=== PATIENT | female | born 1945 | race Caucasian/White ===

== ENCOUNTER 2019-04-02 10:30 | Emergency (ER) | payer MEDICARE, MEDICAID, SELFPAY ==
[2019-04-02] VITALS (116 sets, daily range): BP systolic 104–131; BP diastolic 42–87; PULSE 86–97; RESP 7–28; TEMP 36.6; O2SAT 87–100
--- NOTE | 2019-04-02 10:37 | ED.GENADUL_ITS ---
Discharge Plan Disposition Patient Disposition: HOME Condition: Improving Discharge Details Chief Complaint: SOB Clinical Impression: Acute exacerbation of chronic obstructive pulmonary disease (COPD), URI with cough and congestion Primary Care Provider: Maria Guadalupe Price ED Provider: Cathy Lizarraga Home Meds and New Rx's Prescriptions: New prednisone 20 mg tablet See Rx Instructions .ROUTE .COMPLEX Qty: 12 RF: 0 albuterol sulfate 2.5 mg /3 mL (0.083 %) solution for nebulization 2.5 mg IH QID PRN (Reason: shortness of breath or wheezing) Qty: 75 RF: 0 Continued bupropion HCl 150 MG tablet extended release 12 hr 150 mg PO DAILY RF: 0 ipratropium-albuterol 3 ML solution for nebulization 3 ml Inhalation Q6H PRN PRNRF: 0 albuterol sulfate 3 ML solution for nebulization 3 ml Inhalation Q4H PRN PRNRF: 0 gabapentin 800 MG tablet 800 mg PO TID RF: 0 oxybutynin chloride [Ditropan XL] 5 MG tablet extended release 24hr 5 mg PO DAILY RF: 0 albuterol sulfate 8.5 GM HFA aerosol inhaler 2 puff Inhalation Q4H PRN PRNRF: 0 Symbicort 60 PUFF HFA aerosol inhaler 2 puff Inhalation BID RF: 0 atorvastatin 40 mg Tablet 40 mg PO DAILY RF: 0 metoprolol succinate 50 mg Tablet Extended Release 24 Hr 50 mg PO DAILY RF: 0 alendronate 70 mg Tablet 70 mg PO QWEEK RF: 0 clopidogrel 75 mg Tablet 75 mg PO DAILY RF: 0 amitriptyline 50 mg Tablet 50 mg PO QHS RF: 0 acetaminophen [Acetaminophen Extra Strength] 500 mg Tablet 1,000 mg PO Q8H PRNRF: 0 levothyroxine 25 mcg Tablet 25 mcg PO DAILY RF: 0 pantoprazole 20 mg Tablet,Delayed Release (Dr/Ec) 20 mg PO DAILY RF: 0 nitroglycerin 0.4 mg Tablet, Sublingual 0.4 mg SUBLINGUAL Q5M PRNRF: 0 azelastine 137 mcg (0.1 %) Aerosol,[place] 1 spray INTRANASAL BID RF: 0 lxxtroiw-wksbughya-JQ 3.5-10,000-1 mg/mL-unit/mL-% Drops,Suspension 3 drp OTIC (EAR) BID RF: 0 duloxetine 60 mg Capsule,Delayed Release(Dr/Ec) 60 mg PO DAILY RF: 0 cholecalciferol (vitamin D3) 1,000 unit Tablet,Chewable 5,000 unit PO DAILY RF: 0 naproxen sodium 220 mg Capsule 220 mg PO BID RF: 0 tiotropium bromide 2.5 mcg/actuation Mist 2 puff INHALATION BID RF: 0 (DME) Oxygen-Air Delivery Systems 4 RF: 0 Discharge Instructions Instructions: Upper Respiratory Infection (ED), COPD (Chronic Obstructive Pulmonary Disease) (ED) Additional Instructions: Take the steroids until finished. Use your albuterol inhaler and nebulizer as needed and directed. Call your primary care doctor tomorrow to schedule a follow-up appointment for reevaluation. Return immediately to the emergency department if you develop any worsening or new concerning symptoms. Discharge Data Discharge Physician: Cathy Lizarraga Medical Decision Making 1035 -- 73yo F w/ anxiety, copd chronically on 4 L home O2, depression, diabetes, gerd, sciatica presents with feeling feverish, cough with green sputum, shortness of breath and decreased appetite over the past few days. Afebrile. Respiratory rate 20s. O2 sat 95% on neb treatment. She is speaking in full sentences and appears in no acute respiratory distress. EKG notes a rate of 85, sinus with no acute ST-T wave ischemic changes. Differential diagnosis includes acute COPD exacerbation, acute CHF, ACS, pneumonia, influenza. Will continue duo nebs, IV Solu-Medrol, screening labs and chest x-ray. 1245 --labs and imaging reviewed. White blood cell count 13. Normal hemoglobin. Troponin negative. BNP within normal limits. Chest x-ray negative for acute findings. Influenza negative. O2 sats 96% on 2 L NC. She has normal respiratory rate, heart rate and blood pressure. Patient admits to much improvement after nebs and steroids here. Patient states she feels good to go home. She is not a smoker. We will send home with a prescription for steroids, and albuterol solution for nebulizer machine. She is advised to follow-up with her primary care doctor for reevaluation and to return her anytime if worse. Medical Records Medical records reviewed: Yes I reviewed the patient's medical records. Imaging Data Radiologic Study: Radiologist's impression: XR Chest, 2 Views Exam date and time: 04/02/2019 10:51 AM Clinical history: 73 years old, female; Other: Cough , fever, R/O pnemonia TECHNIQUE: Imaging protocol: XR of the chest Views: 2 views. COMPARISON: SC CHEST 2 VIEWS PA,LAT 10/22/2016 5:28 PM FINDINGS: Lungs: Stable interstitial prominence. No focal consolidation. Pleural space: Unremarkable. No pleural effusion. No pneumothorax. Heart/Mediastinum: Unremarkable. No cardiomegaly. Bones/joints: Unremarkable. IMPRESSION: 1. Stable interstitial prominence. 2. No focal consolidation. Lab Data Lab results reviewed: Yes I reviewed the patient's lab results. Labs: 04/02/19 11:25 Nasopharynx Influenza Types A,B Antigen - Final Laboratory Tests Range/Units 04/02/19 04/02/19 04/02/19 10:49 10:49 10:49 WBC (4.4-10.8) k/cumm 13.32 H RBC (4.00-5.20) m/cumm 4.19 Hgb (12.0-15.5) g/dL 12.3 Hct (36.0-46.0) % 38.1 MCV (80-95) fL 90.9 MCH (27.0-33.0) pg 29.4 MCHC (32.0-36.0) g/dL 32.3 RDW (11.7-14.6) % 13.4 Plt Count (130-400) x1000/uL 199 MPV (8.0-11.0) fL 9.6 Immature Gran % 0.7 Neutrophils % 84.2 Lymphocytes % 5.9 Monocytes % 5.4 Eosinophils % 3.7 Basophils % 0.1 Absolute Neutrophils (1.2-6.7) k/cumm 11.22 H Absolute Lymphocytes (1.2-3.4) k/cumm 0.79 L Absolute Monocytes (0.11-0.7) k/cumm 0.72 H Absolute Eosinophils (0.0-0.7) k/cumm 0.49 Absolute Basophils (0.0-0.2) k/cumm 0.01 Sodium (136-145) mmol/L 140 Potassium (3.5-5.1) mmol/L 3.6 Chloride (98-107) mmol/L 103 Carbon Dioxide (21.0-32.0) mmol/L 27.9 Anion Gap (3-11) mmol/L 9.1 BUN (7-18) mg/dL 33 H Creatinine (0.55-1.02) mg/dL 1.81 H Estimated GFR/1.73 m2 (mL/min/1.73m2) 27.33 Glucose (70-100) mg/dL 140 H Calcium (8.5-10.1) mg/dL 9.3 Magnesium (1.8-2.4) mg/dL 2.0 Total Bilirubin (0.2-1.0) mg/dL 0.8 AST (15-37) U/L 15 ALT (14-59) U/L 19 Alkaline Phosphatase (46-116) U/L 77 Troponin I (0.00-0.06) ng/mL < 0.05 NT-Pro-B Natriuret Pep ( - 299) pg/mL 196 Total Protein (6.4-8.2) g/dL 7.2 Albumin (3.4-5.0) g/dL 3.2 L ECG Data Attestation: I personally reviewed and interpreted this ECG (s) as follows: Interpretation: Rate of 85, sinus, no acute ST elevation or depression. IN 164. QTc 435. QRS 92. HPI General Mode of arrival: ambulatory . Date/Time Provider Initiated Documentation: 04/02/19 10:50 . Limitations to Documentation: no limitations . Information obtained by: patient . HPI Narrative: Patient is a 73-year-old female with a history of COPD chronically on 4 L of home O2, diabetes, anxiety, depression, hypothyroidism who presents the ED with complaint of feeling fev erish, cough with green sputum, and shortness of breath for the past several days. She states she did not think to use her inhaler or nebulizer at home. She also admits to decreased appetite. She denies any chest pain, leg pain or swelling, recent surgery or recent travel. Patient was given 2 neb treatments per EMS and she admits to much improvement. She denies any recent steroids. Related Data Home Medications Medication Instructions Recorded Confirmed Symbicort 2 puff INHALATION BID 02/25/15 04/02/19 albuterol sulfate 2 puff INHALATION Q4H PRN PRN 02/25/15 04/02/19 albuterol sulfate 3 ml INHALATION Q4H PRN PRN 02/25/15 04/02/19 bupropion HCl 150 mg PO DAILY 02/25/15 04/02/19 gabapentin 800 mg PO TID 02/25/15 04/02/19 ipratropium-albuterol 3 ml INHALATION Q6H PRN PRN 02/25/15 04/02/19 oxybutynin chloride [Ditropan XL] 5 mg PO DAILY 02/25/15 04/02/19 Oxygen-Air Delivery Systems 04/02/19 04/02/19 acetaminophen [Acetaminophen Extra 1,000 mg PO Q8H PRN 04/02/19 04/02/19 Strength] albuterol sulfate 2.5 mg IH QID PRN #75 ml 04/02/19 alendronate 70 mg PO QWEEK 04/02/19 04/02/19 amitriptyline 50 mg PO QHS 04/02/19 04/02/19 atorvastatin 40 mg PO DAILY 04/02/19 04/02/19 azelastine 1 spray INTRANASAL BID 04/02/19 04/02/19 cholecalciferol (vitamin D3) 5,000 unit PO DAILY 04/02/19 04/02/19 clopidogrel 75 mg PO DAILY 04/02/19 04/02/19 duloxetine 60 mg PO DAILY 04/02/19 04/02/19 levothyroxine 25 mcg PO DAILY 04/02/19 04/02/19 metoprolol succinate 50 mg PO DAILY 04/02/19 04/02/19 naproxen sodium 220 mg PO BID 04/02/19 04/02/19 udyoyxbs-sbtvmeyxi-FC 3 drp OTIC (EAR) BID 04/02/19 04/02/19 nitroglycerin 0.4 mg SUBLINGUAL Q5M PRN 04/02/19 04/02/19 pantoprazole 20 mg PO DAILY 04/02/19 04/02/19 prednisone See Rx Instructions .ROUTE 04/02/19 .COMPLEX #12 tab tiotropium bromide 2 puff INHALATION BID 04/02/19 04/02/19 Previous Rx's Medication Instructions Recorded albuterol sulfate 2.5 mg IH QID PRN #75 ml 04/02/19 prednisone See Rx Instructions .ROUTE 04/02/19 .COMPLEX #12 tab Allergies Allergy/AdvReac Type Severity Reaction Status Date / Time aspirin AdvReac Intermediate makes her Unverified 04/02/19 10:39 loopy Review of Systems Review of Systems ROS Unobtainable: All systems reviewed & are unremarkable except as noted in HPI and below Constitutional Constitutional: Reports as per HPI, Denies chills and Denies fever(s) Eyes Eyes: Denies blurry vision ENT Ears, Nose, Mouth, and Throat: Denies dizziness, Denies sore throat and Denies throat swelling Cardiovascular Cardiovascular: Denies chest pain and Reports dyspnea Respiratory Respiratory: Reports cough and Reports dyspnea Gastrointestinal Gastrointestinal: Denies abdominal pain, Denies diarrhea and Denies vomiting Genitourinary Genitourinary: Denies hematuria and Denies dysuria Musculoskeletal Musculoskeletal: Denies back pain and Denies numbness Integumentary/Breasts Skin/Breast: Denies lesions and Denies rash Neurologic Neurologic: Denies dizziness, Denies focal weakness and Denies numbness Allergic/Immunologic Allergic/Immunologic: Denies throat swelling [facility] Medical History Anxiety (Chronic) COPD (chronic obstructive pulmonary disease) (Chronic) Depression (Chronic) Diabetes (Chronic) GERD (gastroesophageal reflux disease) (Chronic) Hyperparathyroidism (Acute) Hypothyroidism (Chronic) Surgical History History of appendectomy (Chronic) History of back surgery (Acute) History of knee surgery (Acute) Social History Smoking/Tobacco Use Status: Former Tobacco Use Alcohol Intake: current Alcohol Intake frequency: holidays/special occasions only Drug use: Never Do you feel safe at home: Yes Do you feel safe in your relationship?: Yes Exam Const General: cooperative and healthy appearing Orientation: alert and awake HENMT Head: normal to inspection Ears: hearing grossly normal bilaterally, external ears normal and TM's normal bilaterally General nose exam: external nose normal Face and sinus: normal facial exam Mouth: oral mucosae normal Teeth and gingiva: dentition normal Throat: posterior oropharynx normal Eyes General: appearance normal, both eyes and all related structures Eyelids: eyelids normal EOM: EOM intact bilaterally Neck Neck: normal visual inspection Lymphatic: no lymphadenopathy noted Chest Chest: normal inspection of the chest Resp Effort & Inspection: normal respiratory effort and able to speak in complete sentences Auscultation: clear to auscultation bilaterally Cardio Rate: regular rate Rhythm: regular rhythm GI Inspection: normal to inspection Palpation: soft, not firm, no guarding, no hepatosplenomegaly, no masses and nontender Auscultation: normal bowel sounds Back/Spine/Pelvis Back: no CVA tenderness Skin General skin exam: no rashes or lesions noted Neuro General: alert and awake Cognition: normal cognition Speech: speech normal Gait: normal gait Motor: muscle tone normal throughout Sensory Exam: no sensory deficits noted Extrem General: normal to inspection, full ROM, normal capillary refill and no edema Psych Appearance: grossly normal Mental Status: mental status grossly normal Speech and Movement: speech and movement normal Affect: normal affect Thought Process: normal
[2019-04-02 10:58] LABS: Abs Immature Grans 0.09 k/cumm (0.0-0.09); Absolute Basophil Count 0.01 k/cumm (0.0-0.2); Absolute Eosinophil Count 0.49 k/cumm (0.0-0.7); Absolute Monocyte Count 0.72 k/cumm (0.11-0.7); Basophils % 0.1; Eosinophils % 3.7; HCT 38.1 % (36.0-46.0); HGB 12.3 g/dL (12.0-15.5); Immature Grans % 0.7; Lymphocytes % 5.9; Mean Corp. HGB Concentration 32.3 g/dL (32.0-36.0); Mean Corpuscular Hemoglobin 29.4 pg (27.0-33.0); Mean Corpuscular Volume 90.9 fL (80-95); Mean Platelet Volume 9.6 fL (8.0-11.0); Monocytes % 5.4; Neutrophils % 84.2; Platelet Count 199 x1000/uL (130-400); RBC 4.19 m/cumm (4.00-5.20); RBC Distribution Width 13.4 % (11.7-14.6); White Blood Cell Count 13.32 k/cumm (4.4-10.8)
[2019-04-02 11:02] LABS: Absolute Lymphocyte Count 0.79 k/cumm (1.2-3.4); Absolute Neutrophil Count 11.22 k/cumm (1.2-6.7)
--- NOTE | 2019-04-02 11:08 | DI.RAD_ITS ---
EXAM: XR CHEST 2V PA LATERAL INDICATION: cough, fever, r/o pneumonia. COMPARISON: CHEST 2 VIEWS PA,LAT from 10/22/2016 TECHNIQUE: 2D digital imaging was performed. FINDINGS: The heart is not enlarged. There are changes of COPD and pulmonary scarring. No acute consolidation seen. No pleural effusion seen. Conclusion no evidence of acute process. No change from prior exa mination IMPRESSION:
[2019-04-02 11:15] LABS: ALT 19 U/L (14-59); AST 15 U/L (15-37); Albumin 3.2 g/dL (3.4-5.0); Alkaline Phosphatase 77 U/L (46-116); Anion Gap 9.1 mmol/L (3-11); BUN 33 mg/dL (7-18); Bilirubin, Total 0.8 mg/dL (0.2-1.0); CO2 27.9 mmol/L (21.0-32.0); CREATININE 1.81 mg/dL (0.55-1.02); Calcium 9.3 mg/dL (8.5-10.1); Chloride 103 mmol/L (98-107); Estimated GFR 27.33 (mL/min/1.73m2); Glucose 140 mg/dL (70-100); Potassium 3.6 mmol/L (3.5-5.1); Sodium 140 mmol/L (136-145); Total Protein 7.2 g/dL (6.4-8.2)
[2019-04-02 11:16] LABS: Troponin I < 0.05 ng/mL (0.00-0.06)
[2019-04-02 11:21] LABS: NT-proBNP 196 pg/mL
[2019-04-02] MEDS: methylPREDNISolone SUCC 125 MG VIAL IVP (11:21)
[2019-04-02] MEDS: Albuterol 2.5 MG/3 ML INH SOLN VIAL 7.5 MG UPD (11:22)
--- NOTE | 2019-04-02 11:38 | DI.VRAD_ITS ---
PROCEDURE INFORMATION: Exam: XR Chest, 2 Views Exam date and time: 04/02/2019 10:51 AM Clinical history: 73 years old, female; Other: Cough , fever, R/O pnemonia TECHNIQUE: Imaging protocol: XR of the chest Views: 2 views. COMPARISON: SC CHEST 2 VIEWS PA,LAT 10/22/2016 5:28 PM FINDINGS: Lungs: Stable interstitial prominence. No focal consolidation. Pleural space: Unremarkable. No pleural effusion. No pneumothorax. Heart/Mediastinum: Unremarkable. No cardiomegaly. Bones/joints: Unremarkable. IMPRESSION: 1. Stable interstitial prominence. 2. No focal consolidation. Dictated and Authenticated by: Rissa Adair MD. Ordering:SAMMY Morgan MD
[2019-04-02] MEDS: Normal Saline 250 ML IV (12:46)
== END 2019-04-02 13:48 | disposition home or self-care (01) ==
PROVIDERS: Emergency Provider Physician Assistant; PCP Internal Medicine Adolescent Medicine
DX: J44.1 Chronic obstructive pulmonary disease with (acute) exacerbation (principal); J06.9 Acute upper respiratory infection, unspecified; Z99.81 Dependence on supplemental oxygen; E11.9 Type 2 diabetes mellitus without complications
CPT/HCPCS: 36415; 80053; 87449; 93005; 94640; 96361; 96374; 99285; 71046; 83735; 83880; 84484; 85025; 93010; J2930; J7613

== ENCOUNTER 2020-05-29 01:01 | Outpatient (CLI) | payer MEDICARE, MEDICAID, SELFPAY ==
--- NOTE | 2020-05-29 14:50 | DI.CT_ITS ---
EXAM: CT LUMBAR SPINE WO CLINICAL HISTORY: LT LUMBAR RADICULOPATHY,PRIOR HNP, SEVERE OSTEOPOROSIS,M54.16. TECHNIQUE: Imaging Protocol: Axial computed tomography images with coronal and sagittal reformatted images were created and reviewed COMPARISON: CT ABD PELVIS WO CONTRAST from 10/22/2016 FINDINGS: Bones: The last intervertebral disc space is designated the L5/S1 level for the numbering purpose of this examination. There is moderate disc space narrowing and vacuum discs seen at L1-L2. There is m arked disc space narrowing and a vacuum disc at L5-S1. Alignment is satisfactory. No fracture is seen . There are endplate osteophytes at all levels of the lumbar spine. There are degenerative changes o f the facets at multiple levels of the lumbar spine but most marked at L4-5 and L5-S1. Discal calcif ication is seen posteriorly at the L1-L2, L3-L4 and L5-S1 levels. T12-L1: No disc herniations or bulges are present. No central spinal canal stenosis. No neural for aminal stenosis. L1-2: Mild diffuse disc bulge. Mild narrowing of the central spinal canal. No neural foraminal rodrigo nosis. L2-3: There is a mild diffuse disc bulge and hypertrophy of the ligamentum flavum. There is mild ce ntral spinal canal stenosis. No neural foraminal stenosis. L3-4: There is a mild diffuse disc bulge and hypertrophy of the ligamentum flavum. This results in [id number]-mi-xlnrqbfu central spinal canal stenosis. No neural foraminal stenosis. L4-5: There is a diffuse disc bulge and hypertrophy of the ligamentum flavum. This results in moder ate central spinal canal stenosis. No neural foraminal stenosis. L5-S1: No focal disc herniation. No significant central spinal canal stenosis. Mild bilateral neur al foraminal stenosis. Soft Tissues: The visualized SI joints and sacrum are will maintained. The paraspinal soft tissues a re unremarkable. There is atherosclerosis of the abdominal aorta. Emphysematous changes are seen in the lung bases. Parenchymal scarring is seen in the right lower lobe. IMPRESSION: Multilevel degenerative changes in the lumbar spine resulting in central spinal canal and neural fora chelsey stenosis as described above. RADIATION DOSE DELIVERED: 618.4mGy.cm Total DLP 618.4mGy.cm Total DLP DATA REPOSITORY: All CT scans at this facility are submitted to the National Radiology Data Registry (NRDR) Dose Index Registry (DIR) with the [employer] ([employer]). RADIATION OPTIMIZATION: All CT scans at this facility use at least one of these dose optimization te chniques: automated exposure control; mA and/or kV adjustment per patient size (includes targeted exa ms where dose is matched to clinical indication); or iterative reconstruction.
== END 2020-05-29 01:21 ==
PROVIDERS: PCP Internal Medicine Adolescent Medicine; Visit Provider Internal Medicine Adolescent Medicine
DX: M47.816 Spondylosis without myelopathy or radiculopathy, lumbar region (principal); M48.061 Spinal stenosis, lumbar region without neurogenic claudication
CPT/HCPCS: 72131

== ENCOUNTER 2021-05-26 15:17 | Observation (INO) | payer MEDICARE, MEDICAID, SELFPAY ==
[2021-05-26] VITALS (30 sets, daily range): BP systolic 106–161; BP diastolic 60–83; PULSE 64–77; RESP 11–21; TEMP 36.1–36.7; O2SAT 89–100
--- NOTE | 2021-05-26 15:00 | RT.EKG_ITS ---
APPROVED REPORT Exam: Resting ECG Reason for Exam: chest pain Patient Location: E HR:65 bpm ECG Measurements Heart Rate 65 AXIS MO 215 P 81 QRSd 78 QRS 35 QT 391 T 57 QTc 407 Conclusion Sinus rhythm...normal P axis, V-rate 60- 99 Borderline prolonged MO interval...MO >212, V-rate 50- 90
--- NOTE | 2021-05-26 15:30 | DI.RAD_ITS ---
Exam(s) XR CHEST 2V PA LATERAL EXAM: XR CHEST 2V PA LATERAL CLINICAL HISTORY: L anterior CP TECHNIQUE: 2D digital imaging was performed. COMPARISON: CR,XR XR CHEST 2V PA LATERAL from 04/02/2019 FINDINGS: MEDIASTINUM: Normal. HEART: Normal. PULMONARY VASCULATURE: Normal. LUNGS: Emphysematous and fibrotic changes. Right upper lobe scarring. No focal consolidation. PLEURAL SPACE: No pleural effusion or pneumothorax. BONE:Unremarkable for age. IMPRESSION: No acute abnormality. DATA REPOSITORY: RADIATION DOSE DELIVERED:
--- NOTE | 2021-05-26 15:34 | ED.GENADUL_ITS ---
Discharge Plan Disposition Patient Disposition: [facility] INPATIENT Condition: Good Discharge Details Chief Complaint: Chest Pain Admit Date/Time: 05/26/21 18:38 Admit Provider: Frank Webber Attending Provider: Frank Webber Primary Care Provider: Maria Guadalupe Price ED Provider: Ervin Melgoza Discharge Instructions Activity:: Activity as Tolerated Equipment/Supplies:: No Equipment Needed Diet:: Low Sodium Discharge Orders Discharge Orders: Discharge Order (Routine); Ordered 05/27/21 Ordered By: Pepper Richey Discharge Data Discharge Date/Time-TO BE ENTERED AT DEPARTURE: 05/26/21 19:45 Medical Decision Making 75-year-old female presents from home complaining of left anterior chest pain that began abruptly while seated at home at 2 PM. She describes it as a strong pressure received, 8 out of 10. She previously has seen cardiology at [facility], had stress test which she reports was unremarkable, and was given a prescription for nitroglycerin. She took nitroglycerin x3 home without resolution of the pain. She has a history of oxygen dependent COPD but feels no shortness of breath or wheezing. Patient arrives alert and interactive, in no significant distress. She is well- appearing. Differential diagnosis includes acute coronary syndrome, pulmonary embolism, GERD. Patient IV access established, placed on a threat monitoring analyst, referred for laboratory testing and chest x-ray. Patient's D-dimer is elevated at 941. Her renal function is chronic for today BUN is 22, creatinine 1.6, GFR 31. Troponin negative. Given the elevated D-dimer and poor renal function, I do not feel that CTA with contrast load is appropriate for the patient. I have discussed with radiology and the patient may have a VQ scan tomorrow which I will order tonight. Case discussed with Dr. Webber who will admit for further work-up HPI General Mode of arrival: EMS . Date/Time Provider Initiated Documentation: 05/26/21 15:21 . Limitations to Documentation: no limitations . Information obtained by: patient . History of Present Illness 75 year old F presents to the emergency department with the chief complaint of Left anterior chest pain at 2 PM, now improved, described as moderate, Quality is described as dull, and is localized to the chest and left. Patient reports no radiation. Patient started experiencing this minute(s) and it has been now resolved. No relieving factors improve symptom(s), No exacerbating factors reported . Patient notes denies diaphoresis, headaches, loss of appetite, nausea/vomiting, shortness of breath and syncope. Patient did receive the following treatments prior to arrival, other (Nitroglycerin x3) Related Data Home Medications Medication Instructions Recorded Confirmed albuterol sulfate 2 puff INHALATION Q4H PRN PRN 02/25/15 05/26/21 albuterol sulfate 3 ml INHALATION Q4H PRN PRN 02/25/15 05/26/21 budesonide-formoterol [Symbicort] 2 puff INHALATION BID 02/25/15 05/26/21 bupropion HCl 150 mg PO DAILY 02/25/15 05/26/21 gabapentin 800 mg PO TID 02/25/15 05/26/21 ipratropium-albuterol 3 ml INHALATION Q6H PRN PRN 02/25/15 05/26/21 Oxygen-Air Delivery Systems 04/02/19 04/02/19 acetaminophen [Acetaminophen Extra 1,000 mg PO Q8H PRN 04/02/19 05/26/21 Strength] alendronate 70 mg PO QWEEK 04/02/19 05/26/21 amitriptyline 50 mg PO QHS 04/02/19 05/26/21 atorvastatin 40 mg PO DAILY 04/02/19 05/26/21 cholecalciferol (vitamin D3) 5,000 unit PO DAILY 04/02/19 05/26/21 clopidogrel 75 mg PO DAILY 04/02/19 05/26/21 duloxetine 60 mg PO DAILY 04/02/19 04/02/19 levothyroxine 25 mcg PO DAILY 04/02/19 05/26/21 metoprolol succinate 50 mg PO DAILY 04/02/19 05/26/21 naproxen sodium 220 mg PO BID 04/02/19 05/26/21 nitroglycerin 0.4 mg SUBLINGUAL Q5M PRN 04/02/19 05/26/21 pantoprazole 20 mg PO DAILY 04/02/19 05/26/21 tiotropium bromide 2 puff INHALATION BID 04/02/19 05/26/21 fexofenadine 180 mg PO PRN PRN 05/26/21 05/26/21 lidocaine 1 patch TOPICAL PRN PRN 05/26/21 05/26/21 mirabegron 25 mg PO QHS 05/26/21 05/26/21 mirtazapine 15 mg PO QHS 05/26/21 05/26/21 Allergies Allergy/AdvReac Type Severity Reaction Status Date / Time aspirin AdvReac Intermediate makes her Unverified 05/26/21 15:24 loopy General Stated Complaint: Chest Pain GIANA: 3 Review of Systems Narrative: No recent chest pains or shortness of breath. Stop smoking 10 years ago. Normal bowel movements. 8 systems reviewed and otherwise negative [facility] Active Problem List COPD (chronic obstructive pulmonary disease) (Chronic) Medical History Anxiety Depression Diabetes GERD (gastroesophageal reflux disease) Hyperparathyroidism Hypothyroidism Surgical History History of appendectomy History of back surgery History of knee surgery Social History Smoking/Tobacco Use Status: Former Tobacco Use Smoking risk assessment performed?: Yes Alcohol Intake: current Alcohol Intake frequency: holidays/special occasions only Alcohol type: wine Drug use: Never Substance use type: does not use Do you feel safe at home: Yes Do you feel safe in your relationship?: Yes Exam Narrative Exam Narrative: GEN: awake, alert, oriented 3. Pleasant, well groomed, interactive. HEAD: Normocephalic, atraumatic ENT: Mucous membranes moist, oropharynx unremarkable, External ear exam unremarkable EYES: PERRL, EOMI NECK: Full ROM, no ODESSA, no menigismus CHEST/RESP: Nontender, clear to auscultation bilateral, no wheeze/rhonchi/rales CARDIOVASCULAR: RRR, no murmur, rub emelia. 2+ Rad pulse bilateral ABDOMEN: Soft, nontender, no mass. +Bowel sounds EXT: Full ROM, no edema, no rash Neuro: Grossly normal neurologic exam, conversant, interactive. Psych: Speech fluent, thoughts congruent, affect normal Course Vital Signs Vital signs: Vital Signs Temperature 36.1 C L 05/26/21 15:20 Pulse 68 05/26/21 15:20 Respiratory Rate 18 05/26/21 15:20 Pulse Oximetry 100 05/26/21 15:20 Temperature 36.1 C L 05/26/21 15:20 Temperature Source Temporal Artery Scan 05/26/21 15:20 Pulse 68 05/26/21 15:20 Respiratory Rate 18 05/26/21 15:20 Blood Pressure Position Sitting 05/26/21 15:20 Pulse Oximetry 100 05/26/21 15:20 Oxygen Delivery Method Room Air 05/26/21 15:20 Oxygen Flow Rate 0 05/26/21 15:20
[2021-05-26 15:50] LABS: Abs Immature Grans 0.03 10^3/uL (0.0-0.06); Absolute Basophil Count 0.06 10^3/uL (0.0-0.2); Absolute Eosinophil Count 0.27 10^3/uL (0.0-0.7); Absolute Lymphocyte Count 1.61 10^3/uL (1.2-3.4); Absolute Neutrophil Count 6.82 10^3/uL (1.2-6.7); Basophils % 0.6; Eosinophils % 2.9; HCT 36.1 % (36.0-46.0); HGB 10.7 g/dL (11.2-15.7); Immature Grans % 0.3; Lymphocytes % 17.1; MCH 27.2 pg (27.0-33.0); MCHC 29.6 % (32.0-36.0); MCV 91.9 fL (80-95); MPV 9.6 fL (8.0-11.0); Monocytes % 6.4; Neutrophils % 72.7; Nucleated RBC 0 %; Platelet Count 198 10^3/uL (130-400); RBC 3.93 10^6/uL (3.93-5.22); RDW 13.1 % (11.7-14.6); RDW-SD 44.5 fL; WBC 9.39 10^3/uL (4.4-10.8)
[2021-05-26 16:19] LABS: ALT 25 U/L (14-59); AST 16 U/L (15-37); Albumin 3.4 g/dL (3.4-5.0); Alkaline Phosphatase 100 U/L (46-116); Anion Gap 5.5 mmol/L (3-11); BUN 22 mg/dL (7-18); Bilirubin, Total 0.4 mg/dL (0.2-1.0); CO2 34.5 mmol/L (21.0-32.0); CREATININE 1.6 mg/dL (0.55-1.02); Calcium 9.1 mg/dL (8.5-10.1); Chloride 105 mmol/L (98-107); Estimated GFR 31.34 (mL/min/1.73m2); Glucose 111 mg/dL (74-106); Potassium 4.2 mmol/L (3.5-5.1); Sodium 145 mmol/L (136-145); Total Protein 6.8 g/dL (6.4-8.2)
[2021-05-26 16:21] LABS: Troponin I < 0.05 ng/mL (<0.06)
[2021-05-26 16:31] LABS: D-Dimer 941 ng/mlFEU (<500)
--- NOTE | 2021-05-26 17:20 | DI.VRAD_ITS ---
PROCEDURE INFORMATION: Exam: XR Chest Exam date and time: 05/26/2021 3:34 PM Age: 75 years old Clinical indication: Other: L anterior cp TECHNIQUE: Imaging protocol: XR of the chest. Views: 2 views. COMPARISON: CR XR CHEST 2V PA LATERAL 04/02/2019 11:02 AM FINDINGS: Lungs: Some scattered chronic pulmonary opacities are again seen. No focal consolidation. No new opacities. Pleural spaces: Unremarkable. No pleural effusion. No pneumothorax. Heart/Mediastinum: Unremarkable. No cardiomegaly. Bones/joints: Unremarkable. IMPRESSION: No acute disease Dictated and Authenticated by: Nikhil Ramon MD. Ordering:DALLAS Mueller MD
--- NOTE | 2021-05-26 18:24 | W.PM.HP.N ---
Date of service: 05/26/21 Time of Service: 18:24 Assessment and Plan Assessment and plan (1) Chest pain: Status: Acute Assessment and plan: Chest pain, etiology unclear at present. Response to NTG c/w coronary insufficiency though not diagnostic. On the other hand the sharp quality of the pain along with modestly elevated d-Dimer raises question of PE. I think a reasonable course at present is to trend the troponins, and in meantime give empiric dose Lovenox until we can obtain either V/Q, LE U/S or both (would agree with holding off CTA given renal function). History of Present Illness History of Present Illness Chief Complaint: CP Narrative: 75 female with h/o CP, had some sort of w/u at [facility], which apparently included a stress test, and at some point she was prescribed NTG. I have no records and she is quite vague. At any rate she had an episode of CP today -- started with a series of little pains, then a more severe pain. Pain is described as sharp, left sided, non-radiating, with no associated SOB, nausea or diaphoresis. Took NTG x 3 with reslotion of pain. Here in ER, has had no further pain. W/u of mariely for normal EKG, negative troponin, negative CXR and d-Dimer 976 (slightly elevated age adjusted). Due to marginal renal function (GFR 31) CTA was not performed. I was aksed to evaluate for admission. Patient states she has had similar although brief such episodes of pain in the past, though she seems to deny that whatever stress testing was done was in regard to this, but rather to baseline SOB (she is a former smoker). She states that she has taken NYG in past with similar resolution of pain, though these episodes were not the same as today's. Review of Systems All systems reviewed & are unremarkable except as noted in HPI and below PFSH Active Problem List (Updated 05/26/21 @ 18:33 by Frank Webber MD) Chest pain (Acute) Medical History (Updated 05/26/21 @ 18:33 by Frank Webber MD) Anxiety COPD (chronic obstructive pulmonary disease) Depression Diabetes GERD (gastroesophageal reflux disease) Hyperparathyroidism Hypothyroidism Surgical History History of appendectomy History of back surgery History of knee surgery Social History Smoking/Tobacco Use Status: Former Tobacco Use Smoking risk assessment performed?: Yes Alcohol Intake: current Alcohol Intake frequency: holidays/special occasions only Alcohol type: wine Drug use: Never Substance use type: does not use Do you feel safe at home: Yes Do you feel safe in your relationship?: Yes Meds Allergies and Home Medications Allergies Allergy/AdvReac Type Severity Reaction Status Date / Time aspirin AdvReac Intermediate makes her Unverified 05/26/21 15:24 loopy Home Medications Medication Instructions Recorded Confirmed Type albuterol sulfate 2 puff INHALATION Q4H PRN PRN 02/25/15 05/26/21 History albuterol sulfate 3 ml INHALATION Q4H PRN PRN 02/25/15 05/26/21 History budesonide-formoterol [Symbicort] 2 puff INHALATION BID 02/25/15 05/26/21 History bupropion HCl 150 mg PO DAILY 02/25/15 05/26/21 History gabapentin 800 mg PO TID 02/25/15 05/26/21 History ipratropium-albuterol 3 ml INHALATION Q6H PRN PRN 02/25/15 05/26/21 History oxybutynin chloride [Ditropan XL] 5 mg PO DAILY 02/25/15 04/02/19 History Oxygen-Air Delivery Systems 04/02/19 04/02/19 History acetaminophen [Acetaminophen Extra 1,000 mg PO Q8H PRN 04/02/19 05/26/21 History Strength] albuterol sulfate 2.5 mg IH QID PRN #75 ml 04/02/19 Rx alendronate 70 mg PO QWEEK 04/02/19 05/26/21 History amitriptyline 50 mg PO QHS 04/02/19 05/26/21 History atorvastatin 40 mg PO DAILY 04/02/19 05/26/21 History azelastine 1 spray INTRANASAL BID 04/02/19 04/02/19 History cholecalciferol (vitamin D3) 5,000 unit PO DAILY 04/02/19 05/26/21 History clopidogrel 75 mg PO DAILY 04/02/19 05/26/21 History duloxetine 60 mg PO DAILY 04/02/19 04/02/19 History levothyroxine 25 mcg PO DAILY 04/02/19 05/26/21 History metoprolol succinate 50 mg PO DAILY 04/02/19 05/26/21 History naproxen sodium 220 mg PO BID 04/02/19 05/26/21 History ywqtwjai-amwxwvvaq-CF 3 drp OTIC (EAR) BID 04/02/19 04/02/19 History nitrofurantoin macrocrystal 50 mg PO BID 04/02/19 04/02/19 History nitroglycerin 0.4 mg SUBLINGUAL Q5M PRN 04/02/19 05/26/21 History pantoprazole 20 mg PO DAILY 04/02/19 05/26/21 History prednisone See Rx Instructions .ROUTE 04/02/19 Rx .COMPLEX #12 tab tiotropium bromide 2 puff INHALATION BID 04/02/19 05/26/21 History fexofenadine 180 mg PO PRN PRN 05/26/21 05/26/21 History lidocaine 1 patch TOPICAL PRN PRN 05/26/21 05/26/21 History mirabegron 25 mg PO QHS 05/26/21 05/26/21 History mirtazapine 15 mg PO QHS 05/26/21 05/26/21 History Exam Narrative Exam Narrative: 145/66, 72, 36.1, 16, 92% RA. HEENT atraumatic; neck supple, JVP approx 6 cm; lungs diminished; heart distant, RRR; abdomen soft and NT' extremities w/o edema, pulses 2+/=, negative Jerman's bilateral, no calf swelling or tenderness; neuro Ox3, lucid, moves all 4s Results Labs Result diagrams: 05/26/21 14:55 05/26/21 14:55 Labs: Laboratory Results - last 24 hr 05/26/21 05/26/21 05/26/21 14:55 14:55 15:40 WBC 9.39 RBC 3.93 Hgb 10.7 L Hct 36.1 MCV 91.9 MCH 27.2 MCHC 29.6 L RDW 13.1 Plt Count 198 MPV 9.6 Immature Gran % 0.3 Neutrophils % 72.7 Lymphocytes % 17.1 Monocytes % 6.4 Eosinophils % 2.9 Basophils % 0.6 Nucleated RBC % 0 Absolute Neutrophils 6.82 H Absolute Lymphocytes 1.61 Absolute Monocytes 0.60 Absolute Eosinophils 0.27 Absolute Basophils 0.06 D-Dimer 941 H Sodium 145 Potassium 4.2 Chloride 105 Carbon Dioxide 34.5 H Anion Gap 5.5 BUN 22 H Creatinine 1.6 H Estimated GFR/1.73 m2 31.34 Glucose 111 H Calcium 9.1 Magnesium 2.0 Total Bilirubin 0.4 AST 16 ALT 25 Alkaline Phosphatase 100 Troponin I < 0.05 Total Protein 6.8 Albumin 3.4 Last Vital Signs Temp 36.1 C L 05/26/21 15:20 Pulse 72 05/26/21 17:46 Resp 16 05/26/21 17:46 BP 145/66 H 05/26/21 17:46 Pulse Ox 92 05/26/21 17:46
[2021-05-26 18:45] LABS: Source Nasal/Nares
--- NOTE | 2021-05-26 18:45 | RT.EKG_ITS ---
APPROVED REPORT Exam: Resting ECG Reason for Exam: Patient Location: E HR:67 bpm ECG Measurements Heart Rate 67 AXIS WI 214 P 83 QRSd 80 QRS 38 QT 399 T 59 QTc 423 Conclusion Sinus rhythm. Borderline prolonged WI interval.
[2021-05-26 19:41] LABS: COVID-19 PCR Negative (Negative)
[2021-05-26 20:05] LABS: Troponin I < 0.05 ng/mL (<0.06)
[2021-05-26] MEDS: Mirabegron 25 MG TABCR PO (21:41)
[2021-05-26] MEDS: Enoxaparin 60 MG/0.6 ML SYR SC (21:41)
[2021-05-26] MEDS: Amitriptyline 50 MG TAB PO (21:41)
[2021-05-26] MEDS: Mirtazapine 15 MG TAB PO (21:41)
[2021-05-26 22:39] LABS: Troponin I < 0.05 ng/mL (<0.06)
--- NOTE | 2021-05-27 | DI.US_ITS ---
Exam(s) US EXTREMITY VENOUS BI EXAM: US EXTREMITY VENOUS BI CLINICAL HISTORY: dyspnea, CP, elevated d-dimer; r/o DVT. TECHNIQUE: Bilateral lower extremity venous ultrasound performed using grayscale, color-flow, and sp ectral Doppler analysis. COMPARISON: No exams were available for comparison FINDINGS: The bilateral common femoral, femoral and popliteal veins demonstrate normal compressibility, augment ation, and color Doppler. The posterior tibial veins are patent. IMPRESSION: Right: Negative for DVT Left: Negative for DVT DATA REPOSITORY:
[2021-05-27 07:08] VITALS: PULSE 73
[2021-05-27 09:08] VITALS: BP 129/69; PULSE 65; RESP 18; TEMP 36.7; O2SAT 96
[2021-05-27] MEDS: Atorvastatin 40 MG TAB PO (09:19)
[2021-05-27] MEDS: Clopidogrel 75 MG TAB PO (09:19)
[2021-05-27] MEDS: Metoprolol CR 50 MG TABCR PO (09:19)
[2021-05-27] MEDS: buPROPion-XL 150 MG TABCR PO (09:19)
[2021-05-27] MEDS: Pantoprazole 20 MG TABCR PO (09:19)
[2021-05-27] MEDS: Levothyroxine 25 MCG TAB PO (09:19)
[2021-05-27] MEDS: Gabapentin 800 MG TAB PO ×2 (09:19→15:49)
[2021-05-27] MEDS: Enoxaparin 60 MG/0.6 ML SYR SC (09:20)
--- NOTE | 2021-05-27 09:44 | PDOC.CMIN ---
- If Service Date Differs Date of service: 05/27/21 Time of Service: 09:44 Care Management Initial Assess REASON FOR HOSPITALIZATION:: Chest Pain PAST MEDICAL HISTORY/PAST SURGICAL HISTORY:: Anxiety. COPD (chronic obstructive pulmonary disease). Depression. Diabetes. GERD (gastroesophageal reflux disease). History of appendectomy. History of back surgery. History of knee surgery. Hyperparathyroidism. Hypothyroidism PREVIOUS FUNCTIONAL STATUS/SOCIAL/FAMILY SUPPORTS:: Debra reports she resides in [place], [place] alone, but shares that her grandson is currently living with her and helps with some ADLs such as putting plastic on the windows. Debra reports having two sons, one, Ervin resides in [place] and the other resides in [place]. She reports being independent at baseline in the community, she has home O2 through [employer]. Debra shares that she is able to drive but does not have a vehicle at this time. CURRENT FUNCTIONAL STATUS:: Debra was sitting up in her chair, she was pleasant in interaction and reported anticipating she would return home this evening as she had completed all tests/imaging planned for today. Has patient been provided with info about the portal/API?: No Did the patient sign up for the portal?: No CODE STATUS:: Full Code INSURANCE COVERAGE / FINANCIAL ISSUES:: MCR. [employer] CURRENT HOME/COMMUNITY SERVICES/EQUIPMENT:: None, currently. PRIMARY CARE PHYSICIAN:: Maria Guadalupe Price POTENTIAL DISCHARGE NEEDS:: Follow up appointments. PATIENT/FAMILY EDUCATION NEEDS:: Review of discharge instructions, discuss Ask Me Three. ANTICIPATED BARRIERS TO DISCHARGE:: None identified. TRANSPORTATION:: Via private vehicle. PLAN:: Debra will return home when ready per MD. She will follow up with her PCP and plan of care as prescribed. She will transport via private vehicle with her grandson.
[2021-05-27] MEDS: Budesonide/Formoterol 160/4.5 6 GM 60 PUFF INH IH (12:20)
--- NOTE | 2021-05-27 14:31 | DI.US_ITS ---
APPROVED REPORT EXAM: Comprehensive 2D, Doppler, and color-flow Echocardiogram Patient Location: In-Patient Room/Bed: [address] Setter: Maura Lares RDCS (AE) Indications: PE, SOB, Chest pain Other Information Study Quality: Fair. Technically limited study due to body habitus. Conclusion Normal left ventricular wall thickness and chamber size. Estimated ejection fraction is 55%. Wall m otion is normal Normal right ventricular size and systolic function The atria are normal in size Aortic valve is sclerotic with mild regurgitation Mild mitral annular calcification. Mild mitral regurgitation Normal tricuspid valve with trace regurgitation. Estimated right ventricular systolic pressure is 27 mmHg The pulmonic valve was not well visualized Wall motion Left Ventricle The left ventricle is normal size. The left ventricular systolic function is normal. The left ventric ular ejection fraction is within the normal range. There is normal left ventricular wall thickness. T here is normal LV segmental wall motion. There is no ventricular septal defect visualized. LVEF is 55 %. Right Ventricle The right ventricle is normal size. The right ventricular systolic function is normal. The RVSP is 27 .0_ mmHg. Atria The left atrium size is normal. The right atrium size is normal. The interatrial septum is intact wit h no evidence for an atrial septal defect. Aortic Valve The Aortic valve is sclerotic. Number of aortic valve leaflets could not be assessed. There is no aor tic valvular stenosis. Mild aortic regurgitation. Mitral Valve Mild mitral annular calcification. No evidence of mitral valve stenosis. Mild mitral regurgitation. Tricuspid Valve The tricuspid valve is normal in structure. There is no tricuspid valve stenosis. Trace tricuspid reg urgitation. Pulmonic Valve Pulmonic valve is not well visualized. There is no pulmonic valvular stenosis. There is no pulmonic v alvular regurgitation. Great Vessels The aortic root is normal in size. Ascending aorta is not well visualized. Descending aorta is normal in caliber. IVC is normal in size and collapses >50% with inspiration. Pericardium There is no pericardial effusion. 2D Dimensions IVSD d PLAX 0.92 cm F: 0.6-1.0 LV Vol A2C d MOD 92.3 mL LVPW d PLAX 0.93 cm F: 0.6 - 1.0 LV Vol A4C d MOD 79.1 mL LVID d PLAX 4.38 cm F: 3.8 - 5.2 LA vol/ BSA A2C s A-L 23.2 mL/m2 LVDs 3.15 cm F: 2.2 - 3.5 LA vol/ BSA A4C s A-L 16.2 mL/m2 Ao Root d 2.74 cm F: 2.7 - 3.3 LA Vol/ BSA Biplane s A-L 19.7 mL/m2 RA Area A4C 10.77 cm2 LA Area A4C s MOD 11.50 cm2 RA Vol/ BSA A4C s A-L 14.3 mL/m2 LA Area A2C s MOD 14.00 cm2 LV EF Teichholz 53.4 % LV EF A4C MOD 55.0 % LVEF (Christy's) 55.40 % F: 54 - 74 LV EF A2C MOD 56.2 % LV Volume 69.15 mL F: 46 - 106 LV EF Biplane MOD 55.4 % LV Volume Index 42.42 mL/m2 F: 29 - 61 SV 47.51 mL LV Vol Biplane MOD 85.8 mL SV Index 29.10 mL/m2 FS 27.30 % M-Mode TAPSE 3.00 cm (M/F) >1.7 LV Diastology MV E' medial 0.083 (>0.07 m/s) E/A Ratio 1.1 LV E/e MED 11.05 (<14) MV E Vmax 0.92 (0.4-1.3 m/s) MV E' lateral 0.094 (>0.1 m/s) MV A Vmax 0.85 (0.4-1.3 m/s) LV E/e LAT 9.75 (<14) MV E/A Ratio 1.02 MV E/E' medial 11.06 MV E/E' lateral 9.79 Aortic Valve LVOT Area 2.78 cm2 AoV Area Vmax 1.77 cm2 LVOT Vmax 0.75 m/s AoV Area/ BSA (Vmax) 1.08 cm2/m2 LVOT Mean Buddy. 0.50 m/s MARY BETH Mean Buddy. 1.74 cm2 LVOT Peak Grad 2.3 mmHg MARY BETH Mean Buddy. Index 1.06 cm2/m2 LVOT Mean Grad 1.1 mmHg AR DT 2083 msec LVOT VTI 0.181 m AR PHT 604 msec LVOT Diam s 1.85 cm AoV Vmax 1.18 m/s Velocity Ratio 0.63 AoV Mean Buddy. 0.79 m/s AoV Peak Grad 5.6 mmHg LVOT SV 50.30 mL AoV Mean Grad 2.9 mmHg AoV VTI 0.270 m AoV Area VTI 1.86 cm2 AoV Area/ BSA (VTI) 1.14 cm/m2 Mitral Valve MV DT 230 (160-240 msec) MR Vmax 6.36 m/s MV PHT 67 msec MR VTI 2.193 m MV Area PHT 3.29 cm2 MR Peak Grad 161.6 mmHg MV VTI 0.329 m MR Mean Grad 120.1 mmHg MV VTI Annulus 0.319 m MV Area VTI 1.48 (4.0-6.0 cm2) Pulmonary Valve PV Vmax 0.69 (0.5-1.5 m/s) RVOT Peak Gr. 0.82 mmHg PV Peak Grad 1.9 mmHg RVOT Mean Gr. 0.50 mmHg PV Mean Grad 1.0 mmHg RVOT VTI 0.109 m PV VTI 0.148 m RVOT Vmax 0.45 m/s Tricuspid Valve TR Peak Grad 24.0 mmHg TR Vmax 2.45 m/s RA Pressure 3.00 mmHg RVSP (TR) 27.0 mmHg
[2021-05-27 15:42] VITALS: BP 182/82; PULSE 66; RESP 18; TEMP 36.1; O2SAT 100
--- NOTE | 2021-05-27 16:29 | DSE_ITS ---
Date of service: 05/27/21 Time of Service: 16:30 DS: Diagnosis Discharge Diagnosis (1) Chest pain: Start date: 05/27/21 Start time: 16:30 Status: Resolved Asessment and Plan: Patient has not had any CP since admission. Trops negative. CXR with no acute abnormality VQ scan with low probability, but did show pleural effusion-IV lasix 20 given as she is naive Echo revealed: Conclusion Normal left ventricular wall thickness and chamber size. Estimated ejection fraction is 55%. Wall motion is normal Normal right ventricular size and systolic function The atria are normal in size Aortic valve is sclerotic with mild regurgitation Mild mitral annular calcification. Mild mitral regurgitation Normal tricuspid valve with trace regurgitation. Estimated right ventricular systolic pressure is 27 mmHg The pulmonic valve was not well visualized She is feeling great and would like to go home Venous doppler negative bilaterally therefore she is being discharged home. (2) COPD (chronic obstructive pulmonary disease): Start date: 05/27/21 Start time: 16:32 Status: Chronic Asessment and Plan: She is oxygen dependent Does have wheezing at this time will give breathing treatment prior to discharge. No acute exacerbation above discussed with Dr. Cheng Discharge Plan Disposition Patient Disposition: HOME Condition: Good Discharge Details Reason For Visit: CP Admit Date/Time: 05/26/21 18:38 Admit Provider: Frank Webber Attending Provider: Frank Webber Primary Care Provider: Maria Guadalupe Price Hospital Course Hospital Course: 75 y.o female admitted overnight with c/o CP. She has hx of COPD oxygen dependent. VQ scan r/o PE with low probability, u/s bilaterally LE negative DVT. No CP since admission. See above for echo conclusion. She was having sharp left sided, non-radiating pain with no associated SOB. CXR revealed no acute abnormality. She feels good and would like to be discharged. She does have some wheezing. She is a COPDer. She does have some wheezing. She will receive a updraft prior to discharge. VQ did reveal effusion gave 40 po lasix. Otherwise feels great, no CP and ready for discharge. F/u with PCP as needed. Home Meds and New Rx's Prescriptions: Continued bupropion HCl 150 MG tablet extended release 12 hr 150 mg PO DAILY RF: 0 ipratropium-albuterol 3 ML solution for nebulization 3 ml Inhalation Q6H PRN PRNRF: 0 albuterol sulfate 3 ML solution for nebulization 3 ml Inhalation Q4H PRN PRNRF: 0 gabapentin 800 MG tablet 800 mg PO TID RF: 0 oxybutynin chloride [Ditropan XL] 5 MG tablet extended release 24hr 5 mg PO DAILY RF: 0 albuterol sulfate 8.5 GM HFA aerosol inhaler 2 puff Inhalation Q4H PRN PRNRF: 0 budesonide-formoterol [Symbicort] 60 PUFF HFA aerosol inhaler 2 puff Inhalation BID RF: 0 fexofenadine 180 mg Tablet 180 mg PO PRN PRNRF: 0 lidocaine 5 % Adhesive Patch,Medicated 1 patch topical PRN PRNRF: 0 mirtazapine 15 mg Tablet 15 mg PO QHS RF: 0 mirabegron 25 mg Tablet Extended Release 24 Hr 25 mg PO QHS RF: 0 atorvastatin 40 mg Tablet 40 mg PO DAILY RF: 0 metoprolol succinate 50 mg Tablet Extended Release 24 Hr 50 mg PO DAILY RF: 0 alendronate 70 mg Tablet 70 mg PO QWEEK RF: 0 clopidogrel 75 mg Tablet 75 mg PO DAILY RF: 0 amitriptyline 50 mg Tablet 50 mg PO QHS RF: 0 acetaminophen [Acetaminophen Extra Strength] 500 mg Tablet 1,000 mg PO Q8H PRNRF: 0 levothyroxine 25 mcg Tablet 25 mcg PO DAILY RF: 0 pantoprazole 20 mg Tablet,Delayed Release (Dr/Ec) 20 mg PO DAILY RF: 0 nitroglycerin 0.4 mg Tablet, Sublingual 0.4 mg SUBLINGUAL Q5M PRNRF: 0 azelastine 137 mcg (0.1 %) Aerosol,[place] 1 spray INTRANASAL BID RF: 0 jwkjzbzx-vjezkvayn-JH 3.5-10,000-1 mg/mL-unit/mL-% Drops,Suspension 3 drp OTIC (EAR) BID RF: 0 duloxetine 60 mg Capsule,Delayed Release(Dr/Ec) 60 mg PO DAILY RF: 0 cholecalciferol (vitamin D3) 1,000 unit Tablet,Chewable 5,000 unit PO DAILY RF: 0 naproxen sodium 220 mg Capsule 220 mg PO BID RF: 0 tiotropium bromide 2.5 mcg/actuation Mist 2 puff INHALATION BID RF: 0 prednisone 20 mg tablet See Rx Instructions .ROUTE .COMPLEX Qty: 12 RF: 0 albuterol sulfate 2.5 mg /3 mL (0.083 %) solution for nebulization 2.5 mg IH QID PRN (Reason: shortness of breath or wheezing) Qty: 75 RF: 0 nitrofurantoin macrocrystal 25 mg Capsule 50 mg PO BID RF: 0 No Action (DME) Oxygen-Air Delivery Systems 4 RF: 0 Discharge Instructions Instructions: Chest Pain (DC), Pleural Effusion (DC) Additional Instructions: F/u with PCP as needed. Activity:: Activity as Tolerated Equipment/Supplies:: No Equipment Needed Diet:: Low Sodium Discharge Orders Discharge Orders: Discharge Order (Routine); Ordered 05/27/21 Ordered By: Pepper Richey DS: Summary Time Spent with Patient providing and/or coordinating discharge services: Less than 30 minutes Status at Discharge Functional status at discharge: uses cane/walker Overall status at discharge: patient is back to baseline Mental Status: mental status grossly normal Speech and Movement: speech and movement normal Mood: congruent mood Affect: normal affect Exam Narrative Exam Narrative: . HEENT atraumatic; neck supple, JVP approx 6 cm; lungs with wheezing, oxygen dependent, cxr with acute abnormality,no SOB, able to complete sentences; heart distant, RRR; abdomen soft and NT' extremities w/o edema, pulses 2+/=, negative Jerman's bilateral, no calf swelling or tenderness; neuro Ox3, lucid, moves all 4s Psych Mental Status: mental status grossly normal Speech and Movement: speech and movement normal Mood: congruent mood Affect: normal affect DS: Data Vitals/I&O Vitals and I&O: Vital Signs Temperature 36.1 C L 05/27/21 15:42 Temperature Source Tympanic 05/27/21 15:42 Pulse 66 05/27/21 15:42 Pulse Rhythm Regular 05/26/21 20:00 Pulse 71 05/26/21 19:01 Respiratory Rate 18 05/27/21 15:42 Respiratory Effort 05/26/21 20:00 Respiratory Depth Normal 05/26/21 20:00 Respiratory Pattern Normal 05/26/21 20:00 Blood Pressure 182/82 H 05/27/21 15:42 Blood Pressure Mean 85 05/26/21 19:01 Blood Pressure Position Sitting 05/26/21 15:20 Pulse Oximetry 100 05/27/21 15:42 Oxygen Delivery Method Nasal Cannula 05/27/21 15:42 Oxygen Flow Rate 3 05/27/21 15:42 Pain Level 0 05/27/21 09:08 Intake & Output 05/26/21 05/27/21 05/27/21 23:59 11:59 23:59 Intake Total 400 / 400 Output Total 200 / 200 Balance 200 / 200 Weight 62.596 kg Intake: Oral 400 / 400 Output: Urine 200 / 200 Other: Urine Color Yellow Urine Appearance Clear Clear Voiding Methods Toilet Data Completed and Pending Completed studies during hospitalization [Text1]: Exam(s) XR CHEST 2V PA LATERAL EXAM: XR CHEST 2V PA LATERAL CLINICAL HISTORY: L anterior CP TECHNIQUE: 2D digital imaging was performed. COMPARISON: CR,XR XR CHEST 2V PA LATERAL from 04/02/2019 FINDINGS: MEDIASTINUM: Normal. HEART: Normal. PULMONARY VASCULATURE: Normal. LUNGS: Emphysematous and fibrotic changes. Right upper lobe scarring. No focal consolidation. PLEURAL SPACE: No pleural effusion or pneumothorax. BONE:Unremarkable for age. IMPRESSION: No acute abnormality. Exam(s) PROCEDURE INFORMATION: Exam: XR Chest Exam date and time: 05/26/2021 3:34 PM Age: 75 years old Clinical indication: Other: L anterior cp TECHNIQUE: Imaging protocol: XR of the chest. Views: 2 views. COMPARISON: CR XR CHEST 2V PA LATERAL 04/02/2019 11:02 AM FINDINGS: Lungs: Some scattered chronic pulmonary opacities are again seen. No focal consolidation. No new opacities. Pleural spaces: Unremarkable. No pleural effusion. No pneumothorax. Heart/Mediastinum: Unremarkable. No cardiomegaly. Bones/joints: Unremarkable. IMPRESSION: No acute disease Exam(s) US EXTREMITY VENOUS BI EXAM: US EXTREMITY VENOUS BI CLINICAL HISTORY: dyspnea, CP, elevated d-dimer; r/o DVT. TECHNIQUE: Bilateral lower extremity venous ultrasound performed using grayscale, color-flow, and spectral Doppler analysis. COMPARISON: No exams were available for comparison FINDINGS: The bilateral common femoral, femoral and popliteal veins demonstrate normal compressibility, augmentation, and color Doppler. The posterior tibial veins are patent. IMPRESSION: Right: Negative for DVT Left: Negative for DVT Conclusion Normal left ventricular wall thickness and chamber size. Estimated ejection fraction is 55%. Wall motion is normal Normal right ventricular size and systolic function The atria are normal in size Aortic valve is sclerotic with mild regurgitation Mild mitral annular calcification. Mild mitral regurgitation Normal tricuspid valve with trace regurgitation. Estimated right ventricular systolic pressure is 27 mmHg The pulmonic valve was not well visualized Exam(s) NM LUNG SCAN VENT PERF AEROS EXAM: NM LUNG SCAN VENT PERF AEROS CLINICAL HISTORY: L CP, elevated DDimer. TECHNIQUE: Injected Dose: Ventilation: 30.4 mCi Tc-99m DTPA via inhalation Perfusion: 4.2 mCi Tc-99m MAA via IV COMPARISON: CR,XR XR CHEST 2V PA LATERAL from 05/26/2021 CR,XR XR CHEST 2V PA LATERAL from 05/26/2021 FINDINGS: Chest X-Ray: Emphysematous changes and scarring greater in the upper lobes. Perfusion: Normal. Ventilation:Decreased ventilation in the upper lobes, left greater than right, consistent with emphysematous changes. Mild clumping of the radiopharmaceutical near the jose g. IMPRESSION: 1. Low probability VQ examination. . . . Labs on day of discharge: Labs from last 24 hours 05/26/21 05/26/21 05/26/21 22:07 18:50 18:40 D-Dimer Troponin I < 0.05 < 0.05 COVID-19 Source Nasal/Nares SARS-CoV-2 (PCR) Negative 05/26/21 15:40 D-Dimer 941 H Troponin I COVID-19 Source SARS-CoV-2 (PCR) [facility] Active Problem List COPD (chronic obstructive pulmonary disease) (Chronic) Medical History Anxiety Depression Diabetes GERD (gastroesophageal reflux disease) Hyperparathyroidism Hypothyroidism Surgical History History of appendectomy History of back surgery History of knee surgery Social History Smoking/Tobacco Use Status: Former Tobacco Use Smoking risk assessment performed?: Yes Alcohol Intake: current Alcohol Intake frequency: holidays/special occasions only Alcohol type: wine Drug use: Never Substance use type: does not use Do you feel safe at home: Yes Do you feel safe in your relationship?: Yes
[2021-05-27 16:33] VITALS: PULSE 99
[2021-05-27 16:58] VITALS: RESP 4
[2021-05-27] MEDS: Albuterol/Ipratropium 3 ML UPD VIAL UPD (16:58)
[2021-05-27] MEDS: Furosemide 40 MG TAB PO (17:04)
--- NOTE | 2021-05-27 18:10 | DI.NM_ITS ---
Exam(s) NM LUNG SCAN VENT PERF AEROS EXAM: NM LUNG SCAN VENT PERF AEROS CLINICAL HISTORY: L CP, elevated DDimer. TECHNIQUE: Injected Dose: Ventilation: 30.4 mCi Tc-99m DTPA via inhalation Perfusion: 4.2 mCi Tc-99m MAA via IV COMPARISON: CR,XR XR CHEST 2V PA LATERAL from 05/26/2021 CR,XR XR CHEST 2V PA LATERAL from 05/26/2021 FINDINGS: Chest X-Ray: Emphysematous changes and scarring greater in the upper lobes. Perfusion: Normal. Ventilation:Decreased ventilation in the upper lobes, left greater than right, consistent with emphys ematous changes. Mild clumping of the radiopharmaceutical near the jose g. IMPRESSION: 1. Low probability VQ examination. . . . Modified PIOPED II criteria Probability Criteria High Two or more segments of V/Q mismatch Low Normal Perfusion, Non segmental perfusion abnormalitie s, pleural effusion in at least 1/3 of pleural cavity with no other defect Radiograph/perfusion matched defect in mid to upper lung confined to segment, one to three small segmental perfusion defects (<25% of segment) Perfusion defect smaller than corresponding radiogra phic lesion. Intermediate All other findings DATA REPOSITORY:
== END 2021-05-27 17:55 | disposition home or self-care (01) ==
LOC: ER 19:22 → MS 19:49
PROVIDERS: Admitting Provider General Practice; Emergency Provider Emergency Medicine; PCP Internal Medicine Adolescent Medicine; Visit Provider General Practice
DX: R07.9 Chest pain, unspecified (principal); J44.9 Chronic obstructive pulmonary disease, unspecified; Z99.81 Dependence on supplemental oxygen; F32.A Depression, unspecified; F41.9 Anxiety disorder, unspecified; E11.9 Type 2 diabetes mellitus without complications; K21.9 Gastro-esophageal reflux disease without esophagitis; E03.9 Hypothyroidism, unspecified; E21.3 Hyperparathyroidism, unspecified; Z20.822 Contact with and (suspected) exposure to COVID-19
CPT/HCPCS: 36410; 80053; 87635; 93005; 99285; 71046; 78582; 83735; 84484; 85025; 85379; 93010; 93306; 93970; 94640; 99217; 99219; 99284; G0378; J1650; J7620

== ENCOUNTER 2021-07-07 19:10 | Emergency (ER) | payer MEDICARE, MEDICAID, SELFPAY ==
[2021-07-07 19:25] VITALS: BP 138/84; PULSE 71; RESP 18; TEMP 36.4; O2SAT 92
--- NOTE | 2021-07-07 19:30 | RT.EKG_ITS ---
APPROVED REPORT Exam: Resting ECG Reason for Exam: SHORT OF BREATH Patient Location: E HR:111 bpm ECG Measurements Heart Rate 111 AXIS MS 162 P 75 QRSd 72 QRS 29 QT 314 T [id number] QTc 427 Conclusion Sinus tachycardia...rate> 99. Sinus. Less than 1mm ST depression in inferior and anterior leads. No STEMI. I have reviewed and interpreted ECG and agree with software generated interpretation.
--- NOTE | 2021-07-07 19:34 | ED.GENADUL_ITS ---
Discharge Plan Disposition Patient Disposition: HOME Condition: Improving Discharge Details Clinical Impression: UTI (urinary tract infection), Nausea, Diarrhea Primary Care Provider: Maria Guadalupe Price ED Provider: Cathy Lizarraga Home Meds and New Rx's Prescriptions: New cephalexin 500 mg capsule 500 mg PO BID 7 Days Qty: 14 RF: 0 ondansetron 4 mg tablet,disintegrating 4 mg PO TID PRN (Reason: nausea and vomiting) Qty: 6 RF: 0 Continued bupropion HCl 150 MG tablet extended release 12 hr 150 mg PO DAILY RF: 0 ipratropium-albuterol 3 ML solution for nebulization 3 ml Inhalation Q6H PRN PRNRF: 0 albuterol sulfate 3 ML solution for nebulization 3 ml Inhalation Q4H PRN PRNRF: 0 gabapentin 800 MG tablet 800 mg PO TID RF: 0 albuterol sulfate 8.5 GM HFA aerosol inhaler 2 puff Inhalation Q4H PRN PRNRF: 0 budesonide-formoterol [Symbicort] 60 PUFF HFA aerosol inhaler 2 puff Inhalation BID RF: 0 fexofenadine 180 mg Tablet 180 mg PO PRN PRNRF: 0 lidocaine 5 % Adhesive Patch,Medicated 1 patch topical PRN PRNRF: 0 mirtazapine 15 mg Tablet 15 mg PO QHS RF: 0 mirabegron 25 mg Tablet Extended Release 24 Hr 25 mg PO QHS RF: 0 atorvastatin 40 mg Tablet 40 mg PO DAILY RF: 0 metoprolol succinate 50 mg Tablet Extended Release 24 Hr 50 mg PO DAILY RF: 0 alendronate 70 mg Tablet 70 mg PO QWEEK RF: 0 clopidogrel 75 mg Tablet 75 mg PO DAILY RF: 0 amitriptyline 50 mg Tablet 50 mg PO QHS RF: 0 acetaminophen [Acetaminophen Extra Strength] 500 mg Tablet 1,000 mg PO Q8H PRNRF: 0 levothyroxine 25 mcg Tablet 25 mcg PO DAILY RF: 0 pantoprazole 20 mg Tablet,Delayed Release (Dr/Ec) 20 mg PO DAILY RF: 0 nitroglycerin 0.4 mg Tablet, Sublingual 0.4 mg SUBLINGUAL Q5M PRNRF: 0 duloxetine 60 mg Capsule,Delayed Release(Dr/Ec) 60 mg PO DAILY RF: 0 cholecalciferol (vitamin D3) 1,000 unit Tablet,Chewable 5,000 unit PO DAILY RF: 0 naproxen sodium 220 mg Capsule 220 mg PO BID RF: 0 tiotropium bromide 2.5 mcg/actuation Mist 2 puff INHALATION BID RF: 0 (DME) Oxygen-Air Delivery Systems 4 RF: 0 Discharge Instructions Instructions: Urinary Tract Infection in Women (ED), Acute Nausea and Vomiting (ED), Acute Diarrhea (ED) Additional Instructions: Your work-up in the emergency department today revealed that you possibly have a urinary tract infection and mild dehydration. The remainder of your lab work is reassuring. Drink plenty of fluids and get plenty of rest. A prescription for the antibiotic Keflex and the nausea medication Zofran has been sent electronically to your pharmacy. Take Tylenol as needed and directed for pain. Follow-up with your primary care doctor in 1 week. If you are able to provide a stool sample, return in the stool sample kit provided to the hospital as directed Return to the emergency department with any worsening or new concerning symptoms. Please quarantine until your Covid test result is available and negative. Stand Alone Forms: PENDING COVID-19 TESTING Discharge Data Discharge Date/Time-TO BE ENTERED AT DEPARTURE: 07/07/21 22:30 Discharge Physician: Cathy Lizarraga Medical Decision Making 75-year-old female with a history of GERD, anxiety, depression, hypothyroidism, COPD chronically on 4 L nasal cannula oxygen presents for tactile fevers, nasal congestion, nausea and diarrhea for the past week. She denies any chest pain, shortness of breath or abdominal pain. She appears comfortable and nontoxic. Her vitals are within normal limits. Her abdomen is soft and nontender. Normal oropharynx. No meningeal signs. Differential diagnosis includes gastroenteritis, coronavirus, viral illness, UTI, electrolyte abnormality, dehydration. Nursing obtain in-house Covid swab on arrival. Considering patient's age and history, will obtain screening labs, urinalysis. As she has no abdominal pain, no abdominal tenderness and appears nontoxic, do not feel indication for imaging at this time. Will give a bolus of IV fluids, Zofran and IV Tylenol and reassess. Patient reassessed and she feels better. Original urinalysis was contaminated and a repeat sample was obtained with straight cath. Patient unable to provide stool sample. Labs reviewed. Normal white blood cell count. Repeat urinalysis notes greater than 50 WBCs with negative leukocyte esterase and nitrite. Considering her diarrhea and significant amount of WBCs in the urine, will treat for possible UTI. A dose of Keflex given here and prescription sent electronically to her pharmacy. A prescription for Zofran sent electronically. Patient provided with stool sample kit for home. Advised to follow up with the primary care doctor for re-evaluation. Usual and customary return precautions given prior to discharge. Advised to quarantine until Covid test result available and negative. Medical Records Medical records reviewed: Yes I reviewed the patient's medical records. Lab Data Lab results reviewed: Yes I reviewed the patient's lab results. Labs: 07/07/21 21:30 Urine - Reflex from Ua Urine Culture - Pending Laboratory Tests Range/Units 07/07/21 07/07/21 07/07/21 16:50 16:50 19:40 WBC (4.4-10.8) 10^3/uL 8.99 RBC (3.93-5.22) 10^6/uL 4.59 Hgb (11.2-15.7) g/dL 12.8 Hct (36.0-46.0) % 41.5 MCV (80-95) fL 90.4 MCH (27.0-33.0) pg 27.9 MCHC (32.0-36.0) % 30.8 L RDW (11.7-14.6) % 12.8 Plt Count (130-400) 10^3/uL 171 MPV (8.0-11.0) fL 9.2 Immature Gran % 0.3 Neutrophils % 73.4 Lymphocytes % 16.4 Monocytes % 7.5 Eosinophils % 1.8 Basophils % 0.6 Nucleated RBC % % 0 Absolute Neutrophils (1.2-6.7) 10^3/uL 6.61 Absolute Lymphocytes (1.2-3.4) 10^3/uL 1.47 Absolute Monocytes (0.1-0.8) 10^3/uL 0.67 Absolute Eosinophils (0.0-0.7) 10^3/uL 0.16 Absolute Basophils (0.0-0.2) 10^3/uL 0.05 Sodium (136-145) mmol/L 140 Potassium (3.5-5.1) mmol/L 3.6 Chloride (98-107) mmol/L 101 Carbon Dioxide (21.0-32.0) mmol/L 30.2 Anion Gap (3-11) mmol/L 8.8 BUN (7-18) mg/dL 24 H Creatinine (0.55-1.02) mg/dL 1.7 H Estimated GFR/1.73 m2 (mL/min/1.73m2) 29.22 Glucose (74-106) mg/dL 87 Calcium (8.5-10.1) mg/dL 9.8 Total Bilirubin (0.2-1.0) mg/dL 0.8 AST (15-37) U/L 15 ALT (14-59) U/L 17 Alkaline Phosphatase (46-116) U/L 102 Total Protein (6.4-8.2) g/dL 7.7 Albumin (3.4-5.0) g/dL 3.9 Urine Color (Yellow) Urine Clarity (Clear) Urine pH (5-8) Ur Specific [place] (1.005-1.025) Urine Protein (Negative) mg/dL Urine Ketones (Negative) mg/dL Urine Blood (Negative) Urine Nitrite (Negative) Urine Bilirubin (Negative) Urine Urobilinogen (Up TO 0.2) EU/dL Ur Leukocyte Esterase (Negative) Urine RBC (0-2) HPF Urine WBC (0-5) HPF Ur Epithelial Cells (Negative) HPF Urine Crystals Urine Bacteria (Negative) HPF Urine Casts (Negative) LPF Urine Mucus Ur Culture Indicated? Urine Glucose (Negative) mg/dL COVID-19 Source Nasal/Nares Range/Units 07/07/21 07/07/21 20:20 21:30 WBC (4.4-10.8) 10^3/uL RBC (3.93-5.22) 10^6/uL Hgb (11.2-15.7) g/dL Hct (36.0-46.0) % MCV (80-95) fL MCH (27.0-33.0) pg MCHC (32.0-36.0) % RDW (11.7-14.6) % Plt Count (130-400) 10^3/uL MPV (8.0-11.0) fL Immature Gran % Neutrophils % Lymphocytes % Monocytes % Eosinophils % Basophils % Nucleated RBC % % Absolute Neutrophils (1.2-6.7) 10^3/uL Absolute Lymphocytes (1.2-3.4) 10^3/uL Absolute Monocytes (0.1-0.8) 10^3/uL Absolute Eosinophils (0.0-0.7) 10^3/uL Absolute Basophils (0.0-0.2) 10^3/uL Sodium (136-145) mmol/L Potassium (3.5-5.1) mmol/L Chloride (98-107) mmol/L Carbon Dioxide (21.0-32.0) mmol/L Anion Gap (3-11) mmol/L BUN (7-18) mg/dL Creatinine (0.55-1.02) mg/dL Estimated GFR/1.73 m2 (mL/min/1.73m2) Glucose (74-106) mg/dL Calcium (8.5-10.1) mg/dL Total Bilirubin (0.2-1.0) mg/dL AST (15-37) U/L ALT (14-59) U/L Alkaline Phosphatase (46-116) U/L Total Protein (6.4-8.2) g/dL Albumin (3.4-5.0) g/dL Urine Color (Yellow) Yellow Yellow Urine Clarity (Clear) Cloudy Sl Cloudy Urine pH (5-8) 6.0 5.5 Ur Specific [place] (1.005-1.025) >= 1.030 H 1.020 Urine Protein (Negative) mg/dL 100 H Negative Urine Ketones (Negative) mg/dL 15 H 15 H Urine Blood (Negative) Moderate H Moderate H Urine Nitrite (Negative) Negative Negative Urine Bilirubin (Negative) Moderate H Small H Urine Urobilinogen (Up TO 0.2) EU/dL 0.2 0.2 Ur Leukocyte Esterase (Negative) Small H Negative Urine RBC (0-2) HPF 3-5 H Urine WBC (0-5) HPF >50 H >50 H Ur Epithelial Cells (Negative) HPF Many Few Urine Crystals Not Applicable Negative Urine Bacteria (Negative) HPF Many Few Urine Casts (Negative) LPF 3-5 Hyaline Urine Mucus Not Applicable Trace Ur Culture Indicated? No/Sq. Contamination Yes Urine Glucose (Negative) mg/dL Negative Negative COVID-19 Source 07/07/21 21:30 Urine - Reflex from Ua Urine Culture - Pending Laboratory Tests Range/Units 07/07/21 07/07/21 07/07/21 16:50 16:50 19:40 WBC (4.4-10.8) 10^3/uL 8.99 RBC (3.93-5.22) 10^6/uL 4.59 Hgb (11.2-15.7) g/dL 12.8 Hct (36.0-46.0) % 41.5 MCV (80-95) fL 90.4 MCH (27.0-33.0) pg 27.9 MCHC (32.0-36.0) % 30.8 L RDW (11.7-14.6) % 12.8 Plt Count (130-400) 10^3/uL 171 MPV (8.0-11.0) fL 9.2 Immature Gran % 0.3 Neutrophils % 73.4 Lymphocytes % 16.4 Monocytes % 7.5 Eosinophils % 1.8 Basophils % 0.6 Nucleated RBC % % 0 Absolute Neutrophils (1.2-6.7) 10^3/uL 6.61 Absolute Lymphocytes (1.2-3.4) 10^3/uL 1.47 Absolute Monocytes (0.1-0.8) 10^3/uL 0.67 Absolute Eosinophils (0.0-0.7) 10^3/uL 0.16 Absolute Basophils (0.0-0.2) 10^3/uL 0.05 Sodium (136-145) mmol/L 140 Potassium (3.5-5.1) mmol/L 3.6 Chloride (98-107) mmol/L 101 Carbon Dioxide (21.0-32.0) mmol/L 30.2 Anion Gap (3-11) mmol/L 8.8 BUN (7-18) mg/dL 24 H Creatinine (0.55-1.02) mg/dL 1.7 H Estimated GFR/1.73 m2 (mL/min/1.73m2) 29.22 Glucose (74-106) mg/dL 87 Calcium (8.5-10.1) mg/dL 9.8 Total Bilirubin (0.2-1.0) mg/dL 0.8 AST (15-37) U/L 15 ALT (14-59) U/L 17 Alkaline Phosphatase (46-116) U/L 102 Total Protein (6.4-8.2) g/dL 7.7 Albumin (3.4-5.0) g/dL 3.9 Urine Color (Yellow) Urine Clarity (Clear) Urine pH (5-8) Ur Specific [place] (1.005-1.025) Urine Protein (Negative) mg/dL Urine Ketones (Negative) mg/dL Urine Blood (Negative) Urine Nitrite (Negative) Urine Bilirubin (Negative) Urine Urobilinogen (Up TO 0.2) EU/dL Ur Leukocyte Esterase (Negative) Urine RBC (0-2) HPF Urine WBC (0-5) HPF Ur Epithelial Cells (Negative) HPF Urine Crystals Urine Bacteria (Negative) HPF Urine Casts (Negative) LPF Urine Mucus Ur Culture Indicated? Urine Glucose (Negative) mg/dL COVID-19 Source Nasal/Nares SARS-CoV-2 (PCR) (Negative) Negative Range/Units 07/07/21 07/07/21 20:20 21:30 WBC (4.4-10.8) 10^3/uL RBC (3.93-5.22) 10^6/uL Hgb (11.2-15.7) g/dL Hct (36.0-46.0) % MCV (80-95) fL MCH (27.0-33.0) pg MCHC (32.0-36.0) % RDW (11.7-14.6) % Plt Count (130-400) 10^3/uL MPV (8.0-11.0) fL Immature Gran % Neutrophils % Lymphocytes % Monocytes % Eosinophils % Basophils % Nucleated RBC % % Absolute Neutrophils (1.2-6.7) 10^3/uL Absolute Lymphocytes (1.2-3.4) 10^3/uL Absolute Monocytes (0.1-0.8) 10^3/uL Absolute Eosinophils (0.0-0.7) 10^3/uL Absolute Basophils (0.0-0.2) 10^3/uL Sodium (136-145) mmol/L Potassium (3.5-5.1) mmol/L Chloride (98-107) mmol/L Carbon Dioxide (21.0-32.0) mmol/L Anion Gap (3-11) mmol/L BUN (7-18) mg/dL Creatinine (0.55-1.02) mg/dL Estimated GFR/1.73 m2 (mL/min/1.73m2) Glucose (74-106) mg/dL Calcium (8.5-10.1) mg/dL Total Bilirubin (0.2-1.0) mg/dL AST (15-37) U/L ALT (14-59) U/L Alkaline Phosphatase (46-116) U/L Total Protein (6.4-8.2) g/dL Albumin (3.4-5.0) g/dL Urine Color (Yellow) Yellow Yellow Urine Clarity (Clear) Cloudy Sl Cloudy Urine pH (5-8) 6.0 5.5 Ur Specific [place] (1.005-1.025) >= 1.030 H 1.020 Urine Protein (Negative) mg/dL 100 H Negative Urine Ketones (Negative) mg/dL 15 H 15 H Urine Blood (Negative) Moderate H Moderate H Urine Nitrite (Negative) Negative Negative Urine Bilirubin (Negative) Moderate H Small H Urine Urobilinogen (Up TO 0.2) EU/dL 0.2 0.2 Ur Leukocyte Esterase (Negative) Small H Negative Urine RBC (0-2) HPF 3-5 H Urine WBC (0-5) HPF >50 H >50 H Ur Epithelial Cells (Negative) HPF Many Few Urine Crystals Not Applicable Negative Urine Bacteria (Negative) HPF Many Few Urine Casts (Negative) LPF 3-5 Hyaline Urine Mucus Not Applicable Trace Ur Culture Indicated? No/Sq. Contamination Yes Urine Glucose (Negative) mg/dL Negative Negative COVID-19 Source SARS-CoV-2 (PCR) (Negative) HPI General Mode of arrival: ambulatory . Date/Time Provider Initiated Documentation: 07/07/21 19:12 . Limitations to Documentation: no limitations . Information obtained by: patient . HPI Narrative: Patient is a 75-year-old female with a history of GERD, anxiety, depression, diabetes, hypothyroidism, COPD chronically on 4 L of nasal cannula oxygen presents for nausea, diarrhea, fever and nasal congestion for the past week. She states she has felt feverish and not checked her temperature. She states she has had watery and loose soft brown stools but denies any rectal bleeding. She states she has not eaten any food today secondary to her nausea but denies any vomiting. She states she has h ad some nasal congestion with clear nasal discharge but denies any cough, sore throat, chest pain, shortness of breath, abdominal pain or urinary symptoms. She states she is fully vaccinated for Covid but has not yet received her booster. She states she is scheduled for her booster early next month. She denies any known exposure to coronavirus. She denies any new medications or recent antibiotics, recent travel or recent sick contacts. Related Data Home Medications Medication Instructions Recorded Confirmed albuterol sulfate 2 puff INHALATION Q4H PRN PRN 02/25/15 07/07/21 albuterol sulfate 3 ml INHALATION Q4H PRN PRN 02/25/15 07/07/21 budesonide-formoterol [Symbicort] 2 puff INHALATION BID 02/25/15 07/07/21 bupropion HCl 150 mg PO DAILY 02/25/15 07/07/21 gabapentin 800 mg PO TID 02/25/15 07/07/21 ipratropium-albuterol 3 ml INHALATION Q6H PRN PRN 02/25/15 07/07/21 Oxygen-Air Delivery Systems 04/02/19 04/02/19 acetaminophen [Acetaminophen Extra 1,000 mg PO Q8H PRN 04/02/19 07/07/21 Strength] alendronate 70 mg PO QWEEK 04/02/19 05/26/21 amitriptyline 50 mg PO QHS 04/02/19 07/07/21 atorvastatin 40 mg PO DAILY 04/02/19 07/07/21 cholecalciferol (vitamin D3) 5,000 unit PO DAILY 04/02/19 07/07/21 clopidogrel 75 mg PO DAILY 04/02/19 07/07/21 duloxetine 60 mg PO DAILY 04/02/19 04/02/19 levothyroxine 25 mcg PO DAILY 04/02/19 07/07/21 metoprolol succinate 50 mg PO DAILY 04/02/19 07/07/21 naproxen sodium 220 mg PO BID 04/02/19 07/07/21 nitroglycerin 0.4 mg SUBLINGUAL Q5M PRN 04/02/19 07/07/21 pantoprazole 20 mg PO DAILY 04/02/19 07/07/21 tiotropium bromide 2 puff INHALATION BID 04/02/19 07/07/21 fexofenadine 180 mg PO PRN PRN 05/26/21 05/26/21 lidocaine 1 patch TOPICAL PRN PRN 05/26/21 07/07/21 mirabegron 25 mg PO QHS 05/26/21 07/07/21 mirtazapine 15 mg PO QHS 05/26/21 07/07/21 cephalexin 500 mg PO BID 7 Days #14 cap 07/07/21 ondansetron 4 mg PO TID PRN #6 tab 07/07/21 Previous Rx's Medication Instructions Recorded cephalexin 500 mg PO BID 7 Days #14 cap 07/07/21 ondansetron 4 mg PO TID PRN #6 tab 07/07/21 Allergies Allergy/AdvReac Type Severity Reaction Status Date / Time aspirin AdvReac Intermediate makes her Unverified 05/26/21 15:24 loopy General Stated Complaint: Nausea/Vomit/Diar GIANA: 3 Review of Systems All systems reviewed & are unremarkable except as noted in HPI and below Constitutional Constitutional: Reports as per HPI, Reports chills and Denies fever(s) Eyes Eyes: Denies blurry vision ENT Ears, Nose, Mouth, and Throat: Denies dizziness, Reports nasal congestion, Denies sore throat and Denies throat swelling Cardiovascular Cardiovascular: Denies chest pain and Denies dyspnea Respiratory Respiratory: Denies cough and Denies dyspnea Gastrointestinal Gastrointestinal: Denies abdominal pain, Reports diarrhea, Reports nausea and Denies vomiting Genitourinary Genitourinary: Denies hematuria and Denies dysuria Musculoskeletal Musculoskeletal: Denies back pain and Denies numbness Integumentary/Breasts Skin/Breast: Denies lesions and Denies rash Neurologic Neurologic: Denies dizziness, Denies localized weakness and Denies numbness Allergic/Immunologic Allergic/Immunologic: Denies throat swelling PFSH All Active Problems (Updated 07/07/21 @ 22:04 by Cathy Lizarraga DO) UTI (urinary tract infection) (Acute) Nausea (Acute) Diarrhea (Acute) COPD (chronic obstructive pulmonary disease) (Chronic) Medical History (Updated 07/07/21 @ 22:04 by Cathy Lizarraga DO) Anxiety Depression Diabetes GERD (gastroesophageal reflux disease) Hyperparathyroidism Hypothyroidism Surgical History History of appendectomy History of back surgery History of knee surgery Social History Smoking/Tobacco Use Status: Former Tobacco Use Smoking risk assessment performed?: Yes Alcohol Intake: current Alcohol Intake frequency: holidays/special occasions only Alcohol type: wine Drug use: Never Substance use type: does not use Do you feel safe at home: Yes Do you feel safe in your relationship?: Yes Exam Const General: cooperative and no acute distress [facility] Head: normal to inspection Ears: hearing grossly normal bilaterally and external ears normal General nose exam: external nose normal Face and sinus: normal facial exam Mouth: oral mucosae normal Throat: posterior oropharynx normal Eyes General: appearance normal, both eyes and all related structures Neck Neck: normal visual inspection and No submandibular swelling Lymphatic: no lymphadenopathy noted Chest Chest: normal inspection of the chest and no tenderness Resp Effort & Inspection: normal respiratory effort and able to speak in complete sentences Auscultation: clear to auscultation bilaterally Cardio Rate: regular rate Rhythm: regular rhythm GI Inspection: normal to inspection Palpation: soft, not firm, not rigid and nontender Auscultation: normal bowel sounds Skin General skin exam: no rashes or lesions noted Neuro General: patient alert, patient awake and patient oriented x3 Cognition: normal cognition Speech: speech normal Motor: muscle tone normal throughout Sensory Exam: no sensory deficits noted Extrem General: normal to inspection, full ROM, capillary refill normal, no calf tenderness bilaterally and no edema Psych Appearance: grossly normal Mental Status: mental status grossly normal Speech and Movement: speech and movement normal Affect: normal affect Course Vital Signs Vital signs: Vital Signs Temperature 97.5 F L 07/07/21 19:25 Pulse 71 07/07/21 19:25 Respiratory Rate 18 07/07/21 19:25 Blood Pressure 138/84 07/07/21 19:25 Pulse Oximetry 92 07/07/21 19:25 Temperature 97.5 F L 07/07/21 19:25 Temperature Source Temporal Artery Scan 07/07/21 19:25 Pulse 71 07/07/21 19:25 Respiratory Rate 18 07/07/21 19:25 Respiratory Effort 07/07/21 19:30 Blood Pressure 138/84 07/07/21 19:25 Pulse Oximetry 92 07/07/21 19:25 Oxygen Delivery Method Nasal Cannula 07/07/21 19:25 Oxygen Flow Rate 4 07/07/21 19:25 Pain Level 0 07/07/21 19:25
[2021-07-07 20:01] LABS: Abs Immature Grans 0.03 10^3/uL (0.0-0.06); Absolute Basophil Count 0.05 10^3/uL (0.0-0.2); Absolute Eosinophil Count 0.16 10^3/uL (0.0-0.7); Absolute Lymphocyte Count 1.47 10^3/uL (1.2-3.4); Absolute Monocyte Count 0.67 10^3/uL (0.1-0.8); Absolute Neutrophil Count 6.61 10^3/uL (1.2-6.7); Basophils % 0.6; Eosinophils % 1.8; HCT 41.5 % (36.0-46.0); HGB 12.8 g/dL (11.2-15.7); Immature Grans % 0.3; Lymphocytes % 16.4; MCH 27.9 pg (27.0-33.0); MCHC 30.8 % (32.0-36.0); MCV 90.4 fL (80-95); MPV 9.2 fL (8.0-11.0); Monocytes % 7.5; Neutrophils % 73.4; Nucleated RBC 0 %; Platelet Count 171 10^3/uL (130-400); RBC 4.59 10^6/uL (3.93-5.22); RDW 12.8 % (11.7-14.6); RDW-SD 42.1 fL; WBC 8.99 10^3/uL (4.4-10.8)
[2021-07-07 20:17] LABS: ALT 17 U/L (14-59); AST 15 U/L (15-37); Albumin 3.9 g/dL (3.4-5.0); Alkaline Phosphatase 102 U/L (46-116); Anion Gap 8.8 mmol/L (3-11); BUN 24 mg/dL (7-18); Bilirubin, Total 0.8 mg/dL (0.2-1.0); CO2 30.2 mmol/L (21.0-32.0); CREATININE 1.7 mg/dL (0.55-1.02); Calcium 9.8 mg/dL (8.5-10.1); Chloride 101 mmol/L (98-107); Estimated GFR 29.22 (mL/min/1.73m2); Glucose 87 mg/dL (74-106); Potassium 3.6 mmol/L (3.5-5.1); Sodium 140 mmol/L (136-145); Total Protein 7.7 g/dL (6.4-8.2)
[2021-07-07] MEDS: ACETAMINOPHEN 1,000 MG/100 ML BTL 400 MG IVPB (20:26)
[2021-07-07] MEDS: Normal Saline 500 ML IV (20:26)
[2021-07-07] MEDS: Ondansetron 4 MG/2 ML VIAL IVP (20:27)
[2021-07-07 20:38] LABS: Bilirubin Moderate (Negative); Blood Moderate (Negative); Clarity Cloudy (Clear); Glucose Negative (Negative); Ketones 15 mg/dL (Negative); Leukocyte Esterase Small (Negative); Nitrite Negative (Negative); Specific Gravity >= 1.030 (1.005-1.025); Urobilinogen 0.2 EU/dL (Up TO 0.2)
[2021-07-07 20:52] LABS: Bacteria Many HPF (Negative); C & S Indicated? No/Sq. Contamination; Epithelial Cells Many HPF (Negative); WBC >50 HPF (0-5)
[2021-07-07 21:40] LABS: Bilirubin Small (Negative); Blood Moderate (Negative); Clarity Sl Cloudy (Clear); Glucose Negative (Negative); Ketones 15 mg/dL (Negative); Leukocyte Esterase Negative (Negative); Nitrite Negative (Negative); Urobilinogen 0.2 EU/dL (Up TO 0.2); pH 5.5 (5-8)
[2021-07-07 21:49] LABS: Bacteria Few HPF (Negative); C & S Indicated? Yes; Casts 3-5 Hyaline LPF (Negative); Crystals Negative HPF (Negative); Epithelial Cells Few HPF (Negative); Mucus Trace (Negative); WBC >50 HPF (0-5)
[2021-07-07 21:54] LABS: Source Nasal/Nares
[2021-07-07] MEDS: Cephalexin 500 MG CAP PO (22:01)
[2021-07-07] MEDS: Cephalexin 500 MG CAP, 2 CAPS/BTL PO (22:17)
[2021-07-07] MEDS: Ondansetron O.D.T. 4 MG TABEF, 3 TABS/BTL PO (22:18)
[2021-07-07 22:32] LABS: COVID-19 PCR Negative (Negative)
--- NOTE | 2021-07-11 16:28 | NUR.NOTE ---
Yesenia from [facility] called and said the patient dropped off a stool sample that was formed, however the lab is not able to run a C. diff test on formed stool so a new specimen cup was provided to the patient. Thos was a test ordered by Dr. Lizarraga.
== END 2021-07-07 22:30 | disposition home or self-care (01) ==
PROVIDERS: Emergency Provider Physician Assistant; PCP Internal Medicine Adolescent Medicine
DX: N39.0 Urinary tract infection, site not specified (principal); B96.20 Unspecified Escherichia coli [E. coli] as the cause of diseases classified elsewhere; R11.0 Nausea; R19.7 Diarrhea, unspecified; R50.9 Fever, unspecified; R06.02 Shortness of breath; Z20.822 Contact with and (suspected) exposure to COVID-19
CPT/HCPCS: 36415; 51701; 80053; 87077; 87635; 93005; 96361; 96374; 96375; 99284; 81003; 81015; 85025; 87086; 87186; 93010; J0131; J2405

== ENCOUNTER 2021-07-12 18:38 | Outpatient (REF) | payer MEDICARE, MEDICAID, SELFPAY ==
[2021-07-13 23:06] LABS: Campylobacter PCR Negative (Negative); Salmonella PCR Negative (Negative); Shiga Toxin PCR Negative (Negative); Shigella/Enteroinvasive Ecoli Negative (Negative)
== END 2021-07-12 18:39 | disposition home or self-care (01) ==
LOC: LBN 18:38
PROVIDERS: PCP Internal Medicine Adolescent Medicine; Visit Provider Physician Assistant
DX: R19.7 Diarrhea, unspecified (principal)
CPT/HCPCS: 87329; 87493; 87505; 87177

== ENCOUNTER 2022-01-06 15:18 | Emergency (ER) | payer MEDICARE, MEDICAID, SELFPAY ==
[2022-01-06] VITALS (41 sets, daily range): BP systolic 56–157; BP diastolic 27–123; PULSE 60–74; RESP 12–22; TEMP 36.2; O2SAT 95–100
--- NOTE | 2022-01-06 15:13 | W.ED.GENAD ---
Discharge Plan Disposition Patient Disposition: HOME Condition: Stable Discharge Details Clinical Impression: Diarrhea, Chest pain, Dizziness Primary Care Provider: Maria Guadalupe Price ED Provider: Cathy Lizarraga Home Meds and New Rx's Prescriptions: Continued bupropion HCl 150 MG tablet extended release 12 hr 150 mg PO DAILY ipratropium-albuterol 3 ML solution for nebulization 3 ml Inhalation Q6H PRN PRN albuterol sulfate 3 ML solution for nebulization 3 ml Inhalation Q4H PRN PRN gabapentin 800 MG tablet 800 mg PO TID Label Comments: 04/02/19 taking 800mg--800mg--400mg albuterol sulfate 8.5 GM HFA aerosol inhaler 2 puff Inhalation Q4H PRN PRN budesonide-formoterol [Symbicort] 60 PUFF HFA aerosol inhaler 2 puff Inhalation BID mirabegron 25 mg Tablet Extended Release 24 Hr 25 mg PO QHS atorvastatin 40 mg Tablet 40 mg PO DAILY metoprolol succinate 50 mg Tablet Extended Release 24 Hr 50 mg PO DAILY clopidogrel 75 mg Tablet 75 mg PO DAILY amitriptyline 50 mg Tablet 50 mg PO QHS acetaminophen [Acetaminophen Extra Strength] 500 mg Tablet 1,000 mg PO Q8H PRN levothyroxine 25 mcg Tablet 25 mcg PO DAILY pantoprazole 20 mg Tablet,Delayed Release (Dr/Ec) 40 mg PO DAILY nitroglycerin 0.4 mg Tablet, Sublingual 0.4 mg SUBLINGUAL Q5M PRN cholecalciferol (vitamin D3) 1,000 unit Tablet,Chewable 5,000 unit PO DAILY naproxen sodium 220 mg Capsule 220 mg PO BID Spiriva Respimat 2.5 mcg/actuation Mist 2 puff INHALATION BID (DME) Oxygen-Air Delivery Systems 4 ondansetron 4 mg tablet,disintegrating 4 mg PO TID PRN (Reason: nausea and vomiting) Qty: 6 0RF isosorbide mononitrate 30 mg tablet extended release 24 hr 30 mg PO DAILY metoprolol succinate 25 mg tablet extended release 24 hr 25 tab PO DAILY Label Comments: TAKE 1 TABLET BY MOUTH DAILY WITH 50 MG TO EQUAL 75 MG Rx Instructions: total 75mg Discharge Instructions Instructions: Chest Pain (ED), Acute Diarrhea (ED), Dizziness (ED) Additional Instructions: Your lab work, EKG and imaging today is reassuring and shows no evidence of acute concerning or significant findings. Your stool culture is still pending and you will be notified if it is positive for any bacterial illness. Drink plenty of fluids and get plenty of rest. Call your primary care doctor tomorrow to schedule a follow-up appointment for reevaluation. Return immediately to the emergency department if you develop any worsening or new concerning symptoms. Discharge Data Discharge Date/Time-TO BE ENTERED AT DEPARTURE: 01/06/22 19:55 Discharge Physician: Cahty Lizarraga Medical Decision Making 1525 -- 76-year-old female with a history of COPD chronically on 3 L nasal cannula oxygen, GERD, diabetes, hypothyroidism, anxiety, depression who presents to the ED with complaints of diarrhea since 4 AM, brief episode of chest pain now resolved, nausea, dizziness, generalized weakness and severe fatigue this afternoon. Vitals within normal limits. Patient appears comfortable and nontoxic. EKG notes a rate of 63, sinus, no STEMI and nondiagnostic. Patient has significantly dry mucous membranes. Her lungs are clear. Her abdomen is soft and nontender. Differential diagnosis includes influenza, COVID, pneumonia, electrolyte abnormality, gastroenteritis, dehydration, UTI. History and presentation does not appear consistent with ACS, PE or dissection but considering her age and history, will obtain screening labs including delta troponin, chest x-ray, urinalysis and give fluids and obtain C. difficile and fecal bacterial pathogens. 1730 --labs and imaging reviewed. Normal white blood cell count. Troponin negative. Fluvid negative. CXR negative. C diff negative. Patient reassessed and she states she feels better and denies any pain or dizziness. Pending urinalysis sample with plan for delta troponin and EKG. 1845 --repeat troponin negative. Repeat EKG unchanged. Urinalysis negative. Patient able to ambulate and feels much better. Stool culture pending but as she has no report of bloody diarrhea, fever and appears nontoxic, will hold on antibiotics at this time. Advised to follow up with the primary care doctor for re-evaluation. Usual and customary return precautions given prior to discharge. Medical Records Medical records reviewed: Yes I reviewed the patient's medical records. Imaging Data Radiologic Study: Radiologist's impression: XR CHEST 2V PA ? LATERAL CLINICAL HISTORY:? chest pain, r/o acute disease TECHNIQUE:? 2D digital imaging was performed of the chest.? Two images were obtained.? PA and lateral views were obtained. COMPARISON:? CR,XR XR CHEST 2V PA ? LATERAL from 05/26/2021 FINDINGS: MEDIASTINUM: Normal.? HEART: Normal. PULMONARY VASCULATURE: Normal. LUNGS: Clear.? The lungs are hyperinflated suggesting underlying COPD. PLEURAL SPACE: No pleural effusion or pneumothorax. BONE:Within normal limits for the patient's age.? OTHER FINDINGS:Normal.? IMPRESSION: No acute pulmonary findings. Lab Data Lab results reviewed: Yes I reviewed the patient's lab results. Labs: Laboratory Tests Range/Units 01/06/22 01/06/22 01/06/22 15:28 15:28 15:28 WBC (4.4-10.8) 10^3/uL 8.56 RBC (3.93-5.22) 10^6/uL 4.13 Hgb (11.2-15.7) g/dL 12.0 Hct (36.0-46.0) % 37.8 MCV (80-95) fL 92 MCH (27.0-33.0) pg 29.1 MCHC (32.0-36.0) % 31.7 L RDW (11.7-14.6) % 12.5 Plt Count (130-400) 10^3/uL 149 MPV (8.0-11.0) fL 9.3 Immature Gran % 0.2 Neutrophils % 62.4 Lymphocytes % 21.0 Monocytes % 6.4 Eosinophils % 9.1 Basophils % 0.9 Nucleated RBC % (0.0-0.3) % 0.0 Absolute Neutrophils (1.2-6.7) 10^3/uL 5.33 Absolute Lymphocytes (1.2-3.4) 10^3/uL 1.80 Absolute Monocytes (0.1-0.8) 10^3/uL 0.55 Absolute Eosinophils (0.0-0.7) 10^3/uL 0.78 H Absolute Basophils (0.0-0.2) 10^3/uL 0.08 Sodium (136-145) mmol/L 141 Potassium (3.5-5.1) mmol/L 4.5 Chloride (98-107) mmol/L 106 Carbon Dioxide (21.0-32.0) mmol/L 30.7 Anion Gap (3-11) mmol/L 4.3 BUN (7-18) mg/dL 26 H Creatinine (0.55-1.02) mg/dL 1.6 H Estimated GFR/1.73 m2 (mL/min/1.73m2) 31.26 Glucose (74-106) mg/dL 105 Calcium (8.5-10.1) mg/dL 9.3 Magnesium (1.8-2.4) mg/dL 1.8 Total Bilirubin (0.2-1.0) mg/dL 0.4 AST (15-37) U/L 15 ALT (14-59) U/L 29 Alkaline Phosphatase (46-116) U/L 91 Troponin I (<or=60) ng/L < 50 Total Protein (6.4-8.2) g/dL 7.0 Albumin (3.4-5.0) g/dL 3.5 Urine Color (Yellow) Urine Clarity (Clear) Urine pH (5-8) Ur Specific [place] (1.005-1.025) Urine Protein (Negative) mg/dL Urine Ketones (Negative) mg/dL Urine Blood (Negative) Urine Nitrite (Negative) Urine Bilirubin (Negative) Urine Urobilinogen (Up TO 0.2) EU/dL Ur Leukocyte Esterase (Negative) Urine RBC (0-2) HPF Urine WBC (0-5) HPF Ur Epithelial Cells (Negative) HPF Urine Crystals (Negative) HPF Urine Bacteria (Negative) HPF Urine Casts (Negative) LPF Urine Mucus (Negative) Urine Other (Negative) Ur Culture Indicated? Urine Glucose (Negative) mg/dL Stl C.difficile Tox PCR (Negative) COVID-19 Source Not Applicable SARS-CoV-2 (PCR) (Negative) Negative Influenza Type A (PCR) (Negative) Negative Influenza Type B (PCR) (Negative) Negative RSV (PCR) (Negative) Negative Range/Units 01/06/22 01/06/22 01/06/22 15:39 17:40 18:15 WBC (4.4-10.8) 10^3/uL RBC (3.93-5.22) 10^6/uL Hgb (11.2-15.7) g/dL Hct (36.0-46.0) % MCV (80-95) fL MCH (27.0-33.0) pg MCHC (32.0-36.0) % RDW (11.7-14.6) % Plt Count (130-400) 10^3/uL MPV (8.0-11.0) fL Immature Gran % Neutrophils % Lymphocytes % Monocytes % Eosinophils % Basophils % Nucleated RBC % (0.0-0.3) % Absolute Neutrophils (1.2-6.7) 10^3/uL Absolute Lymphocytes (1.2-3.4) 10^3/uL Absolute Monocytes (0.1-0.8) 10^3/uL Absolute Eosinophils (0.0-0.7) 10^3/uL Absolute Basophils (0.0-0.2) 10^3/uL Sodium (136-145) mmol/L Potassium (3.5-5.1) mmol/L Chloride (98-107) mmol/L Carbon Dioxide (21.0-32.0) mmol/L Anion Gap (3-11) mmol/L BUN (7-18) mg/dL Creatinine (0.55-1.02) mg/dL Estimated GFR/1.73 m2 (mL/min/1.73m2) Glucose (74-106) mg/dL Calcium (8.5-10.1) mg/dL Magnesium (1.8-2.4) mg/dL Total Bilirubin (0.2-1.0) mg/dL AST (15-37) U/L ALT (14-59) U/L Alkaline Phosphatase (46-116) U/L Troponin I (<or=60) ng/L < 50 Total Protein (6.4-8.2) g/dL Albumin (3.4-5.0) g/dL Urine Color (Yellow) Yellow Urine Clarity (Clear) Clear Urine pH (5-8) 5.5 Ur Specific [place] (1.005-1.025) 1.025 Urine Protein (Negative) mg/dL Negative Urine Ketones (Negative) mg/dL Negative Urine Blood (Negative) Trace-lysed H Urine Nitrite (Negative) Negative Urine Bilirubin (Negative) Negative Urine Urobilinogen (Up TO 0.2) EU/dL 0.2 Ur Leukocyte Esterase (Negative) Negative Urine RBC (0-2) HPF Negative Urine WBC (0-5) HPF Negative Ur Epithelial Cells (Negative) HPF Rare Urine Crystals (Negative) HPF Negative Urine Bacteria (Negative) HPF Negative Urine Casts (Negative) LPF Negative Urine Mucus (Negative) Negative Urine Other (Negative) Negative Ur Culture Indicated? No Urine Glucose (Negative) mg/dL Negative Stl C.difficile Tox PCR (Negative) Negative COVID-19 Source SARS-CoV-2 (PCR) (Negative) Influenza Type A (PCR) (Negative) Influenza Type B (PCR) (Negative) RSV (PCR) (Negative) ECG Data Attestation: I personally reviewed and interpreted this ECG (s) as follows: Interpretation: #1 -- rate of 63, sinus, normal axis, no STEMI. #2 -- rate of 66, sinus, normal axis, no STEMI. HPI General Mode of arrival: ambulatory. Date/Time Provider Initiated Documentation: 01/06/22 15:18. Limitations to Documentation: no limitations. Information obtained by: patient. HPI Narrative: Pt is a 76yo F with a history of COPD chronically on 3 L nasal cannula oxygen, GERD, diabetes, anxiety, depression who presents for diarrhea since 4 AM, an episode of left-sided chest pain that occurred while sitting and lasted approximately 10 minutes and then resolved followed by nausea, dizziness and generalized weakness and severe fatigue. She states she took 1 nitro but did not feel that she had relief with this. She states she has had 4 total episodes of diarrhea today, last occurring while here in the emergency department. She states she is chronically short of breath but states this is no worse than usual. She denies any fever, new cough, headache, blurry vision, vomiting, abdominal pain, urinary symptoms, unilateral weakness. Related Data Home Medications Medication Instructions Recorded Confirmed albuterol sulfate 2.5 mg/3 mL 3 ml inhalation Q4H PRN PRN 02/25/15 01/06/22 (0.083 %) solution for nebulization albuterol sulfate 90 mcg/actuation 2 puff inhalation Q4H PRN PRN 02/25/15 01/06/22 aerosol inhaler budesonide-formoterol HFA 160 2 puff inhalation BID 02/25/15 01/06/22 mcg-4.5 mcg/actuation aerosol inhaler (Symbicort) bupropion HCl 150 mg tablet,12 hr 150 mg PO DAILY 02/25/15 01/06/22 sustained-release gabapentin 800 mg tablet 800 mg PO TID 02/25/15 01/06/22 ipratropium 0.5 mg-albuterol 3 mg 3 ml inhalation Q6H PRN PRN 02/25/15 01/06/22 (2.5 mg base)/3 mL nebulization soln Oxygen-Air Delivery Systems 04/02/19 04/02/19 acetaminophen 500 mg tablet 1,000 mg PO Q8H PRN 04/02/19 01/06/22 (Acetaminophen Extra Strength) amitriptyline 50 mg tablet 50 mg PO QHS 04/02/19 01/06/22 atorvastatin 40 mg tablet 40 mg PO DAILY 04/02/19 01/06/22 cholecalciferol (vitamin D3) 25 5,000 unit PO DAILY 04/02/19 01/06/22 mcg (1,000 unit) chewable tablet clopidogrel 75 mg tablet 75 mg PO DAILY 04/02/19 01/06/22 levothyroxine 25 mcg tablet 25 mcg PO DAILY 04/02/19 01/06/22 metoprolol succinate 50 mg 50 mg PO DAILY 04/02/19 01/06/22 tablet,extended release 24 hr naproxen sodium 220 mg capsule 220 mg PO BID 04/02/19 01/06/22 nitroglycerin 0.4 mg sublingual 0.4 mg sublingual Q5M PRN 04/02/19 01/06/22 tablet pantoprazole 20 mg tablet,delayed 40 mg PO DAILY 04/02/19 01/06/22 release tiotropium bromide 2.5 2 puff inhalation BID 04/02/19 01/06/22 mcg/actuation mist for inhalation (Spiriva Respimat) mirabegron 25 mg tablet,extended 25 mg PO QHS 05/26/21 01/06/22 release 24 hr ondansetron 4 mg disintegrating 4 mg PO TID PRN nausea and 07/07/21 01/06/22 tablet vomiting #6 tabs isosorbide mononitrate 30 mg 30 mg PO DAILY 01/06/22 01/06/22 tablet,extended release 24 hr metoprolol succinate 25 mg 25 tab PO DAILY 01/06/22 01/06/22 tablet,extended release 24 hr Previous Rx's Medication Instructions Recorded ondansetron 4 mg disintegrating 4 mg PO TID PRN nausea and 07/07/21 tablet vomiting #6 tabs Allergies Allergy/AdvReac Type Severity Reaction Status Date / Time aspirin AdvReac Intermediate makes her Unverified 01/06/22 15:27 loopy General Stated Complaint: GenMedical GIANA: 3 Review of Systems All systems reviewed & are unremarkable except as noted in HPI and below Constitutional Constitutional: Denies chills, Denies excessive sweating, Denies fatigue, Denies fever(s), Reports weakness and Denies weight loss Eyes Eyes: Reports system reviewed and no additional complaints, except as documented and Denies blurry vision ENT Ears, Nose, Mouth, and Throat: Denies vertigo, Reports dizziness, Denies otalgia, Denies nasal congestion, Denies sore throat and Denies throat swelling Cardiovascular Cardiovascular: Reports chest pain, Denies syncope, Denies rapid heart rate and Denies dyspnea Respiratory Respiratory: Denies chest congestion, Denies cough, Denies pain on inspiration and Denies dyspnea Gastrointestinal Gastrointestinal: Denies abdominal pain, Reports diarrhea, Reports nausea and Denies vomiting Genitourinary Genitourinary: Denies hematuria, Denies dysuria and Denies flank pain Musculoskeletal Musculoskeletal: Denies back pain and Denies joint swelling Integumentary/Breasts Skin/Breast: Denies lesions and Denies rash Neurologic Neurologic: Denies behavioral changes, Denies confusion, Denies vertigo, Reports dizziness, Denies syncope, Denies localized weakness and Reports weakness Psychiatric Psychiatric: Denies behavioral changes, Denies confusion and Denies depression Endocrine Endocrine: Denies excessive sweating and Denies fatigue Hematologic/Lymphatic Hematologic/Lymphatic: Denies easy bruising and Denies lymphadenopathy Allergic/Immunologic Allergic/Immunologic: Denies throat swelling PFSH All Active Problems (Updated 01/06/22 @ 17:41 by Cathy Lizarraga DO) Diarrhea (Acute) Chest pain (Acute) Dizziness (Acute) COPD (chronic obstructive pulmonary disease) (Chronic) Medical History (Updated 01/06/22 @ 17:41 by Cathy Lizarraga DO) Anxiety Depression Diabetes GERD (gastroesophageal reflux disease) Hyperparathyroidism Hypothyroidism Surgical History History of appendectomy History of back surgery History of knee surgery Social History Smoking/Tobacco Use Status: Former Tobacco Use Smoking risk assessment performed?: Yes Alcohol Intake: current Alcohol Intake frequency: holidays/special occasions only Alcohol type: wine Drug use: Never Substance use type: does not use Do you feel safe at home: Yes Do you feel safe in your relationship?: Yes Exam Const General: cooperative Orientation: alert, awake and oriented x3 HENMT Head: normal to inspection Ears: hearing grossly normal bilaterally and external ears normal General nose exam: external nose normal Face and sinus: normal facial exam Mouth: mucous membranes dry Teeth and gingiva: dentition normal Throat: posterior oropharynx normal Eyes General: appearance normal, both eyes and all related structures Eyelids: eyelids normal Pupils: PERRL EOM: EOM intact bilaterally Neck Neck: normal visual inspection Lymphatic: no lymphadenopathy noted Chest Chest: normal inspection of the chest and normal palpation of entire chest wall Resp Effort & Inspection: normal respiratory effort and able to speak in complete sentences Auscultation: clear to auscultation bilaterally Cardio Rate: regular rate Rhythm: regular rhythm GI Inspection: normal to inspection Palpation: soft, not firm, no guarding, no hepatosplenomegaly, no masses and nontender Auscultation: normal bowel sounds Back/Spine/Pelvis Back: no CVA tenderness Skin General skin exam: no rashes or lesions noted Neuro General: patient alert, patient awake, patient oriented x3, gait normal, moves all extremities and no meningeal signs Cranial Nerves: CN's II-XI intact bilaterally Cognition: normal cognition Speech: speech normal Gait: normal gait Motor: muscle tone normal throughout and strength 5/5 throughout Sensory Exam: no sensory deficits noted Extrem General: normal to inspection, full ROM and capillary refill normal Psych Appearance: grossly normal Mental Status: mental status grossly normal Speech and Movement: speech and movement normal Affect: normal affect Thought Process: normal
--- NOTE | 2022-01-06 15:15 | RT.EKG_ITS ---
APPROVED REPORT Exam: Resting ECG Reason for Exam: chest pain Patient Location: E HR:63 bpm ECG Measurements Heart Rate 63 AXIS WV 217 P 75 QRSd 81 QRS 35 QT 405 T 56 QTc 417 Conclusion Sinus rhythm...normal P axis, V-rate 60- 99 Borderline prolonged WV interval...WV >212, V-rate 50- 90. Sinus. Normal axis. No STEMI. I have reviewed and interpreted ECG and agree with software generated interpretation.
[2022-01-06 15:39] LABS: Abs Immature Grans 0.02 10^3/uL (0.0-0.06); Absolute Basophil Count 0.08 10^3/uL (0.0-0.2); Absolute Eosinophil Count 0.78 10^3/uL (0.0-0.7); Absolute Monocyte Count 0.55 10^3/uL (0.1-0.8); Absolute Neutrophil Count 5.33 10^3/uL (1.2-6.7); Basophils % 0.9; Eosinophils % 9.1; HCT 37.8 % (36.0-46.0); Immature Grans % 0.2; MCH 29.1 pg (27.0-33.0); MCHC 31.7 % (32.0-36.0); MCV 92 fL (80-95); MPV 9.3 fL (8.0-11.0); Monocytes % 6.4; Neutrophils % 62.4; Platelet Count 149 10^3/uL (130-400); RBC 4.13 10^6/uL (3.93-5.22); RDW 12.5 % (11.7-14.6); RDW-SD 41.4 fL; WBC 8.56 10^3/uL (4.4-10.8)
[2022-01-06] MEDS: Normal Saline 1,000 ML 1000 ML IV (15:41)
--- NOTE | 2022-01-06 15:45 | DI.RAD_ITS ---
Exam(s) XR CHEST 2V PA LATERAL EXAM: XR CHEST 2V PA LATERAL CLINICAL HISTORY: chest pain, r/o acute disease TECHNIQUE: 2D digital imaging was performed of the chest. Two images were obtained. PA and lateral views were obtained. COMPARISON: CR,XR XR CHEST 2V PA LATERAL from 05/26/2021 FINDINGS: MEDIASTINUM: Normal. HEART: Normal. PULMONARY VASCULATURE: Normal. LUNGS: Clear. The lungs are hyperinflated suggesting underlying COPD. PLEURAL SPACE: No pleural effusion or pneumothorax. BONE:Within normal limits for the patient's age. OTHER FINDINGS:Normal. IMPRESSION: No acute pulmonary findings. DATA REPOSITORY: RADIATION DOSE DELIVERED:
[2022-01-06 16:05] LABS: ALT 29 U/L (14-59); AST 15 U/L (15-37); Albumin 3.5 g/dL (3.4-5.0); Alkaline Phosphatase 91 U/L (46-116); Anion Gap 4.3 mmol/L (3-11); BUN 26 mg/dL (7-18); Bilirubin, Total 0.4 mg/dL (0.2-1.0); CO2 30.7 mmol/L (21.0-32.0); CREATININE 1.6 mg/dL (0.55-1.02); Calcium 9.3 mg/dL (8.5-10.1); Chloride 106 mmol/L (98-107); Estimated GFR 31.26 (mL/min/1.73m2); Glucose 105 mg/dL (74-106); Magnesium 1.8 mg/dL (1.8-2.4); Potassium 4.5 mmol/L (3.5-5.1); Sodium 141 mmol/L (136-145); Troponin I < 50 ng/L (<or=60)
[2022-01-06 16:17] LABS: COVID-19 PCR Negative (Negative); Influenza A PCR Negative (Negative); Influenza B PCR Negative (Negative); RSV PCR Negative (Negative)
[2022-01-06 16:50] LABS: C Diff PCR Negative (Negative)
[2022-01-06 17:58] LABS: Bilirubin Negative (Negative); Blood Trace-lysed (Negative); Clarity Clear (Clear); Glucose Negative (Negative); Ketones Negative (Negative); Leukocyte Esterase Negative (Negative); Nitrite Negative (Negative); Specific Gravity 1.025 (1.005-1.025); Urobilinogen 0.2 EU/dL (Up TO 0.2); pH 5.5 (5-8)
--- NOTE | 2022-01-06 18:15 | RT.EKG_ITS ---
APPROVED REPORT Exam: Resting ECG Reason for Exam: chest pain Patient Location: E HR:66 bpm ECG Measurements Heart Rate 66 AXIS MI 229 P 57 QRSd 81 QRS 29 QT 404 T 54 QTc 425 Conclusion Sinus rhythm...normal P axis, V-rate 60- 99 Prolonged MI interval...MI >220, V-rate 50- 90. Sinus. Normal axis. No STEMI. I have reviewed and interpreted ECG and agree with software generated interpretation.
[2022-01-06 18:41] LABS: WBC Negative HPF (0-5)
[2022-01-06 18:42] LABS: Bacteria Negative HPF (Negative); C & S Indicated? No; Casts Negative LPF (Negative); Crystals Negative HPF (Negative); Epithelial Cells Rare HPF (Negative); Mucus Negative (Negative); Other Cells Negative (Negative); RBC Negative HPF (0-2)
[2022-01-06 18:43] LABS: Troponin I < 50 ng/L (<or=60)
[2022-01-07 22:53] LABS: Campylobacter PCR Negative (Negative); Salmonella PCR Negative (Negative); Shiga Toxin PCR Negative (Negative); Shigella/Enteroinvasive Ecoli Negative (Negative)
== END 2022-01-06 19:55 | disposition home or self-care (01) ==
PROVIDERS: Emergency Provider Physician Assistant; PCP Internal Medicine Adolescent Medicine
DX: R19.7 Diarrhea, unspecified (principal); R07.9 Chest pain, unspecified; R42 Dizziness and giddiness; R53.83 Other fatigue
CPT/HCPCS: 36415; 80053; 87493; 87505; 87637; 93005; 96360; 96361; 99284; 71046; 81003; 81015; 83735; 84484; 85025; 93010

== ENCOUNTER 2022-04-02 19:25 | Emergency (ER) | payer MEDICARE, MEDICAID, SELFPAY ==
[2022-04-02 19:30] VITALS: BP 134/90; PULSE 66; RESP 18; TEMP 36.7; O2SAT 99
--- NOTE | 2022-04-02 19:30 | DI.CT_ITS ---
Exam(s) CT HEAD WO EXAM: CT HEAD WO CLINICAL HISTORY: Fall, + trauma. TECHNIQUE: Imaging Protocol: Axial computed tomography images with coronal and sagittal reformatted images were created and reviewed COMPARISON: CT HEAD WITHOUT CONTRAST from 02/25/2015 FINDINGS: Ventricles and Extra axial spaces: Normal in size and morphology for the patient's age. Hemorrhage: None. Cerebral parenchyma: area of right frontal hypodensity, unchanged. Mild white matter changes of sma ll vessel disease. Midline shift: None. Brainstem/Cerebellum: Normal. Calvarium: Normal. Visualized Paranasal sinuses/Mastoids: Clear. Soft Tissues: Posterior occipital scalp hematoma and and laceration. IMPRESSION: Posterior scalp hematoma. No acute intracranial process. RADIATION DOSE DELIVERED: 684.69mGy.cm Total DLP DATA REPOSITORY: All CT scans at this facility are submitted to the National Radiology Data Registry (NRDR) Dose Index Registry (DIR) with the [employer] ([employer]). RADIATION OPTIMIZATION: All CT scans at this facility use at least one of these dose optimization te chniques: automated exposure control; mA and/or kV adjustment per patient size (includes targeted exa ms where dose is matched to clinical indication); or iterative reconstruction.
--- NOTE | 2022-04-02 20:19 | DI.VRAD_ITS ---
Addendum created by Adolfo Reilly MD on 04/02/2022 8:30:26 PM EDT: Images from prior head CT dated 02/25/2015 now available for review. Right frontal white matter hypodensity is grossly stable and presumed chronic Initial report created on 04/02/2022 8:19:28 PM EDT: PROCEDURE INFORMATION: Exam: CT Head Without Contrast Exam date and time: 04/02/2022 8:12 PM Age: 76 years old Clinical indication: Injury or trauma; Blunt trauma (contusions or hematomas); Consciousness not specified; Injury date: 04/02/22; Injury details: Fall, trauma TECHNIQUE: Imaging protocol: Computed tomography of the head without contrast. Radiation optimization: All CT scans at this facility use at least one of these dose optimization techniques: automated exposure control; mA and/or kV adjustment per patient size (includes targeted exams where dose is matched to clinical indication); or iterative reconstruction. COMPARISON: Head CT report dated 02/25/2015 FINDINGS: Brain: White matter hypodensity/edema in the right frontal region noted No hemorrhage Cerebral ventricles: No ventriculomegaly. Paranasal sinuses: Visualized sinuses are unremarkable. No fluid levels. Mastoid air cells: Visualized mastoid air cells are well aerated. Bones/joints: Unremarkable. No acute fracture. Soft tissues: Unremarkable. IMPRESSION: No acute intracranial hemorrhage Asymmetric white matter disease versus mild edema right frontal region as described. Findings may be chronic by comparison to prior report. Comparison with prior images would be helpful Dictated and Authenticated by: Adolfo Reilly MD. Ordering:DALLAS uMeller MD
[2022-04-02 21:26] VITALS: BP 132/76; PULSE 68; RESP 18; O2SAT 98
--- NOTE | 2022-04-03 15:21 | ED.GENADUL_ITS ---
Discharge Plan Disposition Patient Disposition: HOME Condition: Stable Discharge Details Clinical Impression: Head injury, Laceration of scalp Primary Care Provider: Maria Guadalupe Price ED Provider: Jackie Silva Home Meds and New Rx's Prescriptions: Continued bupropion HCl 150 MG tablet extended release 12 hr 150 mg PO DAILY ipratropium-albuterol 3 ML solution for nebulization 3 ml Inhalation Q6H PRN PRN albuterol sulfate 3 ML solution for nebulization 3 ml Inhalation Q4H PRN PRN gabapentin 800 MG tablet 800 mg PO TID Label Comments: 04/02/19 taking 800mg--800mg--400mg albuterol sulfate 8.5 GM HFA aerosol inhaler 2 puff Inhalation Q4H PRN PRN budesonide-formoterol [Symbicort] 60 PUFF HFA aerosol inhaler 2 puff Inhalation BID mirabegron 25 mg Tablet Extended Release 24 Hr 25 mg PO QHS atorvastatin 40 mg Tablet 40 mg PO DAILY metoprolol succinate 50 mg Tablet Extended Release 24 Hr 50 mg PO DAILY clopidogrel 75 mg Tablet 75 mg PO DAILY amitriptyline 50 mg Tablet 50 mg PO QHS acetaminophen [Acetaminophen Extra Strength] 500 mg Tablet 1,000 mg PO Q8H PRN levothyroxine 25 mcg Tablet 25 mcg PO DAILY pantoprazole 20 mg Tablet,Delayed Release (Dr/Ec) 40 mg PO DAILY nitroglycerin 0.4 mg Tablet, Sublingual 0.4 mg SUBLINGUAL Q5M PRN cholecalciferol (vitamin D3) 1,000 unit Tablet,Chewable 5,000 unit PO DAILY naproxen sodium 220 mg Capsule 220 mg PO BID Spiriva Respimat 2.5 mcg/actuation Mist 2 puff INHALATION BID (DME) Oxygen-Air Delivery Systems 4 ondansetron 4 mg tablet,disintegrating 4 mg PO TID PRN (Reason: nausea and vomiting) Qty: 6 0RF isosorbide mononitrate 30 mg tablet extended release 24 hr 30 mg PO DAILY metoprolol succinate 25 mg tablet extended release 24 hr 25 tab PO DAILY Label Comments: TAKE 1 TABLET BY MOUTH DAILY WITH 50 MG TO EQUAL 75 MG Rx Instructions: total 75mg Discharge Instructions Instructions: Head Injury (ED), Contusion in Adults (ED) Additional Instructions: Staple removal in 7 days Keep wound clean and dry She develop dizziness, weakness, nausea or vomiting, return immediately for reassessment Discharge Data Discharge Date/Time-TO BE ENTERED AT DEPARTURE: 04/02/22 21:[address] head does not show evidence of acute abnormality Staple is placed No acute distress, ambulatory steady gait Discharge home in the care of family in stable condition staple removal in 7 days Medical Records Medical records reviewed: Yes I reviewed the patient's medical records. Lab Data Lab results reviewed: Yes I reviewed the patient's lab results. HPI General Date/Time Provider Initiated Documentation: 04/02/22 19:33 . HPI Narrative: 76-year-old female presents status post trip and fall on her oxygen cord. She hit her head but denies any additional injuries. She denies any loss of consciousness. Denies any neck pain or strength or sensation change. Denies any nausea or vomiting. Tetanus is reportedly up-to-date. Denies any additional cart injuries. Related Data Home Medications Medication Instructions Recorded Confirmed albuterol sulfate 2.5 mg/3 mL 3 ml inhalation Q4H PRN PRN 02/25/15 01/06/22 (0.083 %) solution for nebulization albuterol sulfate 90 mcg/actuation 2 puff inhalation Q4H PRN PRN 02/25/15 01/06/22 aerosol inhaler budesonide-formoterol HFA 160 2 puff inhalation BID 02/25/15 01/06/22 mcg-4.5 mcg/actuation aerosol inhaler (Symbicort) bupropion HCl 150 mg tablet,12 hr 150 mg PO DAILY 02/25/15 01/06/22 sustained-release gabapentin 800 mg tablet 800 mg PO TID 02/25/15 01/06/22 ipratropium 0.5 mg-albuterol 3 mg 3 ml inhalation Q6H PRN PRN 02/25/15 01/06/22 (2.5 mg base)/3 mL nebulization soln Oxygen-Air Delivery Systems 04/02/19 04/02/19 acetaminophen 500 mg tablet 1,000 mg PO Q8H PRN 04/02/19 01/06/22 (Acetaminophen Extra Strength) amitriptyline 50 mg tablet 50 mg PO QHS 04/02/19 01/06/22 atorvastatin 40 mg tablet 40 mg PO DAILY 04/02/19 01/06/22 cholecalciferol (vitamin D3) 25 5,000 unit PO DAILY 04/02/19 01/06/22 mcg (1,000 unit) chewable tablet clopidogrel 75 mg tablet 75 mg PO DAILY 04/02/19 01/06/22 levothyroxine 25 mcg tablet 25 mcg PO DAILY 04/02/19 01/06/22 metoprolol succinate 50 mg 50 mg PO DAILY 04/02/19 01/06/22 tablet,extended release 24 hr naproxen sodium 220 mg capsule 220 mg PO BID 04/02/19 01/06/22 nitroglycerin 0.4 mg sublingual 0.4 mg sublingual Q5M PRN 04/02/19 01/06/22 tablet pantoprazole 20 mg tablet,delayed 40 mg PO DAILY 04/02/19 01/06/22 release tiotropium bromide 2.5 2 puff inhalation BID 04/02/19 01/06/22 mcg/actuation mist for inhalation (Spiriva Respimat) mirabegron 25 mg tablet,extended 25 mg PO QHS 05/26/21 01/06/22 release 24 hr ondansetron 4 mg disintegrating 4 mg PO TID PRN nausea and 07/07/21 01/06/22 tablet vomiting #6 tabs isosorbide mononitrate 30 mg 30 mg PO DAILY 01/06/22 01/06/22 tablet,extended release 24 hr metoprolol succinate 25 mg 25 tab PO DAILY 01/06/22 01/06/22 tablet,extended release 24 hr Previous Rx's Medication Instructions Recorded ondansetron 4 mg disintegrating 4 mg PO TID PRN nausea and 07/07/21 tablet vomiting #6 tabs Allergies Allergy/AdvReac Type Severity Reaction Status Date / Time aspirin AdvReac Intermediate makes her Unverified 01/06/22 15:27 loopy General Stated Complaint: Laceration GIANA: 2 Review of Systems All systems reviewed & are unremarkable except as noted in HPI and below PFSH All Active Problems (Updated 04/02/22 @ 21:11 by CASSANDRA Mccurdy) Head injury (Acute) Laceration of scalp (Acute) COPD (chronic obstructive pulmonary disease) (Chronic) Medical History (Updated 04/02/22 @ 21:11 by CASSANDRA Mccurdy) Anxiety Depression Diabetes GERD (gastroesophageal reflux disease) Hyperparathyroidism Hypothyroidism Surgical History History of appendectomy History of back surgery History of knee surgery Social History Smoking/Tobacco Use Status: Former Tobacco Use Smoking risk assessment performed?: Yes Alcohol Intake: current Alcohol Intake frequency: holidays/special occasions only Alcohol type: wine Drug use: Never Substance use type: does not use Do you feel safe at home: Yes Do you feel safe in your relationship?: Yes Exam Const General: cooperative and comfortable Eyes Pupils: PERRL Neck Other: no midline tenderness Chest Other: no visible evidence of trauma Resp Effort & Inspection: normal respiratory effort Auscultation: clear to auscultation bilaterally Cardio Rate: regular rate Rhythm: regular rhythm GI Inspection: normal to inspection Other: non-tender Skin General skin exam: no rashes or lesions noted Neuro General: patient alert and patient oriented x3 Cranial Nerves: CN's II-XI intact bilaterally and tongue midline Cognition: normal cognition Speech: speech normal Gait: normal gait Motor: muscle tone normal throughout Sensory Exam: no sensory deficits noted Other: GCS 15 Extrem General: normal to inspection Course Vital Signs Vital signs: Vital Signs Temperature 36.7 C 04/02/22 19:30 Pulse 66 04/02/22 19:30 Respiratory Rate 18 04/02/22 19:30 Blood Pressure 134/90 04/02/22 19:30 Pulse Oximetry 99 04/02/22 19:30 Temperature 36.7 C 04/02/22 19:30 Temperature Source Temporal Artery Scan 04/02/22 19:30 Pulse 68 04/02/22 21:26 Respiratory Rate 18 04/02/22 21:26 Respiratory Effort 04/02/22 19:35 Blood Pressure 132/76 04/02/22 21:26 Blood Pressure Position Sitting 04/02/22 19:30 Pulse Oximetry 98 04/02/22 21:26 Oxygen Delivery Method Nasal Cannula 04/02/22 19:30 Oxygen Flow Rate 4 04/02/22 19:30 Procedures Laceration Laceration 1: Site: scalp Size (cm): 2 Description: linear Skin layer closed with: other (staple) Technique: simple, interrupted
== END 2022-04-02 21:26 | disposition home or self-care (01) ==
PROVIDERS: Emergency Provider Physician Assistant; PCP Internal Medicine Adolescent Medicine
DX: S01.01XA Laceration without foreign body of scalp, initial encounter (principal); W01.118A Fall on same level from slipping, tripping and stumbling with subsequent striking against other sharp object, initial encounter; E11.9 Type 2 diabetes mellitus without complications; Z87.891 Personal history of nicotine dependence
CPT/HCPCS: 12001; 99284; 70450; 99282

== ENCOUNTER 2022-04-25 11:55 | Emergency (ER) | payer MEDICARE, MEDICAID, SELFPAY ==
[2022-04-25 12:00] VITALS: BP 132/80; PULSE 80; RESP 20; TEMP 36.8; O2SAT 97
--- NOTE | 2022-04-25 12:02 | ED.GENADUL_ITS ---
Discharge Plan Disposition Patient Disposition: HOME Condition: Good Discharge Details Clinical Impression: Encounter for staple removal Primary Care Provider: Maria Guadalupe Price ED Provider: Prosper Chiu Home Meds and New Rx's Prescriptions: No Action bupropion HCl 150 MG tablet extended release 12 hr 150 mg PO DAILY ipratropium-albuterol 3 ML solution for nebulization 3 ml Inhalation Q6H PRN PRN albuterol sulfate 3 ML solution for nebulization 3 ml Inhalation Q4H PRN PRN gabapentin 800 MG tablet 800 mg PO TID Label Comments: 04/02/19 taking 800mg--800mg--400mg albuterol sulfate 8.5 GM HFA aerosol inhaler 2 puff Inhalation Q4H PRN PRN budesonide-formoterol [Symbicort] 60 PUFF HFA aerosol inhaler 2 puff Inhalation BID mirabegron 25 mg Tablet Extended Release 24 Hr 25 mg PO QHS atorvastatin 40 mg Tablet 40 mg PO DAILY metoprolol succinate 50 mg Tablet Extended Release 24 Hr 50 mg PO DAILY clopidogrel 75 mg Tablet 75 mg PO DAILY amitriptyline 50 mg Tablet 50 mg PO QHS acetaminophen [Acetaminophen Extra Strength] 500 mg Tablet 1,000 mg PO Q8H PRN levothyroxine 25 mcg Tablet 25 mcg PO DAILY pantoprazole 20 mg Tablet,Delayed Release (Dr/Ec) 40 mg PO DAILY nitroglycerin 0.4 mg Tablet, Sublingual 0.4 mg SUBLINGUAL Q5M PRN cholecalciferol (vitamin D3) 1,000 unit Tablet,Chewable 5,000 unit PO DAILY naproxen sodium 220 mg Capsule 220 mg PO BID Spiriva Respimat 2.5 mcg/actuation Mist 2 puff INHALATION BID (DME) Oxygen-Air Delivery Systems 4 ondansetron 4 mg tablet,disintegrating 4 mg PO TID PRN (Reason: nausea and vomiting) Qty: 6 0RF isosorbide mononitrate 30 mg tablet extended release 24 hr 30 mg PO DAILY metoprolol succinate 25 mg tablet extended release 24 hr 25 tab PO DAILY Label Comments: TAKE 1 TABLET BY MOUTH DAILY WITH 50 MG TO EQUAL 75 MG Rx Instructions: total 75mg Discharge Instructions Additional Instructions: Please continue to monitor for signs of infection and if these occur return immediately otherwise follow-up with primary care provider as needed Referrals: Prisch,Maria Guadalupe B [Primary Care Provider] - Medical Decision Making Patient presenting to the emergency department for need of staple removal. Patient was seen for fall with head injury previously and had 1 staple placed in the posterior scalp. Patient denies any complications and states no other medical needs. 1 batsheva removed from the posterior scalp without complications and wound is healing well. After discussion of diagnosis and plan of care patient has no further needs, questions, or concerns and states clear understanding to return to the emergency department for any worsening symptoms. This documentation was generated using [employer] system, please disregard any oddities of phrase or misspellings. HPI General Mode of arrival: ambulatory . Date/Time Provider Initiated Documentation: 04/25/22 11:58 . Limitations to Documentation: no limitations . Information obtained by: patient, RN notes reviewed and old records reviewed . History of Present Illness 76 year old F presents to the emergency department with the chief complaint of Suture removal, Quality is described as other (Denies pain ), Patient notes no other symptoms.. Related Data Home Medications Medication Instructions Recorded Confirmed albuterol sulfate 2.5 mg/3 mL 3 ml inhalation Q4H PRN PRN 02/25/15 01/06/22 (0.083 %) solution for nebulization albuterol sulfate 90 mcg/actuation 2 puff inhalation Q4H PRN PRN 02/25/15 01/06/22 aerosol inhaler budesonide-formoterol HFA 160 2 puff inhalation BID 02/25/15 01/06/22 mcg-4.5 mcg/actuation aerosol inhaler (Symbicort) bupropion HCl 150 mg tablet,12 hr 150 mg PO DAILY 02/25/15 01/06/22 sustained-release gabapentin 800 mg tablet 800 mg PO TID 02/25/15 01/06/22 ipratropium 0.5 mg-albuterol 3 mg 3 ml inhalation Q6H PRN PRN 02/25/15 01/06/22 (2.5 mg base)/3 mL nebulization soln Oxygen-Air Delivery Systems 04/02/19 04/02/19 acetaminophen 500 mg tablet 1,000 mg PO Q8H PRN 04/02/19 01/06/22 (Acetaminophen Extra Strength) amitriptyline 50 mg tablet 50 mg PO QHS 04/02/19 01/06/22 atorvastatin 40 mg tablet 40 mg PO DAILY 04/02/19 01/06/22 cholecalciferol (vitamin D3) 25 5,000 unit PO DAILY 04/02/19 01/06/22 mcg (1,000 unit) chewable tablet clopidogrel 75 mg tablet 75 mg PO DAILY 04/02/19 01/06/22 levothyroxine 25 mcg tablet 25 mcg PO DAILY 04/02/19 01/06/22 metoprolol succinate 50 mg 50 mg PO DAILY 04/02/19 01/06/22 tablet,extended release 24 hr naproxen sodium 220 mg capsule 220 mg PO BID 04/02/19 01/06/22 nitroglycerin 0.4 mg sublingual 0.4 mg sublingual Q5M PRN 04/02/19 01/06/22 tablet pantoprazole 20 mg tablet,delayed 40 mg PO DAILY 04/02/19 01/06/22 release tiotropium bromide 2.5 2 puff inhalation BID 04/02/19 01/06/22 mcg/actuation mist for inhalation (Spiriva Respimat) mirabegron 25 mg tablet,extended 25 mg PO QHS 05/26/21 01/06/22 release 24 hr ondansetron 4 mg disintegrating 4 mg PO TID PRN nausea and 07/07/21 01/06/22 tablet vomiting #6 tabs isosorbide mononitrate 30 mg 30 mg PO DAILY 01/06/22 01/06/22 tablet,extended release 24 hr metoprolol succinate 25 mg 25 tab PO DAILY 01/06/22 01/06/22 tablet,extended release 24 hr Previous Rx's Medication Instructions Recorded ondansetron 4 mg disintegrating 4 mg PO TID PRN nausea and 07/07/21 tablet vomiting #6 tabs Allergies Allergy/AdvReac Type Severity Reaction Status Date / Time aspirin AdvReac Intermediate makes her Unverified 01/06/22 15:27 loopy General Stated Complaint: SutureRem GIANA: 5 Review of Systems All systems reviewed & are unremarkable except as noted in HPI and below Integumentary/Breasts Skin/Breast: Reports as per HPI and Reports other (Here for staple removal) PFSH All Active Problems (Updated 04/25/22 @ 12:03 by Prosper Chiu NP) Head injury (Acute) Laceration of scalp (Acute) Encounter for staple removal (Acute) COPD (chronic obstructive pulmonary disease) (Chronic) Medical History (Updated 04/25/22 @ 12:03 by Prosper Chiu NP) Anxiety Depression Diabetes GERD (gastroesophageal reflux disease) Hyperparathyroidism Hypothyroidism Surgical History History of appendectomy History of back surgery History of knee surgery Social History Smoking/Tobacco Use Status: Former Tobacco Use Smoking risk assessment performed?: Yes Alcohol Intake: current Alcohol Intake frequency: holidays/special occasions only Alcohol type: wine Drug use: Never Substance use type: does not use Do you feel safe at home: Yes Do you feel safe in your relationship?: Yes Exam Const General: cooperative, comfortable and no acute distress Orientation: alert, awake and oriented x3 Resp Effort & Inspection: normal respiratory effort, able to speak in complete sentences and no respiratory distress Skin Rashes: no rashes Trauma: laceration (healing well laceration without erythema, purulence, or dehiscence.) Neuro General: patient alert, patient awake, patient oriented x3, moves all extremities and no focal motor deficits Course Vital Signs Vital signs: Vital Signs Temperature 36.8 C 04/25/22 12:00 Pulse 80 04/25/22 12:00 Respiratory Rate 20 04/25/22 12:00 Blood Pressure 132/80 04/25/22 12:00 Pulse Oximetry 97 04/25/22 12:00 Temperature 36.8 C 04/25/22 12:00 Temperature Source Temporal Artery Scan 04/25/22 12:00 Pulse 80 04/25/22 12:00 Respiratory Rate 20 04/25/22 12:00 Respiratory Effort Non-Labored 04/25/22 12:01 Blood Pressure 132/80 04/25/22 12:00 Blood Pressure Position Sitting 04/25/22 12:00 Pulse Oximetry 97 04/25/22 12:00 Oxygen Delivery Method Nasal Cannula 04/25/22 12:00 Oxygen Flow Rate 2 04/25/22 12:00 Pain Level 0 04/25/22 12:00
== END 2022-04-25 12:04 | disposition home or self-care (01) ==
PROVIDERS: Emergency Provider Nurse Practitioner Family; PCP Internal Medicine Adolescent Medicine
DX: S01.01XD Laceration without foreign body of scalp, subsequent encounter (principal); E11.9 Type 2 diabetes mellitus without complications; W19.XXXD Unspecified fall, subsequent encounter
CPT/HCPCS: 99281

== ENCOUNTER 2022-05-10 14:19 | Emergency (ER) | payer MEDICARE, MEDICAID, SELFPAY ==
--- NOTE | 2022-05-10 14:15 | DI.RAD_ITS ---
Exam(s) XR LUMBAR SPINE AP, LAT EXAM: XR LUMBAR SPINE AP, LAT CLINICAL HISTORY: fall lower back and buttock pain. TECHNIQUE: 2D digital imaging was performed of the lumbar spine. Three images were obtained. AP, l ateral, right oblique, left oblique and L5-S1 spot views were obtained. COMPARISON: CR XR CHEST 2V PA LATERAL from 01/06/2022 FINDINGS: Degenerative changes are present. No acute fracture or subluxation is present. Atherosclerosis is s een. IMPRESSION: No acute fracture or subluxation in the lumbar spine. DATA REPOSITORY: RADIATION DOSE DELIVERED:
--- NOTE | 2022-05-10 14:15 | DI.RAD_ITS ---
Exam(s) XR COCCYX EXAM: XR COCCYX CLINICAL HISTORY: fall buttock pain. TECHNIQUE: 2D digital imaging was performed. COMPARISON: No exams were available for comparison FINDINGS: There is limited visualization of the coccyx on the AP view due to overlying bowel. BONES: No definite acute fracture is present. No bony destructive lesion is seen. JOINTS: No dislocation present. SOFT TISSUE: Normal. IMPRESSION: No definite acute fracture is identified. DATA REPOSITORY: RADIATION DOSE DELIVERED:
--- NOTE | 2022-05-10 14:15 | DI.RAD_ITS ---
Exam(s) XR PELVIS AP EXAM: XR PELVIS AP CLINICAL HISTORY: fall. TECHNIQUE: 2D digital imaging was performed. One image was obtained. COMPARISON: No exams were available for comparison FINDINGS: BONES: No acute fracture is present. No bony destructive lesion is seen. JOINTS: No dislocation present. Marked degenerative changes are seen in the left hip with joint space narrowing, subchondral sclerosis and periarticular spurring. Portions of an intramedullary yaneli and nail are seen in the right femur. SOFT TISSUE: Normal. IMPRESSION: No acute fracture or dislocation. DATA REPOSITORY: RADIATION DOSE DELIVERED:
[2022-05-10 14:19] VITALS: PULSE 122; RESP 18; TEMP 37.1; O2SAT 99
--- NOTE | 2022-05-10 14:28 | W.ED.GENAD ---
Discharge Plan Disposition Patient Disposition: HOME Condition: Improving Discharge Details Chief Complaint: Nk/Back Pain Clinical Impression: Contusion Primary Care Provider: Maria Guadalupe Price ED Provider: Luis Vaughan Home Meds and New Rx's Prescriptions: No Action bupropion HCl 150 MG tablet extended release 12 hr 150 mg PO DAILY ipratropium-albuterol 3 ML solution for nebulization 3 ml Inhalation Q6H PRN PRN albuterol sulfate 3 ML solution for nebulization 3 ml Inhalation Q4H PRN PRN gabapentin 800 MG tablet 800 mg PO TID Label Comments: 04/02/19 taking 800mg--800mg--400mg albuterol sulfate 8.5 GM HFA aerosol inhaler 2 puff Inhalation Q4H PRN PRN budesonide-formoterol [Symbicort] 60 PUFF HFA aerosol inhaler 2 puff Inhalation BID mirabegron 25 mg Tablet Extended Release 24 Hr 25 mg PO QHS atorvastatin 40 mg Tablet 40 mg PO DAILY metoprolol succinate 50 mg Tablet Extended Release 24 Hr 50 mg PO DAILY clopidogrel 75 mg Tablet 75 mg PO DAILY amitriptyline 50 mg Tablet 50 mg PO QHS acetaminophen [Acetaminophen Extra Strength] 500 mg Tablet 1,000 mg PO Q8H PRN levothyroxine 25 mcg Tablet 25 mcg PO DAILY pantoprazole 20 mg Tablet,Delayed Release (Dr/Ec) 40 mg PO DAILY nitroglycerin 0.4 mg Tablet, Sublingual 0.4 mg SUBLINGUAL Q5M PRN cholecalciferol (vitamin D3) 1,000 unit Tablet,Chewable 5,000 unit PO DAILY naproxen sodium 220 mg Capsule 220 mg PO BID Spiriva Respimat 2.5 mcg/actuation Mist 2 puff INHALATION BID (DME) Oxygen-Air Delivery Systems 4 ondansetron 4 mg tablet,disintegrating 4 mg PO TID PRN (Reason: nausea and vomiting) Qty: 6 0RF isosorbide mononitrate 30 mg tablet extended release 24 hr 30 mg PO DAILY metoprolol succinate 25 mg tablet extended release 24 hr 25 tab PO DAILY Label Comments: TAKE 1 TABLET BY MOUTH DAILY WITH 50 MG TO EQUAL 75 MG Rx Instructions: total 75mg Discharge Instructions Instructions: Contusion in Adults (ED) Medical Decision Making 76-year-old female presents several days after mechanical fall from standing slipping while going to restroom in the middle of the night, pain to right buttock and lower back, moving all extremities no signs of deformity no midline spinal tenderness neurologically intact moving all extremities 5 out of 5 strength, hemodynamically stable alert oriented. Did hit the back of her head however after landing on her buttock and falling slightly backwards when she was already on the ground, occipital in nature no loss of conscious. Low suspicion for intracranial hemorrhage or cervical or thoracic injury, however given lower back discomfort and buttock discomfort must consider component of lumbar compression fracture versus pelvic fracture versus coccyx fracture. Will provide analgesia/anti-inflammatory, x-ray L-spine pelvis coccyx 15: 52 patient resting comfortably no acute distress. Initial tachycardia to 120s like related to discomfort and moving the patient. Patient now closer to 110 on monitor. Hemodynamically stable. Patient is oxygen dependent is 98% on 2 L nasal cannula. No evidence of pelvic or coccygeal fracture no evidence of hip dislocation or fracture. HPI General Date/Time Provider Initiated Documentation: 05/10/22 14:26. HPI Narrative: 76-year-old female presented mechanical fall several days ago at home while walking to the restroom in the middle the night, fell onto her buttocks fell backwards hit the back of her head no loss of consciousness. Endorses pain of the last several days worse in her buttock region and lower back. Has been able to walk at home without issue. Related Data Home Medications Medication Instructions Recorded Confirmed albuterol sulfate 2.5 mg/3 mL 3 ml inhalation Q4H PRN PRN 02/25/15 01/06/22 (0.083 %) solution for nebulization albuterol sulfate 90 mcg/actuation 2 puff inhalation Q4H PRN PRN 02/25/15 01/06/22 aerosol inhaler budesonide-formoterol HFA 160 2 puff inhalation BID 02/25/15 01/06/22 mcg-4.5 mcg/actuation aerosol inhaler (Symbicort) bupropion HCl 150 mg tablet,12 hr 150 mg PO DAILY 02/25/15 01/06/22 sustained-release gabapentin 800 mg tablet 800 mg PO TID 02/25/15 01/06/22 ipratropium 0.5 mg-albuterol 3 mg 3 ml inhalation Q6H PRN PRN 08/17/15 06/28/22 (2.5 mg base)/3 mL nebulization soln Oxygen-Air Delivery Systems 04/02/19 04/02/19 acetaminophen 500 mg tablet 1,000 mg PO Q8H PRN 04/02/19 01/06/22 (Acetaminophen Extra Strength) amitriptyline 50 mg tablet 50 mg PO QHS 04/02/19 01/06/22 atorvastatin 40 mg tablet 40 mg PO DAILY 04/02/19 01/06/22 cholecalciferol (vitamin D3) 25 5,000 unit PO DAILY 04/02/19 01/06/22 mcg (1,000 unit) chewable tablet clopidogrel 75 mg tablet 75 mg PO DAILY 04/02/19 01/06/22 levothyroxine 25 mcg tablet 25 mcg PO DAILY 04/02/19 01/06/22 metoprolol succinate 50 mg 50 mg PO DAILY 04/02/19 01/06/22 tablet,extended release 24 hr naproxen sodium 220 mg capsule 220 mg PO BID 04/02/19 01/06/22 nitroglycerin 0.4 mg sublingual 0.4 mg sublingual Q5M PRN 04/02/19 01/06/22 tablet pantoprazole 20 mg tablet,delayed 40 mg PO DAILY 04/02/19 01/06/22 release tiotropium bromide 2.5 2 puff inhalation BID 04/02/19 01/06/22 mcg/actuation mist for inhalation (Spiriva Respimat) mirabegron 25 mg tablet,extended 25 mg PO QHS 05/26/21 01/06/22 release 24 hr ondansetron 4 mg disintegrating 4 mg PO TID PRN nausea and 07/07/21 01/06/22 tablet vomiting #6 tabs isosorbide mononitrate 30 mg 30 mg PO DAILY 01/06/22 01/06/22 tablet,extended release 24 hr metoprolol succinate 25 mg 25 tab PO DAILY 01/06/22 01/06/22 tablet,extended release 24 hr Previous Rx's Medication Instructions Recorded ondansetron 4 mg disintegrating 4 mg PO TID PRN nausea and 07/07/21 tablet vomiting #6 tabs Allergies Allergy/AdvReac Type Severity Reaction Status Date / Time aspirin AdvReac Intermediate makes her Unverified 01/06/22 15:27 loopy General Stated Complaint: Nk/Back Pain GIANA: 3 Review of Systems Narrative: Review of Systems Constitutional: negative Eyes: negative ENT: negative Cardiovascular: negative Respiratory: negative Gastrointestinal: negative : negative Musculoskeletal: Back pain, buttock pain Skin: negative Neurologic: negative Psych: negative PFSH All Active Problems (Updated 05/10/22 @ 17:35 by uLis Vaughan MD) Encounter for staple removal (Acute) Contusion (Acute) COPD (chronic obstructive pulmonary disease) (Chronic) Medical History (Updated 05/10/22 @ 17:35 by Luis Vaughan MD) Anxiety Depression Diabetes GERD (gastroesophageal reflux disease) Hyperparathyroidism Hypothyroidism Surgical History History of appendectomy History of back surgery History of knee surgery Social History Smoking/Tobacco Use Status: Former Tobacco Use Smoking risk assessment performed?: Yes Alcohol Intake: current Alcohol Intake frequency: holidays/special occasions only Alcohol type: wine Drug use: Never Substance use type: does not use Do you feel safe at home: Yes Do you feel safe in your relationship?: Yes Exam Narrative Exam Narrative: Physical Examination General: alert, awake, cooperative, resting comfortably, no acute distress HEENT: normocephalic, atraumatic; PERRL, EOM intact, conjunctiva normal; no nasal discharge; moist mucous membranes, oral and pharyngeal mucosa normal, tolerating secretions Neck: supple, trachea midline; full ROM Chest: normal to inspection Respiratory: normal respiratory effort, speaking in full sentences, clear to auscultation, no wheezing, rales or rhonchi Cardiac: regular rate, regular rhythm, S1S2 intact, no murmurs rubs or gallops GI: abdomen soft, non-tender, non-distended; no palpable mass or hepatosplenomegaly Back: No midline spinal tenderness crepitus or step-off Skin: Ecchymosis to right superior aspect of buttock just lateral to midline Neuro: AAOx3, normal speech, moving all extremities, 5 out of 5 strength upper lower extremity Extremities: Moving all extremities, no foreshortening of any limbs, range of motion intact Psych: Appropriate mood and affect Course Vital Signs Vital signs: Vital Signs Temperature 37.1 C 05/10/22 14:19 Pulse 122 H 05/10/22 14:19 Respiratory Rate 18 05/10/22 14:19 Pulse Oximetry 99 05/10/22 14:19 Temperature 37.1 C 05/10/22 14:19 Temperature Source Skin 05/10/22 14:19 Pulse 122 H 05/10/22 14:19 Respiratory Rate 18 05/10/22 14:19 Blood Pressure Position Supine 05/10/22 14:19 Pulse Oximetry 99 05/10/22 14:19 Oxygen Delivery Method Nasal Cannula 05/10/22 14:19 Oxygen Flow Rate 4 05/10/22 14:19 Pain Level 9 05/10/22 14:19 Comment chronic O2 use at 4 lpm 05/10/22 14:19
[2022-05-10] MEDS: Lidocaine 5% Patch 1 PATCH TP (14:48)
[2022-05-10] MEDS: Ketorolac 15 MG/ML VIAL IM (14:49)
--- NOTE | 2022-05-10 15:34 | DI.VRAD_ITS ---
PROCEDURE INFORMATION: Exam: XR Pelvis Exam date and time: 05/10/2022 3:07 PM Age: 76 years old Clinical indication: Injury or trauma; Other: Fall lower back and buttock pain TECHNIQUE: Imaging protocol: Radiologic exam of the pelvis. Views: 1 or 2 view. COMPARISON: CT ABD PELVIS WO CONTRAST 10/22/2016 6:53 PM FINDINGS: Bones/joints: Right dynamic hip screw in place. There is severe degenerative changes involving the left hip. Soft tissues: Unremarkable. IMPRESSION: No definite acute posttraumatic abnormality. Dictated and Authenticated by: Samra Cabrera MD. Ordering:NICKOLAS Smith MD
--- NOTE | 2022-05-10 15:36 | DI.VRAD_ITS ---
PROCEDURE INFORMATION: Exam: XR Lumbosacral Spine Exam date and time: 05/10/2022 3:11 PM Age: 76 years old Clinical indication: Injury or trauma; Other: Fall lower back and buttock pain; Injury date: 05/05/22 TECHNIQUE: Imaging protocol: Radiologic exam of the lumbosacral spine. Views: 2 or 3 views. COMPARISON: CR XR COCCYX 05/10/2022 3:09 PM FINDINGS: Bones/joints: Moderate spondylosis noted. New lines there is some overlying clothing artifact. New lines vertebral body height appears well preserved. Soft tissues: Unremarkable. IMPRESSION: No evidence for acute posttraumatic abnormality. Dictated and Authenticated by: Samra Cabrera MD. Ordering:NICKOLAS Smith MD
--- NOTE | 2022-05-10 15:38 | DI.VRAD_ITS ---
PROCEDURE INFORMATION: Exam: XR Sacrum and Coccyx, 2 or More Views Exam date and time: 05/10/2022 3:09 PM Age: 76 years old Clinical indication: Injury or trauma; Other: Fall lower back and buttock pain; Patient HX: Fall 5 days ago TECHNIQUE: Imaging protocol: XR of the sacrum and coccyx, 2 or more views. COMPARISON: CR XR PELVIS AP 05/10/2022 3:07 PM FINDINGS: Bones/joints: Portion of right hip screw noted. Bony alignment appears anatomic without evidence for fracture. Soft tissues: Normal. Gastrointestinal tract: Overlying bowel gas slightly limits evaluation. IMPRESSION: No definite evidence for fracture . Dictated and Authenticated by: Samra Cabrera MD. Ordering:NICKOLAS Smith MD
--- NOTE | 2022-05-10 15:44 | NUR.NOTE ---
Patient resting in bed. States her pain has improved with administration of medication. Resting in bed. Will continue to monitor.
[2022-05-10 16:22] VITALS: BP 135/77; PULSE 111; RESP 18; O2SAT 99
== END 2022-05-10 17:40 | disposition home or self-care (01) ==
PROVIDERS: Emergency Provider Emergency Medicine; PCP Internal Medicine Adolescent Medicine
DX: M54.50 Low back pain, unspecified (principal); R00.0 Tachycardia, unspecified; R10.2 Pelvic and perineal pain; S30.0XXA Contusion of lower back and pelvis, initial encounter; W01.0XXA Fall on same level from slipping, tripping and stumbling without subsequent striking against object, initial encounter; S09.8XXA Other specified injuries of head, initial encounter
CPT/HCPCS: 96372; 99284; 72100; 72170; 72220; 99283; J1885

== ENCOUNTER 2023-02-18 15:18 | Inpatient (IN) | payer MEDICARE, MEDICAID, SELFPAY ==
[2023-02-18] VITALS (27 sets, daily range): BP systolic 81–129; BP diastolic 44–105; PULSE 54–138; RESP 15–28; TEMP 35.9–36.8; O2SAT 87–100
--- NOTE | 2023-02-18 15:15 | RT.EKG_ITS ---
APPROVED REPORT Exam: Resting ECG Reason for Exam: chest pain Patient Location: E HR:75 bpm ECG Measurements Heart Rate 75 AXIS OK 178 P 82 QRSd 77 QRS 50 QT 354 T 37 QTc 396 Conclusion Sinus rhythm...normal P axis, V-rate 60- 99 Physician: no stemi
--- NOTE | 2023-02-18 15:15 | DI.CT_ITS ---
Exam(s) CT CHEST W EXAM: CT CHEST W CLINICAL HISTORY: fall, thinnners, hit head, L upper chest pain rib3 TECHNIQUE: Imaging Protocol: Axial computed tomography images with coronal and sagittal reformatted images were created and reviewed CONTRAST MATERIAL: Intravenous: Omnipaque 350 Contrast volume:structured data ml. COMPARISON: CT ABD PELVIS WO CONTRAST from 10/22/[address] LUMBAR SPINE WO from 05/29/2020 CR XR CHEST 2V PA LATERAL from 01/06/2022 FINDINGS: Pulmonary parenchyma: Severe emphysematous changes. Scarring at the right lung apex. Atelectasis or scarring at the right lung apex. No consolidation. No dominant measurable mass. Tracheobronchial tree: No bronchiectasis or mucous plugging. Mediastinum and Heidy: No dominant adenopathy or fluid collection. Pleura: No effusion or pneumothorax. Heart: The heart is not dilated. Mild coronary artery calcifications are seen. Aorta: Thoracic aorta non-dilated. Mild atherosclerotic changes. Upper abdomen: Large mass in the antrum of the stomach, not fully included on the exam. There is a l arge adjacent mass in the right lobe of the liver, measuring 8.3 x 8.9 cm Bones: Rights lateral 6th rib fracture appears acute. A old left lower rib fracture deformity is see n. The lower ribs are not well evaluated due to motion. There is a fracture of the left anterior 2n d rib which appears subacute. Degenerative changes in the spine. Severe degenerative changes of t he left shoulder. Soft tissues: Unremarkable. 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 Subacute appearing fracture of the anterior right 2nd rib. Acute appearing fracture of the right lateral 6th rib. No pneumothorax. No pulmonary contusion. Findings called to Dr. Coronado of the emergency department. RADIATION DOSE DELIVERED: 384.87mGy.cm Total DLP DATA REPOSITORY: All CT scans at this facility are submitted to the National Radiology Data Registry (NRDR) Dose Index Registry (DIR) with the [employer] ([employer]). RADIATION OPTIMIZATION: All CT scans at this facility use at least one of these dose optimization te chniques: automated exposure control; mA and/or kV adjustment per patient size (includes targeted exa ms where dose is matched to clinical indication); or iterative reconstruction.
--- NOTE | 2023-02-18 15:15 | DI.CT_ITS ---
Exam(s) CT HEAD CERVICAL SPINE WO EXAM: CT HEAD CERVICAL SPINE WO CLINICAL HISTORY: fall, thinnners, hit head, L upper chest pain rib3. TECHNIQUE: Imaging Protocol: Axial computed tomography images with coronal and sagittal reformatted images were created and reviewed COMPARISON: CT CT HEAD WO from 04/02/2022 FINDINGS: Head CT Ventricles and Extra axial spaces: Normal in size and morphology for the patient's age. Hemorrhage: None. Cerebral parenchyma: Atrophy. White matter changes small vessel disease. Midline shift: None. Brainstem/Cerebellum: Normal. Calvarium: Normal. Visualized Paranasal sinuses/Mastoids: Clear. Cervical Spine CT BONES: Vertebral body heights are maintained. Alignment is normal. There is no evidence of acute frac ture. Degenerative disc changes and facet degenerative changes are seen . SOFT TISSUES: No paraspinal hematoma. The airway appears intact. No pneumothorax is seen at the lung apices. IMPRESSION: Head CT: No acute abnormality. C-spine CT: Degenerative changes, no acute abnormality. RADIATION DOSE DELIVERED: 1,034.44mGy.cm Total DLP DATA REPOSITORY: All CT scans at this facility are submitted to the National Radiology Data Registry (NRDR) Dose Index Registry (DIR) with the [employer] ([employer]). RADIATION OPTIMIZATION: All CT scans at this facility use at least one of these dose optimization te chniques: automated exposure control; mA and/or kV adjustment per patient size (includes targeted exa ms where dose is matched to clinical indication); or iterative reconstruction.
[2023-02-18 15:44] LABS: Abs Immature Grans 0.37 10^3/uL (0.0-0.06); Absolute Basophil Count 0.08 10^3/uL (0.0-0.2); Absolute Lymphocyte Count 1.15 10^3/uL (1.2-3.4); Absolute Monocyte Count 0.91 10^3/uL (0.1-0.8); Absolute Neutrophil Count 16.27 10^3/uL (1.2-6.7); Basophils % 0.4; Eosinophils % 0.7; HCT 32.9 % (36.0-46.0); HGB 10.1 g/dL (11.2-15.7); Lymphocytes % 6.1; MCH 27.4 pg (27.0-33.0); MCHC 30.7 % (32.0-36.0); MCV 89 fL (80-95); MPV 9.3 fL (8.0-11.0); Monocytes % 4.8; Platelet Count 228 10^3/uL (130-400); RBC 3.69 10^6/uL (3.93-5.22); RDW 12.9 % (11.7-14.6); RDW-SD 42.2 fL; WBC 18.92 10^3/uL (4.4-10.8)
[2023-02-18 15:45] LABS: Absolute Eosinophil Count 0.13 10^3/uL (0.0-0.7)
[2023-02-18] MEDS: Normal Saline 500 ML IV (15:46)
[2023-02-18 15:59] LABS: ALT 18 U/L (14-59); AST 22 U/L (15-37); Albumin 2.4 g/dL (3.4-5.0); Alkaline Phosphatase 133 U/L (46-116); Anion Gap 5.3 mmol/L (3-11); BUN 18 mg/dL (7-18); Bilirubin, Total 0.3 mg/dL (0.2-1.0); CO2 33.7 mmol/L (21.0-32.0); CREATININE 1.7 mg/dL (0.55-1.02); Calcium 9.7 mg/dL (8.5-10.1); Chloride 101 mmol/L (98-107); Glucose 165 mg/dL (74-106); Potassium 3.8 mmol/L (3.5-5.1); Sodium 140 mmol/L (136-145); Total Protein 7.3 g/dL (6.4-8.2)
[2023-02-18 16:03] LABS: Creatine Kinase 45 U/L (26-192); Troponin I < 50 ng/L (<or=60)
[2023-02-18] MEDS: Omnipaque 350 MG/ML 100 ML BTL IJ (16:27)
[2023-02-18] MEDS: Normal Saline - Diluent 50 ML VIAL IJ (16:28)
[2023-02-18] MEDS: Normal Saline Flush 10 ML SYR IVP (16:29)
[2023-02-18] MEDS: Lidocaine 5% Patch 1 PATCH TP (16:50)
--- NOTE | 2023-02-18 17:07 | ED.GENADUL_ITS ---
Discharge Plan Disposition Patient Disposition: Admit to [facility] Discharge Details Clinical Impression: Mass of stomach, Liver mass, Syncope, Anemia, Closed rib fracture Primary Care Provider: Maria Guadalupe Price ED Provider: Christian Coronado Home Meds and New Rx's Prescriptions: No Action bupropion HCl 150 MG tablet extended release 12 hr 150 mg PO DAILY ipratropium-albuterol 3 ML solution for nebulization 3 ml Inhalation Q6H PRN PRN albuterol sulfate 3 ML solution for nebulization 3 ml Inhalation Q4H PRN PRN gabapentin 800 MG tablet 800 mg PO TID Patient Comments: 04/02/19 taking 800mg--800mg--400mg albuterol sulfate 8.5 GM HFA aerosol inhaler 2 puff Inhalation Q4H PRN PRN budesonide-formoterol [Symbicort] 60 PUFF HFA aerosol inhaler 2 puff Inhalation BID mirabegron 25 mg Tablet Extended Release 24 Hr 25 mg PO QHS atorvastatin 40 mg Tablet 40 mg PO DAILY metoprolol succinate 50 mg Tablet Extended Release 24 Hr 50 mg PO DAILY clopidogrel 75 mg Tablet 75 mg PO DAILY amitriptyline 50 mg Tablet 50 mg PO QHS acetaminophen [Acetaminophen Extra Strength] 500 mg Tablet 1,000 mg PO Q8H PRN levothyroxine 25 mcg Tablet 25 mcg PO DAILY pantoprazole 20 mg Tablet,Delayed Release (Dr/Ec) 40 mg PO DAILY nitroglycerin 0.4 mg Tablet, Sublingual 0.4 mg SUBLINGUAL Q5M PRN cholecalciferol (vitamin D3) 1,000 unit Tablet,Chewable 5,000 unit PO DAILY naproxen sodium 220 mg Capsule 220 mg PO BID Patient Comments: not taking per med list 02/18/23 Spiriva Respimat 2.5 mcg/actuation Mist 2 puff INHALATION BID (DME) Oxygen-Air Delivery Systems 4 ondansetron 4 mg tablet,disintegrating 4 mg PO TID PRN (Reason: nausea and vomiting) Qty: 6 0RF isosorbide mononitrate 30 mg tablet extended release 24 hr 30 mg PO DAILY metoprolol succinate 25 mg tablet extended release 24 hr 25 tab PO DAILY Patient Comments: TAKE 1 TABLET BY MOUTH DAILY WITH 50 MG TO EQUAL 75 MG Rx Instructions: total 75mg duloxetine 30 mg capsule,delayed release(DR/EC) 30 mg PO DAILY Patient Comments: TAKE 1 CAPSULE BY MOUTH ONCE DAILY Medical Decision Making 77-year-old female with a past medical history of anxiety, depression, diabetes, GERD, hyperparathyroidism, hypothyroidism, appendectomy, COPD on 3 to 4 L of oxygen at baseline, who presents today for evaluation of fall. Patient states that about 5 hours prior to arrival she got up and felt very lightheaded and dizzy, she then fell forward, hit her left shoulder and chest, as well as her head. She had difficulty getting back up after that. She denies any loss of consciousness. EMS was eventually called, the patient was brought to the ER for further assessment. She also does admit to falling few weeks ago having a similar situation where she was down on the ground for quite some time. She does take antiplatelet agents Plavix. She currently admits left-sided chest pain, left-sided shoulder pain, mild back pain. She denies any recent vomiting or diarrhea. She does state that she has been feeling slightly weaker than normal. She denies any dark or tarry stools. No other complaints at this time. No other modifying factors. M demonstrates point tenderness over rib 3 on the left, no significant tenderness on the right. No bony tenderness for the ankles or knees or hips. No midline cervical thoracic or lumbar spine tenderness. No evidence of significant trauma to the head or face. Due to the patient's antiplatelet use, we will get CT scan of the head neck, and also because of her chest pain and falling potentially hitting her chest we will get CT scan of the chest. Will treat with Lidoderm patches, will evaluate for other causes of her lightheadedness, monitor closely and reassess. 5:[address] scan of the head neck is negative for acute process, CT scan of the chest shows evidence of rib fracture on the left at the second rib, but there also appears to be a large mass in the liver, as well as a large mass in the antrum of the stomach. Concerning for malignancy. Patient does have a notably elevated white count at 19, notable left shift. No bands. She has no fever or chills here. Creatinine is elevated at 1.7 which appears to be her baseline. Hemoglobin is slightly low at 10, which is 2 point drop in the last 2 months. Troponin normal. EKG benign. Still pending urinalysis. I did reach out to Dr. Erickson, discussed the case with her. She would like to admit the patient for continued workup of the new masses and her lightheadedness. I do feel her syncope/near syncope may be secondary to her low hemoglobin. There does not appear to be a clear cardiac etiology. Dr. Erickson does request a leung CT scan for the chest abdomen and pelvis Noncon. We will order this. Patient will be admitted to the floor. I have extensively reviewed the treatment plan with the patient. I have addressed all patient concerns at this time. I have also discussed the plan with the admitting physician and they agree with the current assessment and plan and have agreed to assume responsibility for the patient. All parties demonstrate verbal understanding and agreement with our assessment and plan at this time. The documentation in this chart was dictated using [employer] dictation software. Please excuse any dictation errors. Urinalysis does show evidence of urinary tract infection. Will treat with 2 g of ceftriaxone. Additionally I did contact the patient's son and discussed this with him. He agrees on the plan. His brother is coming up right now driving from [place] to be with the patient. The son I spoke with currently resides in [place] and just received a kidney transplant and has not been able to travel right now. Both sons wish to be contacted with the plan. FINDINGS: Head CT Ventricles and Extra axial spaces: Normal in size and morphology for the patient's age. Hemorrhage: None. Cerebral parenchyma: Atrophy. White matter changes small vessel disease. Midline shift: None. Brainstem/Cerebellum: Normal. Calvarium: Normal. Visualized Paranasal sinuses/Mastoids: Clear. Cervical Spine CT BONES: Vertebral body heights are maintained. Alignment is normal. There is no evidence of acute fracture. Degenerative disc changes and facet degenerative changes are seen . SOFT TISSUES: No paraspinal hematoma. The airway appears intact. No pneumothorax is seen at the lung apices. IMPRESSION: Head CT: No acute abnormality. C-spine CT: Degenerative changes, no acute abnormality. FINDINGS: Pulmonary parenchyma: Severe emphysematous changes. Scarring at the right lung apex. Atelectasis or scarring at the right lung apex. No consolidation. No dominant measurable mass. Tracheobronchial tree: No bronchiectasis or mucous plugging. Mediastinum and Heidy: No dominant adenopathy or fluid collection. Pleura: No effusion or pneumothorax. Heart: The heart is not dilated. Mild coronary artery calcifications are seen. Aorta: Thoracic aorta non-dilated. Mild atherosclerotic changes. Upper abdomen: Large mass in the antrum of the stomach, not fully included on the exam. There is a large adjacent mass in the right lobe of the liver, measuring 8.3 x 8.9 cm Bones: Rights lateral 6th rib fracture appears acute. A old left lower rib fracture deformity is seen. The lower ribs are not well evaluated due to motion. There is a fracture of the left anterior 2nd rib which appears subacute. Degenerative changes in the spine. Severe degenerative changes of the left shoulder. Soft tissues: Unremarkable. 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 Subacute appearing fracture of the anterior right 2nd rib. Acute appearing fracture of the right lateral 6th rib. No pneumothorax. No pulmonary contusion. Findings called to Dr. Coronado of the emergency department. HPI General Date/Time Provider Initiated Documentation: 02/18/23 15:25 . HPI Narrative: 77-year-old female with a past medical history of anxiety, depression, diabetes, GERD, hyperparathyroidism, hypothyroidism, appendectomy, COPD on 3 to 4 L of oxygen at baseline, who presents today for evaluation of fall. Patient states that about 5 hours prior to arrival she got up and felt very lightheaded and dizzy, she then fell forward, hit her left shoulder and chest, as well as her head. She had difficulty getting back up after that. She denies any loss of consciousness. EMS was eventually called, the patient was brought to the ER for further assessment. She also does admit to falling few weeks ago having a similar situation where she was down on the ground for quite some time. She does take antiplatelet agents Plavix. She currently admits left-sided chest pain, left-sided shoulder pain, mild back pain. She denies any recent vomiting or diarrhea. She does state that she has been feeling slightly weaker than normal. She denies any dark or tarry stools. No other complaints at this time. No other modifying factors. Related Data Home Medications Medication Instructions Recorded Confirmed albuterol sulfate 2.5 mg/3 mL 3 ml inhalation Q4H PRN PRN 02/25/15 02/18/23 (0.083 %) solution for nebulization albuterol sulfate 90 mcg/actuation 2 puff inhalation Q4H PRN PRN 02/25/15 02/18/23 aerosol inhaler budesonide-formoterol HFA 160 2 puff inhalation BID 02/25/15 02/18/23 mcg-4.5 mcg/actuation aerosol inhaler (Symbicort) bupropion HCl 150 mg tablet,12 hr 150 mg PO DAILY 02/25/15 02/18/23 sustained-release gabapentin 800 mg tablet 800 mg PO TID 02/25/15 02/18/23 ipratropium 0.5 mg-albuterol 3 mg 3 ml inhalation Q6H PRN PRN 02/25/15 02/18/23 (2.5 mg base)/3 mL nebulization soln Oxygen-Air Delivery Systems 04/02/19 04/02/19 acetaminophen 500 mg tablet 1,000 mg PO Q8H PRN 04/02/19 02/18/23 (Acetaminophen Extra Strength) amitriptyline 50 mg tablet 50 mg PO QHS 04/02/19 02/18/23 atorvastatin 40 mg tablet 40 mg PO DAILY 04/02/19 02/18/23 cholecalciferol (vitamin D3) 25 5,000 unit PO DAILY 04/02/19 02/18/23 mcg (1,000 unit) chewable tablet clopidogrel 75 mg tablet 75 mg PO DAILY 04/02/19 02/18/23 levothyroxine 25 mcg tablet 25 mcg PO DAILY 04/02/19 02/18/23 metoprolol succinate 50 mg 50 mg PO DAILY 04/02/19 02/18/23 tablet,extended release 24 hr naproxen sodium 220 mg capsule 220 mg PO BID 04/02/19 01/06/22 nitroglycerin 0.4 mg sublingual 0.4 mg sublingual Q5M PRN 04/02/19 02/18/23 tablet pantoprazole 20 mg tablet,delayed 40 mg PO DAILY 04/02/19 02/18/23 release tiotropium bromide 2.5 2 puff inhalation BID 04/02/19 02/18/23 mcg/actuation mist for inhalation (Spiriva Respimat) mirabegron 25 mg tablet,extended 25 mg PO QHS 05/26/21 02/18/23 release 24 hr ondansetron 4 mg disintegrating 4 mg PO TID PRN nausea and 07/07/21 02/18/23 tablet vomiting #6 tabs isosorbide mononitrate 30 mg 30 mg PO DAILY 01/06/22 02/18/23 tablet,extended release 24 hr metoprolol succinate 25 mg 25 tab PO DAILY 01/06/22 02/18/23 tablet,extended release 24 hr duloxetine 30 mg capsule,delayed 30 mg PO DAILY 02/18/23 02/18/23 release Previous Rx's Medication Instructions Recorded ondansetron 4 mg disintegrating 4 mg PO TID PRN nausea and 07/07/21 tablet vomiting #6 tabs Allergies Allergy/AdvReac Type Severity Reaction Status Date / Time aspirin AdvReac Intermediate makes her Unverified 02/18/23 15:23 loopy General Stated Complaint: Fall/Non TraumaCriteria GIANA: 3 Review of Systems All systems reviewed & are unremarkable except as noted in HPI and below PFSH All Active Problems (Updated 02/18/23 @ 17:36 by Christian Coronado DO) Mass of stomach (Acute) Liver mass (Acute) Syncope (Chronic) Anemia (Chronic) Closed rib fracture (Acute) COPD (chronic obstructive pulmonary disease) (Chronic) Medical History (Updated 02/18/23 @ 17:36 by Christian Coronado DO) Anxiety Depression Diabetes GERD (gastroesophageal reflux disease) Hyperparathyroidism Hypothyroidism Surgical History History of appendectomy History of back surgery History of knee surgery Social History Smoking/Tobacco Use Status: Former Tobacco Use Smoking risk assessment performed?: Yes Alcohol Intake: current Alcohol Intake frequency: holidays/special occasions only Alcohol type: wine Drug use: Never Substance use type: does not use Do you feel safe at home: Yes Do you feel safe in your relationship?: Yes Exam Narrative Exam Narrative: 1.Const: Well-nourished, Well-developed, appearing stated age 2.Eyes: PERRL, no conjunctival injection, and symmetrical lids. 3.ENT: Atraumatic external nose and ears. Dry MM. Neck: Symmetric, trachea midline, No thyromegaly. There is no evidence of raccoon eyes, cortes sign, CSF rhinorrhea, mastoid tenderness, cranial crepitus, hemotympanum, exophthalmos, or hyphema. Patient demonstrates intact dentition with no signs of tooth avulsion or fracture, no signs of jaw deformity, no evidence of a LeFort's fracture, with an intact palate, nose and orbital region. There is no evidence of a nasal septal hematoma. No proptosis. Jaw closes symmetrically. Airway is clear. 4.CVS: +S1/S2, No murmurs or gallops. Peripheral pulses 2+ and equal in all extremities. Brisk capillary refill in all extremities. 5.RESP: Unlabored respiratory effort. Clear to auscultation bilaterally. No wheezes rales or rhonchi. Mild tenderness on palpation of the left second and third rib, no significant tenderness on the right chest wall. No midline cervical thoracic or lumbar spine tenderness. 6.GI: Soft, Nontender/Nondistended, No hepatosplenomegaly. No guarding or rebou nd. 7.MSK: Normocephalic/Atraumatic, Extremities w/o deformity or ttp No cyanosis or clubbing, Normal movement of all extremities. No midline cervical thoracic or lumbar spine tenderness. Small abrasion noted over the right knee, no bony tenderness over knees bilaterally. No hip or pelvis tenderness. No upper extremity pain. No pain in the left shoulder with range of motion. 8.Skin: Warm, Dry. No rashes or lesions. 9.Neuro: heel top lift splitter II-XII grossly intact. Sensation grossly intact, no focal neurologic deficits. 10.Psych: (AAO) x3. Appropriate mood and affect Course Vital Signs Vital signs: Vital Signs Pulse 77 02/18/23 15:20 Respiratory Rate 21 02/18/23 15:20 Blood Pressure 103/54 L 02/18/23 15:20 Pulse Oximetry 97 02/18/23 15:20 Temperature Source Skin 02/18/23 15:20 Pulse 77 02/18/23 16:00 Pulse 81 02/18/23 16:46 Respiratory Rate 19 02/18/23 16:46 Respiratory Effort Normal 02/18/23 15:25 Blood Pressure 104/44 L 02/18/23 16:00 Blood Pressure Mean 58 02/18/23 16:00 Blood Pressure Position Supine 02/18/23 15:20 Pulse Oximetry 100 02/18/23 15:51 Oxygen Delivery Method Nasal Cannula 02/18/23 15:20 Oxygen Flow Rate 4 02/18/23 15:20 Pain Level 7 08/10/23 15:20 Lab/Test Results Lab/Test Results: Laboratory Tests Range/Units 02/18/23 02/18/23 02/18/23 15:30 15:30 15:30 WBC (4.4-10.8) 10^3/uL 18.92 H RBC (3.93-5.22) 10^6/uL 3.69 L Hgb (11.2-15.7) g/dL 10.1 L Hct (36.0-46.0) % 32.9 L MCV (80-95) fL 89 MCH (27.0-33.0) pg 27.4 MCHC (32.0-36.0) % 30.7 L RDW (11.7-14.6) % 12.9 Plt Count (130-400) 10^3/uL 228 MPV (8.0-11.0) fL 9.3 Immature Gran % 2.0 Neutrophils % 86.0 Lymphocytes % 6.1 Monocytes % 4.8 Eosinophils % 0.7 Basophils % 0.4 Nucleated RBC % (0.0-0.3) % 0.0 Absolute Neutrophils (1.2-6.7) 10^3/uL 16.27 H Absolute Lymphocytes (1.2-3.4) 10^3/uL 1.15 L Absolute Monocytes (0.1-0.8) 10^3/uL 0.91 H Absolute Eosinophils (0.0-0.7) 10^3/uL 0.13 Absolute Basophils (0.0-0.2) 10^3/uL 0.08 Sodium (136-145) mmol/L 140 Potassium (3.5-5.1) mmol/L 3.8 Chloride (98-107) mmol/L 101 Carbon Dioxide (21.0-32.0) mmol/L 33.7 H Anion Gap (3-11) mmol/L 5.3 BUN (7-18) mg/dL 18 Creatinine (0.55-1.02) mg/dL 1.7 H Est GFR (CKD-EPI 2020) (mL/min/1.73m2) 30.50 Glucose (74-106) mg/dL 165 H Calcium (8.5-10.1) mg/dL 9.7 Total Bilirubin (0.2-1.0) mg/dL 0.3 AST (15-37) U/L 22 ALT (14-59) U/L 18 Alkaline Phosphatase (46-116) U/L 133 H Creatine Kinase (26-192) U/L 45 Troponin I (<or=60) ng/L < 50 Total Protein (6.4-8.2) g/dL 7.3 Albumin (3.4-5.0) g/dL 2.4 L
--- NOTE | 2023-02-18 17:15 | DI.CT_ITS ---
Exam(s) CT CHEST/ABD/PEL WO EXAM: CT CHEST/ABD/PEL WO CLINICAL HISTORY: eval for mass. TECHNIQUE: Imaging Protocol: Axial computed tomography images with coronal and sagittal reformatted images were created and reviewed CONTRAST MATERIAL: Noncontrast. Contrast was given earlier the same day for chest CT. Oral: / no COMPARISON: CT ABD PELVIS WO CONTRAST from 10/22/[address] CHEST W from 02/18/2023 FINDINGS: CHEST: Tracheobronchial tree: Patent where visualized. Pulmonary parenchyma: Scarring right lung apex. Severe underlying emphysematous changes. Scarring o r atelectasis at the right lung base. No pulmonary nodules. Pleura: No effusion or pneumothorax. Lymph nodes: Within normal limits. Aorta: Thoracic portion non-dilated. Mild atherosclerotic changes. Pulmonary arteries: Prominent. Heart: Normal size. Mild coronary artery calcifications. Bones: Unremarkable for age. No lytic or blastic lesions.No compression fractures. ABDOMEN: Liver/stomach: Normal density. Large mass involving the antrum of stomach. 5.5 by 3.5 by 4.2 cm. T his lies directly adjacent to the liver and there is a large irregular mass measuring roughly 9 cm in diameter. The stomach is not abnormally distended. No additional liver lesions are identified. Gallbladder and biliary tract: The gallbladder appears to be encompassed by the gastric and liver ma sses. There is no biliary dilatation.. Pancreas: Normal density, no abnormal calcifications or inflammatory process. Spleen: Normal. Kidneys: Normal size, contour and axis. No radiodense stones or obstructive uropathy. No suspicious m asses seen. Adrenal glands: No masses seen. Aorta: Abdominal portion non-dilated. Atherosclerotic changes. Lymph nodes: Within normal limits. Soft tissues: Unremarkable. PELVIS: Bladder: Symmetric distention, no gross wall thickening. Bowel: The hepatic flexure of the colon abuts the inferior edge of the liver adjacent to the mass. T here is a question of mild wall thickening in this location. No obstruction or bowel wall thickening . Peritoneal cavity: Stranding in the right upper quadrant mesentery beneath the level of the gastric m ass and inferior to the liver. No ascites or focal collection. No free air. Bones: Degenerative changes in the spine. Hardware in the proximal right femur. Severe degenerative changes of the left hip. Moderate degenerative changes of the right hip. No destructive bony lesio ns identified. Reproductive organs: Status post hysterectomy. IMPRESSION: Chest: Severe emphysematous changes and areas of scarring. No evidence of metastatic disease. Abdomen pelvis: Large mass of the gastric antrum with involvement of the gallbladder as well as a lar ge adjacent mass in the liver. Question of involvement of the hepatic flexure of the colon. Findings called to Dr. Coronado of the emergency department. RADIATION DOSE DELIVERED: 1,137.27mGy.cm Total DLP DATA REPOSITORY: All CT scans at this facility are submitted to the National Radiology Data Registry (NRDR) Dose Index Registry (DIR) with the [employer] (A[employer]). RADIATION OPTIMIZATION: All CT scans at this facility use at least one of these dose optimization te chniques: automated exposure control; mA and/or kV adjustment per patient size (includes targeted exa ms where dose is matched to clinical indication); or iterative reconstruction.
[2023-02-18 17:49] LABS: Bilirubin Negative (Negative); Blood Small (Negative); Glucose Negative (Negative); Ketones Negative (Negative); Leukocyte Esterase Moderate (Negative); Nitrite Positive (Negative); Urobilinogen 0.2 mg/dL (Up to 0.2); pH 5.5 (5-8)
[2023-02-18 17:50] LABS: Clarity Cloudy (Clear)
[2023-02-18] MEDS: cefTRIAXone 2 GM/50 ML BAG IVPB (18:06)
[2023-02-18] MEDS: Acetaminophen 500 MG TAB 1000 MG PO (18:06)
[2023-02-18 18:09] LABS: Lab Add On Test DONE
[2023-02-18 18:34] LABS: Ferritin 650 ng/mL (8-252)
[2023-02-18 19:14] LABS: Bacteria Many HPF (Negative); C & S Indicated? No/Sq. Contamination; Crystals Negative HPF (Negative); Epithelial Cells Many HPF (Negative); Mucus Negative (Negative); Other Cells Few Transitional (Negative); WBC 20-50 HPF (0-5)
[2023-02-18] MEDS: Enoxaparin 30 MG/0.3 ML SYR SC (19:28)
[2023-02-18] MEDS: Lactated Ringers 1,000 ML 75 ML IV (19:28)
--- NOTE | 2023-02-18 21:04 | HPE_ITS ---
Date of service: 02/18/23 Time of Service: 21:05 Assessment and Plan Assessment and plan (1) Multiple fractures of ribs of both sides: Status: Acute Assessment and plan: Pain control inc spirometry as tolerated (2) Microcytic anemia: Status: Acute (3) Acute UTI (urinary tract infection): Status: Acute (4) Fall as cause of accidental injury at home as place of occurrence: Status: Acute Assessment and plan: Pt has had multipled falls recently PCP is at [facility], chart from reviewed including puomnary consult/echo/labs. [facility] was trying to arrange home health and home PT for her. Pt has not been eating and losing weight. She has become weight and anemic. I think this is contributing to her instability and falls. CT show that there is a mass in the stomach and in the colon. The colon mass is eroding through into the liver. We need to get a tissue diagnosis. She would most likely require chemo. There is a concern for obstruction in the colon, and her nutrition. We will have PT evaluate for fall safety. Further recommendations following bx and further discussion w/ pt and family regarding goals of care. This document was created with voice activated software and may contain errors. 70 mins spent with the patient today. (5) Osteoporosis: Status: Chronic (6) Chronic low back pain: Status: Chronic (7) Atherosclerotic heart disease [place] coronary artery w/angina pectoris: Status: Acute (8) Restless legs syndrome (RLS): Status: Acute (9) Urge incontinence: Status: Acute (10) Stage 3a chronic kidney disease (CKD): Status: Acute (11) Chronic insomnia: Status: Acute (12) Temporal arteritis: Status: Acute (13) Mass of stomach: Status: Acute Assessment and plan: will d/w performing EGD in am w/ anesthesia in am Pt has family out of state. 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 After reviewing her charts and reviewing her CTs it is apparent she has had multiple falls in the past. Her normal PCP is at [facility]. I did review her notes from [facility]. They note multiple falls as well. Per their notes she was receiving home PT for weakness and falls. -Patient has a past medical history significant for severe COPD. She does see pulmonary at [facility]. She is on 4 L of oxygen. Even in the pulmonary note it states that they do not understand why she is on this much oxygen. Her last PFTs (October 2022) at [facility] show an FVC of 1.38 L FEV1 of 0.57 L. Diffusing capacity of 17%. She is maintained on Symbicort/DuoNebs/albuterol/Spiriva -She has a history of ischemic heart disease that is managed with Imdur and as needed nitro. Her last echo was 01/01 which was significant for LV EF 55 to 60%- no segmental wall motion abnormality pulmonary artery hypertension could not be assessed no significant valvular disease. -The patient is very drowsy and difficult to arouse. She did not receive any narcotics in the ER. She said she did not sleep last night and that she is just very tired. She is also very hard of hearing which limits communication. She did have a EGD and colonoscopy in 2014 at [facility]. She had some hemorrhoidal disease/mild sigmoid diverticula/ amd 3 adenomatous polyps. The EGD was essentially normal. Patient states she is noticed a decrease in appetite and has had weight loss. Per her [facility] chart she usually weighs around 140 pounds. There is no we ight recorded in our chart. She denies noticing blood in her stools. She notes she has been having diarrhea lately. She notes that she is fatigued feeling more fatigued and very short of breath. She has anterior chest wall pain from where she fell and hit her ribs. She denies cardiac chest pain at this time. 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 (Acute) Unexplained weight loss (Acute) Protein-calorie malnutrition, moderate (Acute) Metastasis to liver (Acute) Mass of hepatic flexure of colon (Acute) Microcytic anemia (Acute) Multiple fractures of ribs of both sides (Acute) Acute UTI (urinary tract infection) (Acute) Fall as cause of accidental injury at home as place of occurrence (Acute) Osteoporosis (Chronic) Chronic low back pain (Chronic) Atherosclerotic heart disease [place] coronary artery w/angina pectoris (Acute) Restless legs syndrome (RLS) (Acute) Urge incontinence (Acute) Stage 3a chronic kidney disease (CKD) (Acute) Chronic insomnia (Acute) Temporal arteritis (Acute) Mass of stomach (Acute) Liver mass (Acute) Syncope (Chronic) Anemia (Chronic) Closed rib fracture (Acute) COPD (chronic obstructive pulmonary disease) (Chronic) Medical History Anxiety Depression Diabetes DJD (degenerative joint disease), lumbar GERD (gastroesophageal reflux disease) Hyperparathyroidism Hypothyroidism Surgical History History of appendectomy History of back surgery History of knee surgery Status post hip replacement Social History Smoking/Tobacco Use Status: Former Tobacco Use Smoking risk assessment performed?: Yes Alcohol Intake: current Alcohol Intake frequency: holidays/special occasions only Alcohol type: wine Drug use: Never Substance use type: does not use Housing: house Do you feel safe at home: Yes Do you feel safe in your relationship?: Yes Meds Allergies and Home Medications Allergies Allergy/AdvReac Type Severity Reaction Status Date / Time aspirin AdvReac Intermediate makes her Unverified 02/18/23 15:23 loopy Home Medications Medication Instructions Recorded Confirmed Type albuterol sulfate 2.5 mg/3 mL 3 ml inhalation Q4H PRN PRN 02/25/15 02/18/23 His tory (0.083 %) solution for nebulization albuterol sulfate 90 mcg/actuation 2 puff inhalation Q4H PRN PRN 02/25/15 02/18/23 History aerosol inhaler budesonide-formoterol HFA 160 2 puff inhalation BID 02/25/15 02/18/23 History mcg-4.5 mcg/actuation aerosol inhaler (Symbicort) gabapentin 800 mg tablet 800 mg PO TID 02/25/15 02/18/23 History ipratropium 0.5 mg-albuterol 3 mg 3 ml inhalation Q6H PRN PRN 02/25/15 02/18/23 History (2.5 mg base)/3 mL nebulization soln Oxygen-Air Delivery Systems 04/02/19 04/02/19 History acetaminophen 500 mg tablet 1,000 mg PO Q8H PRN 04/02/19 02/18/23 History (Acetaminophen Extra Strength) amitriptyline 50 mg tablet 50 mg PO QHS 04/02/19 02/18/23 History atorvastatin 40 mg tablet 40 mg PO DAILY 04/02/19 02/18/23 History cholecalciferol (vitamin D3) 25 5,000 unit PO DAILY 04/02/19 02/18/23 History mcg (1,000 unit) chewable tablet clopidogrel 75 mg tablet 75 mg PO DAILY 04/02/19 02/18/23 History levothyroxine 25 mcg tablet 25 mcg PO DAILY 04/02/19 02/18/23 History metoprolol succinate 50 mg 50 mg PO DAILY 04/02/19 02/18/23 History tablet,extended release 24 hr naproxen sodium 220 mg capsule 220 mg PO BID 04/02/19 01/06/22 History nitroglycerin 0.4 mg sublingual 0.4 mg sublingual Q5M PRN 04/02/19 02/18/23 History tablet pantoprazole 20 mg tablet,delayed 40 mg PO DAILY 04/02/19 02/18/23 History release tiotropium bromide 2.5 2 puff inhalation DAILY 04/02/19 02/19/23 History mcg/actuation mist for inhalation (Spiriva Respimat) mirabegron 25 mg tablet,extended 25 mg PO QHS 05/26/21 02/18/23 History release 24 hr ondansetron 4 mg disintegrating 4 mg PO TID PRN nausea and 07/07/21 02/18/23 Rx tablet vomiting #6 tabs isosorbide mononitrate 30 mg 30 mg PO DAILY 01/06/22 02/18/23 History tablet,extended release 24 hr metoprolol succinate 25 mg 25 tab PO DAILY 01/06/22 02/18/23 History tablet,extended release 24 hr duloxetine 30 mg capsule,delayed 30 mg PO DAILY 02/18/23 02/18/23 History release bupropion HCl 150 mg 24 hr tablet, 150 mg PO QAM 02/19/23 02/19/23 History extended release Exam Narrative Exam Narrative: PHYSICAL EXAM GENERAL APPEARANCE: Alert, healthy appearance, oriented, x 3,? in no acute di stress HYDRATION: Well hydrated HEAD, EYES, EARS, NECK, THROAT: Head is normocephalic, pupils equal, round, reactive to light and accommodation, ocular movement intact, sclera clear and no jaundice. ?Dentition - poor LUNGS: decreased breaths sound. No wheeze. pain to palpation b/ chest wall. ?HEART: Regular rate and rhythm. no murmurs EXTREMITY: No edema or cyanosis.? no leg pain, redness, swelling.? She has a 2x2cm eschar R elbow- no infection. multiple areas of bruising/ecchymosis on arms/legs. ABDOMEN: soft and non-tender to palpation.? Normal bowel sounds.? Results Labs 02/19/23 06:12 02/18/23 15:30 Labs: Laboratory Results - last 24 hr 02/18/23 02/18/23 02/18/23 15:30 15:30 15:30 WBC 18.92 H RBC 3.69 L Hgb 10.1 L Hct 32.9 L MCV 89 MCH 27.4 MCHC 30.7 L RDW 12.9 Plt Count 228 MPV 9.3 Immature Gran % 2.0 Neutrophils % 86.0 Lymphocytes % 6.1 Monocytes % 4.8 Eosinophils % 0.7 Basophils % 0.4 Nucleated RBC % 0.0 Absolute Neutrophils 16.27 H Absolute Lymphocytes 1.15 L Absolute Monocytes 0.91 H Absolute Eosinophils 0.13 Absolute Basophils 0.08 Sodium 140 Potassium 3.8 Chloride 101 Carbon Dioxide 33.7 H Anion Gap 5.3 BUN 18 Creatinine 1.7 H Est GFR (CKD-EPI 2020) 30.50 Glucose 165 H Calcium 9.7 Ferritin Total Bilirubin 0.3 AST 22 ALT 18 Alkaline Phosphatase 133 H Creatine Kinase 45 Troponin I < 50 Total Protein 7.3 Albumin 2.4 L Urine Color Urine Clarity Urine pH Ur Specific Morning Sun Urine Protein Urine Ketones Urine Blood Urine Nitrite Urine Bilirubin Urine Urobilinogen Ur Leukocyte Esterase Urine RBC Urine WBC Ur Epithelial Cells Urine Crystals Urine Bacteria Urine Mucus Urine Other Ur Culture Indicated? Urine Glucose Add-On Test Request Patient ABO/Rh Antibody Screen 02/18/23 02/18/23 02/18/23 15:30 17:30 17:50 WBC RBC Hgb Hct MCV MCH MCHC RDW Plt Count MPV Immature Gran % Neutrophils % Lymphocytes % Monocytes % Eosinophils % Basophils % Nucleated RBC % Absolute Neutrophils Absolute Lymphocytes Absolute Monocytes Absolute Eosinophils Absolute Basophils Sodium Potassium Chloride Carbon Dioxide Anion Gap BUN Creatinine Est GFR (CKD-EPI 2020) Glucose Calcium Ferritin 650 H Total Bilirubin AST ALT Alkaline Phosphatase Creatine Kinase Troponin I Total Protein Albumin Urine Color Yellow Urine Clarity Cloudy Urine pH 5.5 Ur Specific Morning Sun 1.010 Urine Protein Negative Urine Ketones Negative Urine Blood Small H Urine Nitrite Positive H Urine Bilirubin Negative Urine Urobilinogen 0.2 Ur Leukocyte Esterase Moderate H Urine RBC 3-5 H Urine WBC 20-50 H Ur Epithelial Cells Many Urine Crystals Negative Urine Bacteria Many Urine Mucus Negative Urine Other Few Transitional Ur Culture Indicated? No/Sq. Contamination Urine Glucose Negative Add-On Test Request Patient ABO/Rh O Positive Antibody Screen NEGATIVE 02/18/23 Unknown WBC RBC Hgb Hct MCV MCH MCHC RDW Plt Count MPV Immature Gran % Neutrophils % Lymphocytes % Monocytes % Eosinophils % Basophils % Nucleated RBC % Absolute Neutrophils Absolute Lymphocytes Absolute Monocytes Absolute Eosinophils Absolute Basophils Sodium Potassium Chloride Carbon Dioxide Anion Gap BUN Creatinine Est GFR (CKD-EPI 2020) Glucose Calcium Ferritin Total Bilirubin AST ALT Alkaline Phosphatase Creatine Kinase Troponin I Total Protein Albumin Urine Color Urine Clarity Urine pH Ur Specific Morning Sun Urine Protein Urine Ketones Urine Blood Urine Nitrite Urine Bilirubin Urine Urobilinogen Ur Leukocyte Esterase Urine RBC Urine WBC Ur Epithelial Cells Urine Crystals Urine Bacteria Urine Mucus Urine Other Ur Culture Indicated? Urine Glucose Add-On Test Request DONE Patient ABO/Rh Antibody Screen Last Vital Signs Temp 36.8 C 02/18/23 19:04 Pulse 71 02/18/23 19:04 Resp 16 02/18/23 19:04 BP 98/52 L 02/18/23 19:04 Pulse Ox 98 02/18/23 19:04 Time Spent Time spent with Patient: 55-74 minutes Time was spent: preparing to see the patient(eg.review tests), obtaining and/or reviewing separately otained hiistory, ordering medications,tests, procedures, referring, communicating with other health home care giver, indepentently interpreting results, counseling the patient and care coordination
[2023-02-18] MEDS: Mirabegron 25 MG TABCR PO (21:30)
[2023-02-18] MEDS: Amitriptyline 50 MG TAB PO (21:30)
[2023-02-18] MEDS: Budesonide/Formoterol 160/4.5 6 GM 60 PUFF INH IH (21:30)
[2023-02-18] MEDS: Gabapentin 800 MG TAB PO (21:30)
[2023-02-18] MEDS: Tiotropium Bromide-Respimat 10 PUFF INH 2 PUFF IH (22:24)
[2023-02-18] MEDS: LIDOCAINE Patch Removal 1 EACH TP (22:28)
[2023-02-19] VITALS (10 sets, daily range): BP systolic 98–129; BP diastolic 39–78; PULSE 54–80; RESP 12–20; TEMP 36–37.7; O2SAT 90–100; BMI 23.6
[2023-02-19] MEDS: Acetaminophen 500 MG TAB 1000 MG PO ×2 (02:25→18:11)
[2023-02-19 06:23] LABS: Abs Immature Grans 0.11 10^3/uL (0.0-0.06); Absolute Basophil Count 0.06 10^3/uL (0.0-0.2); Absolute Eosinophil Count 0.14 10^3/uL (0.0-0.7); Absolute Monocyte Count 0.64 10^3/uL (0.1-0.8); Basophils % 0.5; Eosinophils % 1.1; HCT 27.6 % (36.0-46.0); HGB 8.4 g/dL (11.2-15.7); Immature Grans % 0.9; Lymphocytes % 8.1; MCH 27.3 pg (27.0-33.0); MCHC 30.4 % (32.0-36.0); MCV 90 fL (80-95); MPV 9.5 fL (8.0-11.0); Monocytes % 5.2; Neutrophils % 84.2; Platelet Count 184 10^3/uL (130-400); RBC 3.08 10^6/uL (3.93-5.22); RDW 12.9 % (11.7-14.6); RDW-SD 42.3 fL
[2023-02-19 06:32] LABS: Absolute Neutrophil Count 10.36 10^3/uL (1.2-6.7)
[2023-02-19 06:35] LABS: Prothrombin Time 10.2 sec (9.3-11.0)
[2023-02-19 07:06] LABS: Folate 4.9 ng/mL (8.6-20.0); Magnesium 1.4 mg/dL (1.8-2.4); Vitamin B12 571 pg/mL (193-986)
[2023-02-19 08:04] LABS: Procalcitonin < 0.1 ng/mL
[2023-02-19] MEDS: buPROPion-XL 150 MG TABCR PO (08:05)
[2023-02-19] MEDS: Gabapentin 800 MG TAB PO ×3 (08:05→20:58)
[2023-02-19] MEDS: DULoxetine 30 MG CAP PO (08:05)
[2023-02-19] MEDS: Levothyroxine 25 MCG TAB PO (08:06)
[2023-02-19] MEDS: Lidocaine 5% Patch 2 PATCH TP (08:06)
[2023-02-19] MEDS: Pantoprazole 40 MG TABCR PO (08:08)
[2023-02-19] MEDS: Lactated Ringers 1,000 ML 75 ML IV (08:42)
--- NOTE | 2023-02-19 08:45 | RESPIRATORY ---
Pt states that she normally wears 4L O2 at home 01/02. DME:
[2023-02-19] MEDS: Budesonide/Formoterol 160/4.5 6 GM 60 PUFF INH IH ×2 (08:47→19:44)
[2023-02-19] MEDS: Tiotropium Bromide-Respimat 10 PUFF INH 2 PUFF IH (08:48)
--- NOTE | 2023-02-19 09:44 | PDOC.CMIN ---
Date of service: 02/19/23 Time of Service: 09:44 Care Management Initial Assmt Initial Assessment REASON FOR HOSPITALIZATION:: UTI, fractured ribs PREVIOUS FUNCTIONAL STATUS/SOCIAL/FAMILY SUPPORTS:: Debra lives alone in a single family home in [place], [place] She had 3 sons, but one is . The other 2 live out of state; one son lives in [place] and the other one lives in [place], [place]. She also has 3 grandchildren and one great granddaughter that she has not met yet as she is in [place]. Debra's oldest grandchild lives in [facility]. She is particularly close to him as he lived with her during his teen years. Debra also has 2 cats named Alicia and Evelina. She is very fond of them and explained that they are affectionate and keep her company. Debra is independent at baseline. She receives Meals on Wheels twice a week and would like a Life Alert. She has case management through [facility] and her manager case Cathleen can help Debra obtain one. CURRENT FUNCTIONAL STATUS:: Debra was sitting up in bed when met with her. She was very pleasant and willing to converse. She talked a lot about her family, both her siblings and her children. She had 6 siblings, but 3 of them have from various causes. Both of her surviving sons have serious medical issues such as cancer and renal failure. Her son that had a malignant melanoma and had to have his leg amputated. He had diabetes as well requiring the amputation of some of his toes. Debra informed that she would be willing to have rehab at [facility] but would not be willing to go to a SNF. She explained that she really just wants to get back home to her kitties. ADVANCE DIRECTIVES:: none on file Has patient been provided with info about the portal/API?: Yes Did the patient sign up for the portal?: No CODE STATUS:: Full Code INSURANCE COVERAGE / FINANCIAL ISSUES:: [facility] Medicare Replacement Medicaid CURRENT HOME/COMMUNITY SERVICES/EQUIPMENT:: community case management through [facility] [place] [facility] (Cathleen) Meals on Wheels twice weekly PRIMARY CARE PHYSICIAN:: Maria Guadalupe Price ([facility]) POTENTIAL DISCHARGE NEEDS:: follow up with PCP and other community providers PATIENT/FAMILY EDUCATION NEEDS:: Review of discharge instructions, limitations, activity, follow up plan, discuss [employer]' TRANSPORTATION:: via private vehicle with family PLAN:: Anticipate Debra will be discharged home, possibly with new home health services. She may benefit from a short stay at a SNF for short term rehab. She will follow up with her community providers and plan of care and transport with family. 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 (Acute) Unexplained weight loss (Acute) Protein-calorie malnutrition, moderate (Acute) Metastasis to liver (Acute) Mass of hepatic flexure of colon (Acute) Microcytic anemia (Acute) Multiple fractures of ribs of both sides (Acute) Acute UTI (urinary tract infection) (Acute) Fall as cause of accidental injury at home as place of occurrence (Acute) Osteoporosis (Chronic) Chronic low back pain (Chronic) Atherosclerotic heart disease [place] coronary artery w/angina pectoris (Acute) Restless legs syndrome (RLS) (Acute) Urge incontinence (Acute) Stage 3a chronic kidney disease (CKD) (Acute) Chronic insomnia (Acute) Temporal arteritis (Acute) Mass of stomach (Acute) Liver mass (Acute) Syncope (Chronic) Anemia (Chronic) Closed rib fracture (Acute) COPD (chronic obstructive pulmonary disease) (Chronic) Medical History (Updated 02/18/23 @ 21:32 by Funmilayo Erickson DO) Anxiety Depression Diabetes DJD (degenerative joint disease), lumbar GERD (gastroesophageal reflux disease) Hyperparathyroidism Hypothyroidism Surgical History (Updated 02/18/23 @ 21:30 by Funmilayo Erickson DO) History of appendectomy History of back surgery History of knee surgery Status post hip replacement Social History Smoking/Tobacco Use Status: Former Tobacco Use Smoking risk assessment performed?: Yes Alcohol Intake: current Alcohol Intake frequency: holidays/special occasions only Alcohol type: wine Drug use: Never Substance use type: does not use Housing: house Do you feel safe at home: Yes Do you feel safe in your relationship?: Yes
--- NOTE | 2023-02-19 10:20 | W.ANESPRE ---
General Info Date of Service Date Performed: 02/19/23 Height: 5 ft 3 in Weight: 60.328 kg Body Mass Index (BMI): 23.6 Surgical Procedure: Operation Date: 02/19/23 10:50 Proposed Procedure Side Surgeon gala Gastroscopy Funmilayo Erickson, DO Meds Allergies and Home Medications Allergies Allergy/AdvReac Type Severity Reaction Status Date / Time aspirin AdvReac Intermediate makes her Unverified 02/18/23 15:23 loopy Home Medication Medication Instructions Recorded albuterol sulfate 2.5 mg/3 mL 3 ml inhalation Q4H PRN PRN 02/25/15 (0.083 %) solution for nebulization albuterol sulfate 90 mcg/actuation 2 puff inhalation Q4H PRN PRN 02/25/15 aerosol inhaler budesonide-formoterol HFA 160 2 puff inhalation BID 02/25/15 mcg-4.5 mcg/actuation aerosol inhaler (Symbicort) gabapentin 800 mg tablet 800 mg PO TID 02/25/15 ipratropium 0.5 mg-albuterol 3 mg 3 ml inhalation Q6H PRN PRN 02/25/15 (2.5 mg base)/3 mL nebulization soln [employer] 04/02/19 acetaminophen 500 mg tablet 1,000 mg PO Q8H PRN 04/02/19 (Acetaminophen Extra Strength) amitriptyline 50 mg tablet 50 mg PO QHS 04/02/19 atorvastatin 40 mg tablet 40 mg PO DAILY 04/02/19 cholecalciferol (vitamin D3) 25 5,000 unit PO DAILY 04/02/19 mcg (1,000 unit) chewable tablet clopidogrel 75 mg tablet 75 mg PO DAILY 04/02/19 levothyroxine 25 mcg tablet 25 mcg PO DAILY 04/02/19 metoprolol succinate 50 mg 50 mg PO DAILY 04/02/19 tablet,extended release 24 hr naproxen sodium 220 mg capsule 220 mg PO BID 04/02/19 nitroglycerin 0.4 mg sublingual 0.4 mg sublingual Q5M PRN 04/02/19 tablet pantoprazole 20 mg tablet,delayed 40 mg PO DAILY 04/02/19 release tiotropium bromide 2.5 2 puff inhalation DAILY 04/02/19 mcg/actuation mist for inhalation (Spiriva Respimat) mirabegron 25 mg tablet,extended 25 mg PO QHS 05/26/21 release 24 hr ondansetron 4 mg disintegrating 4 mg PO TID PRN nausea and 07/07/21 tablet vomiting #6 tabs isosorbide mononitrate 30 mg 30 mg PO DAILY 01/06/22 tablet,extended release 24 hr metoprolol succinate 25 mg 25 tab PO DAILY 01/06/22 tablet,extended release 24 hr duloxetine 30 mg capsule,delayed 30 mg PO DAILY 02/18/23 release bupropion HCl 150 mg 24 hr tablet, 150 mg PO QAM 02/19/23 extended release Current Visit Medications: Current Medications Generic Name Dose Route Start Last Admin Trade Name Freq PRN Reason Stop Dose Admin Acetaminophen 1,000 mg 02/18/23 18:00 02/19/23 02:25 Acetaminophen 500 Mg Tab PO 1,000 mg Q8H KYRA Administration Albuterol Sulfate 2.5 mg 02/18/23 17:29 Albuterol 2.5 Mg/3 Ml Inh Soln Vial IH Q4H PRN PRN Albuterol Sulfate 2 puff 02/18/23 17:29 Albuterol Hfa 8 Gm 60 Puff Inh IH Q4H PRN PRN Albuterol/Ipratropium 3 ml 02/18/23 17:29 Albuterol/Ipratropium 3 Ml Upd Vial IH Q6H PRN PRN Amitriptyline HCl 50 mg 02/18/23 22:00 02/18/23 21:30 Amitriptyline 50 Mg Tab PO 50 mg HS KYRA Administration Budesonide/Formoterol Fumarate 2 puff 02/18/23 20:00 02/19/23 08:47 Budesonide/Formoterol 160/4.5 6 Gm 60 Puff Inh IH 2 puff BID KYRA Administration Bupropion HCl 150 mg 02/19/23 08:30 02/19/23 08:05 Bupropion-Xl 150 Mg Tabcr PO 150 mg QAM [facility] Administration Device 1 each 02/18/23 18:00 Inhaler, Assist Device DIRECTED KYRA Duloxetine HCl 30 mg 02/19/23 08:30 02/19/23 08:05 Duloxetine 30 Mg Cap PO 30 mg DAILY KYRA Administration Enoxaparin Sodium 30 mg 02/18/23 18:00 02/18/23 19:28 Enoxaparin 30 Mg/0.3 Ml Syr SC 30 mg Q24H KYRA Administration Gabapentin 800 mg 02/18/23 20:00 02/19/23 08:05 Gabapentin 800 Mg Tab PO 800 mg TID KYRA Administration Sodium Chloride 500 mls @ 0 mls/hr 02/18/23 17:21 Saline 500ml Bag IV PRN PRN As Directed Ringer's Solution 1,000 mls @ 75 mls/hr 02/18/23 17:30 02/19/23 08:42 IV 75 mls/hr INFUSION KYRA Administration Ceftriaxone Sodium 500 mg/ 50 mls @ 100 mls/hr 02/19/23 18:00 Sodium Chloride IVPB Q24H KYRA IV Miscellaneous Supplies 1 each 02/18/23 17:30 Iv Access IV DIRECTED KYRA Isosorbide Mononitrate 30 mg 02/19/23 08:30 Isosorbide Mononitrate 30 Mg Tabcr PO DAILY KYRA Levothyroxine Sodium 25 mcg 02/19/23 06:00 02/19/23 08:44 Levothyroxine 25 Mcg Tab PO Not Given DAILY@0600 KYRA Lidocaine 2 patch 02/19/23 08:30 02/19/23 08:06 Lidocaine 5% Patch TP 2 patch DAILY KYRA Administration Mirabegron 25 mg 02/18/23 22:00 02/18/23 21:30 Mirabegron 25 Mg Tabcr PO 25 mg HS KYRA Administration Miscellaneous 1 each 02/18/23 20:30 02/18/23 22:28 Lidocaine Patch Removal TP [address] [place] [address] Administration Morphine Sulfate 2 mg 02/18/23 17:21 Morphine 2 Mg/Ml Syr IVP Q1H PRN PRN Nitroglycerin 0.4 mg 02/18/23 17:29 Nitroglycerin 0.4 Mg Tab SL Q5M PRN Ondansetron HCl 4 mg 02/18/23 17:21 Ondansetron 4 Mg/2 Ml Vial IVP Q4H PRN PRN Oxycodone HCl 5 mg 02/18/23 17:34 Oxycodone 5 Mg Tab PO Q4H PRN PRN Pantoprazole Sodium 40 mg 02/19/23 07:30 02/19/23 08:08 Pantoprazole 40 Mg Tabcr PO 40 mg DAILY@0730 [facility] Administration Sodium Chloride 0 ml 02/18/23 17:21 Normal Saline Flush 10 Ml Syr IVP PRN PRN Tiotropium [place] 2 puff 02/19/23 08:30 02/19/23 08:48 Tiotropium [place]-Respimat 10 Puff Inh IH 2 inh DAILY KYRA Administration PFSH Active Problems Active Problems: Problem Status Onset Code Coronary artery calcification seen on CAT scan I25.10 Aortic atherosclerosis I70.0 Status post KARINA-BSO Z90.710, Z90.722, Z90.79 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, 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 Unexplained weight loss R63.4 Protein-calorie malnutrition, moderate E44.0 Metastasis to liver C78.7 Mass of hepatic flexure of colon K63.89 Microcytic anemia D50.9 Multiple fractures of ribs of both sides S22.43XA Acute UTI (urinary tract infection) N39.0 Fall as cause of accidental injury at home as place of occurrence W19.XXXA, Y92.009 Osteoporosis M81.0 Chronic low back pain M54.50, G89.29 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 Restless legs syndrome (RLS) G25.81 Urge incontinence N39.41 Stage 3a chronic kidney disease (CKD) N18.31 Chronic insomnia F51.04 Temporal arteritis M31.6 Mass of stomach K31.89 Liver mass R16.0 Syncope R55 Anemia D64.9 Closed rib fracture S22.39XA COPD (chronic obstructive pulmonary disease) J44.9 Chest pain R07.9 Medical History Medical History (Updated 02/18/23 @ 21:32 by Funmilayo Erickson DO) Anxiety Depression Diabetes DJD (degenerative joint disease), lumbar GERD (gastroesophageal reflux disease) Hyperparathyroidism Hypothyroidism Surgical History Surgical History (Updated 02/18/23 @ 21:30 by Funmilayo Erickson DO) History of appendectomy History of back surgery History of knee surgery Status post hip replacement Tobacco Smoking/Tobacco Use Status: Former Tobacco Use Alcohol Alcohol Intake: current Alcohol intake frequency: holidays/special occasions only Alcohol type: wine Substance Use Substance use: Never Substance use type: does not use Vital Signs and Lab Results Vital Signs Most Recent Vital Signs in EMR: Most Recent Vital Signs Temp Pulse Resp BP Pulse Ox 36 C L 54 L 14 98/56 L 97 02/19/23 07:23 02/19/23 07:23 02/19/23 07:23 02/19/23 07:23 02/19/23 07:23 Lab Results 02/19/23 06:12 02/18/23 15:30 Blood Type / Crossmatch: Patient ABO/Rh O Positive 02/18/23 Antibody Screen NEGATIVE 02/18/23 Complete Blood Count: White Blood Count 12.30 10^3/uL (4.4-10.8) H 02/19/23 06:12 Red Blood Count 3.08 10^6/uL (3.93-5.22) L 02/19/23 06:12 Hemoglobin 8.4 g/dL (11.2-15.7) L 02/19/23 06:12 Hematocrit 27.6 % (36.0-46.0) L 02/19/23 06:12 Platelet Count 184 10^3/uL (130-400) 02/19/23 06:12 Complete Metabolic Panel: Sodium 140 mmol/L (136-145) 02/18/23 15:30 Potassium 3.8 mmol/L (3.5-5.1) 02/18/23 15:30 Chloride 101 mmol/L (98-107) 02/18/23 15:30 Carbon Dioxide 33.7 mmol/L (21.0-32.0) H 02/18/23 15:30 BUN 18 mg/dL (7-18) 02/18/23 15:30 Creatinine 1.7 mg/dL (0.55-1.02) H 02/18/23 15:30 Est GFR (CKD-EPI 2020) 30.50 (mL/min/1.73m2) 02/18/23 15:30 Magnesium 1.4 mg/dL (1.8-2.4) L 02/19/23 06:12 Calcium 9.7 mg/dL (8.5-10.1) 02/18/23 15:30 Albumin 2.4 g/dL (3.4-5.0) L 02/18/23 15:30 Glucose 165 mg/dL (74-106) H 02/18/23 15:30 Liver Function Panel: Alanine Aminotransferase (ALT/SGPT) 18 U/L (14-59) 02/18/23 15:30 Aspartate Amino Transf (AST/SGOT) 22 U/L (15-37) 02/18/23 15:30 Coagulation Panel: INR International Normalized Ratio 1.0 (0.9-1.1) 02/19/23 06:12 Prothrombin Time 10.2 sec (9.3-11.0) 02/19/23 06:12 Cardiac Panel: Troponin I < 50 ng/L (<or=60) 02/18/23 Creatine Kinase 45 U/L (26-192) 02/18/23 Arterial Blood Gas: No Data to Display Venous Blood Gas: No Data to Display Pancreas Panel: No Data to Display Thyroid Panel: No Data to Display Infectious Disease: No Data to Display Blood Cultures: No Data to Display Toxicology Panel: No Data to Display Imaging and Studies Imaging and Studies Study information below may be from another EMR and interpreted by another provider. Please see original notes in EMR for more complete details. EKG Summary: DATE/TIME OF SERVICE: 02/18/23 1526 : 1945PERFORMING LOCATION: ER APPROVED REPORT Exam: Resting ECG Reason for Exam: chest pain Patient Location: E HR:75 bpm ECG Measurements Heart Rate 75 AXIS DE 178 P 82 QRSd 77 QRS 50 QT 354 T37 QTc 396 Conclusion Sinus rhythm...normal P axis, V-rate 60- 99 Stress Test Summary: 2017 [facility] Likely 1VD, no indication for cardiac cath. Will begin Plavix daily. Echocardiogram Summary: Date: 12/16/2022: EF 55-60%, Trace regurge. Unable to assess pHTN. Date of Exam: 05/27/21Sex: F Admission Date: 05/26/21 : 1945 Age: 75 APPROVED REPORT EXAM: Comprehensive 2D, Doppler, and color-flow Echocardiogram Patient Location: In-Patient Room/Bed: [facility] Cutter Operator Brick: Maura Lares RDCS (AE) Indications: PE, SOB, Chest pain Other Information Study Quality: Fair. Technically limited study due to body habitus. Conclusion Normal left ventricular wall thickness and chamber size. Estimated ejection fraction is 55%. Wall motion is normal Normal right ventricular size and systolic function The atria are normal in size Aortic valve is sclerotic with mild regurgitation Mild mitral annular calcification. Mild mitral regurgitation Normal tricuspid valve with trace regurgitation. Estimated right ventricular systolic pressure is 27 mmHg The pulmonic valve was not well visualized Pulmonary Function Summary: FVC: 57% predicted, FEV1 30% predicted, FEV1/FVC 41%. Diffusion defect 17% with Spo2 97%. Zackery to 90% after walking 150feet on room air with walker. VERY Severe COPD on 4LPM O2 (Per note may likely require less oxygen despite this). Anesthesia Assessment and Plan Anesthesia History Personal History: No History of Anesthesia Complications Family History: No Family History of Anesthesia Complications Exercise Tolerance Exercise Tolerance: Metabolic Equivalents<4 Pertinent Negatives Pertinent Negatives: No Symptoms of GERD Cardiac & Pulmonary Exam Cardiac Exam: Normal S1/S2 Heart Sounds Pulmonary Exam: Clear Bilateral Breath Sounds Implantable Cardiac Device Does patient have a Pacemaker or an ICD?: No Airway Exam Known Difficult Airway: No Mallampati Class: 2 Mouth Opening: Normal (> 3cm) Thyromental Distance: Greater than 3 cm Neck Range of Motion: Full ROM Neck Circumference: Normal Teeth Condition: Normal Dentition ASA Classification ASA Score: ASA 4 Emergency Case?: No NPO Status NPO Status: NPO Clears >2 hours, Solids >8 hours Anesthesia Plan Resuscitation Status: Full Code Anesthesia Technique: General Anesthesia Airway Planned: Natural Airway Monitors Used: Standard Monitors Preoperative Comments:: 77-year-old female with a past medical history of anxiety, depression, diabetes, GERD, hyperparathyroidism, hypothyroidism, appendectomy, COPD on 3 to 4 L of oxygen at baseline, who presents today for evaluation of fall. Patient states that about 5 hours prior to arrival she got up and felt very lightheaded and dizzy, she then fell forward, hit her left shoulder and chest, as well as her head. She also does admit to falling few weeks ago having a similar situation where she was down on the ground for quite some time. She does take antiplatelet agents Plavix for abnormal stress test in 2017. Workup: Large stomach mass with extension into the liver where there is an 8.9 x 8.3 centimeter mass. Subacute appearing fracture of the anterior right 2nd rib. Acute appearing fracture of the right lateral 6th rib. No pneumothorax. No pulmonary contusion. Discussed with surgeon that patient has high anesthesia risk for this procedure. Surgeon feels this is a necessary procedure that will determine course of care.
--- NOTE | 2023-02-19 11:30 | STOM_PTH ---
PATIENT: Derba Guthrie LOC: U#:[id number] AGE/SX: 77/F ROOM: 215 RE02/18/[address]: Malik GROVES, Luis : 1945 BED: A DIS: 03/12/2023 SPEC #: [id number] RECD: 02/19/23 13:21 STATUS: ARGELIA REQ #: [id number] AYAAN: 02/19/23 11:[address]: Funmilayo Erickson DEPT: Surgical Specimen RECD BY: Stormy Connolly ENTERED: 02/19/23 13:23 SP TYPE: STOMACH OTHR DR: Maria Guadalupe Price Anesthesia, Consult [facility] Tissues: 1 - STOMACH BIOPSY Procedures: GROSS AND MICRO LEVEL 4 IMMUNOPEROXIDASE STAIN Comments: [id number]
--- NOTE | 2023-02-19 11:31 | ENDO_ITS ---
Date of service: 02/19/23 Time of Service: 11:31 Endoscopy Report DATE OF PROCEDURE: 02/19/23 PRE-OP DIAGNOSIS: anemia/wt loss/early saitey/mass ont CT POST-OP DIAGNOSIS: other (large obstructing mass in D1) SURGEON: Funmilayo Erickson ANESTHESIA TYPE: General LMA/ETT ESTIMATED BLOOD LOSS: 5 PATHOLOGY: other COMPLICATIONS: None DISPOSITION: PACU PROCEDURE DESCRIPTION: After informed consent was obtained the patient was take to the procedure room and placed in a supine position. Monitors were applied and a time out was done. The patients name, date of , procedure type, allergies to medications and metal in their body was reviewed. A bite block was placed and the patient was sedated. Once sedated and comfortable the gastroscope was advanced through the oropharynx which was grossly normal into the esophagus. The proximal and mid- esophagus were normal. In the distal esophagus there was normal noted- there are no hiatal hernia/esophagitis/varices/diverticula or strictures noted. The scope was advanced into the stomach and through the pylorus into the 3rd portion of the duodenum. The duodenum was noted to be large mass in D1. The mass is eroding through the posterior wall. It almost completely fills the duodenum. There is no gastric involvement. I am able to pass the scope beyond the mass. Biopsies were done of the mass. There were no ulcers/gastritis noted in the body of the stomach. The scope was retroflexed. The cardia and fundus were noted to be normal. There is no hiatal hernia noted. The Z line was regular. The GE junction was at 38 cm. The scope was removed and the patient was woken up and taken back to [facility] in stable condition.
--- NOTE | 2023-02-19 12:36 | W.ANESPOSTOP ---
Postoperative Evaluation Date, Time and Location Date Performed: 02/19/23 Time Performed: 12:36 Patient Location: Med/Surg Vital Signs Most Recent Imported Vital Signs: Most Recent Vital Signs Temp Pulse Resp BP Pulse Ox 36.6 C 60 14 105/39 L 100 02/19/23 11:45 02/19/23 11:45 02/19/23 11:45 02/19/23 11:45 02/19/23 11:45 Pain Score Most Recent Pain Score: Most Recent Pain Score Pain Level 0 02/19/23 07:23 Assessment Mental Status: Awake (Alert & Oriented to Patient Baseline) Airway and Respiratory Function: Patent airway with normal (patient baseline) respiratory exam Cardiovascular Function: Hemodynamically Stable Hydration Status: Adequately Hydrated Nausea & Vomiting: No Nausea or Vomiting Pain: Pt. Denies Any Pain Peripheral Nerve Block: Patient did not receive a nerve block Postoperative Comments:: Tolerated procedure very well. No respiratory concerns, back to baseline.
[2023-02-19] MEDS: MORPHine 2 MG/ML SYR IVP (15:08)
--- NOTE | 2023-02-19 16:05 | CHAPLAIN ---
Debra was resting in bed, talking with the hospitalist, when I visited. She told me that she has two sons, one [place] who is in remission from cancer but had an injured arm, and another one in [place]. She lives alone in an apartment in [facility]. Debra said the ambulance was called for her twice previously and she refused transfer, but today she decided she need come in. She will be on a liquid diet for a bit, the hospitalist told her. I explained my role and offered support.
--- NOTE | 2023-02-19 16:09 | HPE_ITS ---
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 Liquid diet. Nutrition consult. (3) Multiple fractures of ribs of both sides: Status: Acute Assessment and plan: Multiple falls with acute and subacute fxs. Pain managment as needed. (4) Acute UTI (urinary tract infection): Status: Acute Assessment and plan: Cont Rocephin Culture growing E.Coli that is pansensitive. (5) Atherosclerotic heart disease [place] coronary artery w/angina pectoris: Status: Acute Assessment and plan: No c/o CP. No h/o IA. On isosorbide. (6) Stage 3a chronic kidney disease (CKD): Status: Acute Assessment and plan: Avoid nephrotoxic agents. Creatinine of 1.7; in her baseline range. (7) COPD (chronic obstructive pulmonary disease): Status: Chronic Assessment and plan: 2 ppd smoker No acute exacerbation. PRN albuterol, Duonebs. Cont Spiriva (8) Colonic mass: Status: Acute Assessment and plan: Pt underwent upper endoscopy by Dr Erickson with findings of large mass compressing / obstructing on the D1 segment of duodenum. The mass extends into the liver. The mass arises most likely from large bowel. Discussing findings with pt and her [address] Erickson. Will consult palliative medicine. History of Present Illness History of Present Illness Chief Complaint: Falls Narrative: This is a 77 yo female with a PMH of falls, CAD, RLS, CKD 3a, temporal arteritis, COPD, chronic resp failure. She presented to the ED after a fall. She endorsed being very fatigued and experiencing wt loss. + early satiety. Significant findings in the ED on CT were a large stomach/bowel mass with extension into the liver. Also noted were rib fxs, both acute and subacute. She was initially admitted to the general surgery service. She underwent upper endoscopy on day of this consult. See A&P for findings. Transferring to Hospitalist service as primary. Surgery to continue to consult. 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 (Acute) Unexplained weight loss (Acute) Protein-calorie malnutrition, moderate (Acute) Metastasis to liver (Acute) Mass of hepatic flexure of colon (Acute) Microcytic anemia (Acute) Multiple fractures of ribs of both sides (Acute) Acute UTI (urinary tract infection) (Acute) Fall as cause of accidental injury at home as place of occurrence (Acute) Osteoporosis (Chronic) Chronic low back pain (Chronic) Atherosclerotic heart disease [place] coronary artery w/angina pectoris (Acute) Restless legs syndrome (RLS) (Acute) Urge incontinence (Acute) Stage 3a chronic kidney disease (CKD) (Acute) Chronic insomnia (Acute) Temporal arteritis (Acute) Mass of stomach (Acute) Liver mass (Acute) Syncope (Chronic) Anemia (Chronic) Closed rib fracture (Acute) COPD (chronic obstructive pulmonary disease) (Chronic) Medical History Anxiety Depression Diabetes DJD (degenerative joint disease), lumbar GERD (gastroesophageal reflux disease) Hyperparathyroidism Hypothyroidism Surgical History History of appendectomy History of back surgery History of knee surgery Status post hip replacement Social History Smoking/Tobacco Use Status: Former Tobacco Use Smoking risk assessment performed?: Yes Alcohol Intake: current Alcohol Intake frequency: holidays/special occasions only Alcohol type: wine Drug use: Never Substance use type: does not use Housing: house Do you feel safe at home: Yes Do you feel safe in your relationship?: Yes Meds Allergies and Home Medications Allergies Allergy/AdvReac Type Severity Reaction Status Date / Time aspirin AdvReac Intermediate makes her Unverified 02/18/23 15:23 loopy Home Medications Medication Instructions Recorded Confirmed Type albuterol sulfate 2.5 mg/3 mL 3 ml inhalation Q4H PRN PRN 02/25/15 02/18/23 History (0.083 %) solution for nebulization albuterol sulfate 90 mcg/actuation 2 puff inhalation Q4H PRN PRN 02/25/15 02/18/23 History aerosol inhaler budesonide-formoterol HFA 160 2 puff inhalation BID 02/25/15 02/18/23 History mcg-4.5 mcg/actuation aerosol inhaler (Symbicort) gabapentin 800 mg tablet 800 mg PO TID 02/25/15 02/18/23 History ipratropium 0.5 mg-albuterol 3 mg 3 ml inhalation Q6H PRN PRN 02/25/15 02/18/23 History (2.5 mg base)/3 mL nebulization soln Oxygen-Air Delivery Systems 04/02/19 04/02/19 History acetaminophen 500 mg tablet 1,000 mg PO Q8H PRN 04/02/19 02/18/23 History (Acetaminophen Extra Strength) amitriptyline 50 mg tablet 50 mg PO QHS 04/02/19 02/18/23 History atorvastatin 40 mg tablet 40 mg PO DAILY 04/02/19 02/18/23 History cholecalciferol (vitamin D3) 25 5,000 unit PO DAILY 04/02/19 02/18/23 History mcg (1,000 unit) chewable tablet clopidogrel 75 mg tablet 75 mg PO DAILY 04/02/19 02/18/23 History levothyroxine 25 mcg tablet 25 mcg PO DAILY 04/02/19 02/18/23 History metoprolol succinate 50 mg 50 mg PO DAILY 04/02/19 02/18/23 History tablet,extended release 24 hr naproxen sodium 220 mg capsule 220 mg PO BID 04/02/19 01/06/22 History nitroglycerin 0.4 mg sublingual 0.4 mg sublingual Q5M PRN 04/02/19 02/18/23 History tablet pantoprazole 20 mg tablet,delayed 40 mg PO DAILY 04/02/19 02/18/23 History release tiotropium bromide 2.5 2 puff inhalation DAILY 04/02/19 02/19/23 History mcg/actuation mist for inhalation (Spiriva Respimat) mirabegron 25 mg tablet,extended 25 mg PO QHS 05/26/21 02/18/23 History release 24 hr ondansetron 4 mg disintegrating 4 mg PO TID PRN nausea and 07/07/21 02/18/23 Rx tablet vomiting #6 tabs isosorbide mononitrate 30 mg 30 mg PO DAILY 01/06/22 02/18/23 History tablet,extended release 24 hr metoprolol succinate 25 mg 25 tab PO DAILY 01/06/22 02/18/23 History tablet,extended release 24 hr duloxetine 30 mg capsule,delayed 30 mg PO DAILY 02/18/23 02/18/23 History release bupropion HCl 150 mg 24 hr tablet, 150 mg PO QAM 02/19/23 02/19/23 History extended release Exam Narrative Exam Narrative: Gen: patient appears fatigued. Lying supine. Interactive and pleasant. HEENT: sclera nonicteric. MMM Lungs: Clear. Nonlabored breathing. CV RRR. No murmur. Abd: Soft, NT, ND. +BS Exts: No edema or calf tenderness. Neuro: Titi. NOrmal speech. Psych: flat affect. Good insight. Results Labs 02/19/23 06:12 02/18/23 15:30 Labs: Laboratory Results - last 24 hr 02/18/23 02/18/23 02/18/23 15:30 17:30 17:50 WBC RBC Hgb Hct MCV MCH MCHC RDW Plt Count MPV Immature Gran % Neutrophils % Lymphocytes % Monocytes % Eosinophils % Basophils % Nucleated RBC % Absolute Neutrophils Absolute Lymphocytes Absolute Monocytes Absolute Eosinophils Absolute Basophils PT INR Magnesium Ferritin 650 H Vitamin B12 Folate Procalcitonin Urine Color Yellow Urine Clarity Cloudy Urine pH 5.5 Ur Specific [place] 1.010 Urine Protein Negative Urine Ketones Negative Urine Blood Small H Urine Nitrite Positive H Urine Bilirubin Negative Urine Urobilinogen 0.2 Ur Leukocyte Esterase Moderate H Urine RBC 3-5 H Urine WBC 20-50 H Ur Epithelial Cells Many Urine Crystals Negative Urine Bacteria Many Urine Mucus Negative Urine Other Few Transitional Ur Culture Indicated? No/Sq. Contamination Urine Glucose Negative Add-On Test Request Patient ABO/Rh O Positive Antibody Screen NEGATIVE Crossmatch See Detail 02/18/23 02/19/23 02/19/23 Unknown 06:11 06:12 WBC RBC Hgb Hct MCV MCH MCHC RDW Plt Count MPV Immature Gran % Neutrophils % Lymphocytes % Monocytes % Eosinophils % Basophils % Nucleated RBC % Absolute Neutrophils Absolute Lymphocytes Absolute Monocytes Absolute Eosinophils Absolute Basophils PT INR Magnesium 1.4 L Ferritin Vitamin B12 571 Folate 4.9 L Procalcitonin Urine Color Urine Clarity Urine pH Ur Specific [place] Urine Protein Urine Ketones Urine Blood Urine Nitrite Urine Bilirubin Urine Urobilinogen Ur Leukocyte Esterase Urine RBC Urine WBC Ur Epithelial Cells Urine Crystals Urine Bacteria Urine Mucus Urine Other Ur Culture Indicated? Urine Glucose Add-On Test Request DONE Patient ABO/Rh O Positive Antibody Screen Crossmatch 02/19/23 02/19/23 02/19/23 06:12 06:12 06:12 WBC 12.30 H RBC 3.08 L Hgb 8.4 L Hct 27.6 L MCV 90 MCH 27.3 MCHC 30.4 L RDW 12.9 Plt Count 184 MPV 9.5 Immature Gran % 0.9 Neutrophils % 84.2 Lymphocytes % 8.1 Monocytes % 5.2 Eosinophils % 1.1 Basophils % 0.5 Nucleated RBC % 0.0 Absolute Neutrophils 10.36 H Absolute Lymphocytes 1.00 L Absolute Monocytes 0.64 Absolute Eosinophils 0.14 Absolute Basophils 0.06 PT 10.2 INR 1.0 Magnesium Ferritin Vitamin B12 Folate Procalcitonin < 0.1 Urine Color Urine Clarity Urine pH Ur Specific [place] Urine Protein Urine Ketones Urine Blood Urine Nitrite Urine Bilirubin Urine Urobilinogen Ur Leukocyte Esterase Urine RBC Urine WBC Ur Epithelial Cells Urine Crystals Urine Bacteria Urine Mucus Urine Other Ur Culture Indicated? Urine Glucose Add-On Test Request Patient ABO/Rh Antibody Screen Crossmatch Last Vital Signs Temp 37.7 C H 02/19/23 15:30 Pulse 76 02/19/23 15:30 Resp 12 02/19/23 15:30 BP 112/68 02/19/23 15:30 Pulse Ox 99 02/19/23 15:30 Time Spent Time spent with Patient: 40-54 minutes Time was spent: preparing to see the patient(eg.review tests), obtaining and/or reviewing separately otained hiistory, ordering medications,tests, procedures, referring, communicating with other health child caregiver, indepentently interpreting results, counseling the patient and care coordination
--- NOTE | 2023-02-19 16:57 | PT.INNT ---
Date of service: 02/19/23 Time of Service: 16:58 PT Notes Visit Reasons: Syncope Patient has been frequently falling at home and was referred for PT to address weakness and balance impairments. As of this admission, patient has a newly diagnosed colonic cancer. PT came in to room where Dr. Gan was explaining to patient and patient's about the trajectory of her care in light of this new diagnosis. It was agreed for patient to rest and talk with /family over this weekend to make decisions, hold off on PT, and then revisit on Wednesday for possible evaluation, if appropriate. Covering PT will need to check with hospitalist on Wednesday if patient is ready for evaluation.
[2023-02-19] MEDS: MAGNESIUM SULFATE 4 GM/100 ML BAG IVPB (19:24)
[2023-02-19] MEDS: Enoxaparin 30 MG/0.3 ML SYR SC (19:24)
[2023-02-19] MEDS: Amitriptyline 50 MG TAB PO (20:58)
[2023-02-19] MEDS: Mirabegron 25 MG TABCR PO (20:59)
[2023-02-19] MEDS: LIDOCAINE Patch Removal 1 EACH TP (20:59)
[2023-02-19] MEDS: Ondansetron 4 MG/2 ML VIAL IVP (22:19)
--- NOTE | 2023-02-19 23:31 | PGE_ITS ---
Date of Service Date of service: 02/19/23 Time of Service: 14:30 Subjective Subjective Interval history since last seen: Pt is doing well after her egd. She has no CP /SOB/abdominal pain, or bleeding. She tolerated the procedure. I did review with the patient and her son from [place] was available by speaker phone the findings at the time of endoscopy. Her other son from [place] is in the process of driving up to [place]. She does have mass that is eroding through into the duodenum. Biopsy of this were obtained sent down urgently. Do feel that she has a primary colorectal cancer that is eroding through into the liver and then eroding through secondarily into the duodenum. Patient normally receives all her care down at [facility] including her dragger out. Patient is high risk for colonoscopy because of her pulmonary status. Patient has pretty realistic goals of care. She understands that she has become quite weak and she is falling. She is concerned that she is not strong enough to go home. We discussed doing a physical therapy evaluation. We will also have our care management team evaluate her and discuss options. We discussed that most likely at this point that she is not a good candidate for surgery. And that her treatment would be chemo given her advanced disease it would be most likely palliative chemo. Patient is doing interested in doing a palliative consult. We discussed the possibility of placing a jejunal feeding tube for nutritional support. She could still take it and what ever she wanted to orally until such time that she becomes completely obstructed. -Her hemoglobin today was 8.6. I also did do biopsies. It did not appear to be any significant bleeding. However she still on Plavix so I am getting give her a unit of blood today and we will monitor her hemoglobin carefully. We will continue with supportive care. The patient is going to discuss with her sons and decide what she is going to want to do as far as goals of care. It was the discussed with the hospitalist team and they are going to transfer this admission to their service and assume her care This document was created with voice activated software and may contain errors. 30 mins spent with the patient today. Objective Last Vital Signs Temp 37.7 C H 02/19/23 17:30 Pulse 80 02/19/23 17:30 Resp 12 02/19/23 17:30 BP 129/78 02/19/23 17:30 Pulse Ox 100 02/19/23 17:30 Laboratory Results - last 24 hr 02/18/23 02/19/23 02/19/23 17:50 06:11 06:12 WBC RBC Hgb Hct MCV MCH MCHC RDW Plt Count MPV Immature Gran % Neutrophils % Lymphocytes % Monocytes % Eosinophils % Basophils % Nucleated RBC % Absolute Neutrophils Absolute Lymphocytes Absolute Monocytes Absolute Eosinophils Absolute Basophils PT INR Magnesium 1.4 L Vitamin B12 571 Folate 4.9 L Procalcitonin Patient ABO/Rh O Positive O Positive Antibody Screen NEGATIVE Crossmatch See Detail 02/19/23 02/19/23 02/19/23 06:12 06:12 06:12 WBC 12.30 H RBC 3.08 L Hgb 8.4 L Hct 27.6 L MCV 90 MCH 27.3 MCHC 30.4 L RDW 12.9 Plt Count 184 MPV 9.5 Immature Gran % 0.9 Neutrophils % 84.2 Lymphocytes % 8.1 Monocytes % 5.2 Eosinophils % 1.1 Basophils % 0.5 Nucleated RBC % 0.0 Absolute Neutrophils 10.36 H Absolute Lymphocytes 1.00 L Absolute Monocytes 0.64 Absolute Eosinophils 0.14 Absolute Basophils 0.06 PT 10.2 INR 1.0 Magnesium Vitamin B12 Folate Procalcitonin < 0.1 Patient ABO/Rh Antibody Screen Crossmatch Time Spent with Patient Time Spent with Patient: 25-34 minutes Time was spent: preparing to see the patient(eg.review tests), obtaining and/or reviewing separately otained hiistory, ordering medications,tests, procedures, referring, communicating with other health pet care attendant, indepentently interpreting results, counseling the patient and care coordination
[2023-02-20] VITALS: PULSE 87
[2023-02-20 00:02] VITALS: BP 109/53; PULSE 82; RESP 16; TEMP 36.9; O2SAT 96
[2023-02-20] MEDS: Acetaminophen 500 MG TAB 1000 MG PO ×3 (02:09→18:06)
[2023-02-20] MEDS: Levothyroxine 25 MCG TAB PO (06:00)
[2023-02-20 06:40] LABS: Abs Immature Grans 0.11 10^3/uL (0.0-0.06); Absolute Eosinophil Count 0.17 10^3/uL (0.0-0.7); Absolute Lymphocyte Count 1.29 10^3/uL (1.2-3.4); Basophils % 0.4; Eosinophils % 1.3; HCT 30.9 % (36.0-46.0); HGB 9.8 g/dL (11.2-15.7); Immature Grans % 0.8; Lymphocytes % 9.6; MCH 28.1 pg (27.0-33.0); MCHC 31.7 % (32.0-36.0); MCV 89 fL (80-95); MPV 9.2 fL (8.0-11.0); Monocytes % 5.4; Neutrophils % 82.5; Platelet Count 195 10^3/uL (130-400); RBC 3.49 10^6/uL (3.93-5.22); RDW-SD 42.3 fL; WBC 13.41 10^3/uL (4.4-10.8)
[2023-02-20 06:52] LABS: Absolute Basophil Count 0.05 10^3/uL (0.0-0.2); Absolute Monocyte Count 0.72 10^3/uL (0.1-0.8); Absolute Neutrophil Count 11.06 10^3/uL (1.2-6.7)
[2023-02-20 07:04] VITALS: BP 119/74; PULSE 68; RESP 16; TEMP 36.6; O2SAT 99
[2023-02-20 07:08] LABS: Magnesium 2.5 mg/dL (1.8-2.4)
[2023-02-20 07:12] LABS: ALT 11 U/L (14-59); AST 17 U/L (15-37); Albumin 1.8 g/dL (3.4-5.0); Alkaline Phosphatase 106 U/L (46-116); Anion Gap 4.1 mmol/L (3-11); BUN 8 mg/dL (7-18); Bilirubin, Total 0.2 mg/dL (0.2-1.0); CO2 32.9 mmol/L (21.0-32.0); CREATININE 1.2 mg/dL (0.55-1.02); Chloride 106 mmol/L (98-107); Estimated GFR 46.33 (mL/min/1.73m2); Glucose 91 mg/dL (74-106); Potassium 3.5 mmol/L (3.5-5.1); Sodium 143 mmol/L (136-145); Total Protein 5.7 g/dL (6.4-8.2)
[2023-02-20 08:19] VITALS: O2SAT 100
[2023-02-20] MEDS: Tiotropium Bromide-Respimat 10 PUFF INH 2 PUFF IH (08:26)
[2023-02-20] MEDS: Budesonide/Formoterol 160/4.5 6 GM 60 PUFF INH IH ×2 (08:26→20:33)
[2023-02-20] MEDS: Gabapentin 800 MG TAB PO ×3 (08:47→20:33)
[2023-02-20] MEDS: DULoxetine 30 MG CAP PO (08:47)
[2023-02-20] MEDS: Isosorbide Mononitrate 30 MG TABCR PO (08:47)
[2023-02-20] MEDS: Lidocaine 5% Patch 2 PATCH TP (08:47)
[2023-02-20] MEDS: buPROPion-XL 150 MG TABCR PO (08:47)
[2023-02-20] MEDS: Pantoprazole 40 MG TABCR PO (08:48)
[2023-02-20] MEDS: Normal Saline Flush 10 ML SYR IVP (13:21)
[2023-02-20] MEDS: MORPHine 2 MG/ML SYR IVP ×2 (13:22→20:33)
--- NOTE | 2023-02-20 14:06 | W.PM.PROGNOT ---
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 (2) Protein-calorie malnutrition, moderate: Status: Acute Assessment and plan: Secondary to cancer and compression of duodenum by colon mass. Liquid diet. Nutrition consult. (3) Multiple fractures of ribs of both sides: Status: Acute Assessment and plan: Multiple falls with acute and subacute fxs. Pain managment as needed. (4) Acute UTI (urinary tract infection): Status: Acute Assessment and plan: Cont Rocephin Culture growing E.Coli that is pansensitive. (5) Atherosclerotic heart disease [place] coronary artery w/angina pectoris: Status: Acute Assessment and plan: No c/o CP. No h/o [place]. On isosorbide. (6) Stage 3a chronic kidney disease (CKD): Status: Acute Assessment and plan: Avoid nephrotoxic agents. Creatinine of 1.7 on admission. Creatinine now 1.2. (7) COPD (chronic obstructive pulmonary disease): Status: Chronic Assessment and plan: 2 ppd smoker No acute exacerbation. PRN albuterol, Duonebs. Cont Spiriva (8) Colonic mass: Status: Acute Assessment and plan: Pt underwent upper endoscopy by Dr Erickson with findings of large mass compressing / obstructing on the D1 segment of duodenum. The mass extends into the liver. The mass arises most likely from large bowel. Discussing findings with pt and her [address] Erickson. Will consult palliative medicine. She is interested in pursuing treatment if oncology feels there could be benefit. She would first need a tissue bx. Subjective Subjective Patient reports: no new complaints, tolerating liquids well, nausea and afebrile; denies vomiting or shortness of breath Exam Narrative Exam Narrative: Gen: NAD. Cooperative and pleasant. HEENT: sclera nonicteric. MMM Lungs: Clear. Nonlabored breathing. CV RRR. No murmur. Abd: Soft, NT, ND. +BS Exts: No edema or calf tenderness. Neuro: Titi. NOrmal speech. Psych: flat affect. Good insight. Objective Last Vital Signs Temp 36.6 C 02/20/23 07:04 Pulse 68 08/12/23 07:04 Resp 16 02/20/23 07:04 BP 119/74 02/20/23 07:04 Pulse Ox 100 02/20/23 08:19 Laboratory Results - last 24 hr 02/18/23 02/20/23 02/20/23 17:50 06:25 06:25 WBC 13.41 H RBC 3.49 L Hgb 9.8 L Hct 30.9 L MCV 89 MCH 28.1 MCHC 31.7 L RDW 13.0 Plt Count 195 MPV 9.2 Immature Gran % 0.8 Neutrophils % 82.5 Lymphocytes % 9.6 Monocytes % 5.4 Eosinophils % 1.3 Basophils % 0.4 Nucleated RBC % 0.0 Absolute Neutrophils 11.06 H Absolute Lymphocytes 1.29 Absolute Monocytes 0.72 Absolute Eosinophils 0.17 Absolute Basophils 0.05 Sodium Potassium Chloride Carbon Dioxide Anion Gap BUN Creatinine Est GFR (CKD-EPI 2020) Glucose Calcium Magnesium 2.5 H Total Bilirubin AST ALT Alkaline Phosphatase Total Protein Albumin Patient ABO/Rh O Positive Antibody Screen NEGATIVE Crossmatch See Detail 02/20/23 06:25 WBC RBC Hgb Hct MCV MCH MCHC RDW Plt Count MPV Immature Gran % Neutrophils % Lymphocytes % Monocytes % Eosinophils % Basophils % Nucleated RBC % Absolute Neutrophils Absolute Lymphocytes Absolute Monocytes Absolute Eosinophils Absolute Basophils Sodium 143 Potassium 3.5 Chloride 106 Carbon Dioxide 32.9 H Anion Gap 4.1 BUN 8 Creatinine 1.2 H Est GFR (CKD-EPI 2020) 46.33 Glucose 91 Calcium 9.0 Magnesium Total Bilirubin 0.2 AST 17 ALT 11 L Alkaline Phosphatase 106 Total Protein 5.7 L Albumin 1.8 L Patient ABO/Rh Antibody Screen Crossmatch Time Spent with Patient Time Spent with Patient: 25-34 minutes Time was spent: preparing to see the patient(eg.review tests), obtaining and/or reviewing separately otained hiistory, ordering medications,tests, procedures, referring, communicating with other health career and transition teacher, indepentently interpreting results and counseling the patient
[2023-02-20 15:10] VITALS: BP 112/54; PULSE 92; RESP 16; TEMP 36.4; O2SAT 92
--- NOTE | 2023-02-20 16:03 | PGE_ITS ---
Date of Service Date of service: 02/20/23 Time of Service: 16:03 Assessment and Plan Assessment and plan (1) Mass of hepatic flexure of colon: Status: Acute Assessment and plan: Debra is doing OK. So far she is tolerating a full liquid diet. EGD showed a mass growing into the duodenum, it is felt to be coming from the large intestine. It also looks like she may have mets to the liver. Patient receives all of her care at [facility] ? Colonoscopy with biopsies at [facility] vs IR doing a bx of liver. Once there is a diagnoses then she can be refered to Oncology +/- surgery at [facility] for further workup (2) Multiple fractures of ribs of both sides: Status: Acute Assessment and plan: Pain control inc spirometry as tolerated (3) Fall as cause of accidental injury at home as place of occurrence: Status: Acute Assessment and plan: Patient agreeable to SNF now (4) Anemia: Status: Chronic (5) COPD (chronic obstructive pulmonary disease): Status: Chronic (6) Diabetes: (7) Protein-calorie malnutrition, moderate: Status: Acute Assessment and plan: see above (8) Unexplained weight loss: Status: Acute Assessment and plan: see above Subjective Subjective Interval history since last seen: Mrs Guthrie is doing OK. She is tolerating clears and custard. No N/V Patient interested in SNF and at least getting a diagnoses and possible treatment if available. Exam GI Inspection: normal to inspection Palpation: soft, no hepatosplenomegaly and nontender Auscultation: normal bowel sounds Objective Last Vital Signs Temp 97.5 F L 02/20/23 15:10 Pulse 92 H 02/20/23 15:10 Resp 16 02/20/23 15:10 BP 112/54 L 02/20/23 15:10 Pulse Ox 92 02/20/23 15:10 Laboratory Results - last 24 hr 02/20/23 02/20/23 02/20/23 06:25 06:25 06:25 WBC 13.41 H RBC 3.49 L Hgb 9.8 L Hct 30.9 L MCV 89 MCH 28.1 MCHC 31.7 L RDW 13.0 Plt Count 195 MPV 9.2 Immature Gran % 0.8 Neutrophils % 82.5 Lymphocytes % 9.6 Monocytes % 5.4 Eosinophils % 1.3 Basophils % 0.4 Nucleated RBC % 0.0 Absolute Neutrophils 11.06 H Absolute Lymphocytes 1.29 Absolute Monocytes 0.72 Absolute Eosinophils 0.17 Absolute Basophils 0.05 Sodium 143 Potassium 3.5 Chloride 106 Carbon Dioxide 32.9 H Anion Gap 4.1 BUN 8 Creatinine 1.2 H Est GFR (CKD-EPI 2020) 46.33 Glucose 91 Calcium 9.0 Magnesium 2.5 H Total Bilirubin 0.2 AST 17 ALT 11 L Alkaline Phosphatase 106 Total Protein 5.7 L Albumin 1.8 L Time Spent with Patient Time Spent with Patient: 25-34 minutes Time was spent: preparing to see the patient(eg.review tests), obtaining and/or reviewing separately otained hiistory, indepentently interpreting results and counseling the patient
[2023-02-20] MEDS: cefTRIAXone 1 GM/50 ML BAG IVPB (18:06)
[2023-02-20] MEDS: Enoxaparin 30 MG/0.3 ML SYR SC (18:06)
[2023-02-20] MEDS: Ondansetron 4 MG/2 ML VIAL IVP (20:33)
[2023-02-20] MEDS: Mirabegron 25 MG TABCR PO (20:33)
[2023-02-20] MEDS: Amitriptyline 50 MG TAB PO (20:33)
[2023-02-20] MEDS: oxyCODONE 5 MG TAB PO (20:33)
[2023-02-20] MEDS: LIDOCAINE Patch Removal 1 EACH TP (20:34)
[2023-02-20] MEDS: Lactated Ringers 1,000 ML 75 ML IV (20:50)
[2023-02-21 00:12] VITALS: BP 108/62; PULSE 90; RESP 16; TEMP 36.3; O2SAT 92
[2023-02-21] MEDS: Acetaminophen 500 MG TAB 1000 MG PO ×3 (01:37→17:26)
[2023-02-21] MEDS: Levothyroxine 25 MCG TAB PO (06:00)
[2023-02-21 06:28] VITALS: BP 111/65; PULSE 94; RESP 16; TEMP 36.5; O2SAT 95
[2023-02-21 06:30] LABS: Absolute Basophil Count 0.05 10^3/uL (0.0-0.2); Absolute Eosinophil Count 0.33 10^3/uL (0.0-0.7); Basophils % 0.4; Eosinophils % 2.9; HGB 9.1 g/dL (11.2-15.7); Immature Grans % 0.9; Lymphocytes % 9.7; MCH 27.4 pg (27.0-33.0); MCHC 30.3 % (32.0-36.0); MCV 90 fL (80-95); MPV 9.3 fL (8.0-11.0); Monocytes % 4.4; Neutrophils % 81.7; Platelet Count 180 10^3/uL (130-400); RBC 3.32 10^6/uL (3.93-5.22); RDW 13.1 % (11.7-14.6); RDW-SD 43.3 fL; WBC 11.33 10^3/uL (4.4-10.8)
[2023-02-21 06:33] LABS: Absolute Neutrophil Count 9.26 10^3/uL (1.2-6.7)
[2023-02-21] MEDS: Pantoprazole 40 MG TABCR PO (07:39)
[2023-02-21] MEDS: buPROPion-XL 150 MG TABCR PO (07:39)
[2023-02-21] MEDS: Isosorbide Mononitrate 30 MG TABCR PO (07:39)
[2023-02-21] MEDS: DULoxetine 30 MG CAP PO (07:40)
[2023-02-21] MEDS: Gabapentin 800 MG TAB PO ×3 (07:40→20:03)
[2023-02-21] MEDS: Lidocaine 5% Patch 2 PATCH TP (07:40)
[2023-02-21] MEDS: Budesonide/Formoterol 160/4.5 6 GM 60 PUFF INH IH ×2 (07:43→20:04)
[2023-02-21 07:44] VITALS: O2SAT 94
[2023-02-21] MEDS: Tiotropium Bromide-Respimat 10 PUFF INH 2 PUFF IH (07:44)
--- NOTE | 2023-02-21 15:27 | PGE_ITS ---
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 (2) Protein-calorie malnutrition, moderate: Status: Acute Assessment and plan: Secondary to cancer and compression of duodenum by colon mass. Full liquid diet. Son has brought in [employer] protein drinks. Nutrition consult. (3) Multiple fractures of ribs of both sides: Status: Acute Assessment and plan: Multiple falls with acute and subacute fxs. Pain managment as needed. (4) Acute UTI (urinary tract infection): Status: Acute Assessment and plan: Cont Rocephin (5) Atherosclerotic heart disease [place] coronary artery w/angina pectoris: Status: Acute Assessment and plan: No c/o CP. No h/o [place]. On isosorbide. (6) Stage 3a chronic kidney disease (CKD): Status: Acute Assessment and plan: Avoid nephrotoxic agents. Creatinine of 1.7 on admission. Creatinine now 1.2. (7) COPD (chronic obstructive pulmonary disease): Status: Chronic Assessment and plan: 2 ppd smoker No acute exacerbation. PRN albuterol, Duonebs. Cont Spiriva (8) Colonic mass: Status: Acute Assessment and plan: Pt underwent upper endoscopy by Dr Erickson with findings of large mass compressing / obstructing on the D1 segment of duodenum. The mass extends into the liver. The mass arises most likely from large bowel. Bx obtained during upper endoscopy likely will be ready tomorrow. Will consult palliative medicine. She is interested in pursuing treatment if oncology feels there could be benefit. She would first need a tissue bx. Subjective Subjective Patient reports: no new complaints, tolerating liquids well and afebrile; denies nausea, vomiting or shortness of breath Exam Narrative Exam Narrative: Gen: NAD. Cooperative and pleasant. Son and grandson present. HEENT: sclera nonicteric. MMM Lungs: Clear. Nonlabored breathing. CV RRR. No murmur. Abd: Soft, NT, ND. +BS Exts: No edema or calf tenderness. Neuro: Titi. NOrmal speech. Psych: Appropriate affect. Good insight. Objective Last Vital Signs Temp 36.5 C 02/21/23 06:28 Pulse 94 H 02/21/23 06:28 Resp 16 02/21/23 06:28 BP 111/65 02/21/23 06:28 Pulse Ox 94 02/21/23 07:44 Laboratory Results - last 24 hr 02/21/23 06:15 WBC 11.33 H RBC 3.32 L Hgb 9.1 L Hct 30.0 L MCV 90 MCH 27.4 MCHC 30.3 L RDW 13.1 Plt Count 180 MPV 9.3 Immature Gran % 0.9 Neutrophils % 81.7 Lymphocytes % 9.7 Monocytes % 4.4 Eosinophils % 2.9 Basophils % 0.4 Nucleated RBC % 0.0 Absolute Neutrophils 9.26 H Absolute Lymphocytes 1.10 L Absolute Monocytes 0.50 Absolute Eosinophils 0.33 Absolute Basophils 0.05 Time Spent with Patient Time Spent with Patient: 25-34 minutes Time was spent: preparing to see the patient(eg.review tests), obtaining and/or reviewing separately otained hiistory, ordering medications,tests, procedures, referring, communicating with other health career services representative, indepentently interpreting results, counseling the patient and care coordination
[2023-02-21 15:55] VITALS: BP 130/73; PULSE 93; RESP 16; TEMP 36.7; O2SAT 92
[2023-02-21] MEDS: Enoxaparin 30 MG/0.3 ML SYR SC (17:26)
[2023-02-21] MEDS: cefTRIAXone 1 GM/50 ML BAG IVPB (17:26)
[2023-02-21 19:19] VITALS: BP 127/75; PULSE 103; RESP 18; TEMP 36.9; O2SAT 94
[2023-02-21] MEDS: oxyCODONE 5 MG TAB PO (20:03)
[2023-02-21] MEDS: Amitriptyline 50 MG TAB PO (21:54)
[2023-02-21] MEDS: Mirabegron 25 MG TABCR PO (21:54)
[2023-02-21] MEDS: MORPHine 2 MG/ML SYR IVP (22:05)
[2023-02-21] MEDS: LIDOCAINE Patch Removal 1 EACH TP (22:36)
[2023-02-22] MEDS: Acetaminophen 500 MG TAB 1000 MG PO ×3 (00:55→17:53)
[2023-02-22] MEDS: Levothyroxine 25 MCG TAB PO (05:48)
[2023-02-22 07:01] VITALS: BP 121/77; PULSE 99; RESP 16; TEMP 36.5; O2SAT 94
[2023-02-22] MEDS: Budesonide/Formoterol 160/4.5 6 GM 60 PUFF INH IH ×2 (07:43→20:21)
[2023-02-22 07:44] VITALS: O2SAT 93
[2023-02-22] MEDS: Tiotropium Bromide-Respimat 10 PUFF INH 2 PUFF IH (07:44)
[2023-02-22] MEDS: Pantoprazole 40 MG TABCR PO (07:59)
[2023-02-22] MEDS: Isosorbide Mononitrate 30 MG TABCR PO (07:59)
[2023-02-22] MEDS: DULoxetine 30 MG CAP PO (07:59)
[2023-02-22] MEDS: Lidocaine 5% Patch 2 PATCH TP (07:59)
[2023-02-22] MEDS: buPROPion-XL 150 MG TABCR PO (07:59)
[2023-02-22] MEDS: Gabapentin 800 MG TAB PO ×3 (07:59→20:20)
[2023-02-22 08:51] LABS: AFP Tumor Marker <2.5 ng/mL (<8.1)
[2023-02-22] MEDS: Normal Saline Flush 10 ML SYR IVP (09:03)
[2023-02-22 09:24] LABS: CEA <0.5 ng/mL (See Note)
--- NOTE | 2023-02-22 09:46 | IN_ITS ---
PT Notes Visit Reasons: Syncope Inpatient Physical Therapy Evaluation Date: 02/22/23 Referring Doctor: Dr. Erickson PT Orders: PT CONSULT: eval and treat for weakness, fall risk. H/o multiple falls Precautions: fall Patient Profile/Admitting Diagnosis: Patient admitted 02/18/23 after fall at home resulting in multiple rib fractures. On admission, diagnosed with colonic mass. Social History/Home Situation: Lives alone in single level home. Typically a mbulates without device, although admits to frequent falls. She states that she's had multiple falls at home resulting in several hours on the floor. Equipment Owned/DME: 4[employer], which she owns, but does not use at baseline Subjective: Debra states that she has been transferring to the commode with nursing, and that she feels very weak and unsteady. Her balance has been p roblematic at home with several falls. She states that she's having trouble getting out of bed on her own. Objective: General Observation: Resting in bed, supplemental O2 via nasal cannual. No additional lines. Mental Status: A&Ox3. Pleasant and cooperative. Pain: intermittent rib pain, bilat ROM: Right Upper Extremity: Shoulder flexion 135*. Elbow, wrist and hand motion WFL. Left Upper Extremity: Shoulder flexion 120*. Elbow, wrist and hand motion WFL. Right Lower Extremity: WFL Left Lower Extremity: WFL Strength: Right Upper Extremity: Grossly 3-/5. Formal strength testing not performed due to rib fxs. Left Upper Extremity: Grossly 3-/5. Formal strength testing not performed due to rib fxs. Right Lower Extremity: Hip flexion 4/5. Quads 4-/5. Ankle DF 5/5 Left Lower Extremity: Hip flexion 4/5. Quads 4/5. Ankle DF 5/5 Bed Mobility/Transfers: supine-sit: min A, with instruction in log roll technique (sidelying to sitting) sit-stand: CGA stand-sit: CGA and cues for safety bed-commode: CGA with cues for safety, min A for minor LOB Gait: ambulates 6' with FWW, cues for equipment management Balance: Static Sitting: normal Dynamic Sitting: normal Static Standing: fair Dynamic Standing: fair 4-Position Balance Test: Small ANABEL: 3 seconds Partial Tandem: 0 seconds Full Tandem: 0 seconds Single Leg Stance: 0 seconds Special Tests: Mobility Limitations Standardized Measure [facility] AM-PAC 6 clicks Basic Mobility Inpatient Short Form: Raw Score: 18 CMS Score: 47% impairment Informed Consent/Education: Patient instructed in purpose of PT consult and plan of care. Treatment: Initial Evaluation 71661 Therapeutic Activities (05839x3): Instruction in management of FWW transfer training, with cues for hand placement and positioning prior to transfer instruction in log rolling for bed mobility, with instruction in sidelying to sit transfers Therapeutic Exercises (77063z9): 1. static standing 30 seconds x 2, CGA 2. seated september 10x 3. LAQ 10x 4. ankle pumps 10x 5. standing september 10x, heavy reliance on UE support Assessment: Patient is a 77 year old male referred to physical therapy services with the diagnosis of weakness during acute care stay. Patient presents with clinical signs and symptoms consistent with diagnosis, as demonstrated by the [facility] impairment level findings: 1. decreased LE strength 2. balance impairment 3. decreased activity tolerance 4. chest pain due to rib fractures 5. h/o multiple falls Impairments are contributing to the following functional limitations: 1. decreased independence with transfers 2. unable to ambulate without assistive device 3. high fall risk 4. unable to tolerate household distance ambulation 5. decreased independence with bed mobility Patient is assessed as Moderate 54363 complexity based on the following: History: Independent female with h/o multiple falls, most recently resulting in multiple rib fractures. Recently diagnosed with colonic mass, and continuing to undergo work up and treatment planning. She does live alone, and anticipate that she'll require continued rehab in SNF setting due to her significant weakness and balance impairments, as she is at high risk for future falls. Examination: functional limitations as noted above Presentation: evolving Decision Making: moderate complexity Goals: Goals X1 week 1. Supine-Sit : supervision 2. Sit-Supine : supervision 3. Sit-Stand : supervision 4. Stand-Sit : supervision 5. Bed-Chair : supervision with FWW 6. Chair-Bed : supervision with FWW 7. Gait : supervision with FWW x 50' 8. Stairs : n/a 9. Independent with home exercise program Plan of Care/Treatment Plan: 1-2x/day, 7 days/week x 1 week. Plan of care has been reviewed with the SALES ADMINISTRATOR providing the service under Physical Therapy direction. Initiate Physical Therapy intervention for strengthening, bed mobility, transfers, gait, stairs, balance training, use of assistive device. Will instruct patient in safe transfer techniques for improved comfort and independence, and continue with progressive strengthening and cardiovascular retraining for improved functional mobility and activity tolerance. Will incorporate balance retraining activities for fall risk reduction. 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 (Acute) Unexplained weight loss (Acute) Protein-calorie malnutrition, moderate (Acute) Metastasis to liver (Acute) Mass of hepatic flexure of colon (Acute) Microcytic anemia (Acute) Multiple fractures of ribs of both sides (Acute) Acute UTI (urinary tract infection) (Acute) Fall as cause of accidental injury at home as place of occurrence (Acute) Osteoporosis (Chronic) Chronic low back pain (Chronic) Atherosclerotic heart disease [place] coronary artery w/angina pectoris (Acute) Restless legs syndrome (RLS) (Acute) Urge incontinence (Acute) Stage 3a chronic kidney disease (CKD) (Acute) Chronic insomnia (Acute) Temporal arteritis (Acute) Mass of stomach (Acute) Liver mass (Acute) Syncope (Chronic) Anemia (Chronic) Closed rib fracture (Acute) COPD (chronic obstructive pulmonary disease) (Chronic) Medical History Anxiety Depression Diabetes DJD (degenerative joint disease), lumbar GERD (gastroesophageal reflux disease) Hyperparathyroidism Hypothyroidism Surgical History History of appendectomy History of back surgery History of knee surgery Status post hip replacement
--- NOTE | 2023-02-22 09:59 | CMPROGNOTE_ITS ---
Date of service: 02/22/23 Time of Service: 09:59 Care Management Progress Note Progress Note Text Progress Note Text: S/O:Debra was sitting up in a chair when CM met with her. She was pleasant and engaged well with CM. Debra stated that she is waiting for the pathology report on the biopsy taken last week. She informed CM that [place] [facility] [place] with [place] as soon as she can so that she can understand her treatment options.She shared that she would be willing to undergo chemotherapy and/or radiation if it was likely to be successful. She stated that at the very least, she would want to be kept comfortable. Debra has 2 cats that she is concerned about. They are not stranger-friendly and are outside more than inside, so she believes re-homing them may be a challenge. Debra also informed CM that she does not believe that she can go home alone. She realizes that she is too weak to take care of herself. She would be willing to go to a SNF if a bed is available. If she decides to receive cancer treatment however, that may be a barrier. Chemotherapy and radiation therapy are costly and the SNF would have to absorb the cost of treatment as well as transportation. A:Debra is a 77 year old woman admitted on 02/18/23 with a UTI and fractured ribs. P:Debra's discharge plan remains unclear. She had a biopsy taken of the mass in her colon and is awaiting results. If there is cancer, she is willing to explore treatment options. Since she is too weak to return home alone, she will require SNF placement, at least short term. Cancer treatment may be a barrier. Referrals were sent to [facility] and the [facility]. Additional referrals will be sent as needed and at Debra's request. CM will continue to support Debra and assess for ongoing discharge concerns.
--- NOTE | 2023-02-22 11:42 | PHA.REVIEW2 ---
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 (Acute) Unexplained weight loss (Acute) Protein-calorie malnutrition, moderate (Acute) Metastasis to liver (Acute) Mass of hepatic flexure of colon (Acute) Microcytic anemia (Acute) Multiple fractures of ribs of both sides (Acute) Acute UTI (urinary tract infection) (Acute) Fall as cause of accidental injury at home as place of occurrence (Acute) Atherosclerotic heart disease [place] coronary artery w/angina pectoris (Acute) Restless legs syndrome (RLS) (Acute) Urge incontinence (Acute) Stage 3a chronic kidney disease (CKD) (Acute) Chronic insomnia (Acute) Temporal arteritis (Acute) Mass of stomach (Acute) Liver mass (Acute) Closed rib fracture (Acute) aspirin Adverse Reaction (Intermediate, Unverified 02/18/23 15:23) makes her loopy Resuscitation Status Full Code Height 5 ft 3 in Weight 60.328 kg Pharmacy Admission Review Renal Dosing Renal Dosing: BUN 8 mg/dL (7-18) 02/20/23 06:25 Creatinine 1.2 mg/dL (0.55-1.02) H 02/20/23 06:25 Medications needing adjustments: Reviewed (crcl ~36 mL/min) Anticoagulation Anticoagulation: Hgb 9.1 g/dL (11.2-15.7) L 02/21/23 06:15 Hct 30.0 % (36.0-46.0) L 02/21/23 06:15 Plt Count 180 10^3/uL (130-400) 02/21/23 06:15 INR 1.0 (0.9-1.1) 02/19/23 06:12 Creatinine 1.2 mg/dL (0.55-1.02) H 02/20/23 06:25 DVT Prophylaxis: Reviewed Medications: Enoxaparin Therapeutic Anticoagulation: N/A Opiate Usage Evaluate Pain Scale/Pains Meds: Reviewed Scheduled Bowel Reg ordered if on Opiates?: No Relevant Labs Relevant Labs: Sodium 143 mmol/L (136-145) 02/20/23 06:25 Potassium 3.5 mmol/L (3.5-5.1) 02/20/23 06:25 Chloride 106 mmol/L (98-107) 02/20/23 06:25 Magnesium 2.5 mg/dL (1.8-2.4) H 02/20/23 06:25 Electrolytes, C-Reactive P, ESR: Reviewed DM Control DM Control: N/A Cardiac Review Cardiac Review: Troponin I < 50 ng/L (<or=60) 02/18/23 15:30 BP, HR, EF%: Reviewed QTc Review QTc: Reviewed (QTc = 396 02/18/23) IV to PO Switch IV Medications: Reviewed Home Meds Home Med List reviewed: Reviewed Current Meds Current Medication Order Review: Reviewed Pharmacy Antibiotic Review Pharmacy Antibiotic Activity: Reviewed, no change Comments: ceftriaxone 1 gram q24h (first dose 02/18/23) indication: UTI
--- NOTE | 2023-02-22 15:26 | PTTR_ITS ---
Date of service: 02/22/23 Time of Service: 14:54 PT Notes Visit Reasons: Syncope Inpatient Physical Therapy Treatment Note [facility] Date: 02/22/23 PRECAUTIONS: Fall, standard SUBJECTIVE: Patient is asleep when this therapist arrives. States she doesn't normally take naps but today she just conked out. States she should be receiving 4L/min supplemental O2, which this therapist observes O2 set to 1L/ min. Nasal cannula tucked under patient's chin when she wakes up. OBJECTIVE: Patient sidelying in bed, agreeable to therapy. ? PAIN: Reports discomfort in ribs, back. At one point during treatment session, patient inhales sharply, groans, and reports sharp shooting pain in lower abdomen. VITALS: monitored by nursing staff. ??? Therapeutic Exercises (67548b2): Direct one-on-one instruction in therapeutic exercises to develop strength, endurance, range of motion and flexibility. ?Ambulation ? Assistive Device: FWW ? Weight bearing: full Assist: CGA, wheelchair follow ? Distance:? 200 feet, seated rest every 50 feet. ? Deviation: Patient reports general fatigue, SaO2 drops after 100 feet on 2L to 85. Bumped up to 3L, patient recovers to 96% within seconds. Reduced to 2L, patient desats immediately upon resuming ambulation to 86, so bumped back up to 3L where patient maintained 92% or better SaO2 for the remainder of the walk. At 150 feet patient asks to rest again, c/o racing heartbeat. Pulse 120 bpm. Rest for 2 minutes, patient recovers back to 96 bpm. Education about importance of rest, energy conservation during seated recovery period. ? Provided skilled instruction in proper exercise performance Patient education regarding pacing and breathing techniques to maximize activity tolerance ASSESSMENT:? Patient tolerates therapy well. Returned to rest upright in reclinerSIMÓN and Mission Assessment Specialist Nohemi present in room at close of therapy session. MARYLOU alarm in place and active. PLAN: Continue global strengthening per plan of care until patient is medically cleared for discharge. TREATMENT CODE/TIME: 86940 Ther Ex 28 minutes beginning at 14:54
[2023-02-22 15:50] VITALS: BP 121/74; PULSE 68; RESP 16; TEMP 36.6; O2SAT 98
[2023-02-22 16:50] VITALS: BP 192/104; PULSE 84; RESP 16; TEMP 37.1; O2SAT 98
[2023-02-22] MEDS: cefTRIAXone 1 GM/50 ML BAG IVPB (17:53)
[2023-02-22] MEDS: Enoxaparin 30 MG/0.3 ML SYR SC (17:54)
[2023-02-22] MEDS: Mirabegron 25 MG TABCR PO (20:20)
[2023-02-22] MEDS: Amitriptyline 50 MG TAB PO (20:20)
[2023-02-22] MEDS: oxyCODONE 5 MG TAB PO (20:20)
[2023-02-22] MEDS: LIDOCAINE Patch Removal 1 EACH TP (20:22)
--- NOTE | 2023-02-22 21:40 | PGE_ITS ---
Date of Service Date of service: 02/22/23 Time of Service: 21:40 Assessment and Plan Assessment and plan (1) Colonic mass: Status: Acute Assessment and plan: Pt underwent upper endoscopy by Dr Erickson with findings of large mass compressing / obstructing on the D1 segment of duodenum. The mass extends into the liver. The mass arises most likely from large bowel. Bx obtained during upper endoscopy pending. Will consult palliative medicine. She is interested in pursuing treatment if oncology feels there could be benefit. She would first need a tissue bx. (2) Protein-calorie malnutrition, moderate: Status: Acute Assessment and plan: Secondary to cancer and compression of duodenum by colon mass. Full liquid diet. Son has brought in Premier protein drinks. Nutrition consult. (3) Multiple fractures of ribs of both sides: Status: Acute Assessment and plan: Multiple falls with acute and subacute fxs. Pain managment as needed. (4) Acute UTI (urinary tract infection): Status: Acute Assessment and plan: Continue Rocephin. Day 2 of 3 (5) Atherosclerotic heart disease [place] coronary artery w/angina pectoris: Status: Acute Assessment and plan: No c/o CP. No h/o NM. On isosorbide. (6) Stage 3a chronic kidney disease (CKD): Status: Acute Assessment and plan: Avoid nephrotoxic agents. Creatinine of 1.7 on admission. Creatinine now 1.2. Monitor as needed. (7) COPD (chronic obstructive pulmonary disease): Status: Chronic Assessment and plan: 2 ppd smoker No acute exacerbation. PRN albuterol, Duonebs. 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 (9) Discharge planning issues: Status: Acute Assessment and plan: Unsafe for d/c to home; lives alone and has had multiple falls. PT working with pt. Likely will need to swing until an oncology appt is obtained. Subjective Subjective Patient reports: no new complaints, tolerating liquids well, bowel movement and afebrile; denies nausea, vomiting or shortness of breath Exam Narrative Exam Narrative: Gen: NAD. Sitting in recliner. HEENT: sclera nonicteric. MMM Lungs: Clear. Nonlabored breathing. CV RRR. No murmur. Abd: Soft, NT, ND. +BS Exts: No edema or calf tenderness. Neuro: Titi. NOrmal speech. Psych: Appropriate affect. Good insight. Objective Last Vital Signs Temp 37.1 C 02/22/23 16:50 Pulse 84 02/22/23 16:50 Resp 16 02/22/23 16:50 BP 192/104 H 02/22/23 16:50 Pulse Ox 98 02/22/23 16:50 Laboratory Results - last 24 hr 02/18/23 02/20/23 17:50 06:25 Tumor Marker AFP <2.5 Carcinoembryonic Ag <0.5 Time Spent with Patient Time Spent with Patient: 25-34 minutes Time was spent: preparing to see the patient(eg.review tests), obtaining and/or reviewing separately otained hiistory, ordering medications,tests, procedures, referring, communicating with other health career development specialist, indepentently interpreting results, counseling the patient and care coordination
[2023-02-22 22:42] VITALS: BP 118/72; PULSE 101; RESP 20; TEMP 36.8; O2SAT 92
[2023-02-23] MEDS: Acetaminophen 500 MG TAB 1000 MG PO ×3 (01:43→18:09)
[2023-02-23 04:15] VITALS: BP 114/70; PULSE 98; RESP 16; TEMP 36.7; O2SAT 93
[2023-02-23] MEDS: Levothyroxine 25 MCG TAB PO (06:28)
[2023-02-23 06:32] LABS: Absolute Basophil Count 0.05 10^3/uL (0.0-0.2); Absolute Lymphocyte Count 1.16 10^3/uL (1.2-3.4); Basophils % 0.4; Eosinophils % 0.9; HCT 32.9 % (36.0-46.0); Immature Grans % 0.9; Lymphocytes % 10.2; MCH 27.5 pg (27.0-33.0); MCHC 30.4 % (32.0-36.0); MCV 90 fL (80-95); MPV 9.5 fL (8.0-11.0); Monocytes % 4.7; Neutrophils % 82.9; Platelet Count 205 10^3/uL (130-400); RBC 3.64 10^6/uL (3.93-5.22); RDW 13.2 % (11.7-14.6); RDW-SD 43.8 fL; WBC 11.37 10^3/uL (4.4-10.8)
[2023-02-23 06:38] LABS: Absolute Monocyte Count 0.53 10^3/uL (0.1-0.8); Absolute Neutrophil Count 9.43 10^3/uL (1.2-6.7)
[2023-02-23 06:50] LABS: Anion Gap 2.4 mmol/L (3-11); BUN 12 mg/dL (7-18); CO2 35.6 mmol/L (21.0-32.0); CREATININE 1.1 mg/dL (0.55-1.02); Calcium 9.5 mg/dL (8.5-10.1); Chloride 103 mmol/L (98-107); Estimated GFR 51.43 (mL/min/1.73m2); Glucose 80 mg/dL (74-106); Magnesium 1.4 mg/dL (1.8-2.4); Potassium 4.6 mmol/L (3.5-5.1); Sodium 141 mmol/L (136-145)
[2023-02-23 07:07] VITALS: BP 122/73; PULSE 91; TEMP 36.8; O2SAT 96
[2023-02-23] MEDS: Lidocaine 5% Patch 2 PATCH TP (07:51)
[2023-02-23] MEDS: DULoxetine 30 MG CAP PO (07:52)
[2023-02-23] MEDS: Isosorbide Mononitrate 30 MG TABCR PO (07:52)
[2023-02-23] MEDS: Gabapentin 800 MG TAB PO ×3 (07:52→19:46)
[2023-02-23] MEDS: Pantoprazole 40 MG TABCR PO (07:52)
[2023-02-23] MEDS: buPROPion-XL 150 MG TABCR PO (07:53)
[2023-02-23] MEDS: oxyCODONE 5 MG TAB PO ×3 (07:55→19:46)
[2023-02-23] MEDS: Tiotropium Bromide-Respimat 10 PUFF INH 2 PUFF IH (07:55)
[2023-02-23] MEDS: Budesonide/Formoterol 160/4.5 6 GM 60 PUFF INH IH ×2 (07:55→19:47)
--- NOTE | 2023-02-23 10:19 | PT.INTREAT ---
Date of service: 02/23/23 Time of Service: 09:44 PT Notes Visit Reasons: Syncope Inpatient Physical Therapy Treatment Note [facility] Date: 02/23/23 PRECAUTIONS: Fall, standard SUBJECTIVE: Patient reports feeling stronger than yesterday, appears to be in good spirits. OBJECTIVE: Patient sitting up in recliner, agreeable to therapy, receiving 1.5 L O2/min supplemental oxygen. ? PAIN: 02/18, chest wall only. Throughout the treatment patient observes that it seems to switch from left anterior chest to right posterior chest, back and forth. VITALS: Patient returns to recliner with SaO2 ~94-96% and hr 121 bpm, heart rate recovers to low 100's within 3 minutes of resting. ? Therapeutic Exercises (35126q9): Direct one-on-one instruction in therapeutic exercises to develop strength, endurance, range of motion and flexibility. ?Ambulation ? Assistive Device: FWW ? Weight bearing: full Assist: wheelchair follow ? Distance:? 200 feet ? Deviation: Patient reports blurred vision, weakness, shakiness on 2 separate occasions, both times reporting it will resolve in a minute and denying that this therapist should go check bp. Patient wobbles and returns to sitting both times, both times does seem to recover within 60 seconds and resumes walking with no further report of symptoms or wobbliness. ? Provided skilled instruction in proper exercise performance, verbal cues for pacing, breathing, and energy conservation as needed throughout. ASSESSMENT:? Patient tolerates therapy well. PLAN: Patient does observe at end of session that she would like to work on being able to get independently in and out of bed, as right now she requires min assist to get feet into bed. Continue global strengthening per plan of care until patient is medically ready for discharge. TREATMENT CODE/TIME: 91917 Ther Ex 32 minutes beginning at 9:44
--- NOTE | 2023-02-23 11:28 | CMPROGNOTE_ITS ---
Date of service: 02/23/23 Time of Service: 11:28 Care Management Progress Note Progress Note Text Progress Note Text: S/O:Debra was sitting up in bed when CM met with her. She appeared to be in good spirits and engaged readily with CM. Debra received a bed offer from [facility] today, pending prior authorization from her insurance company ([facility] Medicare Replacement Plan). Debra accepted the offer and her provider informed CM that she may be medically ready tomorrow. A:Debra is a 77 year old woman admitted on 02/18/23 with a UTI and fractured ribs. P:Debra's discharge plan remains unclear. She had a biopsy taken of the mass in her colon and is awaiting results. If there is? cancer, she is? willing to explore treatment options. Since she is too weak to return home alone, she will require SNF placement, at least short term. Cancer treatment may be a barrier. [facility] and [facility]. Additional referrals will be sent as needed and at Debra's request. CM will continue to support Debra and assess for ongoing discharge concerns.
[2023-02-23] MEDS: MAGNESIUM SULFATE 2 GM/50 ML BAG IVPB (11:42)
--- NOTE | 2023-02-23 12:20 | PCNE_ITS ---
Date of service: 02/23/23 Time of Service: 13:30 History of Present Illness Narrative: Debra Guthrie is a 77-year-old woman who was admitted to [facility] 5 days ago after having a presyncopal episode and falling suffering rib fractures. In fact, this was one of multiple falls she has had over the past few months. During evaluation in the ED she was noted to have a large upper intraabdomial mass invading the liver and new anemia, Her medical history includes anxiety/depression, diabetes, GERD, hyperparathyroidism, hypothyroidism, COPD (on 3-4 L oxygen chronically), osteoporosis, ASCVD with angina. She was admitted for treatment and evaluation of this liver mass. She has since unde rgone upper endoscopy with biopsy of mass by Dr. Erickson; pathology is pending. Other problems include acute UTI diagnosed at the time of admission, the rib fractures. Care Team: Primary Care physician: Maria Guadalupe Price ([facility]) Pulmonary: Andrei, [facility]; RTC SUrgery: Dr. Erickson Social HX: Lives alone in house in [place], [place] with her 2 cats ABout three years ago, her son Dhara , moved in with her. She sold her car, so he could buy a truck. He then killed himslef via asphyxiation in the truck. She has not had a car or driven since. she has been torn up since. -3 sons (1 in [place], Kamaljit in [facility] (survived lung cancer), 1 (Dhara); oldest grandchild José Miguel lives in [facility], she raised him during his teens. 3 sisters all . Sister Sera had breast cancer, which is treated and cured . She suffered sudden of unknown cause SHopping: son from [facility] and others will take her shopping when they are up and around. Born and raised in [facility]. Raised her children in [facility]. HAs been living back in [place] for over 20 years. Additional services: -Meals on Wheels twice a week -Case management through [facility] (Cathleen Torres) -RTC brings her to doctors' appts at [facility] Impression of currents health status:...I believe it's a sentence... What bothers you the most: Not be able to go out all summer to enjoy the outdoors. What worries you the most:Getting my affairs in order. Goals: Would like to get a car and drive. Going outside on a ameena day to sit in a chair. -WOrk in her flower garden. What are you not willing to accept: If I could not talk or communicate. Current information preferences: Function: Ambulation:no aids used ADLs: ALl indendent. iADLs: ALl independent (admits house in not very clean), does her own bills. GEts help with shopping, as she does not have a car Hearing:OK Vision:Glasses Cognition:Feels OK Falls: Notes show that patient had several falls in the weeks prior to this admission. Palliative Performance Scale % Ambulation Activity and Evidence of Disease Self Care Intake Level of Consciousness 100 Full Normal activity, no evidence of disease Full Normal Full 90 Full Normal activity, some evidence of disease Full Normal Full 80 Full Normal activity with effort, some evidence of disease Full Normal or reduced Full 70 Reduced Unable to do normal work, some evidence of disease Full Normal or reduced Full 60 Reduced Unable to do hobby or some housework, significant disease Occasional assist necessary Normal or reduced Full or confusion 50 Mainly sit/lie Unable to do any work, extensive disease Considerable assista nce required Normal or reduced Full or confusion 40 Mainly in bed Unable to do any work, extensive disease Mainly assistance Normal or reduced Full, drowsy, or confusion 30 Totally bed bound Unable to do any work, extensive disease Total care Reduced Full, drowsy, or confusion 20 Totally bed bound Unable to do any work, extensive disease Total care Minimal sips Full, drowsy, or confusion 10 Totally bed bound Unable to do any work, extensive disease Total care Mouth care only Drowsy or coma 0 - - - - Patient Score: reports 80 prior to recent fall and admission Spiritual history:Not queried Palliative review of systems: Pain:Rib pain, getting oxycodone and tylenol. Would prefer Morphine; always works better for me. Dyspnea:No worse than baseline GI symptoms:Denies dysphagia, constipation, nausea. On liquid diet over concern for possible obstruction (she thinks) Appetite:Hungry, craving real food Depression:No Anxiety: ANxious over diagnosis and what is going to happen Emotional Distress: Spiritual/Existential Distress: Labs: Cr: 1.1 (1.7 at admission) Liver panel: Normal Albumin: 1.8 CBC: Hemoglobin 8.4?[address]: Acute right sixth rib fracture. Subacute left anterior second rib fracture. Several old fractures. Severe emphysematous changes of the lung parenchyma. Abdominal CT: 5.5 by 3.5 by 4.2 cm mass involving the antrum of the stomach adjacent to the liver. 9 cm in diameter liver mass. Gallbladder incompetence by gastric and liver masses. No biliary dilatation. Advanced Care Planning: Advanced Directive: Does not have Health Care Agent: Ervin Gurrola, son in [place] (last saw him a year ago, talks daily),Kamaljit Harris as alternate. However, she declines to have formal HCA forms completed today, I need to talk to them BEFORE filling out form. COLST:None. See discussion under A/P Limitations: Assessment and Plan Assessment and plan (1) Palliative care encounter: Status: Acute Assessment and plan: Debra Guthrie is a 77-year-old woman, previously living independently who has recently had increased falls and fell again a few days ago, breaking her rib and presenting to the ED. During this work-up she was identified as having an upper abdominal mass (possibly colonic) with liver metastasis. She also has new anemia. Palliative Care Team met with her today to discuss goals of care, begin to explore possible treatment options, start advance care planning, and offer additional support. Regarding treatment options: She awaits final pathology report. She is definitely interested in meeting with oncology to hear potential treatment options. Explained that oncology consultation would likely be 2 to [address] Depending upon tissue diagnosis and further work-up and staging, she might be offered palliative treatment; we discussed what this means. Also small possibility of being offered potentially curative treatment. She would also have the option of symptomatic treatment only. Discussed that her chronic respiratory failure resulting in chronic oxygen dependency would have some impact on her response and prognosis. However, her prehospitalization performance status was actually quite good. Debra awaits pathology results and explanation from Dr. Erickson. She also very much wants to meet subsequently with oncology team to hear about her options. Discussed need for additional support and help going forward. This would be true whether she decided to pursue palliative/curative treatment for her cancer or whether she decided to switch to comfort oriented approach. This is a problem, as she has no relatives or friends who live by who she feels she can asked to help her in this way. Going to live with either son is not an option. Long-term SNF placement does not feel like a good fit for her. Cathleen HARO from [facility] is her machine adjuster leader case trim. I spoke with Cathleen briefly on the phone today. Debra does not have chOices for Care. Cathleen will come in and meet with Debra later today to offer additional support. She will also start an electronic application for CF ([place] education manager aware). Qi is agreeable to subacute rehab for a few weeks. She is hoping to go home after that. Regarding goals: She is somewhat vague, would love to drive again, would love to spend more time outdoors appreciating her leger. Although she told case management she would be firmly against long-term residency in SNF, she told me she would not see this as an untenable situation. Overall, she is not quite sure yet what to think about this and is waiting to speak with her sons once she gets additional information. Advance care planning: Regarding HCA: She thinks her [place] son would be more comfortable making decisions and appointing her [place] son as secondary HCA. However, she does not want to sign a form until she has a chance to discuss this with both her sons first. She does not have an advanced directive. I gave her a copy and asked her to look through the questions. I do not think she needs to fill 1 out, but discussing these questions and her answers with her sons would give them invaluable information. We discussed limitations on treatment. Given her respiratory disease and now this likely malignant abdominal mass with liver mets, I recommended that she strongly consider electing DNR DNI. She thinks this best aligns with her wish es, but feels she needs to discuss this with her sons first. At this point she would still like to be transferred back to the hospital should she become sicker, and get evaluation, treatment, antibiotics, IV fluids. At this point, Debra says she felt overwhelmed and too much information. We agreed to meet again in 1 to 2 weeks, likely at [facility] during her subacute rehab stay. I suggested that we have a family meeting with her 2 sons present either in person or by video connection. She is agreeable to this. Please contact palliative care team if patient would like to be seen again sooner. (2) Advanced care planning/counseling discussion: Status: Acute Assessment and plan: 16 to 30 minutes spent today on Advance Care Planning. Patient and family participated voluntarily. Advance care planning may include (not limited to) explanation and discussion of advance directives, choosing and appointing healthcare agents, alternatives to various ACP tools, discussion of (and if indicated, completion of) COLST form, discussion of patient's values and overall goals for treatment, palliative and disease directive care options, ways to avoid hospital readmission including hospice discussions, care preferences should the patient's several other adverse health events.See today's palliative care note for additional information. (3) Acute UTI (urinary tract infection): Status: Acute (4) COPD (chronic obstructive pulmonary disease): Status: Chronic (5) Metastasis to liver: Status: Acute (6) Abdominal mass, right upper quadrant: Status: Acute (7) Chronic respiratory failure with hypoxia: Status: Acute PFSH All Active Problems (Updated 02/23/23 @ 20:44 by Sarah Dominguez MD) Chronic respiratory failure with hypoxia (Acute) Abdominal mass, right upper quadrant (Acute) Advanced care planning/counseling discussion (Acute) Palliative care encounter (Acute) Discharge planning issues (Acute) Colonic mass (Acute) Coronary artery calcification seen on CAT scan (Acute) Aortic atherosclerosis (Acute) Status post KARINA-BSO (Acute) 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 (Acute) Unexplained weight loss (Acute) Protein-calorie malnutrition, moderate (Acute) Metastasis to liver (Acute) Mass of hepatic flexure of colon (Acute) Microcytic anemia (Acute) Multiple fractures of ribs of both sides (Acute) Acute UTI (urinary tract infection) (Acute) Fall as cause of accidental injury at home as place of occurrence (Acute) Osteoporosis (Chronic) Chronic low back pain (Chronic) 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 (Acute) Restless legs syndrome (RLS) (Acute) Urge incontinence (Acute) Stage 3a chronic kidney disease (CKD) (Acute) Chronic insomnia (Acute) Temporal arteritis (Acute) Mass of stomach (Acute) Liver mass (Acute) Syncope (Chronic) Anemia (Chronic) Closed rib fracture (Acute) COPD (chronic obstructive pulmonary disease) (Chronic) Medical History Anxiety Depression Diabetes DJD (degenerative joint disease), lumbar GERD (gastroesophageal reflux disease) Hyperparathyroidism Hypothyroidism Surgical History History of appendectomy History of back surgery History of knee surgery Status post hip replacement Social History Smoking/Tobacco Use Status: Former Tobacco Use Smoking risk assessment performed?: Yes Alcohol Intake: current Alcohol Intake frequency: holidays/special occasions only Alcohol type: wine Drug use: Never Substance use type: does not use Housing: house Do you feel safe at home: Yes Do you feel safe in your relationship?: Yes Exam Narrative Exam Narrative: Pleasant, talkative elderly woman. Slightly pale. Oxygen on. No cough or d yspnea. Results Last Vital Signs Temp 36.8 C 02/23/23 07:07 Pulse 91 H 02/23/23 07:07 Resp 16 02/23/23 04:15 BP 122/73 02/23/23 07:07 Pulse Ox 96 02/23/23 07:07 Labs 02/23/23 06:05 02/23/23 06:05 Labs: Laboratory Results - last 24 hr 02/18/23 02/20/23 02/23/23 17:50 06:25 06:05 WBC RBC Hgb Hct MCV MCH MCHC RDW Plt Count MPV Immature Gran % Neutrophils % Lymphocytes % Monocytes % Eosinophils % Basophils % Nucleated RBC % Absolute Neutrophils Absolute Lymphocytes Absolute Monocytes Absolute Eosinophils Absolute Basophils Sodium 141 Potassium 4.6 D Chloride 103 Carbon Dioxide 35.6 H Anion Gap 2.4 L BUN 12 Creatinine 1.1 H Est GFR (CKD-EPI 2020) 51.43 Glucose 80 Calcium 9.5 Magnesium 1.4 L Tumor Marker AFP <2.5 Carcinoembryonic Ag <0.5 02/23/23 06:05 WBC 11.37 H RBC 3.64 L Hgb 10.0 L Hct 32.9 L MCV 90 MCH 27.5 MCHC 30.4 L RDW 13.2 Plt Count 205 MPV 9.5 Immature Gran % 0.9 Neutrophils % 82.9 Lymphocytes % 10.2 Monocytes % 4.7 Eosinophils % 0.9 Basophils % 0.4 Nucleated RBC % 0.0 Absolute Neutrophils 9.43 H Absolute Lymphocytes 1.16 L Absolute Monocytes 0.53 Absolute Eosinophils 0.10 Absolute Basophils 0.05 Sodium Potassium Chloride Carbon Dioxide Anion Gap BUN Creatinine Est GFR (CKD-EPI 2020) Glucose Calcium Magnesium Tumor Marker AFP Carcinoembryonic Ag
--- NOTE | 2023-02-23 14:59 | PT.INTREAT ---
Date of service: 02/23/23 Time of Service: 14:42 PT Notes Visit Reasons: Syncope Inpatient Physical Therapy Treatment Note [facility] Date: 02/23/23 PRECAUTIONS: Fall, standard SUBJECTIVE: Patient reports being exhausted and ready for a nap. Says there has been someone in her room ever since treatment this morning. OBJECTIVE: ? PAIN: Yes, indicates right lower lateral ribcage, states that's new she hasn't had that pain for a long time! VITALS: monitored by nursing staff.? Therapeutic Activities (40540s1): Direct one-on-one instruction in dynamic activities to improve functional performance. ? BED MOBILITY/TRANSFERS? Supine-sit: Instructed on log rolling, using leg swing for momentum. ? Sit-supine: Instructed on log rolling, using upper body for momentum. ? Provided skilled cues and instruction on performance and technique throughout. ASSESSMENT:? Patient tolerates therapy well, resting comfortable supine in bed at end of session. PLAN: Continue global strengthening per plan of care until patient is medically cleared for discharge to SNF for further strengthening. TREATMENT CODE/TIME: 63054 Ther Act 17 minutes beginning at 14:42
[2023-02-23 15:08] VITALS: BP 108/58; PULSE 99; RESP 18; TEMP 36.2; O2SAT 94
[2023-02-23 15:09] VITALS: BP 94/60
[2023-02-23] MEDS: fentaNYL 12 MCG PATCH TD (15:12)
--- NOTE | 2023-02-23 16:37 | PGE_ITS ---
Date of Service Date of service: 02/23/23 Time of Service: 16:38 Assessment and Plan Assessment and plan (1) Colonic mass: Status: Acute Assessment and plan: Status post EGD 02/19/2023 with biopsies still pending. Large abdominal mass noted on admission CT scan involves antrum of stomach 5.5 x 3.5 x 4.2 cm directly adjacent to mass in the liver with questionable involving the hepatic flexure of the colon. Per Dr. Erickson's EGD note from 02/19/2023 large mass was seen in the duodenum and feeding D1 portion of the duodenum eroding through the posterior wall which almost completely fills the duodenum. No gastric involvement. Per Dr. Erickson, if bx is non-diagnostic (which I doubt that this will be the case) then she would need referral to [facility] for c scope. patient would like to pursue oncology evaluation. apparently her son in [place] had lung cancer and is controlled w/ Keytruda. (2) Protein-calorie malnutrition, moderate: Status: Acute Assessment and plan: secondary to her cancer. nutrition consult ordered, protein shakes ordered (3) Multiple fractures of ribs of both sides: Status: Acute Assessment and plan: Multiple falls with acute and subacute fxs. patient has been on oxycodone and prn iv morphine. I put her on low dose fentanyl patch to try to obtain improved pain control. (4) Acute UTI (urinary tract infection): Status: Acute Assessment and plan: Continue Rocephin. Day 2 of 3 (5) Atherosclerotic heart disease pa[place] coronary artery w/angina pectoris: Status: Acute Assessment and plan: No c/o CP. No h/o AR. On isosorbide. (6) Stage 3a chronic kidney disease (CKD): Status: Acute Assessment and plan: stable, continue to monitor (7) COPD (chronic obstructive pulmonary disease): Status: Chronic Assessment and plan: 2 ppd smoker No acute exacerbation. PRN albuterol, Duonebs. 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 (9) Discharge planning issues: Status: Acute Assessment and plan: Unsafe for d/c to home; lives alone and has had multiple falls. cont.P.T., will likely need SNF pending definitive treatment of her cancer Subjective Subjective Interval history since last seen: Patient denies any nausea or vomiting today she has been tolerating a full liquid diet since admission. She denies any abdominal pain. I explained to the patient that we are still awaiting her biopsy results from her EGD. I explained to her that if the biopsy is inconclusive she will need to have a colonoscopy to evaluate this colonic mass that she has. I also explained to her that the surgeon Dr. Erickson is discussed her case with anesthesia and they feel that she is too high risk from her COPD to have the colonoscopy done here and patient will have to go to [facility]. All the patient's other providers have been at [facility] including her primary care provider and her chief quality officer. Patient has been tolerating her diet would like her diet ad vanced all increases to soft bite-size solids with thin liquids. Patient lives alone in [place], [place], she lives alone (her children live in [place], [place] and in [place]). At present she is too weak to return home. Exam Narrative Exam Narrative: Elderly female who is alert and oriented [place] place time circumstance lying in bed no acute respiratory distress. She currently has her oxygen off. Normally she wears oxygen at 4 L/min at home but has been down to 1-1/2 L/min here in the hospital. SPO2 has been 94% on 1.5 L/min. Lungs with prolonged expiratory phase with fine end expiratory wheezes no rhonchi or rales Heart is regular rate and rhythm Abdomen is distended firm but nontender with normal active bowel sounds Extremities no pitting edema or cyanosis Objective Last Vital Signs Temp 36.2 C L 02/23/23 15:08 Pulse 99 H 02/23/23 15:08 Resp 18 02/23/23 15:08 BP 94/60 L 02/23/23 15:09 Pulse Ox 94 02/23/23 15:08 Laboratory Results - last 24 hr 02/23/23 02/23/23 06:05 06:05 WBC 11.37 H RBC 3.64 L Hgb 10.0 L Hct 32.9 L MCV 90 MCH 27.5 MCHC 30.4 L RDW 13.2 Plt Count 205 MPV 9.5 Immature Gran % 0.9 Neutrophils % 82.9 Lymphocytes % 10.2 Monocytes % 4.7 Eosinophils % 0.9 Basophils % 0.4 Nucleated RBC % 0.0 Absolute Neutrophils 9.43 H Absolute Lymphocytes 1.16 L Absolute Monocytes 0.53 Absolute Eosinophils 0.10 Absolute Basophils 0.05 Sodium 141 Potassium 4.6 D Chloride 103 Carbon Dioxide 35.6 H Anion Gap 2.4 L BUN 12 Creatinine 1.1 H Est GFR (CKD-EPI 2020) 51.43 Glucose 80 Calcium 9.5 Magnesium 1.4 L Time Spent with Patient Time Spent with Patient: 25-34 minutes Time was spent: preparing to see the patient(eg.review tests), ordering medications,tests, procedures, referring, communicating with other health child care centre director, indepentently interpreting results, counseling the patient and care coordination
[2023-02-23] MEDS: cefTRIAXone 1 GM/50 ML BAG IVPB (18:10)
[2023-02-23] MEDS: Enoxaparin 30 MG/0.3 ML SYR SC (18:10)
[2023-02-23] MEDS: Normal Saline 500 ML 80 ML IV (18:11)
[2023-02-23] MEDS: Normal Saline Flush 10 ML SYR IVP (18:11)
[2023-02-23] MEDS: Protein Nutritional Supplement 16 GM 1 OUNCE PACKET PO (19:45)
[2023-02-23] MEDS: Amitriptyline 50 MG TAB PO (19:56)
[2023-02-23] MEDS: Mirabegron 25 MG TABCR PO (19:56)
[2023-02-23 22:55] VITALS: BP 131/77; PULSE 98; RESP 16; TEMP 36.9; O2SAT 90
[2023-02-23 23:36] VITALS: BP 107/68; PULSE 98; RESP 19; TEMP 36.6; O2SAT 91
[2023-02-24] MEDS: Acetaminophen 500 MG TAB 1000 MG PO ×3 (01:54→17:51)
[2023-02-24] MEDS: Levothyroxine 25 MCG TAB PO (05:44)
[2023-02-24] MEDS: oxyCODONE 5 MG TAB PO ×2 (05:45→21:47)
[2023-02-24 07:11] VITALS: BP 111/72; PULSE 92; TEMP 36.8; O2SAT 96
[2023-02-24] MEDS: Tiotropium Bromide-Respimat 10 PUFF INH 2 PUFF IH (07:26)
[2023-02-24] MEDS: Budesonide/Formoterol 160/4.5 6 GM 60 PUFF INH IH ×2 (07:26→20:15)
[2023-02-24 07:27] VITALS: O2SAT 95
[2023-02-24] MEDS: buPROPion-XL 150 MG TABCR PO (08:14)
[2023-02-24] MEDS: Gabapentin 800 MG TAB PO ×3 (08:14→20:09)
[2023-02-24] MEDS: DULoxetine 30 MG CAP PO (08:14)
[2023-02-24] MEDS: Lidocaine 5% Patch 2 PATCH TP (08:15)
[2023-02-24] MEDS: Isosorbide Mononitrate 30 MG TABCR PO (08:15)
[2023-02-24] MEDS: Pantoprazole 40 MG TABCR PO (08:15)
[2023-02-24] MEDS: Protein Nutritional Supplement 16 GM 1 OUNCE PACKET PO ×3 (08:15→20:09)
[2023-02-24] MEDS: Normal Saline Flush 10 ML SYR IVP ×2 (08:16→16:34)
--- NOTE | 2023-02-24 11:45 | W.PM.PROGNOT ---
Date of Service Date of service: 02/24/23 Time of Service: 13:00 Assessment and Plan Assessment and plan (1) Colonic mass: Status: Acute Assessment and plan: Pt underwent upper endoscopy by Dr Erickson 02/19 with findings of large mass compressing / obstructing on the D1 segment of duodenum. The mass extends into the liver. The mass arises most likely from large bowel. Bx obtained during upper endoscopy, still pending. Seen by Palliative care She would like treatment if oncology feels there could be benefit. (2) Protein-calorie malnutrition, moderate: Status: Acute Assessment and plan: Secondary to cancer and compression of duodenum by colon mass. Full liquid diet. Son has brought in Premier protein drinks. Nutrition consult. (3) Multiple fractures of ribs of both sides: Status: Acute Assessment and plan: Multiple falls with acute and subacute fxs. Pain managment as needed. IS Acapella (4) Acute UTI (urinary tract infection): Status: Resolved (5) Atherosclerotic heart disease false pass coronary artery w/angina pectoris: Status: Acute Assessment and plan: No c/o CP. No h/o NV. On isosorbide. (6) Stage 3a chronic kidney disease (CKD): Status: Acute Assessment and plan: Avoid nephrotoxic agents. Creatinine of 1.7 on admission. Creatinine now 1.1. Monitor as needed. (7) COPD (chronic obstructive pulmonary disease): Status: Chronic Assessment and plan: 2 ppd smoker No acute exacerbation. PRN albuterol, Duonebs. 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 (9) Discharge planning issues: Status: Acute Assessment and plan: Unsafe for d/c to home; lives alone and has had multiple falls. PT working with pt. Follow up out patient for abd mass Auth pending at [facility] - accepted w avail bed - patient in agreement Discussed with Dr Franco Subjective Subjective Patient reports: no new complaints, feels better, pain is less, tolerating liquids well, voiding w/o difficulty, no bowel movement and afebrile; denies diarrhea, vomiting or shortness of breath Interval history since last seen: Patient alert and sitting in the chair in the room, she is pleasant and conversant. She is interested in SNF. She said she would like surgery if that is indicated and understands there are out patient referrals and testing at [facility] that needs to be completed prior to any surgery - she is in agreement of going to [facility] s/t to multiple falls and being weak, ky with now rib fractures Exam Narrative Exam Narrative: Gen: NAD. Sitting in recliner. HEENT: sclera nonicteric. MMM Lungs: Clear. Nonlabored breathing. CV RRR. No murmur. Abd: Soft, NT, ND. +BS Exts: No edema or calf tenderness. Neuro: Titi. Normal speech. Psych: Appropriate affect. Good insight. Objective Last Vital Signs Temp 36.7 C 02/24/23 15:20 Pulse 96 H 02/24/23 15:20 Resp 19 02/23/23 23:36 BP 115/74 02/24/23 15:20 Pulse Ox 98 02/24/23 15:20 Laboratory Results - last 24 hr 02/24/23 02/24/23 06:35 15:13 Magnesium 2.0 Urine Color Yellow Urine Clarity Clear Urine pH 6.0 Ur Specific Mcewen <= 1.005 Urine Protein Negative Urine Ketones Negative Urine Blood Negative Urine Nitrite Negative Urine Bilirubin Negative Urine Urobilinogen 0.2 Ur Leukocyte Esterase Negative Urine Glucose Negative Time Spent with Patient Time Spent with Patient: 25-34 minutes Time was spent: preparing to see the patient(eg.review tests), ordering medications,tests, procedures, referring, communicating with other health career education teacher, indepentently interpreting results, counseling the patient and care coordination
[2023-02-24] MEDS: Polyethylene Glycol 3350 17 GM PACKET PO ×2 (12:02→20:09)
--- NOTE | 2023-02-24 13:14 | PT.INTREAT ---
Date of service: 02/24/23 Time of Service: 10:50 PT Notes Visit Reasons: Syncope Inpatient Physical Therapy Treatment Note [facility] Date: [] PRECAUTIONS: Fall, standard SUBJECTIVE: patient sitting up in recliner on room air, reports that she often at home takes her oxygen off to practice going without it until she can't anymore. Agreeable to therapy. OBJECTIVE: On 1.5 L supplemental O2 via nasal cannula in room. On 2L/min for ambulation. ? PAIN: Yes, left anterior and posterior chest wall. Coughs intermittently throughout session which increases pain. VITALS: closely monitored by nursing staff.? Therapeutic Exercises (95789v4): Direct one-on-one instruction in therapeutic exercises to develop strength, endurance, range of motion and flexibility. ?Ambulation ? Assistive Device: FWW? Weight bearing: Full Assist: Wheelchair follow ? Distance:? 300 feet with 2 seated rests at 75 feet and 150 feet. ? Deviation: no LOB, no report of dizziness. Rests due to shortness of breath, recovers in <2 minutes. ? Provided skilled instruction in proper exercise performance Patient education regarding pacing and breathing techniques to maximize activity tolerance? ASSESSMENT:? Patient tolerates therapy well. PLAN: Continue global strengthening until patient is medically cleared for discharge. Recommend SNF placement for continued strengthening as patient is currently too weak to care for herself at home. TREATMENT CODE/TIME: 48854 Ther Ex 17 minutes beginning at 10:50
--- NOTE | 2023-02-24 15:00 | PT.INTREAT ---
Date of service: 02/25/23 Time of Service: 15:00 PT Notes Visit Reasons: Syncope Inpatient Physical Therapy Treatment Note [facility] Date: 02/24/23 PRECAUTIONS: Fall, standard SUBJECTIVE: Patient sitting up in chair, reports fatigue but is agreeable to therapy. Patient reports wanting to work on fall recovery, as she is unable to pick herself back up after she has fallen. OBJECTIVE: ? PAIN: Yes, especially in left anterior chest. VITALS: monitored by nursing staff.? Therapeutic Activities (91078e5): Direct one-on-one instruction in dynamic activities to improve functional performance. ? BED MOBILITY/TRANSFERS? Rolling L/R: independent Supine-sit: SBA with verbal cues for technique, sequencing? Sit-supine: SBA with verbal cues for technique, sequencing ? Sit-stand: independent? Stand-sit: independent? Bed-Chair: SBA ? Chair-bed: SBA Provided skilled cues and instruction on performance and technique throughout. Wall pushups x10, leaning high knees x10 each side to promote patient's ability to get in and out of bed as well as to begin strengthening the muscles involved with picking oneself up from the floor. ASSESSMENT:? Patient tolerates therapy well, although does report increased pain in the chest wall at the end of therapy as compared to the beginning. PLAN: Continue global strengthening per plan of care until patient obtains SNF placement and is medically cleared for discharge. TREATMENT CODE/TIME: 10191 Ther Act 36 minutes beginning at 15:00
[2023-02-24 15:20] VITALS: BP 115/74; PULSE 96; TEMP 36.7; O2SAT 98
[2023-02-24 15:40] LABS: Bilirubin Negative (Negative); Blood Negative (Negative); Clarity Clear (Clear); Glucose Negative (Negative); Ketones Negative (Negative); Leukocyte Esterase Negative (Negative); Nitrite Negative (Negative); Specific Gravity <= 1.005 (1.005-1.025); Urobilinogen 0.2 mg/dL (Up to 0.2)
[2023-02-24] MEDS: Ondansetron 4 MG/2 ML VIAL IVP ×2 (16:35→21:47)
[2023-02-24] MEDS: Enoxaparin 30 MG/0.3 ML SYR SC (17:51)
--- NOTE | 2023-02-24 18:02 | PDOC.CMPRO ---
Date of service: 02/24/23 Time of Service: 18:02 Care Management Progress Note Progress Note Text Progress Note Text: S/O: Debra was sitting up in her chair when CM met with her. She stated that she is doing well today. CM reviewed her discharge plan, as she has been accepted at [facility], pending insurance PA. She is agreeable to this plan, and asked to be notified as soon as the PA is approved. CM will continue to follow. A:Debra is a 77 year old woman admitted on 02/18/23 with a UTI and fractured ribs. P:Debra's discharge plan remains unclear. She had a biopsy taken of the mass in her colon and is awaiting results. If there is? cancer, she is? willing to explore treatment options. Since she is too weak to return home alone, she will require SNF placement, at least short term. Cancer treatment may be a barrier. Referrals were sent to [facility] and the [facility]. Additional referrals will be sent as needed and at Debra's request. CM will continue to support Debra and assess for ongoing discharge concerns.
[2023-02-24] MEDS: fentaNYL 12 MCG PATCH TD ×2 (18:25→18:26)
[2023-02-24] MEDS: Mirabegron 25 MG TABCR PO (21:47)
[2023-02-24] MEDS: Amitriptyline 50 MG TAB PO (21:47)
[2023-02-24] MEDS: MORPHine 2 MG/ML SYR IVP (21:47)
[2023-02-24] MEDS: LIDOCAINE Patch Removal 1 EACH TP (23:16)
[2023-02-24 23:30] VITALS: BP 124/73; PULSE 96; RESP 19; TEMP 36.8; O2SAT 91
[2023-02-25] MEDS: Acetaminophen 500 MG TAB 1000 MG PO ×3 (02:09→17:52)
[2023-02-25] MEDS: Levothyroxine 25 MCG TAB PO (06:00)
[2023-02-25 06:51] LABS: HCT 33.3 % (36.0-46.0); HGB 10.2 g/dL (11.2-15.7); MCH 27.9 pg (27.0-33.0); MCHC 30.6 % (32.0-36.0); MCV 91 fL (80-95); MPV 9.6 fL (8.0-11.0); Platelet Count 202 10^3/uL (130-400); RBC 3.66 10^6/uL (3.93-5.22); RDW 13.8 % (11.7-14.6); WBC 11.64 10^3/uL (4.4-10.8)
[2023-02-25 07:14] LABS: Anion Gap 6.5 mmol/L (3-11); BUN 22 mg/dL (7-18); CO2 32.5 mmol/L (21.0-32.0); Calcium 9.1 mg/dL (8.5-10.1); Chloride 103 mmol/L (98-107); Estimated GFR 57.66 (mL/min/1.73m2); Glucose 65 mg/dL (74-106); Magnesium 1.8 mg/dL (1.8-2.4); Potassium 5.1 mmol/L (3.5-5.1); Sodium 142 mmol/L (136-145)
[2023-02-25 07:23] LABS: Absolute Monocyte Count 0.58 10^3/uL (0.1-0.8); Absolute Neutrophil Count 9.66 10^3/uL (1.2-6.7); Anisocytosis 1+; Diff Comment Manual Differential; Hypochromasia 1+
[2023-02-25] MEDS: buPROPion-XL 150 MG TABCR PO (08:28)
[2023-02-25] MEDS: DULoxetine 30 MG CAP PO (08:28)
[2023-02-25] MEDS: Gabapentin 800 MG TAB PO ×3 (08:29→20:10)
[2023-02-25] MEDS: Lidocaine 5% Patch 2 PATCH TP (08:29)
[2023-02-25] MEDS: Isosorbide Mononitrate 30 MG TABCR PO (08:29)
[2023-02-25] MEDS: Polyethylene Glycol 3350 17 GM PACKET PO ×2 (08:30→20:10)
[2023-02-25] MEDS: Protein Nutritional Supplement 16 GM 1 OUNCE PACKET PO ×3 (08:30→20:10)
[2023-02-25] MEDS: Pantoprazole 40 MG TABCR PO (08:30)
[2023-02-25] MEDS: Tiotropium Bromide-Respimat 10 PUFF INH 2 PUFF IH (08:48)
[2023-02-25] MEDS: Budesonide/Formoterol 160/4.5 6 GM 60 PUFF INH IH ×2 (08:48→19:12)
[2023-02-25 08:49] VITALS: O2SAT 93
[2023-02-25 09:00] VITALS: BP 103/64; PULSE 103; RESP 16; TEMP 36.9; O2SAT 94
[2023-02-25] MEDS: Bisacodyl 10 MG SUPP PR (12:46)
[2023-02-25] MEDS: Sennosides/Docusate Sodium TAB 1 TAB PO (12:46)
--- NOTE | 2023-02-25 13:05 | PT.INTREAT ---
Date of service: 02/25/23 Time of Service: 11:37 PT Notes Visit Reasons: Syncope Inpatient Physical Therapy Treatment Note [facility] Date: 02/25/23 PRECAUTIONS: Fall, standard SUBJECTIVE: Patient supine in bed, agreeable to therapy. OBJECTIVE: ? PAIN: yes, lower right anterior ribcage. VITALS: monitored by nursing staff.? Therapeutic Exercises ([id number]): Direct one-on-one instruction in therapeutic exercises to develop strength, endurance, range of motion and flexibility. ?Ambulation ? Assistive Device: FWW? Weight bearing: full Assist: CGA with wheelchair follow? Distance:? 300 feet with seated rest at 75 feet and 225 feet? Deviation: c/o shortness of breath, SaO2 remained >92% at all times on 1L/min supplemental O2 via nasal cannula. ? Provided skilled instruction in proper exercise performance Provided skilled manual cues to facilitate proper muscle recruitment and/or form: Breathing, pacing to optimize performance. Reiterated the importance of rest. ASSESSMENT:? Patient tolerates therapy well, resting up in chair at end of treatment with call farmer in easy reach. PLAN: Continue global strengthening per plan of care until patient obtains SNF placement. TREATMENT CODE/TIME: 06323 Ther Ex 21 minutes beginning at 11:37
[2023-02-25 15:14] VITALS: BP 105/62; PULSE 50; RESP 16; TEMP 36.6; O2SAT 92
--- NOTE | 2023-02-25 15:16 | PDOC.CMPRO ---
Date of service: 02/25/23 Time of Service: 15:16 Care Management Progress Note Progress Note Text Progress Note Text: S/O: Debra was sleeping when CM attempted to meet with her. CM contacted admissions at [facility], who reported that the authorization for her SNF stay remains pending at this time. Per report, Debra has not had a BM, despite Miralax. She is also having heartburn; provider to address these concerns. CM will continue to follow. A:Debra is a 77 year old woman admitted on 02/18/23 with a UTI and fractured ribs. P:Debra's discharge plan remains unclear. She had a biopsy taken of the mass in her colon and is awaiting results. If there is? cancer, she is? willing to explore treatment options. Since she is too weak to return home alone, she will require SNF placement, at least short term. Cancer treatment may be a barrier. Referrals were sent to [facility] and the [facility]. Additional referrals will be sent as needed and at Debra's request. CM will continue to support Debra and assess for ongoing discharge concerns.
--- NOTE | 2023-02-25 15:44 | PGE_ITS ---
Date of Service Date of service: 02/25/23 Time of Service: 12:00 Assessment and Plan Assessment and plan (1) Colonic mass: Status: Acute Assessment and plan: Pt underwent upper endoscopy by Dr Erickson 02/19 with findings of large mass compressing / obstructing on the D1 segment of duodenum. The mass extends into the liver. The mass arises most likely from large bowel. Bx obtained during upper endoscopy, not conclusive - she will do a prep tonight and have a colonoscopy tomorrow with surgery for bx Seen by Palliative care She would like treatment if oncology feels there could be benefit. (2) Protein-calorie malnutrition, moderate: Status: Acute Assessment and plan: Secondary to cancer and compression of duodenum by colon mass. Full liquid diet. Son has brought in [employer] protein drinks. Nutrition consult. (3) Multiple fractures of ribs of both sides: Status: Acute Assessment and plan: Multiple falls with acute and subacute fxs. Pain managment as needed. IS Acapella (4) Acute UTI (urinary tract infection): Status: Resolved (5) Atherosclerotic heart disease [place] coronary artery w/angina pectoris: Status: Acute Assessment and plan: No c/o CP. No h/o FL. On isosorbide. (6) Stage 3a chronic kidney disease (CKD): Status: Acute Assessment and plan: Avoid nephrotoxic agents. Creatinine of 1.7 on admission. Creatinine now 1.0 Monitor as needed. (7) COPD (chronic obstructive pulmonary disease): Status: Chronic Assessment and plan: 2 ppd smoker No acute exacerbation. PRN albuterol, Duonebs. 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 (9) Discharge planning issues: Status: Acute Assessment and plan: Unsafe for d/c to home; lives alone and has had multiple falls. PT working with pt. Follow up out patient for abd massl colonscopy tomorrow for bx Auth pending at [facility] - accepted w avail bed - patient in agreement Discussed with Dr Franco Subjective Subjective Patient reports: no new complaints, tolerating liquids well, voiding w/o difficulty, no bowel movement and afebrile; denies diarrhea, vomiting or shortness of breath Interval history since last seen: Awake, alert, pleasant, conversant. Still has not had BM. Added suppository and pericolace. Seen by surgery. Patient's bx not conclusive plan for colonoscopy tomorrow. Patient is in greement with this plan. Started prep Exam Narrative Exam Narrative: Gen: NAD. Sitting in recliner. HEENT: sclera nonicteric. MMM Lungs: Clear. Nonlabored breathing. CV RRR. No murmur. Abd: Soft, NT, very distended +BS Exts: No edema or calf tenderness. Neuro: Titi. Normal speech. Psych: Appropriate affect. Good insight. Objective Last Vital Signs Temp 36.6 C 02/25/23 15:14 Pulse 50 L 02/25/23 15:14 Resp 16 02/25/23 15:14 BP 105/62 02/25/23 15:14 Pulse Ox 92 02/25/23 15:14 Laboratory Results - last 24 hr 02/25/23 02/25/23 06:15 06:15 WBC 11.64 H RBC 3.66 L Hgb 10.2 L Hct 33.3 L MCV 91 MCH 27.9 MCHC 30.6 L RDW 13.8 Plt Count 202 MPV 9.6 Immature Gran % See Differential Neutrophils % 83.0 Lymphocytes % 12.0 Monocytes % 5.0 Eosinophils % 0.0 Basophils % 0.0 Nucleated RBC % 0.0 Absolute Neutrophils 9.66 H Absolute Lymphocytes 1.40 Absolute Monocytes 0.58 Absolute Eosinophils 0.00 Absolute Basophils 0.00 RBC Morphology See Below Hypochromasia 1+ Anisocytosis 1+ Sodium 142 Potassium 5.1 Chloride 103 Carbon Dioxide 32.5 H Anion Gap 6.5 BUN 22 H Creatinine 1.0 Est GFR (CKD-EPI 2020) 57.66 Glucose 65 L Calcium 9.1 Magnesium 1.8 Time Spent with Patient Time Spent with Patient: 35-49 minutes Time was spent: preparing to see the patient(eg.review tests), ordering medications,tests, procedures, referring, communicating with other health respiratory care specialist, indepentently interpreting results, counseling the patient and care coordination
[2023-02-25] MEDS: Polyethylene Glycol 3350 238 GM BTL PO (17:52)
[2023-02-25] MEDS: Amitriptyline 50 MG TAB PO (20:10)
[2023-02-25] MEDS: Docusate Sodium 100 MG CAP PO (20:10)
[2023-02-25] MEDS: Mirabegron 25 MG TABCR PO (20:10)
[2023-02-25] MEDS: Bisacodyl 5 MG TABEC 10 MG PO (20:10)
[2023-02-25] MEDS: Ondansetron 4 MG/2 ML VIAL IVP (20:11)
--- NOTE | 2023-02-25 21:42 | W.PM.PROGNOT ---
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 I just received them late this afternoon. I did discuss the case with anesthesia. She did well during the EGD. Patient has changed her mind and does want to proceed with treatment. So we would need to get a tissue diagnosis prior to the initiation of chemo. She has been stable throughout this past week with no severe changes in her medical condition. She has been tolerating a full liquid diet. We will plan on doing a colonoscopy Wednesday. This was discussed with the patient and she is in agreement at this time. She will do bowel prep tonight H: r/r/r L: CTA b/l A: minimal pain currently Informed consent is obtained for the procedural (explained in simple layman's terms that the pt. and/or family could understand) explaining risks vs benefits and alternatives to the procedure and consequences if we do not do the procedure and need/rational for the procedure. Risks include but are not limited to: bleeding, infection, perforation of Esophagus stomach, colon, small intestines. This would necessitate emergency surgery to repair the damage w/ possible ostomy; and other associated complications w/ the required surgery. Also complications of anesthesia including aspiration, AK/CVA/. (17) Closed rib fracture: Status: Acute (18) COPD (chronic obstructive pulmonary disease): Status: Chronic (19) GERD (gastroesophageal reflux disease): (20) Hyperparathyroidism: (21) Hypothyroidism: Objective Last Vital Signs Temp 36.6 C 02/25/23 15:14 Pulse 50 L 02/25/23 15:14 Resp 16 02/25/23 15:14 BP 105/62 02/25/23 15:14 Pulse Ox 92 02/25/23 15:14 Laboratory Results - last 24 hr 02/25/23 02/25/23 06:15 06:15 WBC 11.64 H RBC 3.66 L Hgb 10.2 L Hct 33.3 L MCV 91 MCH 27.9 MCHC 30.6 L RDW 13.8 Plt Count 202 MPV 9.6 Immature Gran % See Differential Neutrophils % 83.0 Lymphocytes % 12.0 Monocytes % 5.0 Eosinophils % 0.0 Basophils % 0.0 Nucleated RBC % 0.0 Absolute Neutrophils 9.66 H Absolute Lymphocytes 1.40 Absolute Monocytes 0.58 Absolute Eosinophils 0.00 Absolute Basophils 0.00 RBC Morphology See Below Hypochromasia 1+ Anisocytosis 1+ Sodium 142 Potassium 5.1 Chloride 103 Carbon Dioxide 32.5 H Anion Gap 6.5 BUN 22 H Creatinine 1.0 Est GFR (CKD-EPI 2020) 57.66 Glucose 65 L Calcium 9.1 Magnesium 1.8 CBC White Blood Count 11.64 10^3/uL (4.4-10.8) H 02/25/23 Red Blood Count 3.66 10^6/uL (3.93-5.22) L 02/25/23 Hemoglobin 10.2 g/dL (11.2-15.7) L 02/25/23 Hematocrit 33.3 % (36.0-46.0) L 02/25/23 Mean Corpuscular Volume 91 fL (80-95) 02/25/23 Mean Corpuscular Hemoglobin 27.9 pg (27.0-33.0) 02/25/23 Mean Corpuscular Hemoglobin Concent 30.6 % (32.0-36.0) L 02/25/23 Red Cell Distribution Width 13.8 % (11.7-14.6) 02/25/23 Platelet Count 202 10^3/uL (130-400) 02/25/23 Mean Platelet Volume 9.6 fL (8.0-11.0) 02/25/23 Neutrophils % 83.0 02/25/23 Lymphocytes % 12.0 02/25/23 Monocytes % 5.0 02/25/23 Eosinophils % 0.0 02/25/23 Basophils % 0.0 02/25/23 Immature Granulocytes % See Differential 02/25/23 Comprehensive Metabolic Panel Sodium 142 mmol/L (136-145) 02/25/23 06:15 Potassium 5.1 mmol/L (3.5-5.1) 02/25/23 06:15 Chloride 103 mmol/L (98-107) 02/25/23 06:15 Carbon Dioxide 32.5 mmol/L (21.0-32.0) H 02/25/23 06:15 BUN 22 mg/dL (7-18) H 02/25/23 06:15 Creatinine 1.0 mg/dL (0.55-1.02) 02/25/23 06:15 Estimated GFR/1.73 m2 31.26 (mL/min/1.73m2) 01/06/22 15:28 Glucose 65 mg/dL (74-106) L 02/25/23 06:15 Calcium 9.1 mg/dL (8.5-10.1) 02/25/23 06:15 Conjugated Bilirubin 0.16 mg/dL (0.00-0.20) 02/25/15 07:35 Total Bilirubin 0.2 mg/dL (0.2-1.0) 02/20/23 06:25 ALT 11 U/L (14-59) L 02/20/23 06:25 AST 17 U/L (15-37) 02/20/23 06:25 Alkaline Phosphatase 106 U/L (46-116) 02/20/23 06:25 Total Protein 5.7 g/dL (6.4-8.2) L 02/20/23 06:25 Albumin 1.8 g/dL (3.4-5.0) L 02/20/23 06:25 Time Spent with Patient Time Spent with Patient: 25-34 minutes Time was spent: preparing to see the patient(eg.review tests), obtaining and/or reviewing separately otained hiistory, ordering medications,tests, procedures, referring, communicating with other health associate director career services, indepentently interpreting results, counseling the patient and care coordination
[2023-02-25] MEDS: LIDOCAINE Patch Removal 1 EACH TP (23:04)
[2023-02-26 01:26] VITALS: BP 113/71; PULSE 110; RESP 18; TEMP 36.7; O2SAT 95
[2023-02-26] MEDS: Bisacodyl 5 MG TABEC 10 MG PO (06:16)
[2023-02-26] MEDS: Levothyroxine 25 MCG TAB PO (06:17)
[2023-02-26 06:37] LABS: Abs Immature Grans 0.16 10^3/uL (0.0-0.06); Absolute Eosinophil Count 0.01 10^3/uL (0.0-0.7); Absolute Monocyte Count 0.51 10^3/uL (0.1-0.8); Basophils % 0.4; Eosinophils % 0.1; HCT 34.3 % (36.0-46.0); HGB 10.2 g/dL (11.2-15.7); Immature Grans % 1.2; Lymphocytes % 7.4; MCH 27.1 pg (27.0-33.0); MCHC 29.7 % (32.0-36.0); MCV 91 fL (80-95); MPV 9.1 fL (8.0-11.0); Monocytes % 3.7; Neutrophils % 87.2; Platelet Count 232 10^3/uL (130-400); RBC 3.76 10^6/uL (3.93-5.22); RDW 13.9 % (11.7-14.6); RDW-SD 46.5 fL; WBC 13.85 10^3/uL (4.4-10.8)
[2023-02-26 06:46] LABS: Absolute Basophil Count 0.06 10^3/uL (0.0-0.2); Absolute Lymphocyte Count 1.02 10^3/uL (1.2-3.4); Absolute Neutrophil Count 12.08 10^3/uL (1.2-6.7); Anion Gap 7.2 mmol/L (3-11); BUN 24 mg/dL (7-18); CO2 31.8 mmol/L (21.0-32.0); Chloride 102 mmol/L (98-107); Estimated GFR 57.66 (mL/min/1.73m2); Glucose 90 mg/dL (74-106); Magnesium 1.9 mg/dL (1.8-2.4); Potassium 4.3 mmol/L (3.5-5.1); Sodium 141 mmol/L (136-145)
[2023-02-26] MEDS: DULoxetine 30 MG CAP PO (07:30)
[2023-02-26] MEDS: Gabapentin 800 MG TAB PO ×2 (07:30→20:18)
[2023-02-26] MEDS: buPROPion-XL 150 MG TABCR PO (07:30)
[2023-02-26] MEDS: Docusate Sodium 100 MG CAP PO ×2 (07:30→20:18)
[2023-02-26] MEDS: Pantoprazole 40 MG TABCR PO (07:30)
[2023-02-26] MEDS: Isosorbide Mononitrate 30 MG TABCR PO (07:30)
[2023-02-26 07:33] VITALS: BP 122/77; PULSE 112; TEMP 36.7; O2SAT 96
[2023-02-26] MEDS: Budesonide/Formoterol 160/4.5 6 GM 60 PUFF INH IH ×2 (07:58→19:14)
[2023-02-26] MEDS: Tiotropium Bromide-Respimat 10 PUFF INH 2 PUFF IH (07:58)
[2023-02-26] MEDS: Lactated Ringers 1,000 ML 50 ML IV ×2 (13:05)
--- NOTE | 2023-02-26 13:35 | W.ANESPRE ---
General Info Date of Service Date Performed: 02/26/23 Height: 5 ft 3 in Weight: 60.328 kg Body Mass Index (BMI): 23.6 Surgical Procedure: Operation Date: 02/19/23 10:50 Proposed Procedure Side Surgeon gala Gastroscopy Funmilayo Erickson, DO Actual Procedure Side Surgeon p Gastroscopy Funmilayo Erickson, DO Pre-Op Diagnosis Post-Op Diagnosis anemia, weight loss , gastric mass GASTRIC MASS Operation Date: 02/26/23 12:20 Proposed Procedure Side Surgeon gala Colonoscopy Funmilayo Erickson, DO Actual Procedure Side Surgeon p Colonoscopy Funmilayo Erickson, DO Pre-Op Diagnosis Post-Op Diagnosis COLON MASS Meds Allergies and Home Medications Allergies Allergy/AdvReac Type Severity Reaction Status Date / Time aspirin AdvReac Intermediate makes her Unverified 02/18/23 15:23 loopy Home Medication Medication Instructions Recorded albuterol sulfate 2.5 mg/3 mL 3 ml inhalation Q4H PRN PRN 02/25/15 (0.083 %) solution for nebulization albuterol sulfate 90 mcg/actuation 2 puff inhalation Q4H PRN PRN 02/25/15 aerosol inhaler budesonide-formoterol HFA 160 2 puff inhalation BID 02/25/15 mcg-4.5 mcg/actuation aerosol inhaler (Symbicort) gabapentin 800 mg tablet 800 mg PO TID 02/25/15 ipratropium 0.5 mg-albuterol 3 mg 3 ml inhalation Q6H PRN PRN 02/25/15 (2.5 mg base)/3 mL nebulization soln [employer] Systems 04/02/19 acetaminophen 500 mg tablet 1,000 mg PO Q8H PRN 04/02/19 (Acetaminophen Extra Strength) amitriptyline 50 mg tablet 50 mg PO QHS 04/02/19 atorvastatin 40 mg tablet 40 mg PO DAILY 04/02/19 cholecalciferol (vitamin D3) 25 5,000 unit PO DAILY 04/02/19 mcg (1,000 unit) chewable tablet clopidogrel 75 mg tablet 75 mg PO DAILY 04/02/19 levothyroxine 25 mcg tablet 25 mcg PO DAILY 04/02/19 metoprolol succinate 50 mg 50 mg PO DAILY 04/02/19 tablet,extended release 24 hr naproxen sodium 220 mg capsule 220 mg PO BID 04/02/19 nitroglycerin 0.4 mg sublingual 0.4 mg sublingual Q5M PRN 04/02/19 tablet pantoprazole 20 mg tablet,delayed 40 mg PO DAILY 04/02/19 release tiotropium bromide 2.5 2 puff inhalation DAILY 04/02/19 mcg/actuation mist for inhalation (Spiriva Respimat) mirabegron 25 mg tablet,extended 25 mg PO QHS 05/26/21 release 24 hr ondansetron 4 mg disintegrating 4 mg PO TID PRN nausea and 07/07/21 tablet vomiting #6 tabs isosorbide mononitrate 30 mg 30 mg PO DAILY 01/06/22 tablet,extended release 24 hr metoprolol succinate 25 mg 25 tab PO DAILY 01/06/22 tablet,extended release 24 hr duloxetine 30 mg capsule,delayed 30 mg PO DAILY 02/18/23 release bupropion HCl 150 mg 24 hr tablet, 150 mg PO QAM 02/19/23 extended release Current Visit Medications: Current Medications Generic Name Dose Route Start Last Admin Trade Name [facility] PRN Reason Stop Dose Admin Acetaminophen 1,000 mg 02/18/23 18:00 02/26/23 09:56 Acetaminophen 500 Mg Tab PO Not Given Q8H KYRA Al Hydrox/Mg Hydrox/Simethicone 30 ml 02/25/23 11:33 Mylanta Suspension 30 Ml Cup PO Q3H PRN PRN Albuterol Sulfate 2.5 mg 02/18/23 17:29 Albuterol 2.5 Mg/3 Ml Inh Soln Vial IH Q4H PRN PRN Albuterol Sulfate 2 puff 02/18/23 17:29 Albuterol Hfa 8 Gm 60 Puff Inh IH Q4H PRN PRN Albuterol/Ipratropium 3 ml 02/18/23 17:29 Albuterol/Ipratropium 3 Ml Upd Vial IH Q6H PRN PRN Amitriptyline HCl 50 mg 02/18/23 22:00 02/25/23 20:10 Amitriptyline 50 Mg Tab PO 50 mg HS KYRA Administration Budesonide/Formoterol Fumarate 2 puff 02/18/23 20:00 02/26/23 07:58 Budesonide/Formoterol 160/4.5 6 Gm 60 Puff Inh IH 2 puffs BID KYRA Administration Bupropion HCl 150 mg 02/19/23 08:30 02/26/23 07:30 Bupropion-Xl 150 Mg Tabcr PO 150 mg QAM KYRA Administration Device 1 each 02/18/23 18:00 Inhaler, Assist Device DIRECTED [facility] Docusate Sodium 100 mg 02/25/23 20:00 02/26/23 07:30 Docusate Sodium 100 Mg Cap PO 100 mg BID KYRA Administration Duloxetine HCl 30 mg 02/19/23 08:30 02/26/23 07:30 Duloxetine 30 Mg Cap PO 30 mg DAILY KYRA Administration Enoxaparin Sodium 30 mg 02/18/23 18:00 02/24/23 17:51 Enoxaparin 30 Mg/0.3 Ml Syr SC 30 mg Q24H KYRA Administration Fentanyl 12 mcg 02/24/23 18:00 02/24/23 18:26 Fentanyl 12 Mcg Patch TD 12 mcg Q72H KYRA Administration Gabapentin 800 mg 02/18/23 20:00 02/26/23 13:24 Gabapentin 800 Mg Tab PO Not Given TID [facility] Sodium Chloride 500 mls @ 0 mls/hr 02/18/23 17:21 02/23/23 18:37 Saline 500ml Bag IV 0 mls/hr PRN PRN Infusion As Directed Ringer's Solution 1,000 mls @ 75 mls/hr 02/25/23 16:45 IV INFUSION [facility] IV Miscellaneous Supplies 1 each 02/18/23 17:30 Iv Access IV DIRECTED [facility] Isosorbide Mononitrate 30 mg 02/19/23 08:30 02/26/23 07:30 Isosorbide Mononitrate 30 Mg Tabcr PO 30 mg DAILY [facility] Administration Levothyroxine Sodium 25 mcg 02/19/23 06:00 02/26/23 06:17 Levothyroxine 25 Mcg Tab PO 25 mcg DAILY@0600 [facility] Administration Lidocaine 2 patch 02/19/23 08:30 02/26/23 07:30 Lidocaine 5% Patch TP 2 patch DAILY KYRA Administration Mirabegron 25 mg 02/18/23 22:00 02/25/23 20:10 Mirabegron 25 Mg Tabcr PO 25 mg HS KYRA Administration Miscellaneous 2 each 02/26/23 20:30 Lidocaine Patch Removal TP 2030 [facility] Morphine Sulfate 2 mg 02/18/23 17:21 02/24/23 21:47 Morphine 2 Mg/Ml Syr IVP 2 mg Q1H PRN PRN Administration Multi-Ingredient Supplement 1 ounce 02/23/23 20:00 02/26/23 13:25 Protein Nutritional Supplement 16 Gm 1 Ounce Packet PO Not Given TID KYRA Nitroglycerin 0.4 mg 02/26/23 10:58 Nitroglycerin 0.4 Mg Tab SL Q5 MIN PRN X3 PRN Ondansetron HCl 4 mg 02/18/23 17:21 02/25/23 20:11 Ondansetron 4 Mg/2 Ml Vial IVP 4 mg Q4H PRN PRN Administration Oxycodone HCl 5 mg 02/18/23 17:34 02/24/23 21:47 Oxycodone 5 Mg Tab PO 5 mg Q4H PRN PRN Administration Pantoprazole Sodium 40 mg 02/19/23 07:30 02/26/23 07:30 Pantoprazole 40 Mg Tabcr PO 40 mg DAILY@0730 KYRA Administration Polyethylene Glycol 17 gm 02/24/23 12:00 02/26/23 07:31 Polyethylene Glycol 3350 17 Gm Packet PO Not Given BID KYRA Sodium Chloride 0 ml 02/18/23 17:21 02/24/23 16:34 Normal Saline Flush 10 Ml Syr IVP 10 ml PRN PRN Administration Tiotropium [place] 2 puff 02/19/23 08:30 02/26/23 07:58 Tiotropium [place]-Respimat 10 Puff Inh IH 2 inh DAILY KYRA Administration PFSH Active Problems Active Problems: Problem Status Onset Code Chronic respiratory failure with hypoxia J96.11 Abdominal mass, right upper quadrant R19.01 Advanced care planning/counseling discussion Z71.89 Palliative care encounter Z51.5 Discharge planning issues Z02.9 Colonic mass K63.89 Coronary artery calcification seen on CAT scan I25.10 Aortic atherosclerosis I70.0 Status post KARINA-BSO Z90.710, Z90.722, Z90.79 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, I99.8 Unexplained weight loss R63.4 Protein-calorie malnutrition, moderate E44.0 Metastasis to liver C78.7 Mass of hepatic flexure of colon K63.89 Microcytic anemia D50.9 Multiple fractures of ribs of both sides S22.43XA Acute UTI (urinary tract infection) N39.0 Fall as cause of accidental injury at home as place of occurrence W19.XXXA, Y92.009 Osteoporosis M81.0 Chronic low back pain M54.50, G89.29 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 Restless legs syndrome (RLS) G25.81 Urge incontinence N39.41 Stage 3a chronic kidney disease (CKD) N18.31 Chronic insomnia F51.04 Temporal arteritis M31.6 Mass of stomach K31.89 Liver mass R16.0 Syncope R55 Anemia D64.9 Closed rib fracture S22.39XA COPD (chronic obstructive pulmonary disease) J44.9 Chest pain R07.9 Medical History Medical History Anxiety Depression Diabetes DJD (degenerative joint disease), lumbar GERD (gastroesophageal reflux disease) Hyperparathyroidism Hypothyroidism Surgical History Surgical History History of appendectomy History of back surgery History of knee surgery Status post hip replacement Tobacco Smoking/Tobacco Use Status: Former Tobacco Use Alcohol Alcohol Intake: current Alcohol intake frequency: holidays/special occasions only Alcohol type: wine Substance Use Substance use: Never Substance use type: does not use Vital Signs and Lab Results Vital Signs Most Recent Vital Signs in EMR: Most Recent Vital Signs Temp Pulse Resp BP Pulse Ox 36.7 C 112 H 18 122/77 96 02/26/23 07:33 02/26/23 07:33 02/26/23 01:26 02/26/23 07:33 02/26/23 07:33 Lab Results 02/26/23 05:18 02/26/23 05:18 Blood Type / Crossmatch: Patient ABO/Rh O Positive 02/19/23 Antibody Screen NEGATIVE 02/18/23 Crossmatch See Detail 02/18/23 Complete Blood Count: White Blood Count 13.85 10^3/uL (4.4-10.8) H 02/26/23 05:18 Red Blood Count 3.76 10^6/uL (3.93-5.22) L 02/26/23 05:18 Hemoglobin 10.2 g/dL (11.2-15.7) L 02/26/23 05:18 Hematocrit 34.3 % (36.0-46.0) L 02/26/23 05:18 Platelet Count 232 10^3/uL (130-400) 02/26/23 05:18 Complete Metabolic Panel: Sodium 141 mmol/L (136-145) 02/26/23 05:18 Potassium 4.3 mmol/L (3.5-5.1) 02/26/23 05:18 Chloride 102 mmol/L (98-107) 02/26/23 05:18 Carbon Dioxide 31.8 mmol/L (21.0-32.0) 02/26/23 05:18 BUN 24 mg/dL (7-18) H 02/26/23 05:18 Creatinine 1.0 mg/dL (0.55-1.02) 02/26/23 05:18 Est GFR (CKD-EPI 2020) 57.66 (mL/min/1.73m2) 02/26/23 05:18 Magnesium 1.9 mg/dL (1.8-2.4) 02/26/23 05:18 Calcium 9.0 mg/dL (8.5-10.1) 02/26/23 05:18 Albumin 1.8 g/dL (3.4-5.0) L 02/20/23 06:25 Glucose 90 mg/dL (74-106) 02/26/23 05:18 Liver Function Panel: Alanine Aminotransferase (ALT/SGPT) 11 U/L (14-59) L 02/20/23 06:25 Aspartate Amino Transf (AST/SGOT) 17 U/L (15-37) 02/20/23 06:25 Coagulation Panel: INR International Normalized Ratio 1.0 (0.9-1.1) 02/19/23 06:12 Prothrombin Time 10.2 sec (9.3-11.0) 02/19/23 06:12 Cardiac Panel: Troponin I < 50 ng/L (<or=60) 02/18/23 Creatine Kinase 45 U/L (26-192) 02/18/23 Arterial Blood Gas: No Data to Display Venous Blood Gas: No Data to Display Pancreas Panel: No Data to Display Thyroid Panel: No Data to Display Infectious Disease: No Data to Display Blood Cultures: No Data to Display Toxicology Panel: No Data to Display Imaging and Studies Imaging and Studies Study information below may be from another EMR and interpreted by another provider. Please see original notes in EMR for more complete details. EKG Summary: DATE/TIME OF SERVICE: 02/18/23 1526 : 1945PERFORMING LOCATION: ER APPROVED REPORT Exam: Resting ECG Reason for Exam: chest pain Patient Location: E HR:75 bpm ECG Measurements Heart Rate 75 AXIS AL 178 P 82 QRSd 77 QRS 50 QT 354 T37 QTc 396 Conclusion Sinus rhythm...normal P axis, V-rate 60- 99 Stress Test Summary: 2017 [facility] Likely 1VD, no indication for cardiac cath. Will begin Plavix daily. Echocardiogram Summary: Date: 12/16/2022: EF 55-60%, Trace regurge. Unable to assess pHTN. Date of Exam: 05/27/21Sex: F Admission Date: 05/26/21 : 1945 Age: 75 APPROVED REPORT EXAM: Comprehensive 2D, Doppler, and color-flow Echocardiogram Patient Location: In-Patient Room/Bed: [facility] [place] Java Web Developer: Maura Lares RDCS (AE) Indications: PE, SOB, Chest pain Other Information Study Quality: Fair. Technically limited study due to body habitus. Conclusion Normal left ventricular wall thickness and chamber size. Estimated ejection fraction is 55%. Wall motion is normal Normal right ventricular size and systolic function The atria are normal in size Aortic valve is sclerotic with mild regurgitation Mild mitral annular calcification. Mild mitral regurgitation Normal tricuspid valve with trace regurgitation. Estimated right ventricular systolic pressure is 27 mmHg The pulmonic valve was not well visualized Pulmonary Function Summary: FVC: 57% predicted, FEV1 30% predicted, FEV1/FVC 41%. Diffusion defect 17% with Spo2 97%. Zackery to 90% after walking 150feet on room air with walker. VERY Severe COPD on 4LPM O2 (Per note may likely require less oxygen despite this). Anesthesia Assessment and Plan Anesthesia History Personal History: No History of Anesthesia Complications Family History: No Family History of Anesthesia Complications Exercise Tolerance Exercise Tolerance: Metabolic Equivalents<4 Pertinent Negatives Pertinent Negatives: No Symptoms of GERD Cardiac & Pulmonary Exam Cardiac Exam: Normal S1/S2 Heart Sounds Pulmonary Exam: Active Dry Cough and Other (distant breath sounds bilat) Implantable Cardiac Device Does patient have a Pacemaker or an ICD?: No Airway Exam Known Difficult Airway: No Mallampati Class: 2 Mouth Opening: Normal (> 3cm) Thyromental Distance: Greater than 3 cm Neck Range of Motion: Full ROM Neck Circumference: Normal Teeth Condition: Normal Dentition ASA Classification ASA Score: ASA 4 Emergency Case?: No NPO Status NPO Status: NPO Clears >2 hours, Solids >8 hours Anesthesia Plan Resuscitation Status: Full Code (Pt agrees to breathing tube during procedure if needed for emergency.) Anesthesia Technique: General Anesthesia Airway Planned: Natural Airway Monitors Used: Standard Monitors Preoperative Comments:: Talked with pt regarding risk given her medical condition. Pt agrees to proceed.
[2023-02-26 13:38] VITALS: BMI 23.6
[2023-02-26 14:25] VITALS: BP 109/38; PULSE 107; RESP 21; TEMP 36.4; O2SAT 98
[2023-02-26 14:30] VITALS: BP 109/60; PULSE 108; RESP 14; TEMP 36.4; O2SAT 96
[2023-02-26 14:35] VITALS: BP 93/67; PULSE 107; RESP 9; TEMP 36.4; O2SAT 97
--- NOTE | 2023-02-26 14:42 | W.ANESPOSTOP ---
Postoperative Evaluation Date, Time and Location Date Performed: 02/26/23 Time Performed: 14:50 Patient Location: PACU Vital Signs Most Recent Imported Vital Signs: Most Recent Vital Signs Temp Pulse Resp BP Pulse Ox 36.4 C L 108 H 14 109/60 96 02/26/23 14:30 02/26/23 14:30 02/26/23 14:30 02/26/23 14:30 02/26/23 14:30 Most Recent Vital Signs Temp Pulse Resp BP Pulse Ox 36.6 C 60 14 105/39 L 100 02/19/23 11:45 02/19/23 11:45 02/19/23 11:45 02/19/23 11:45 02/19/23 11:45 Pain Score Most Recent Pain Score: Most Recent Pain Score Pain Level [Abdomen] 8 02/22/23 16:50 Pain Level [Generalized] 8 02/23/23 10:24 Pain Level 0 02/26/23 07:33 Assessment Mental Status: Awake (Alert & Oriented to Patient Baseline) Airway and Respiratory Function: Patent airway with normal (patient baseline) respiratory exam Cardiovascular Function: Hemodynamically Stable Hydration Status: Adequately Hydrated Nausea & Vomiting: No Nausea or Vomiting Pain: Pt. Denies Any Pain Peripheral Nerve Block: Patient did not receive a nerve block
--- NOTE | 2023-02-26 14:56 | W.COLOREPORT ---
Date of service: 02/26/23 Time of Service: 14:56 Colonoscopy Report Date of procedure: 02/26/23 Pre-op diagnosis general: colon mass on CT Post-op diagnosis procedure note: other (normal colon ) Surgeon: Funmilayo Erickson Anesthesia Type: General:No Airway Estimated blood loss (mL): 0 Pathology: none sent Complications: None Disposition: floor Prep: Miralax/Dulcolax Retraction Time: 18 Procedure Description: After informed consent was obtained the patient was taken to the procedure room and placed in a left decubitous position. Monitors were applied and a time out was done. The patients name, date of , procedure, allergies to medications and metal in their body was reviewed. The patient was then sedated. Once sedated and comfortable a rectal exam was done. External exam was normal. Internal exam revealed a normal sphincter tone and no palpable masses. The scope was then introduced and retrofelexed. NO internal hemorrhoids were identified. The scope was then advanced to the cecum w/out difficulty. The TI and appendiceal orifice were identified. The prep was poor- BBPS I in all segments for a total of 3. The scope was then slowly retracted over 20 minutes back into the rectum. There are no polyps/AVM's/diverticula. There are no masses. The scope was removed and the patient was woken up and taken back to Same day surgery in stable condition. The patient tolerated the procedure well and there were no immediate complications.
--- NOTE | 2023-02-26 15:54 | PT.INTREAT ---
Date of service: 02/26/23 Time of Service: 15:20 PT Notes Visit Reasons: Syncope Inpatient Physical Therapy Treatment Note [facility] Date: 02/26/23 PRECAUTIONS: Fall, standard SUBJECTIVE: Patient feels totally wiped out, sitting EOB, agreeable to therapy. Patient had a surgical procedure this PM. OBJECTIVE: ? PAIN: none reported. VITALS: monitored by nursing? Therapeutic Activities (53028n3): Direct one-on-one instruction in dynamic activities to improve functional performance. ? BED MOBILITY/TRANSFERS? Rolling L/R: SBA with verbal cues Supine-sit: Min assist, instructed patient on techniques to be more independent. ? Sit-supine: SBA with verbal cues ? Sit-stand: CGA? Stand-sit: CGA ? Provided skilled cues and instruction on performance and technique throughout. ? ASSESSMENT:? Patient tolerates therapy well, is agreeable to do more tomorrow PLAN: Continue global strengthening per plan of care until patient is medically cleared to discharge to a SNF TREATMENT CODE/TIME: 21884 10 minutes beginning at 15:20
--- NOTE | 2023-02-26 16:00 | PGE_ITS ---
Date of Service Date of service: 02/26/23 Time of Service: 16:00 Assessment and Plan Assessment and plan (1) Colonic mass: Status: Acute Assessment and plan: Colonoscopy today w Dr Erickson She continues to want treatment if oncology feels there could be benefit. (2) Protein-calorie malnutrition, moderate: Status: Acute Assessment and plan: Secondary to cancer and compression of duodenum by colon mass. Full liquid diet. Son has brought in [employer] protein drinks. Nutrition consult. (3) Multiple fractures of ribs of both sides: Status: Acute Assessment and plan: Multiple falls with acute and subacute fxs. Pain managment as needed. Pain is controlled IS Acapella (4) Acute UTI (urinary tract infection): Status: Resolved (5) Atherosclerotic heart disease [place] coronary artery w/angina pectoris: Status: Acute Assessment and plan: No c/o CP. No h/o [place]. On isosorbide. (6) Stage 3a chronic kidney disease (CKD): Status: Acute Assessment and plan: Avoid nephrotoxic agents. Creatinine of 1.7 on admission. Creatinine now 1.0 Monitor as needed. (7) COPD (chronic obstructive pulmonary disease): Status: Chronic Assessment and plan: 2 ppd smoker No acute exacerbation. PRN albuterol, Duonebs. 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 (9) Discharge planning issues: Status: Acute Assessment and plan: Unsafe for d/c to home; lives alone and has had multiple falls. PT working with pt. Jessica pending at [facility] - accepted w avail bed - patient in agreement Discussed with Dr Franco Subjective Subjective Patient reports: no new complaints, pain is less, tolerating liquids well, voiding w/o difficulty and bowel movement Interval history since last seen: OR today for colonoscopy with surgery, tolerated well, sleepy post procedure but does wake easily when spoken to Exam Narrative Exam Narrative: Gen: NAD. Side lying in bed, awakes to voice HEENT: sclera nonicteric. MMM Lungs: Clear. Nonlabored breathing. CV RRR. No murmur. Abd: Soft, NT, very distended +BS Exts: No edema or calf tenderness. Neuro: Titi. Normal speech. Psych: Appropriate affect. Good insight. Objective Last Vital Signs Temp 36.4 C L 02/26/23 14:35 Pulse 107 H 02/26/23 14:35 Resp 9 L 02/26/23 14:35 BP 93/67 L 02/26/23 14:35 Pulse Ox 97 02/26/23 14:35 Laboratory Results - last 24 hr 02/26/23 02/26/23 05:18 05:18 WBC 13.85 H RBC 3.76 L Hgb 10.2 L Hct 34.3 L MCV 91 MCH 27.1 MCHC 29.7 L RDW 13.9 Plt Count 232 MPV 9.1 Immature Gran % 1.2 Neutrophils % 87.2 Lymphocytes % 7.4 Monocytes % 3.7 Eosinophils % 0.1 Basophils % 0.4 Nucleated RBC % 0.0 Absolute Neutrophils 12.08 H Absolute Lymphocytes 1.02 L Absolute Monocytes 0.51 Absolute Eosinophils 0.01 Absolute Basophils 0.06 Sodium 141 Potassium 4.3 Chloride 102 Carbon Dioxide 31.8 Anion Gap 7.2 BUN 24 H Creatinine 1.0 Est GFR (CKD-EPI 2020) 57.66 Glucose 90 Calcium 9.0 Magnesium 1.9 Time Spent with Patient Time Spent with Patient: 35-49 minutes Time was spent: preparing to see the patient(eg.review tests), ordering medications,tests, procedures, referring, communicating with other health long term acute care registered nurse, indepentently interpreting results, counseling the patient and care coordination
--- NOTE | 2023-02-26 18:14 | PDOC.CMPRO ---
Date of service: 02/26/23 Time of Service: 18:14 Care Management Progress Note Progress Note Text Progress Note Text: S/O: Debra was sleeping soundly when CM attempted to visit with her. Per admissions at [facility], her PA is still pending. They anticipate that it will be approved by Wednesday. CM sent updated therapy notes to SNF, at their request. Per MD, she will need a percutaneous liver biopsy, which will have to be done at [facility], and may be set up as a down and back, possibly early next week, which may delay her discharge. CM will continue to follow. A:Debra is a 77 year old woman admitted on 02/18/23 with a UTI and fractured ribs. P:Debra has been accepted at [facility], pending insurance PA. She will transport to the facility via w/c van, coordinated by CM. She will follow up with her PCP and discharge plan of care. CM will continue to support Debra and assess for ongoing discharge concerns.
[2023-02-26] MEDS: Acetaminophen 500 MG TAB 1000 MG PO (18:25)
[2023-02-26] MEDS: Polyethylene Glycol 3350 17 GM PACKET PO (20:17)
[2023-02-26] MEDS: Protein Nutritional Supplement 16 GM 1 OUNCE PACKET PO (20:18)
[2023-02-26 20:38] VITALS: BP 94/57; PULSE 110; RESP 20; TEMP 37.3; O2SAT 92
[2023-02-26 20:49] LABS: Bilirubin Negative (Negative); Blood Trace-intact (Negative); Clarity Clear (Clear); Glucose Negative (Negative); Ketones Negative (Negative); Leukocyte Esterase Small (Negative); Nitrite Negative (Negative); Urobilinogen 0.2 mg/dL (Up to 0.2)
[2023-02-26 20:57] LABS: Bacteria Negative HPF (Negative); C & S Indicated? No/Sq. Contamination; Crystals Negative HPF (Negative); Epithelial Cells Many HPF (Negative); Mucus Negative (Negative); Other Cells Rare Yeast (Negative); RBC 0-2 HPF (0-2)
[2023-02-26] MEDS: Mirabegron 25 MG TABCR PO (21:54)
[2023-02-26] MEDS: Amitriptyline 50 MG TAB PO (21:54)
[2023-02-27] MEDS: Acetaminophen 500 MG TAB 1000 MG PO ×3 (01:24→16:55)
[2023-02-27 01:27] VITALS: BP 123/76; PULSE 96; RESP 18; TEMP 37.2; O2SAT 91
[2023-02-27] MEDS: Levothyroxine 25 MCG TAB PO (06:13)
[2023-02-27 06:28] VITALS: BP 115/69; PULSE 95; RESP 18; TEMP 36.9; O2SAT 92
[2023-02-27 07:04] LABS: Abs Immature Grans 0.15 10^3/uL (0.0-0.06); Absolute Basophil Count 0.04 10^3/uL (0.0-0.2); Absolute Eosinophil Count 0.04 10^3/uL (0.0-0.7); Absolute Lymphocyte Count 1.06 10^3/uL (1.2-3.4); Absolute Monocyte Count 0.58 10^3/uL (0.1-0.8); Absolute Neutrophil Count 9.82 10^3/uL (1.2-6.7); Basophils % 0.3; Eosinophils % 0.3; HCT 30.5 % (36.0-46.0); HGB 9.1 g/dL (11.2-15.7); Immature Grans % 1.3; Lymphocytes % 9.1; MCH 27.4 pg (27.0-33.0); MCHC 29.8 % (32.0-36.0); MCV 92 fL (80-95); Platelet Count 210 10^3/uL (130-400); RBC 3.32 10^6/uL (3.93-5.22); RDW 14.1 % (11.7-14.6); RDW-SD 47.7 fL; WBC 11.69 10^3/uL (4.4-10.8)
[2023-02-27] MEDS: Lidocaine 5% Patch 2 PATCH TP (07:18)
[2023-02-27 07:21] LABS: Anion Gap 5.5 mmol/L (3-11); BUN 17 mg/dL (7-18); CO2 32.5 mmol/L (21.0-32.0); Calcium 8.9 mg/dL (8.5-10.1); Chloride 105 mmol/L (98-107); Estimated GFR 57.66 (mL/min/1.73m2); Glucose 77 mg/dL (74-106); Magnesium 1.9 mg/dL (1.8-2.4); Potassium 3.9 mmol/L (3.5-5.1); Sodium 143 mmol/L (136-145)
[2023-02-27] MEDS: Isosorbide Mononitrate 30 MG TABCR PO (07:21)
[2023-02-27] MEDS: DULoxetine 30 MG CAP PO (07:21)
[2023-02-27] MEDS: Pantoprazole 40 MG TABCR PO (07:21)
[2023-02-27] MEDS: buPROPion-XL 150 MG TABCR PO (07:21)
[2023-02-27] MEDS: Protein Nutritional Supplement 16 GM 1 OUNCE PACKET PO ×3 (07:21→20:45)
[2023-02-27] MEDS: Gabapentin 800 MG TAB PO (07:21)
[2023-02-27 08:01] VITALS: O2SAT 99
[2023-02-27] MEDS: Tiotropium Bromide-Respimat 10 PUFF INH 2 PUFF IH (08:02)
[2023-02-27] MEDS: Budesonide/Formoterol 160/4.5 6 GM 60 PUFF INH IH ×2 (08:02→19:18)
--- NOTE | 2023-02-27 11:27 | PTTR_ITS ---
PT Notes Visit Reasons: Syncope Inpatient Physical Therapy Treatment Note [facility] Date: 02/27/23 SUBJECTIVE: Debra states that she is tired and just got into bed. Is willing to participate in PT. OBJECTIVE: []? BED MOBILITY/TRANSFERS? Rolling L/R:I Supine-sit:I ? Sit-supine:I ? Sit-stand: SBA? Stand-sit:SBA ? Provided skilled cues and instruction on performance and technique throughout. ? Therapeutic Exercises (01434u8): Direct one-on-one instruction in therapeutic exercises to develop strength, endurance, range of motion and flexibility. ?Ambulation ? Assistive Device:FWW ? Weight bearing:full Assist: CGA? Distance:?approx 260' ? Deviation: wc to follow. 1 sitting rest.? Provided skilled instruction in proper exercise performance ASSESSMENT:?tolerated session well. No c/o SOB. Tired today and therefore not very motivated. PLAN: will continue to work on her strength and endurance to improve her functi onal mobility and activity tolerances. TREATMENT CODE/TIME:20 min [id number]
[2023-02-27] MEDS: Gabapentin 300 MG CAP PO ×2 (14:15→20:43)
--- NOTE | 2023-02-27 14:56 | PGE_ITS ---
Date of Service Date of service: 02/27/23 Time of Service: 14:56 Assessment and Plan Assessment and plan (1) Colonic mass: Status: Acute Assessment and plan: Awake and alert, states she slept most of yesterday after procedure and is feeling rested. She denies pain, she is drinking protein drinks and fluids. Plan down and back to [facility] [place]. Will call [facility] [place] back on Wednesday am, films have been sent, however were not reviewed by IR staff prior to their leaving for the day. She is anxious about going to [facility] [place], she thinks they will tell her it is better than we think, but anxious because she doubts it. Patient continues to want treatment, including surgery, if oncology feels there could be benefit. (2) Protein-calorie malnutrition, moderate: Status: Acute Assessment and plan: Secondary to cancer and compression of duodenum by colon mass. Full liquid diet. Son has brought in Premier protein drinks. Nutrition consult. (3) Multiple fractures of ribs of both sides: Status: Acute Assessment and plan: Multiple falls with acute and subacute fxs. Pain managment as needed. Pain is controlled IS Acapella (4) Acute UTI (urinary tract infection): Status: Resolved (5) Atherosclerotic heart disease [place] coronary artery w/angina pectoris: Status: Acute Assessment and plan: No c/o CP. No h/o AK. On isosorbide. (6) Stage 3a chronic kidney disease (CKD): Status: Acute Assessment and plan: Avoid nephrotoxic agents. Creatinine of 1.7 on admission. Creatinine now 1.0 - baseline Monitor as needed. (7) COPD (chronic obstructive pulmonary disease): Status: Chronic Assessment and plan: 2 ppd smoker No acute exacerbation. PRN albuterol, Duonebs. 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 (9) Discharge planning issues: Status: Acute Assessment and plan: Unsafe for d/c to home; lives alone and has had multiple falls. PT working with pt. Auth pending at [facility] - accepted w avail bed - patient in agreement Down and back on Wednesday or Wednesday to [facility] [place] for [place] bx Discussed with Dr Franco Subjective Subjective Patient reports: no new complaints, pain is less, tolerating liquids well, voiding w/o difficulty and afebrile; denies diarrhea, nausea, vomiting or shortness of breath Interval history since last seen: Reviewed recommendations from Dr Erickson for down and back to [facility] [place] for [place]x of liver. Patient is in agreement with this plan. She is awake and alert, conversant, pleasant. Feeling very optimistic despite the circumstances. She is aware that she has a large tumor in her liver. Exam Narrative Exam Narrative: Gen: NAD. up in the chair in the room with iPad HEENT: sclera nonicteric. MMM Lungs: Clear. Nonlabored breathing. CV RRR. No murmur. Abd: Soft, NT, very distended +BS Exts: No edema or calf tenderness. Neuro: Titi. Normal speech. Psych: Appropriate affect. Good insight. Objective Last Vital Signs Temp 36.9 C 02/27/23 06:28 Pulse 95 H 02/27/23 06:28 Resp 18 02/27/23 06:28 BP 115/69 02/27/23 06:28 Pulse Ox 99 02/27/23 08:01 Laboratory Results - last 24 hr 02/26/23 02/27/23 02/27/23 20:35 06:34 06:34 WBC 11.69 H RBC 3.32 L Hgb 9.1 L Hct 30.5 L MCV 92 MCH 27.4 MCHC 29.8 L RDW 14.1 Plt Count 210 MPV 9.0 Immature Gran % 1.3 Neutrophils % 84.0 Lymphocytes % 9.1 Monocytes % 5.0 Eosinophils % 0.3 Basophils % 0.3 Nucleated RBC % 0.0 Absolute Neutrophils 9.82 H Absolute Lymphocytes 1.06 L Absolute Monocytes 0.58 Absolute Eosinophils 0.04 Absolute Basophils 0.04 Sodium 143 Potassium 3.9 Chloride 105 Carbon Dioxide 32.5 H Anion Gap 5.5 BUN 17 Creatinine 1.0 Est GFR (CKD-EPI 2020) 57.66 Glucose 77 Calcium 8.9 Magnesium 1.9 Urine Color Yellow Urine Clarity Clear Urine pH 6.0 Ur Specific [place] 1.010 Urine Protein Negative Urine Ketones Negative Urine Blood Trace-intact H Urine Nitrite Negative Urine Bilirubin Negative Urine Urobilinogen 0.2 Ur Leukocyte Esterase Small H Urine RBC 0-2 Urine WBC 3-5 Ur Epithelial Cells Many Urine Crystals Negative Urine Bacteria Negative Urine Mucus Negative Urine Other Rare Yeast Ur Culture Indicated? No/Sq. Contamination Urine Glucose Negative Time Spent with Patient Time Spent with Patient: 35-49 minutes Time was spent: preparing to see the patient(eg.review tests), ordering medications,tests, procedures, referring, communicating with other health child care teacher, indepentently interpreting results, counseling the patient and care coordination
[2023-02-27 15:01] VITALS: BP 112/71; PULSE 97; RESP 18; TEMP 36.9; O2SAT 94
[2023-02-27] MEDS: Enoxaparin 30 MG/0.3 ML SYR SC (16:55)
[2023-02-27] MEDS: fentaNYL 12 MCG PATCH TD (16:55)
--- NOTE | 2023-02-27 17:00 | RT.EKG_ITS ---
APPROVED REPORT Exam: Resting ECG Reason for Exam: Left shoulder pain Patient Location: I HR:97 bpm ECG Measurements Heart Rate 97 AXIS MA 176 P 77 QRSd 74 QRS 40 QT 328 T 63 QTc 417 Conclusion Sinus rhythm...normal P axis, V-rate 50- 99 Atrial premature complex...SV complex w/ short R-R interval Borderline low voltage, extremity leads...all extremity leads <0.6mV Possible anteroseptal infarct, old...Q >40mS, V1-V2
[2023-02-27 17:06] VITALS: BP 113/70; PULSE 96; RESP 19; TEMP 36.7; O2SAT 97
[2023-02-27] MEDS: Ondansetron 4 MG/2 ML VIAL IVP (17:55)
[2023-02-27] MEDS: Amitriptyline 50 MG TAB PO (20:44)
[2023-02-27] MEDS: Mirabegron 25 MG TABCR PO (20:44)
[2023-02-27] MEDS: Docusate Sodium 100 MG CAP PO (20:44)
[2023-02-27] MEDS: Normal Saline Flush 10 ML SYR IVP (20:45)
[2023-02-27] MEDS: Polyethylene Glycol 3350 17 GM PACKET PO (20:45)
[2023-02-27] MEDS: LIDOCAINE Patch Removal 2 EACH TP (22:00)
[2023-02-27 23:00] VITALS: BP 117/72; PULSE 96; RESP 18; TEMP 37; O2SAT 94
[2023-02-28] MEDS: Acetaminophen 500 MG TAB 1000 MG PO ×3 (01:47→17:50)
[2023-02-28] MEDS: Levothyroxine 25 MCG TAB PO (06:15)
[2023-02-28 06:50] LABS: Abs Immature Grans 0.17 10^3/uL (0.0-0.06); Absolute Basophil Count 0.06 10^3/uL (0.0-0.2); Absolute Eosinophil Count 0.04 10^3/uL (0.0-0.7); Absolute Lymphocyte Count 1.35 10^3/uL (1.2-3.4); Absolute Neutrophil Count 11.45 10^3/uL (1.2-6.7); Basophils % 0.4; Eosinophils % 0.3; HCT 31.8 % (36.0-46.0); HGB 9.6 g/dL (11.2-15.7); Immature Grans % 1.2; Lymphocytes % 9.8; MCH 27.4 pg (27.0-33.0); MCHC 30.2 % (32.0-36.0); MCV 91 fL (80-95); MPV 8.8 fL (8.0-11.0); Monocytes % 5.2; Neutrophils % 83.1; Platelet Count 235 10^3/uL (130-400); RDW 14.1 % (11.7-14.6); WBC 13.78 10^3/uL (4.4-10.8)
[2023-02-28 06:51] LABS: Absolute Monocyte Count 0.72 10^3/uL (0.1-0.8)
[2023-02-28 07:10] LABS: Anion Gap 6.9 mmol/L (3-11); BUN 18 mg/dL (7-18); CO2 30.1 mmol/L (21.0-32.0); Chloride 105 mmol/L (98-107); Estimated GFR 57.66 (mL/min/1.73m2); Glucose 81 mg/dL (74-106); Potassium 4.4 mmol/L (3.5-5.1); Sodium 142 mmol/L (136-145)
[2023-02-28] MEDS: Budesonide/Formoterol 160/4.5 6 GM 60 PUFF INH IH ×2 (07:56→19:26)
[2023-02-28] MEDS: Tiotropium Bromide-Respimat 10 PUFF INH 2 PUFF IH (07:56)
[2023-02-28] MEDS: Gabapentin 300 MG CAP PO ×3 (08:15→19:41)
[2023-02-28] MEDS: DULoxetine 30 MG CAP PO (08:15)
[2023-02-28] MEDS: buPROPion-XL 150 MG TABCR PO (08:15)
[2023-02-28] MEDS: Protein Nutritional Supplement 16 GM 1 OUNCE PACKET PO ×3 (08:15→19:42)
[2023-02-28] MEDS: Pantoprazole 40 MG TABCR PO (08:15)
[2023-02-28] MEDS: Isosorbide Mononitrate 30 MG TABCR PO (08:16)
[2023-02-28] MEDS: Lidocaine 5% Patch 2 PATCH TP (08:16)
[2023-02-28 08:29] VITALS: BP 119/61; PULSE 92; RESP 18; TEMP 37.2; O2SAT 95
[2023-02-28] MEDS: Normal Saline Flush 10 ML SYR IVP ×2 (11:49→22:17)
--- NOTE | 2023-02-28 12:13 | PGE_ITS ---
Date of Service Date of service: 02/28/23 Time of Service: 12:13 Assessment and Plan Assessment and plan (1) Colonic mass: Status: Acute Assessment and plan: Awake and alert, states she is feeling hungry. She denies pain, she is drinking protein drinks and fluids. Plan down and back to [facility] for bx of liver. Will call [facility] back on Wednesday am, films have been sent, however were not reviewed by IR staff prior to their leaving for the day. She is anxious about going to [facility], she thinks they will tell her it is better than doctors think, but anxious because she doubts it. Patient continues to want treatment, including surgery, if oncology feels there could be benefit. (2) Protein-calorie malnutrition, moderate: Status: Acute Assessment and plan: Secondary to cancer and compression of duodenum by colon mass. Full liquid diet. Son has brought in Premier protein drinks. Nutrition consult. (3) Multiple fractures of ribs of both sides: Status: Acute Assessment and plan: Multiple falls with acute and subacute fxs. Pain managment as needed. Pain is controlled IS Acapella (4) Acute UTI (urinary tract infection): Status: Resolved (5) Atherosclerotic heart disease [place] coronary artery w/angina pectoris: Status: Acute Assessment and plan: No c/o CP. No h/o SD. On isosorbide. (6) Stage 3a chronic kidney disease (CKD): Status: Acute Assessment and plan: Avoid nephrotoxic agents. Creatinine of 1.7 on admission. Creatinine now 1.0 - baseline Monitor as needed. (7) COPD (chronic obstructive pulmonary disease): Status: Chronic Assessment and plan: 2 ppd smoker No acute exacerbation. PRN albuterol, Duonebs. 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 (9) Discharge planning issues: Status: Acute Assessment and plan: Unsafe for d/c to home; lives alone and has had multiple falls. PT working with ptMikhail Lopez pending at [facility] - accepted w avail bed - patient in agreement Down and back on Wednesday or Wednesday to [facility] for liver bx Discussed with Dr Cheng Subjective Subjective Patient reports: no new complaints, pain is less, tolerating liquids well, voiding w/o difficulty, bowel movement and afebrile; denies diarrhea, nausea, vomiting or shortness of breath Interval history since last seen: Paatient reports feeling better. Understands she will go to [facility], probably Wednesday, but maybe Wednesday. She is in agreement with plan for needle bx Objective Last Vital Signs Temp 37.2 C 02/28/23 08:29 Pulse 92 H 02/28/23 08:29 Resp 18 02/28/23 08:29 BP 119/61 02/28/23 08:29 Pulse Ox 95 02/28/23 08:29 Laboratory Results - last 24 hr 02/28/23 02/28/23 06:30 06:30 WBC 13.78 H RBC 3.50 L Hgb 9.6 L Hct 31.8 L MCV 91 MCH 27.4 MCHC 30.2 L RDW 14.1 Plt Count 235 MPV 8.8 Immature Gran % 1.2 Neutrophils % 83.1 Lymphocytes % 9.8 Monocytes % 5.2 Eosinophils % 0.3 Basophils % 0.4 Nucleated RBC % 0.0 Absolute Neutrophils 11.45 H Absolute Lymphocytes 1.35 Absolute Monocytes 0.72 Absolute Eosinophils 0.04 Absolute Basophils 0.06 Sodium 142 Potassium 4.4 Chloride 105 Carbon Dioxide 30.1 Anion Gap 6.9 BUN 18 Creatinine 1.0 Est GFR (CKD-EPI 2020) 57.66 Glucose 81 Calcium 9.0 Magnesium 2.0 Time Spent with Patient Time Spent with Patient: 25-34 minutes Time was spent: preparing to see the patient(eg.review tests), obtaining and/or reviewing separately otained hiistory, ordering medications,tests, procedures, indepentently interpreting results, counseling the patient and care coordination
--- NOTE | 2023-02-28 12:15 | PT.INNT ---
PT Notes Visit Reasons: Syncope pt refused PT today. She states that she has been prepping for a test at [facility] tomorrow am. She reports that she has had several BMs and her stomach is not feeling well. She is in bed and resting. Will check in tomorrow
[2023-02-28 15:29] VITALS: BP 116/62; PULSE 102; RESP 18; TEMP 37.3; O2SAT 96
[2023-02-28] MEDS: Enoxaparin 30 MG/0.3 ML SYR SC (17:50)
[2023-02-28] MEDS: Amitriptyline 50 MG TAB PO (21:37)
[2023-02-28] MEDS: Mirabegron 25 MG TABCR PO (21:37)
[2023-02-28] MEDS: LIDOCAINE Patch Removal 2 EACH TP (21:45)
[2023-02-28] MEDS: Ondansetron 4 MG/2 ML VIAL IVP (22:17)
[2023-02-28 23:10] VITALS: BP 118/71; PULSE 100; RESP 18; TEMP 36.3; O2SAT 90
[2023-03-01] MEDS: Levothyroxine 25 MCG TAB PO (06:26)
[2023-03-01 06:50] VITALS: BP 122/62; PULSE 62; RESP 18; TEMP 38; O2SAT 93
[2023-03-01 07:10] LABS: Anion Gap 3.6 mmol/L (3-11); BUN 19 mg/dL (7-18); C-Reactive Protein 14.49 mg/dL (0.0-0.3); CO2 32.4 mmol/L (21.0-32.0); CREATININE 0.9 mg/dL (0.55-1.02); Calcium 8.9 mg/dL (8.5-10.1); Chloride 101 mmol/L (98-107); Estimated GFR 65.44 (mL/min/1.73m2); Glucose 77 mg/dL (74-106); Magnesium 1.7 mg/dL (1.8-2.4); Sodium 137 mmol/L (136-145)
[2023-03-01 07:15] VITALS: BP 147/74; PULSE 78; TEMP 35.9; O2SAT 92
[2023-03-01] MEDS: buPROPion-XL 150 MG TABCR PO (07:53)
[2023-03-01] MEDS: Isosorbide Mononitrate 30 MG TABCR PO (07:53)
[2023-03-01] MEDS: DULoxetine 30 MG CAP PO (07:53)
[2023-03-01] MEDS: Lidocaine 5% Patch 2 PATCH TP (07:53)
[2023-03-01] MEDS: Pantoprazole 40 MG TABCR PO (07:53)
[2023-03-01] MEDS: Gabapentin 300 MG CAP PO ×3 (07:54→21:05)
[2023-03-01] MEDS: Budesonide/Formoterol 160/4.5 6 GM 60 PUFF INH IH ×2 (07:59→19:05)
[2023-03-01 08:02] VITALS: O2SAT 95
--- NOTE | 2023-03-01 08:39 | CMPROGNOTE_ITS ---
Date of service: 03/01/23 Time of Service: 08:39 Care Management Progress Note Progress Note Text Progress Note Text: S/O: Debra was lying in bed when CM met with her today. She expressed frustration at the delay in going to [facility] for her liver biopsy. She had been told it would likely be today and as it was already noon and she was NPO, she was hungry. The procedure was not done today but it was mid-afternoon before Debra learned that it would not happen today. Debra has been waiting for several days for prior authorization approval from her insurance company to be able to go to [facility]. This morning CM was informed that the rehab is again closed to admissions. Late in the day word was received that they have now re-opened, but the delay resulted in the need to begin the prior authorization process all over again. Hopefully a determination will be made in the next day or two. A:Debra is a 77 year old woman admitted on 02/18/23 with a UTI and fractured ribs. P:Debra has been accepted at [facility], pending insurance PA. She will transport to the facility via w/c van, coordinated by CM. She will follow up with her PCP and discharge plan of care. CM will continue to support Debra and assess for ongoing discharge concerns.
[2023-03-01] MEDS: Tiotropium Bromide-Respimat 10 PUFF INH 2 PUFF IH (09:04)
[2023-03-01] MEDS: Ondansetron 4 MG/2 ML VIAL IVP (09:07)
[2023-03-01] MEDS: Normal Saline Flush 10 ML SYR IVP (09:07)
[2023-03-01] MEDS: Acetaminophen 500 MG TAB 1000 MG PO ×2 (09:57→17:25)
[2023-03-01] MEDS: Normal Saline 500 ML 30 ML IV (10:29)
[2023-03-01] MEDS: MAGNESIUM SULFATE 4 GM/100 ML BAG IVPB (10:30)
--- NOTE | 2023-03-01 10:50 | NS.NUTBLAN_ITS ---
Date of service: 03/01/23 Time of Service: 10:50 Nutritional Consult ASSESSMENT: 77yo female with Hx of Cancer, with liver mets and colonic mass. Did not meet with pt today - she is currently NPO to go down and back [place] [facility] [place]. Current medical situation likely compromises her intake and variety of foods. Able to take full liquid diet and relies a lot on protein shakes. Has been taking >75% at meals throughout her admission. Her wt has remained relatively stable over the last year, with Debra about 2kg under her weight from last year (december of 2021). Albumin 1.8 and total protein of 5.7 on 02/20 are concerning regarding protein status. Est. Nutrition Needs : 1,262kcal (REEx1.2), 60g protein (1g/kg) and 1262mL fluid (1mL/required kcal) NUTRITIONAL DIAGNOSIS: moderate protein-calorie malnutrition related to pt relying on full liquid diet due to current colonic mass, as evidenced by current low albumin and total protein laboratory values. INTERVENTION: Will work with pt and family to provide higher calorie and protein options after resuming po intake. office services specialist to provide shakes on request and nutrition supplements will offered once patient resumes intake. MONITORING AND EVALUATION: will monitor for weight and lab changes and support intake through appealing full liquid options. Time Spent in Nutritional Counseling and Treatment: 15 minutes
[2023-03-01] MEDS: DEXTROSE 5%-0.9% SALINE 1,000 ML 125 ML IV (12:03)
--- NOTE | 2023-03-01 13:39 | PT.INTREAT ---
Date of service: 03/01/23 Time of Service: 09:38 PT Notes Visit Reasons: Syncope Inpatient Physical Therapy Treatment Note [facility] Date: 03/01/23 PRECAUTIONS: Fall, standard, activity as tolerated. SUBJECTIVE: Patient supine in bed, agreeable to therapy. Expresses anxiety about her down and back biopsy appointment at [facility] [place] today. Expresses hope, too, that she'll feel better once they figure out what's going on with her. OBJECTIVE: ? PAIN: Yes, chest and abdomen. VITALS: monitored by nursing staff. ? Therapeutic Exercises (29812j7): Direct one-on-one instruction in therapeutic exercises to develop strength, endurance, range of motion and flexibility. ? Exercises: Wall pushups, wall serratus activation (push up +), supine pelvic rocks, supine TA marches. All exercises geared toward helping patient build the strength needed to recover from a fall. ? Provided skilled instruction in proper exercise performance Provided skilled manual and visual cues to facilitate proper muscle recruitment and/or form: posterior pelvic tilt, TA activation, serratus activation. ASSESSMENT:? Patient stops therapy abruptly, reporting pain and the desire to hold off until after her procedure. PLAN: Continue global strengthening per plan of care until patient is medically ready to discharge to a SNF. TREATMENT CODE/TIME: 45442 Ther Ex 23 minutes beginning at 9:38
[2023-03-01 15:17] VITALS: BP 105/58; PULSE 95; RESP 17; TEMP 36.4; O2SAT 90
[2023-03-01] MEDS: oxyCODONE 5 MG TAB PO ×2 (15:24→21:05)
--- NOTE | 2023-03-01 18:10 | W.PM.PROGNOT ---
Date of Service Date of service: 03/01/23 Time of Service: 12:00 Assessment and Plan Assessment and plan (1) Colonic mass: Status: Acute Assessment and plan: Awake and alert, Denies pain, she is drinking protein drinks and fluids. Plan down and back [place] [facility] [place]x of liver pending availability, films have been sent. Accepted down and back by Dr. Johnson interventional radiology (2) Protein-calorie malnutrition, moderate: Status: Acute Assessment and plan: Secondary to cancer and compression of duodenum by colon mass. Full liquid diet. Son has brought in Premier protein drinks. Nutrition consult. (3) Multiple fractures of ribs of both sides: Status: Acute Assessment and plan: Multiple falls with acute and subacute fxs. Pain managment as needed. Pain is controlled IS Acapella (4) Acute UTI (urinary tract infection): Status: Resolved (5) Atherosclerotic heart disease [place] coronary artery w/angina pectoris: Status: Acute Assessment and plan: No c/o CP. No h/o NH. On isosorbide. (6) Stage 3a chronic kidney disease (CKD): Status: Acute Assessment and plan: Avoid nephrotoxic agents. Creatinine of 1.7 on admission. Creatinine now 1.0 - baseline Monitor as needed. (7) COPD (chronic obstructive pulmonary disease): Status: Chronic Assessment and plan: 2 ppd smoker No acute exacerbation. PRN albuterol, Duonebs. 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 (9) Discharge planning issues: Status: Acute Assessment and plan: Unsafe for d/c to home; lives alone and has had multiple falls. PT working with ptMikhail Lopez pending at [facility] - accepted w avail bed - patient in agreement Down and back on Wednesday to [facility] for liver bx planned @ [address] Cheng Subjective Subjective Patient reports: no new complaints, voiding w/o difficulty and afebrile; denies bowel movement, diarrhea, nausea or vomiting Interval history since last seen: Alert, awake, conversant, pleasant. Exam Narrative Exam Narrative: Gen: NAD. up in the chair in the room with iPad awake and alert HEENT: sclera nonicteric. MMM Lungs: Clear. Nonlabored breathing. CV RRR. No murmur. Abd: Soft, NT, very distended +BS Exts: No edema or calf tenderness. Neuro: Titi. Normal speech. Psych: Appropriate affect. Good insight. Objective Last Vital Signs Temp 36.4 C L 03/01/23 15:17 Pulse 95 H 03/01/23 15:17 Resp 17 03/01/23 15:17 BP 105/58 L 03/01/23 15:17 Pulse Ox 90 L 03/01/23 15:17 Laboratory Results - last 24 hr 03/01/23 06:10 Sodium 137 Potassium 4.0 Chloride 101 Carbon Dioxide 32.4 H Anion Gap 3.6 BUN 19 H Creatinine 0.9 Est GFR (CKD-EPI 2020) 65.44 Glucose 77 Calcium 8.9 Magnesium 1.7 L C-Reactive Protein 14.49 H Time Spent with Patient Time Spent with Patient: >50 minutes Time was spent: preparing to see the patient(eg.review tests), ordering medications,tests, procedures, referring, communicating with other health care companion, indepentently interpreting results, counseling the patient and care coordination
[2023-03-01] MEDS: Docusate Sodium 100 MG CAP PO (21:05)
[2023-03-01] MEDS: Protein Nutritional Supplement 16 GM 1 OUNCE PACKET PO (21:06)
[2023-03-01] MEDS: LIDOCAINE Patch Removal 2 EACH TP (21:08)
[2023-03-01] MEDS: Amitriptyline 50 MG TAB PO (21:17)
[2023-03-01] MEDS: Mirabegron 25 MG TABCR PO (21:17)
[2023-03-01 23:14] VITALS: BP 115/72; PULSE 93; RESP 16; TEMP 36.6; O2SAT 93
[2023-03-01] MEDS: MORPHine 2 MG/ML SYR IVP (23:32)
[2023-03-02 07:14] LABS: Absolute Basophil Count 0.05 10^3/uL (0.0-0.2); Absolute Eosinophil Count 0.35 10^3/uL (0.0-0.7); Absolute Lymphocyte Count 1.47 10^3/uL (1.2-3.4); Absolute Monocyte Count 0.89 10^3/uL (0.1-0.8); Basophils % 0.3; Eosinophils % 2.3; HCT 32.2 % (36.0-46.0); HGB 9.7 g/dL (11.2-15.7); Immature Grans % 1.3; Lymphocytes % 9.6; MCH 27.7 pg (27.0-33.0); MCHC 30.1 % (32.0-36.0); MCV 92 fL (80-95); MPV 8.9 fL (8.0-11.0); Monocytes % 5.8; Neutrophils % 80.7; Platelet Count 293 10^3/uL (130-400); RDW-SD 46.9 fL; WBC 15.27 10^3/uL (4.4-10.8)
[2023-03-02 07:20] LABS: Absolute Neutrophil Count 12.32 10^3/uL (1.2-6.7)
[2023-03-02 07:36] LABS: Anion Gap 4.2 mmol/L (3-11); BUN 15 mg/dL (7-18); CO2 30.8 mmol/L (21.0-32.0); Calcium 8.6 mg/dL (8.5-10.1); Chloride 101 mmol/L (98-107); Estimated GFR 57.66 (mL/min/1.73m2); Glucose 114 mg/dL (74-106); Magnesium 2.2 mg/dL (1.8-2.4); Sodium 136 mmol/L (136-145)
[2023-03-02 07:45] VITALS: BP 120/69; PULSE 100; RESP 18; TEMP 38; O2SAT 94
[2023-03-02] MEDS: Lidocaine 5% Patch 2 PATCH TP (08:02)
[2023-03-02] MEDS: buPROPion-XL 150 MG TABCR PO (08:02)
[2023-03-02] MEDS: Isosorbide Mononitrate 30 MG TABCR PO (08:03)
[2023-03-02] MEDS: DULoxetine 30 MG CAP PO (08:03)
[2023-03-02] MEDS: Pantoprazole 40 MG TABCR PO (08:03)
[2023-03-02] MEDS: Gabapentin 300 MG CAP PO ×3 (08:03→20:32)
[2023-03-02 09:32] VITALS: O2SAT 93
[2023-03-02] MEDS: Budesonide/Formoterol 160/4.5 6 GM 60 PUFF INH IH ×2 (09:35→19:12)
[2023-03-02] MEDS: Tiotropium Bromide-Respimat 10 PUFF INH 2 PUFF IH (09:36)
[2023-03-02] MEDS: Acetaminophen 500 MG TAB 1000 MG PO ×2 (10:12→17:28)
--- NOTE | 2023-03-02 10:36 | CMPROGNOTE_ITS ---
Date of service: 03/02/23 Time of Service: 10:36 Care Management Progress Note Progress Note Text Progress Note Text: S/O: Debra was sitting up in bed visiting with her son Kamaljit when CM met with her today. Debra has been waiting since Wednesday to go to [facility] for a liver biopsy. She learned that it will be done tomorrow, first thing in the morning. Debra and Kamaljit had questions about her plan of care and some testing that has already been done which CM was able to answer. Yesenia again informed CM that she plans to pursue treatment for her suspected cancer if the Oncologist determines that it might be helpful. A:Debra is a 77 year old woman admitted on 02/18/23 with a UTI and fractured ribs. P:Debra has been accepted at [facility], pending insurance PA. She will transport to the facility via w/c van, coordinated by CM. She will follow up with her PCP and discharge plan of care. CM will continue to support Debra and assess for ongoing discharge concerns.
[2023-03-02] MEDS: DEXTROSE 5%-0.9% SALINE 1,000 ML 125 ML IV (10:58)
--- NOTE | 2023-03-02 14:05 | PT.INTREAT ---
Date of service: 03/02/23 Time of Service: 09:29 PT Notes Visit Reasons: Syncope Inpatient Physical Therapy Treatment Note [facility] Date: 03/02/23 PRECAUTIONS: Fall, standard, activity as tolerated. SUBJECTIVE: Patient frustrated to be NPO for a procedure that may or may not be occurring. Feels very thirsty. Supine in bed, agreeable to therapy. Son Kamaljit present for therapy as well. OBJECTIVE: ? PAIN: Yes, all around ribcage today. VITALS: monitored by nursing staff. ? Therapeutic Exercises (53266d3): Direct one-on-one instruction in therapeutic exercises to develop strength, endurance, range of motion and flexibility. ? Exercises: Bridges, supine TA activation with pelvic rocking, LAQ's, SLR's ?Ambulation ? Assistive Device: FWW ? Weight bearing: full Assist: SBA with wheelchair follow. ? Distance:? 200 feet with seated rest x2 ? Deviation: Reduced step height, reduced step length, patient reports increased fatigue. Kamaljit reports that patient has a tendency to run at home, becomes breathless much faster due to hurried movements. Instructed patient and son on energy conservation techniques including using a FWW or 4WW for support, moving more slowly, breathing more deeply / nasal breathing during effort especially when wearing supplemental O2 via nasal cannula. ? Provided skilled instruction in proper exercise performance Provided skilled manual cues to facilitate proper muscle recruitment and/or form: Instructed patient to self monitor for TA activation, tactile cue for posture during ambulation. ASSESSMENT:? Patient tolerates therapy well, both patient and son express hope that down and back to [facility] might occur today. PLAN: Continue global strengthening per plan of care until patient is medically ready for discharge. TREATMENT CODE/TIME: 24695 Ther Ex 36 minutes beginning at 9:29
[2023-03-02 15:10] VITALS: BP 102/59; PULSE 93; RESP 18; TEMP 36.6; O2SAT 96
--- NOTE | 2023-03-02 16:00 | W.PM.PROGNOT ---
Date of Service Date of service: 03/02/23 Time of Service: 16:00 Assessment and Plan Assessment and plan (1) Colonic mass: Status: Acute Assessment and plan: Awake and alert, Denies pain, she is drinking protein drinks and fluids. Plan down and back to [facility] [place] for bx of liver pending availability, films have been sent. Accepted down and back by Dr. Johnson interventional radiology NPO (2) Protein-calorie malnutrition, moderate: Status: Acute Assessment and plan: Secondary to cancer and compression of duodenum by colon mass. Full liquid diet. Son has brought in Premier protein drinks. Nutrition consult. (3) Multiple fractures of ribs of both sides: Status: Acute Assessment and plan: Multiple falls with acute and subacute fxs. Pain managment as needed. Pain is controlled IS Acapella (4) Acute UTI (urinary tract infection): Status: Resolved (5) Atherosclerotic heart disease [place] coronary artery w/angina pectoris: Status: Acute Assessment and plan: No c/o CP. No h/o [place]. On isosorbide. (6) Stage 3a chronic kidney disease (CKD): Status: Acute Assessment and plan: Avoid nephrotoxic agents. Creatinine of 1.7 on admission. Creatinine now 1.0 - baseline Monitor as needed. (7) COPD (chronic obstructive pulmonary disease): Status: Chronic Assessment and plan: 2 ppd smoker No acute exacerbation. PRN albuterol, Duonebs. 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 (9) Discharge planning issues: Status: Acute Assessment and plan: Unsafe for d/c to home; lives alone and has had multiple falls. PT working with ptMikhail Lopez pending at [facility] - accepted w avail bed - patient in agreement Down and back on Wednesday to [facility] [place], delayed until Wed at 0700 for liver bx planned Discussed with Dr Cheng Subjective Subjective Patient reports: no new complaints, voiding w/o difficulty, bowel movement and afebrile; denies diarrhea, nausea or vomiting Interval history since last seen: Has been NPO for down and back for liver bx; would [facility] once bx is done, she feels she is stronger and doing well with breathing and rib pain is being managed well. Exam Const General: no acute distress, frail appearing and ill appearing chronically Nutritional Appearance: average body habitus Orientation: alert, awake and oriented x3 HENMT Head: normal to inspection, normocephalic and atraumatic Mouth: oral mucosae normal Chest Chest: normal inspection of the chest Resp Effort & Inspection: normal respiratory effort Auscultation: diminished lung sounds Cardio Rate: regular rate Rhythm: regular rhythm GI Inspection: normal to inspection Palpation: soft Neuro General: patient alert, patient awake, patient oriented x3 and no focal motor deficits Extrem General: normal to inspection, full ROM and no pedal edema Objective Last Vital Signs Temp 37.6 C H 03/04/23 07:40 Pulse 108 H 03/04/23 07:40 Resp 18 03/04/23 07:40 BP 123/72 03/04/23 07:40 Pulse Ox 96 03/04/23 09:20 Time Spent with Patient Time Spent with Patient: 25-34 minutes Time was spent: preparing to see the patient(eg.review tests), ordering medications,tests, procedures, referring, communicating with other health director of healthcare systems, indepentently interpreting results, counseling the patient and care coordination
[2023-03-02] MEDS: fentaNYL 12 MCG PATCH TD (17:28)
--- NOTE | 2023-03-02 18:24 | PT.INPN ---
Date of service: 03/02/23 Time of Service: 18:10 PT Notes Visit Reasons: Syncope Inpatient Physical Therapy Progress Note Date: 03/02/23 Dates of Service:02/22/2023 through 03/02/2023 Referring Doctor: Tyler Erickson MD PT Orders: PT CONSULT: eval and treat for weakness, fall risk. H/o multiple falls Precautions: Fall. Standard. Activity as tolerated. On full liquid diet. Patient Profile/Admitting Diagnosis:?? Patient admitted 02/18/23 after fall at home resulting in multiple rib fractures. 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 (Acute) Unexplained weight loss (Acute) Protein-calorie malnutrition, moderate (Acute) Metastasis to liver (Acute) Mass of hepatic flexure of colon (Acute) Microcytic anemia (Acute) Multiple fractures of ribs of both sides (Acute) Acute UTI (urinary tract infection) (Acute) Fall as cause of accidental injury at home as place of occurrence (Acute) Osteoporosis (Chronic) Chronic low back pain (Chronic) Atherosclerotic heart disease [place] coronary artery w/angina pectoris (Acute) Restless legs syndrome (RLS) (Acute) Urge incontinence (Acute) Stage 3a chronic kidney disease (CKD) (Acute) Chronic insomnia (Acute) Temporal arteritis (Acute) Mass of stomach (Acute) Liver mass (Acute) Syncope (Chronic) Anemia (Chronic) Closed rib fracture (Acute) COPD (chronic obstructive pulmonary disease) (Chronic) Medical History? Anxiety Depression Diabetes DJD (degenerative joint disease), lumbar GERD (gastroesophageal reflux disease) Hyperparathyroidism Hypothyroidism Surgical History? History of appendectomy History of back surgery History of knee surgery Status post hip replacement Social History/Home Situation: Lives alone in single level home. Typically ambulates without device, although admits to frequent falls. She states that she's had multiple falls at home resulting in several hours on the floor. Equipment Owned/DME: [employer], which she owns, but does not use at baseline Subjective:? Continues to report minimal pain in multiple areas of rib cage on B sides with movement . Agreeable to going to a SNF for short-term rehab as she lives alone. Strongly expresses that she does not feel safe at home with her repeated falls. Grateful that she finally has the schedule to go to [facility] for the procedure that she has been waiting for over three days now. Objective:? General Observation: Resting in bed, supplemental O2 via nasal cannula. Mental Status: A&Ox3. Pleasant and cooperative. Pain: As above ROM: Right Upper Extremity: Shoulder flexion 135*. Elbow, wrist and hand motion WFL. Left Upper Extremity: Shoulder flexion 120*. Elbow, wrist and hand motion WFL. Right Lower Extremity: WFL Left Lower Extremity: WFL Strength: Right Upper Extremity: Grossly 3-/5. Formal strength testing not performed due to rib fxs. Left Upper Extremity: Grossly 3-/5. Formal strength testing not performed due to rib fxs. Right Lower Extremity: Hip flexion 4/5. Quads 4-/5. Ankle DF 5/5 Left Lower Extremity:? Hip flexion 4/5. Quads 4/5. Ankle DF 5/5 Gait:? Able to tolerate up to 200 feet per BANANA ROOM CUTTER notes but requires seated rests due to easy fatiguability requiring contact guard assist to stand by assist using front-wheeled walker. Step length and height asymmetric. Cues provided for posture, pacing, and overall safety. Balance:? Static Sitting: Normal Dynamic Sitting: Normal Static Standing: Fair Dynamic Standing: Fair Special Tests: Mobility Limitations Standardized Measure [facility] 6 clicks Basic Mobility Inpatient Short Form: Raw Score: 18 ? CMS Score: 47% impairment ? ? ? Informed Consent/Education:? Patient instructed in purpose of PT consult and plan of care. ASSESSMENT:? Result from liver biopsy at [facility] pending. Appeared anxious about how her trajectory of care will go after this liver biopsy result is received. Patient continues to demonstrate decreased activity tolerance, weakness, and balance impairment which increase her risk for falls and inability to thrive alone at home. She will require SNF placement for continued rehabilitation to address remaining functional deficits below. Patient presents with clinical signs and symptoms consistent with diagnosis, as demonstrated by the following impairment level findings: 1. decreased LE strength 2. balance impairment 3. decreased activity tolerance 4. chest pain due to rib fractures 5. h/o multiple falls ?Impairments are contributing to the following functional limitations: 1. decreased independence with transfers 2. unable to ambulate without assistive device 3. high fall risk 4. unable to tolerate household distance ambulation 5. decreased independence with bed mobility Patient is assessed as? Moderate 79153 ? complexity based on the following: History: 77-year-old female with h/o multiple falls, most recently resulting in multiple rib fractures. Recently diagnosed with colonic mass, and continuing to undergo work up and treatment planning. She does live alone, and anticipate that she'll require continued rehab in SNF setting due to her significant weakness and balance impairments, as she is at high risk for future falls. Examination: Functional impairments and mobility limitations as noted above Presentation: Evolving Decision Making: Moderate complexity Goals: Goals X1 week 1. Supine-Sit : supervision NOT MET, CONTINUE AT SNF once placed 2. Sit-Supine? : supervision NOT MET, CONTINUE AT SNF once placed 3. Sit-Stand? : supervision NOT MET, CONTINUE AT SNF once placed 4. Stand-Sit? : supervision NOT MET, CONTINUE AT SNF once placed 5. Bed-Chair? : supervision with FWW NOT MET, CONTINUE AT SNF once placed 6. Chair-Bed? : supervision with FWW NOT MET, CONTINUE AT SNF once placed 7. Gait? : supervision with FWW x 50' NOT MET, CONTINUE AT SNF once placed 9. Independent with home exercise program NOT MET, CONTINUE AT SNF once placed Plan of Care/Treatment Plan: 1x/day, 7 days/week x 1 week. Plan of care has been reviewed with the BANANA ROOM CUTTER providing the service under Physical Therapy direction. Initiate Physical Therapy intervention for strengthening, bed mobility, transfers, gait, stairs, balance training, use of assistive device. DISCHARGE RECOMMENDATIONS: SNF for continued rehabilitation TREATMENT CODE/TIME: 34464 x 14 minutes beginning at 18:10 PM. Thank you for the opportunity to participate in the care of this patient. Bri Stanley PT, DPT, CLT [facility] [place], [place]
[2023-03-02] MEDS: Mirabegron 25 MG TABCR PO (20:31)
[2023-03-02] MEDS: Protein Nutritional Supplement 16 GM 1 OUNCE PACKET PO (20:32)
[2023-03-02] MEDS: Amitriptyline 50 MG TAB PO (20:32)
[2023-03-02] MEDS: oxyCODONE 5 MG TAB PO (20:32)
[2023-03-02] MEDS: LIDOCAINE Patch Removal 2 EACH TP (20:33)
[2023-03-02 23:35] VITALS: BP 111/63; PULSE 92; RESP 18; TEMP 36.1; O2SAT 94
[2023-03-03] MEDS: Acetaminophen 500 MG TAB 1000 MG PO ×3 (01:53→18:02)
[2023-03-03 06:18] VITALS: BP 98/62; PULSE 98; RESP 18; TEMP 36; O2SAT 97
[2023-03-03 06:41] LABS: Abs Immature Grans 0.16 10^3/uL (0.0-0.06); Absolute Basophil Count 0.06 10^3/uL (0.0-0.2); Absolute Eosinophil Count 0.39 10^3/uL (0.0-0.7); Absolute Lymphocyte Count 1.26 10^3/uL (1.2-3.4); Absolute Monocyte Count 0.94 10^3/uL (0.1-0.8); Absolute Neutrophil Count 11.04 10^3/uL (1.2-6.7); Basophils % 0.4; Eosinophils % 2.8; HCT 30.6 % (36.0-46.0); HGB 9.2 g/dL (11.2-15.7); Immature Grans % 1.2; Lymphocytes % 9.1; MCH 27.7 pg (27.0-33.0); MCHC 30.1 % (32.0-36.0); MCV 92 fL (80-95); MPV 8.9 fL (8.0-11.0); Monocytes % 6.8; Neutrophils % 79.7; Platelet Count 311 10^3/uL (130-400); RBC 3.32 10^6/uL (3.93-5.22); RDW 14.1 % (11.7-14.6); RDW-SD 47.8 fL; WBC 13.85 10^3/uL (4.4-10.8)
--- NOTE | 2023-03-03 06:47 | NUR.NOTE ---
0620-pt [id number]. EMS here to transport pt to [facility] for liver biopsy. Nursing Note: Pt left with d5ns at 125 ml/hr in left forearm. Report given to crew and paperwork given.
[2023-03-03 06:58] LABS: Anion Gap 4.9 mmol/L (3-11); BUN 13 mg/dL (7-18); CO2 30.1 mmol/L (21.0-32.0); CREATININE 0.9 mg/dL (0.55-1.02); Chloride 103 mmol/L (98-107); Estimated GFR 65.44 (mL/min/1.73m2); Glucose 119 mg/dL (74-106); Magnesium 1.9 mg/dL (1.8-2.4); Potassium 4.3 mmol/L (3.5-5.1); Sodium 138 mmol/L (136-145)
--- NOTE | 2023-03-03 09:52 | CMPROGNOTE_ITS ---
Date of service: 03/03/23 Time of Service: 09:52 Care Management Progress Note Progress Note Text Progress Note Text: S/O: Debra went to [facility] [place] today for a down and back liver biopsy. She was tired when she returned as she left very early in the morning, but was happy that the procedure was over. Shew informed CM that she knows it will take some time to get results but that at least the process has started. Debra worked with PT today and did well. She was able to ambulate 300 feet with CGA. Unfortunately, her insurance company has declined to authorize a short term stay in rehab. After reading the PT notes they determined that she did not meet criteria. A:Debra is a 77 year old woman admitted on 02/18/23 with a UTI and fractured ribs. P:Debra had been accepted at [facility], pending insurance PA. Unfortunately the determination was made today and the insurance company opted not to authorize a rehab stay. At this point Debra's discharge plan is unclear. She does not feel she will be able to manage at home alone, but the options are limited. Home health nursing, PT, OT and [employer] will be ordered but may not provide adequate support. Debra will follow up with her PCP and discharge plan of care. CM will continue to support Debra and assess for ongoing discharge concerns.
[2023-03-03 11:30] VITALS: BP 121/59; PULSE 93; RESP 16; TEMP 36.7; O2SAT 98
--- NOTE | 2023-03-03 11:56 | PGE_ITS ---
Date of Service Date of service: 03/03/23 Time of Service: 11:56 Assessment and Plan Assessment and plan (1) Colonic mass: Status: Acute Assessment and plan: Awake and alert, Denies pain, she is drinking protein drinks and fluids. Went down and back to [facility] for bx of liver which she tolerated well. returned without incident (2) Protein-calorie malnutrition, moderate: Status: Acute Assessment and plan: Secondary to cancer and compression of duodenum by colon mass. Full liquid diet. Son has brought in Premier protein drinks. Nutrition consult. (3) Multiple fractures of ribs of both sides: Status: Acute Assessment and plan: Multiple falls with acute and subacute fxs. Pain managment as needed. Pain is controlled IS Acapella (4) Atherosclerotic heart disease [place] coronary artery w/angina pectoris: Status: Acute Assessment and plan: stable On isosorbide. (5) Stage 3a chronic kidney disease (CKD): Status: Acute Assessment and plan: Avoid nephrotoxic agents. Creatinine of 1.7 on admission. Creatinine now 1.0 - baseline Monitor as needed. renal dosing as needed. (6) COPD (chronic obstructive pulmonary disease): Status: Chronic Assessment and plan: 2 ppd smoker No acute exacerbation. PRN albuterol, Duonebs. 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 (8) Discharge planning issues: Status: Acute Assessment and plan: Unsafe for d/c to home; lives alone and has had multiple falls. peer to peer completed and anticipate skilled discharge send new PT notes. Auth pending at [facility] - accepted w avail bed - patient in agreement Discussed with Dr Cheng Subjective Subjective Patient reports: no new complaints, feels better, tolerating liquids well and afebrile; denies shortness of breath Exam Const General: no acute distress, frail appearing and ill appearing chronically Nutritional Appearance: average body habitus Orientation: alert, awake and oriented x3 HENMT Head: normal to inspection, normocephalic and atraumatic Mouth: oral mucosae normal Chest Chest: normal inspection of the chest Resp Effort & Inspection: normal respiratory effort Auscultation: diminished lung sounds Cardio Rate: regular rate Rhythm: regular rhythm GI Inspection: normal to inspection Palpation: soft Neuro General: patient alert, patient awake, patient oriented x3 and no focal motor deficits Extrem General: normal to inspection, full ROM and no pedal edema Objective Last Vital Signs Temp 36.7 C 03/03/23 11:30 Pulse 93 H 03/03/23 11:30 Resp 16 03/03/23 11:30 BP 121/59 L 03/03/23 11:30 Pulse Ox 98 03/03/23 11:30 Laboratory Results - last 24 hr 03/03/23 03/03/23 06:05 06:05 WBC 13.85 H RBC 3.32 L Hgb 9.2 L Hct 30.6 L MCV 92 MCH 27.7 MCHC 30.1 L RDW 14.1 Plt Count 311 MPV 8.9 Immature Gran % 1.2 Neutrophils % 79.7 Lymphocytes % 9.1 Monocytes % 6.8 Eosinophils % 2.8 Basophils % 0.4 Nucleated RBC % 0.0 Absolute Neutrophils 11.04 H Absolute Lymphocytes 1.26 Absolute Monocytes 0.94 H Absolute Eosinophils 0.39 Absolute Basophils 0.06 Sodium 138 Potassium 4.3 Chloride 103 Carbon Dioxide 30.1 Anion Gap 4.9 BUN 13 Creatinine 0.9 Est GFR (CKD-EPI 2020) 65.44 Glucose 119 H Calcium 9.0 Magnesium 1.9 Time Spent with Patient Time Spent with Patient: 25-34 minutes Time was spent: preparing to see the patient(eg.review tests), ordering medications,tests, procedures and counseling the patient
[2023-03-03] MEDS: Polyethylene Glycol 3350 17 GM PACKET PO ×2 (12:04→20:53)
[2023-03-03] MEDS: buPROPion-XL 150 MG TABCR PO (12:05)
[2023-03-03] MEDS: Docusate Sodium 100 MG CAP PO ×2 (12:05→20:52)
[2023-03-03] MEDS: DULoxetine 30 MG CAP PO (12:05)
[2023-03-03] MEDS: Isosorbide Mononitrate 30 MG TABCR PO (12:05)
[2023-03-03] MEDS: Lidocaine 5% Patch 2 PATCH TP (12:05)
[2023-03-03 13:00] VITALS: O2SAT 98
--- NOTE | 2023-03-03 14:14 | PTTR_ITS ---
Date of service: 03/03/23 Time of Service: 13:36 PT Notes Visit Reasons: Syncope Inpatient Physical Therapy Treatment Note [facility] Date: 03/03/23 PRECAUTIONS: Fall, standard, activity as tolerated. SUBJECTIVE: Patient reports being very fatigued from procedure this morning, not sure what she'll be able to do. Supine in bed, agreeable to therapy. Still expressing concern that she will fall again at home, and will be too weak to get herself back up. OBJECTIVE: ? PAIN: Yes, Left lower ribcage, anterior and lateral. VITALS: monitored by nursing staff. Therapeutic Activities (79875x0): Direct one-on-one instruction in dynamic activities to improve functional performance. ? BED MOBILITY/TRANSFERS? Rolling L/R: Independent Supine-sit: min assist ? Sit-supine: SBA with verbal cues ? Sit-stand: SBA ? Stand-sit: SBA? Bed-Chair: SBA with verbal cues ? Chair-bed: SBA with verbal cues Exercises: Tricep extensions vs red theraband (requires tactile cue to stabilize elbow), seated marches with cues to pull knee to chest, engaging core, punch- plus for serratus activation vs red theraband. All exercises and cues are directed to helping patient build strength to be able to get off the floor in the event of another fall. Patient is coached on fall recovery techniques and how these specific exercises build that ability. ? Therapeutic Exercises (21363q6): Direct one-on-one instruction in therapeutic exercises to develop strength, endurance, range of motion and flexibility. ?Ambulation ? Assistive Device: FWW ? Weight bearing: full Assist: CGA, wheelchair follow ? Distance:? 300 feet, 1x seated rest ? Deviation: Patient reports feeling unsteady and weak today, more than typical shortness of breath. Also reports pain, pushes through the second half of walk with no rest to get it over with. Patient becomes very short of breath due to pushing farther without resting. ? Provided skilled instruction in proper exercise performance, especially regarding patient education in energy conservation techniques and the importance of resting when rest is needed. ASSESSMENT:? Patient tolerates therapy well. Patient states that she does not have the ability to use a walker in her home due to the clutter. Much of her fear of falling is alleviated with the use of the walker, but patient asserts that it will not be feasible to get her home to a state where a walker will fit safely for ambulation. PLAN: Continue to progress strength and endurance per plan of care until patient is medically ready for discharge. Begin promoting more balance, especially dynamic standing balance activities. Discuss with supervising PT whether to progress patient to a less restrictive assistive device for ambulation - Both patient and her son have stated that the FWW seems to benefit the patient's breathing and energy. TREATMENT CODE/TIME: 59967 Ther Act 13 minutes, 38572 Ther Ex 10 minutes beginning at 13:36
[2023-03-03] MEDS: Protein Nutritional Supplement 16 GM 1 OUNCE PACKET PO ×2 (14:33→20:53)
[2023-03-03] MEDS: oxyCODONE 5 MG TAB PO ×2 (14:33→20:52)
[2023-03-03] MEDS: Gabapentin 300 MG CAP PO ×2 (14:33→20:52)
[2023-03-03 15:16] VITALS: BP 99/65; PULSE 89; RESP 17; TEMP 37; O2SAT 97
[2023-03-03] MEDS: Budesonide/Formoterol 160/4.5 6 GM 60 PUFF INH IH (20:19)
[2023-03-03] MEDS: Amitriptyline 50 MG TAB PO (20:52)
[2023-03-03] MEDS: Mirabegron 25 MG TABCR PO (20:52)
[2023-03-03] MEDS: LIDOCAINE Patch Removal 2 EACH TP (20:53)
[2023-03-04] MEDS: Levothyroxine 25 MCG TAB PO (05:33)
[2023-03-04] MEDS: Lidocaine 5% Patch 2 PATCH TP (07:36)
[2023-03-04] MEDS: DULoxetine 30 MG CAP PO (07:36)
[2023-03-04] MEDS: Protein Nutritional Supplement 16 GM 1 OUNCE PACKET PO ×3 (07:36→20:24)
[2023-03-04] MEDS: Isosorbide Mononitrate 30 MG TABCR PO (07:36)
[2023-03-04] MEDS: Gabapentin 300 MG CAP PO ×3 (07:37→20:24)
[2023-03-04] MEDS: Normal Saline Flush 10 ML SYR IVP (07:37)
[2023-03-04] MEDS: buPROPion-XL 150 MG TABCR PO (07:37)
[2023-03-04 07:40] VITALS: BP 123/72; PULSE 108; RESP 18; TEMP 37.6; O2SAT 96
[2023-03-04] MEDS: Budesonide/Formoterol 160/4.5 6 GM 60 PUFF INH IH ×2 (07:48→22:58)
[2023-03-04] MEDS: Tiotropium Bromide-Respimat 10 PUFF INH 2 PUFF IH (07:48)
[2023-03-04 09:20] VITALS: O2SAT 96
[2023-03-04] MEDS: Acetaminophen 500 MG TAB 1000 MG PO ×2 (10:26→17:28)
--- NOTE | 2023-03-04 12:10 | PT.INTREAT ---
Date of service: 03/04/23 Time of Service: 11:27 PT Notes Visit Reasons: Syncope Inpatient Physical Therapy Treatment Note [facility] Date: 03/04/23 PRECAUTIONS: Fall, standard, activity as tolerated. SUBJECTIVE: Patient and son Kamaljit are extremely anxious about potential discharge. Kamaljit informs me that patient's home is not accessible to walker. States that she has looked good walking with the walker, but both agree that the home is absolutely not accessible to a FWW due to narrow hallways, narrow doorways. Patient states that she has several canes at home but has never felt confident in their use. Kamaljit also brings to the attention of this therapist that patient's bed is an old waterbed. Patient has struggled getting in and out of the bed in the hospital, Kamaljit does not believe (and patient and this therapist agree) that patient would be capable of getting in or out of the waterbed due to the high sides. OBJECTIVE: Patient sitting up in recliner. Son Kamaljit also present, sitting on bed. ? PAIN: none reported. VITALS: closely monitored by nursing staff. ? BED MOBILITY/TRANSFERS? Rolling L/R: independent Supine-sit: modified independent with elevated head of bed and side railings. Mod assist when bed is flat and railings removed. Patient's bed is unable to have side railings installed due to it being a waterbed. ? Sit-supine: modified independent with side railings. Min to mod assist with railings removed. ? Sit-stand: independent from bed and high chair. Min assist from low chair. ? Stand-sit: independent ? Bed-Chair: Son Kamaljit reports patient required assist x2 this morning for transfer. CGA with this therapist and FWW. Mod assist with SPC. ?Chair-bed: Mod assist with SPC. Provided skilled cues and instruction on performance and technique throughout. Gait Training (64901r9): Direct one-on-one instruction and skilled instruction in: [x] employing an assistive device - instructed patient on gait sequence with cane. Patient reports that the right leg is weaker than left, more apt to buckle, therefore patient is instructed to keep cane in left hand and use it alongside right leg. [x] movement sequencing - instructed in two point gait technique with cane supporting right leg. [x] turning and movement with proper form [x] Provided verbal cues for equipment management and technique [x] Provided instruction in gait pattern [x] Patient education regarding pacing and breathing techniques to maximize activity tolerance? GAIT? Assistive Device: SPC ? Weight bearing: full Assist: Min to mod assist, max verbal, visual and tactile cues ? Distance:? 5 feet x2 ? Deviation: Patient has extremely poor balance, is unable to take more than a few steps with the SPC before her center of mass drifts outside her base of support, causing patient to be in danger of falling. Patient demonstrates extreme fear and anxiety around falling, likely due to the multiple falls she has taken recently resulting in multiple fractures. Patient requires min assist with gait belt to maintain upright stance. Is unable to maintain static standing with SPC. ? Neuromuscular Re-education (32409d7): Activities that facilitate re-education of movement balance, posture, coordination, and proprioception or kinesthetic sense, requiring skilled tactile and verbal cues ? Exercises/techniques: Unsupported standing, wide base of support: unable. Supported static standing with SPC, wide base of support: <10 seconds. Supported standing with FWW and wide base of support, >30 seconds. Dynamic standing balance with FWW, good. Dynamic standing balance with SPC, unable. ASSESSMENT:? With the new information about the state of the patient's home and how it is structurally inaccessible to a FWW, and given patient's extremely poor performance with the SPC, as well as the patient's recent history of falls that result in injuries, patient is not safe to return home at this time. Patient requires a stay at a SNF to build strength and balance. Patient also needs to consider replacing waterbed with a more accessible bed if she is to return home in the future. PLAN: Continue global strength and endurance training, skills training with SPC, and balance training until patient is able to achieve placement in a SNF. TREATMENT CODE/TIME: 46579 Neuro Jesús 15 minutes, 27852 Gait 18 minutes beginining at 11:27
--- NOTE | 2023-03-04 13:21 | W.PALPGNOTE ---
Date of service: 03/04/23 Time of Service: 13:21 Assessment and Plan Assessment and plan (1) Advanced care planning/counseling discussion: Status: Acute Assessment and plan: Advance care planning and goals of care discussion: Patient felt more comfortable discussing the subject today with son present. We reviewed her goals of care. She is feeling more interested in considering a course of treatment if offered. We discussed the need to look at both the risks as well as the benefits of any proposed treatment, especially in light of her comorbidities. She was able to discuss today that she would not want CPR, especially in light of recent rib fractures. Also would not want to be on any machines for any length of time. We explored her understanding of this and she did indeed want to be DNR/DNI. She does want to continue to be transferred, treated, receive IV fluids and IV hydration. A COLST was drawn up today reflecting these wishes. She does not have an advanced directive or healthcare agent. At the last visit she was very clear that she wanted both of her sons (Kamaljit Harris and Ervin Crowe), to serve together as her healthcare agent should she be unable to make decisions on her own. But she was unwilling to fill out a form last week without first talking with her sons. Today Kamaljit is here. She wants them both to decide together. She refuses to appoint 1 primary and the other 1 as alternate. She also says she does not want to fill a form, does not want to sign it and does not want to give verbal consent. I cannot explain it, I just do not want to do it . This progress note will document her wishes in regard to this. I also put both sons names on her COLST form as healthcare agents. She and son Kamaljit are agreeable to meeting with palliative care team again in about 2 to 3 weeks, once biopsy reports are back and (hopefully) she has met with oncology to discuss treatment options. We will schedule that meeting to take place either at subacute rehab or at her home, wherever she is. We can be contacted sooner if desired. Pain: Pain control seems adequate at this time. Nutrition: Doing okay with full liquid diet. Has regained about 5 pounds. (2) Palliative care encounter: Status: Acute (3) Metastasis to liver: Status: Acute (4) Multiple fractures of ribs of both sides: Status: Acute (5) COPD (chronic obstructive pulmonary disease): Status: Chronic Subjective Subjective Interval history since last seen: Debra Guthrie is a 77-year-old woman who was admitted to [facility] 5 days ago after having a presyncopal episode and falling suffering rib fractures.? During evaluation, she was found to have a large mass behind her stomach and into her liver. Medical history includes anxiety/depression, diabetes, GERD, hyperparathyroidism, hypothyroidism, COPD (on 3-4 L oxygen chronically), osteoporosis, ASCVD with angina.? I met with her and her son Kamaljit today for follow-up from her visit last week. She has been in the hospital for the last 2 weeks undergoing evaluation. Biopsy done during colonoscopy returned only inflammatory tissue and unfortunately was nondiagnostic. She went to [facility] yesterday for liver biopsy (pathology pending). She has been participating in physical therapy daily and reportedly she is able to walk 300 feet. She was hoping to go to subacute rehab, but insurance has felt that since she has been receiving rehab in the hospital that is safe for her to go home to complete her evaluation and begin treatment. She is continued on a liquid diet over concerns about possible obstruction from the mass. She is getting high-protein shakes and tolerating these well. Her weight today is actually up about 2-1/2 kg from admission weight. Regarding her pain from rib fractures from fall suffered on the day of admission: She is receiving regular Tylenol. She required 2 doses of oxycodone 5 mg yesterday for additional pain relief. Care Team: Primary Care physician: Maria Guadalupe Price ([facility]) Pulmonary: Andrei,? [facility]; RTC SUrgery: Dr. Erickson Social HX: Lives alone in house in [place], [place] with her 2 cats ABout three years ago, her son Dhara , moved in with her. She sold her car, so he could buy a truck. He then killed himslef via asphyxiation in the truck. She has not had a car or driven since. she has been torn up since. -3 sons (1 in [place], Kamaljit in [facility] (Has stage 4 lung cancer), 1 (Dhara); oldest grandchild José Miguel lives in [facility], she raised him during his teens. 3 sisters all .? Sister Sera had breast cancer, which is treated and cured .? She suffered sudden of unknown cause SHopping: son from [place] and others will take her shopping when they are up and around. Born and raised in [facility]. Raised her children in [facility]. HAs been living back in [place] for over 20 years. Additional services: -Meals on Wheels twice a week -Case management through? [facility] (Cathleen Torres) -RTC brings her to doctors' appts at [facility] Impression of currents health status: Not sure What bothers you the most: Overwhelmed by everything that is happening. What worries you the most: Very worried about going home instead of going to subacute rehab. Goals: Would like to get a car and drive. Going outside on a ameena day to sit in a chair. -Work in her flower garden. What are you not willing to accept: If I could not talk or communicate. Current information preferences: Function: Ambulation: Walking with a walker ADLs: ALl indendent. iADLs: ALl independent (admits house in not very clean), does her own bills. Gets help with shopping, as she does not have a car Hearing:OK Vision:Glasses Cognition:Feels OK Falls: Notes show that patient had several falls in the weeks prior to this admission. Palliative Performance Scale % Ambulation Activity and Evidence of Disease Self Care Intake Level of Consciousness 100 Full Normal activity, no evidence of disease Full Normal Full 90 Full Normal activity, some evidence of disease Full Normal Full 80 Full Normal activity with effort, some evidence of disease Full Normal or reduced Full 70 Reduced Unable to do normal work, some evidence of disease Full Normal or reduced Full 60 Reduced Unable to do hobby or some housework, significant disease Occasional assist necessary Normal or reduced Full or confusion 50 Mainly sit/lie Unable to do any work, extensive disease Considerable assistance required Normal or reduced Full or confusion 40 Mainly in bed Unable to do any work, extensive disease Mainly assistance Normal or reduced Full, drowsy, or confusion 30 Totally bed bound Unable to do any work, extensive disease Total care Reduced Full, drowsy, or confusion 20 Totally bed bound Unable to do any work, extensive disease Total care Minimal sips Full, drowsy, or confusion 10 Totally bed bound Unable to do any work, extensive disease Total care Mouth care only Drowsy or coma 0 - - - - Patient Score: Currently 50?60 Spiritual history:Not queried Palliative review of systems: Pain: Rib pain slowly improving Dyspnea:No worse than baseline GI symptoms:Denies dysphagia, constipation, nausea. Appetite: Good. Not particularly bothered by liquid diet Depression:No Anxiety: ANxious over diagnosis and what is going to happen Emotional Distress: Spiritual/Existential Distress: Pathology report from liver biopsy pending at the time of dictation. Leukocytosis persists. Hemoglobin down to 9.1 from admission of 10.1 Creatinine now 1.0 (1.7 at admission) Advanced Care Planning: Advanced Directive: Does not have Health Care Agent: Ervin Gurrola, son in [place] (last saw him a year ago, talks daily),Kamaljit Harris as alternate. However, she declines to have formal HCA forms completed today, I need to talk to them BEFORE filling out form. COLST: Changed to DNR/DNI today. See discussion under A/P Limitations: Exam Narrative Exam Narrative: Pale and tired appearing. Oxygen on. No respiratory distress. Slightly anxious. Son in room. Objective Last Vital Signs Temp 37.6 C H 03/04/23 07:40 Pulse 108 H 03/04/23 07:40 Resp 18 03/04/23 07:40 BP 123/72 03/04/23 07:40 Pulse Ox 96 03/04/23 09:20
--- NOTE | 2023-03-04 14:08 | NUR.NOTE ---
Nursing Note: This RN observed the pts weight of 62.8kg. This RN notified KATIE Buck of the pts weight and dominguez documented the pts weight.
--- NOTE | 2023-03-04 14:12 | PGE_ITS ---
Date of Service Date of service: 03/04/23 Time of Service: 14:12 Assessment and Plan Assessment and plan (1) Ambulatory dysfunction: Status: Acute Assessment and plan: continues to work with physical therapy and making slow progress. has had multiple falls at home. after prolonged hospitalization would certainly benefit from additional inpatient skilled rehab prior to returning home. (2) Colonic mass: Status: Acute Assessment and plan: Awake and alert, Denies pain, she is drinking protein drinks and fluids. Went down and back to [facility] for bx of liver which she tolerated well. results pending (3) Protein-calorie malnutrition, moderate: Status: Acute Assessment and plan: Secondary to cancer and compression of duodenum by colon mass. Full liquid diet. Son has brought in Premier protein drinks. Nutrition consult. weight gain on measurement today (4) Multiple fractures of ribs of both sides: Status: Acute Assessment and plan: Multiple falls with acute and subacute fxs. Pain managment as needed. Pain is controlled IS Acapella (5) Atherosclerotic heart disease [place] coronary artery w/angina pectoris: Status: Acute Assessment and plan: stable On isosorbide. (6) Stage 3a chronic kidney disease (CKD): Status: Acute Assessment and plan: Avoid nephrotoxic agents. Creatinine of 1.7 on admission. Creatinine now 1.0 - baseline Monitor as needed. renal dosing as needed. (7) COPD (chronic obstructive pulmonary disease): Status: Chronic Assessment and plan: 2 ppd smoker No acute exacerbation. PRN albuterol, Duonebs. 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 (9) Discharge planning issues: Status: Acute Assessment and plan: we continue to agree is is unsafe for d/c to home; lives alone and has had multiple falls and not felt to be at her baseline. peer to peer completed and declined yesterday. anticipate skilled discharge still will send new PT notes and request a new peer to [facility] - accepted w avail bed - patient in agreement, awaiting insurance Discussed with Dr Cheng Subjective Subjective Patient reports: no new complaints, tolerating liquids well, tolerating a regular diet and afebrile; denies shortness of breath Interval history since last seen: working with PT, remains weak and fatigued easily. needed assist of 2 this am to get to commode. Exam Const General: no acute distress, frail appearing and ill appearing chronically Nutritional Appearance: average body habitus Orientation: alert, awake and oriented x3 HENIA Head: normal to inspection, normocephalic and atraumatic Mouth: oral mucosae normal Chest Chest: normal inspection of the chest Resp Effort & Inspection: normal respiratory effort Auscultation: diminished lung sounds Cardio Rate: regular rate Rhythm: regular rhythm GI Inspection: normal to inspection Palpation: soft Neuro General: patient alert, patient awake, patient oriented x3 and no focal motor deficits Extrem General: normal to inspection, full ROM and no pedal edema Objective Last Vital Signs Temp 37.6 C H 03/04/23 07:40 Pulse 108 H 03/04/23 07:40 Resp 18 03/04/23 07:40 BP 123/72 03/04/23 07:40 Pulse Ox 96 03/04/23 09:20 Time Spent with Patient Time Spent with Patient: 35-49 minutes Time was spent: preparing to see the patient(eg.review tests), referring, communicating with other health child care team lead, counseling the patient and care coordination
--- NOTE | 2023-03-04 16:29 | PDOC.CMPRO ---
Date of service: 03/04/23 Time of Service: 16:29 Care Management Progress Note Progress Note Text Progress Note Text: S/O: CM received several calls regarding Debra's discharge plan today, as she is likely being discharged with new services. Debra was sitting up in her chair when CM met with her. CM explained further the implications of her insurance company declining her SNF stay. The nurse practitioner is appealing the decision, as PT's documentation shows that Debra would benefit from SNF. CM faxed this documentation to the appeal fax, and the [employer] will call to appeal. CM explained to Debra that if she is approved, she will transfer to [facility] tomorrow. If her insurance company continues to decline, she will return home with new RN, PT, OT, CLIENT RELATIONS SPECIALIST. Her [facility] RN stated that she will increase visits. Debra has MOW, which CM will ask to be increased. CM will continue to follow. A:Debra is a 77 year old woman admitted on 02/18/23 with a UTI and fractured ribs. P:Debra had been accepted at [facility], pending insurance PA. Unfortunately the determination was made today and the insurance company opted not to authorize a rehab stay. At this point Debra's discharge plan is unclear. She does not feel she will be able to manage at home alone, but the options are limited. Home health nursing, PT, OT and CLIENT RELATIONS SPECIALIST will be ordered but may not provide adequate support. Debra will follow up with her PCP and discharge plan of care. CM will continue to support Debra and assess for ongoing discharge concerns.
--- NOTE | 2023-03-04 17:01 | PT.INTREAT ---
Date of service: 03/04/23 Time of Service: 14:26 PT Notes Visit Reasons: Syncope Inpatient Physical Therapy Treatment Note [facility] Date: 03/04/23 PRECAUTIONS: Fall, standard, activity as tolerated. SUBJECTIVE: Patient and son present for therapy. Patient appears disengaged and son is agitated due to discharge planning. OBJECTIVE: Patient sitting in recliner, agreeable to therapy. ? PAIN: 3-4/10 chest wall VITALS: monitored by nursing.? Gait Training ([id number]): Direct one-on-one instruction and skilled instruction in: [x] employing an assistive device [x] movement sequencing [x] turning and movement with proper form [x] Provided verbal cues for equipment management and technique [x] Provided instruction in gait pattern [x] Patient education regarding pacing and breathing techniques to maximize activity tolerance? GAIT? Assistive Device: SPC ? Weight bearing: full Assist: mod assist ? Distance:? 15 feet, seated rest x3 ? Deviation: Patient's balance is very poor, shuffling gait pattern, loss of balance x2 or 3 each time she ambulates. Kyphotic posture, hunched shoulders, step-to gait pattern. ? Neuromuscular Re-education ([id number]): Activities that facilitate re-education of movement balance, posture, coordination, and proprioception or kinesthetic sense, requiring skilled tactile and verbal cues ? Exercises/techniques: Unsupported static standing in wide base of support, narrow base of support. Dynamic standing balance with reaching activity in wide base of support. Patient does not tolerate reaching activity well, becomes very short of breath, anxious. ASSESSMENT:? Patient requires additional gait training with SPC for appropriate gait sequence, appropriate use of device for balance. PLAN: Continue gait training and neuro reeducation per plan of care until discharge planning issues resolve. TREATMENT CODE/TIME: 08987 Gait 18 minutes, [id number] Neuro devon 15 minutes beginning and 14:26
[2023-03-04] MEDS: Mirabegron 25 MG TABCR PO (20:24)
[2023-03-04] MEDS: Docusate Sodium 100 MG CAP PO (20:24)
[2023-03-04] MEDS: Amitriptyline 50 MG TAB PO (20:24)
[2023-03-04] MEDS: LIDOCAINE Patch Removal 2 EACH TP (22:19)
[2023-03-04 23:37] VITALS: BP 116/66; PULSE 90; RESP 17; TEMP 36.8; O2SAT 98
[2023-03-05] MEDS: Acetaminophen 500 MG TAB 1000 MG PO ×3 (02:01→18:01)
[2023-03-05] MEDS: Levothyroxine 25 MCG TAB PO (05:41)
[2023-03-05 07:14] VITALS: BP 123/73; PULSE 88; RESP 16; TEMP 36.5; O2SAT 96
[2023-03-05] MEDS: Tiotropium Bromide-Respimat 10 PUFF INH 2 PUFF IH (08:07)
[2023-03-05] MEDS: Budesonide/Formoterol 160/4.5 6 GM 60 PUFF INH IH ×2 (08:08→21:13)
[2023-03-05] MEDS: Protein Nutritional Supplement 16 GM 1 OUNCE PACKET PO ×3 (09:20→20:17)
[2023-03-05] MEDS: Lidocaine 5% Patch 2 PATCH TP (09:20)
[2023-03-05] MEDS: Gabapentin 300 MG CAP PO ×3 (09:21→20:17)
[2023-03-05] MEDS: DULoxetine 30 MG CAP PO (09:21)
[2023-03-05] MEDS: Isosorbide Mononitrate 30 MG TABCR PO (09:21)
[2023-03-05] MEDS: Pantoprazole 40 MG TABCR PO (09:21)
[2023-03-05] MEDS: buPROPion-XL 150 MG TABCR PO (09:21)
[2023-03-05] MEDS: Docusate Sodium 100 MG CAP PO ×2 (09:21→20:17)
[2023-03-05] MEDS: Normal Saline Flush 10 ML SYR IVP (09:22)
[2023-03-05] MEDS: Polyethylene Glycol 3350 17 GM PACKET PO ×2 (09:22→20:17)
--- NOTE | 2023-03-05 14:17 | CMPROGNOTE_ITS ---
Date of service: 03/05/23 Time of Service: 14:17 Care Management Progress Note Progress Note Text Progress Note Text: S/O: The nurse practitioner caring for Debra contacted her insurance company today to file a higher level appeal to allow her to go to a SNF for continued care and rehab. The insurance company stated the appeal could take up to 3 days. As it is Wednesday afternoon, it is likely Debra will remain at [facility] through the weekend. The SNF which has made her a bed offer does not accept weekend admissions. Debra was informed by CM and indicated that she was pleased the appeal had been filed. A:Debra is a 77 year old woman admitted on 02/18/23 with a UTI and fractured ribs. P:Debra had been accepted at [facility], pending insurance PA. Another appeal was filed with the insurance company today but it may take up to 3 days to receive a determination. Debra will remain at [facility] until at least Wednesday as [facility] does not accept weekend admissions. When she is discharged, home health nursing, PT, OT and TRANSFER AND PUMPHOUSE OPERATOR CHIEF will be ordered. her [facility] nurse will also increse visits and a request will be made to increase her Meals on Wheels deliveries. Debra will follow up with her PCP and discharge plan of care. CM will continue to support Debra and assess for ongoing discharge concerns. ?
--- NOTE | 2023-03-05 14:26 | PGE_ITS ---
Date of Service Date of service: 03/05/23 Time of Service: 14:26 Assessment and Plan Assessment and plan (1) Colonic mass: Status: Acute Assessment and plan: Awake and alert, Denies pain, she is drinking protein drinks and fluids. will defer further management to outpatient team (2) Protein-calorie malnutrition, moderate: Status: Acute Assessment and plan: Secondary to cancer and compression of duodenum by colon mass. Full liquid diet. Son has brought in Premier protein drinks. Nutrition following (3) Multiple fractures of ribs of both sides: Status: Acute Assessment and plan: Multiple falls with acute and subacute fxs. Pain managment as needed. Pain is controlled IS Acapella (4) Atherosclerotic heart disease [place] coronary artery w/angina pectoris: Status: Acute Assessment and plan: No c/o CP. No h/o OR. On isosorbide. (5) Stage 3a chronic kidney disease (CKD): Status: Acute Assessment and plan: Avoid nephrotoxic agents. Creatinine of 1.7 on admission. Creatinine now 1.0 - baseline Monitor as needed. (6) COPD (chronic obstructive pulmonary disease): Status: Chronic Assessment and plan: 2 ppd smoker No acute exacerbation. PRN albuterol, Duonebs. 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 (8) Discharge planning issues: Status: Acute Assessment and plan: Unsafe for d/c to home; lives alone and has had multiple falls. PT working with pt. Auth pending at [facility] - accepted w avail bed - patient in agreement was denied but appeal pending. will remain here until we hear. Discussed with Dr Gan Subjective Subjective Patient reports: no new complaints, feels better and afebrile; denies shortness of breath Exam Const General: no acute distress, frail appearing and ill appearing chronically Nutritional Appearance: average body habitus Orientation: alert, awake and oriented x3 HENNY Head: normal to inspection, normocephalic and atraumatic Mouth: oral mucosae normal Chest Chest: normal inspection of the chest Resp Effort & Inspection: normal respiratory effort Auscultation: diminished lung sounds Cardio Rate: regular rate Rhythm: regular rhythm GI Inspection: normal to inspection Palpation: soft Neuro General: patient alert, patient awake, patient oriented x3 and no focal motor deficits Extrem General: normal to inspection, full ROM and no pedal edema Objective Last Vital Signs Temp 36.5 C 03/05/23 07:14 Pulse 88 03/05/23 07:14 Resp 16 03/05/23 07:14 BP 123/73 03/05/23 07:14 Pulse Ox 96 03/05/23 07:14 Time Spent with Patient Time Spent with Patient: 25-34 minutes Time was spent: preparing to see the patient(eg.review tests), referring, communicating with other health wound care specialist, counseling the patient and care coordination
--- NOTE | 2023-03-05 17:00 | PT.INTREAT ---
Date of service: 03/05/23 Time of Service: 11:40 PT Notes Visit Reasons: Syncope Inpatient Physical Therapy Treatment Note [facility] Date: 03/05/23 PRECAUTIONS: Fall, standard, activity as tolerated. SUBJECTIVE: Patient unsure of what her discharge plan is or when it will take place. This is causing her some anxiety. OBJECTIVE: Sitting up in recliner, agreeable to therapy. ? PAIN: Indicates right ribs VITALS: monitored by nursing staff? Gait Training ([id number]): Direct one-on-one instruction and skilled instruction in: [x] employing an assistive device [x] movement sequencing [x] turning and movement with proper form [x] Provided verbal cues for equipment management and technique [x] Provided instruction in gait pattern [x] Patient education regarding pacing and breathing techniques to maximize activity tolerance? GAIT? Assistive Device: Quad Cane ? Weight bearing: full Assist: CGA ? Distance:? 16 feet, seated rest x3 ? Deviation: Step to gait pattern. Prefers cane in right hand despite claiming that right leg is weaker than left. Struggles to demonstrate appropriate gait sequence without continuous verbal cues. LOB noted x4. ? ASSESSMENT:? Patient states that she feels more confident with Quad cane vs SPC. Feels more secure. PLAN: Issue quad cane at discharge if patient is unable to obtain SNF placement. Continue global treatment per plan of care until patient is medically cleared for discharge. TREATMENT CODE/TIME: 24866 Gait 28 minutes beginning at 11:40
[2023-03-05] MEDS: fentaNYL 12 MCG PATCH TD (18:01)
[2023-03-05] MEDS: LIDOCAINE Patch Removal 2 EACH TP (20:17)
[2023-03-05 20:22] VITALS: BP 127/73; PULSE 88; RESP 22; TEMP 36.5; O2SAT 92
[2023-03-05] MEDS: Amitriptyline 50 MG TAB PO (21:13)
[2023-03-05] MEDS: Mirabegron 25 MG TABCR PO (21:13)
[2023-03-06] MEDS: Levothyroxine 25 MCG TAB PO (05:35)
[2023-03-06 07:00] VITALS: BP 95/52; PULSE 121; RESP 18; TEMP 37.5; O2SAT 96
[2023-03-06 07:06] VITALS: BP 95/52; PULSE 118; RESP 18; TEMP 37.5; O2SAT 96
[2023-03-06] MEDS: Protein Nutritional Supplement 16 GM 1 OUNCE PACKET PO ×3 (08:30→20:02)
[2023-03-06] MEDS: Tiotropium Bromide-Respimat 10 PUFF INH 2 PUFF IH (08:39)
[2023-03-06] MEDS: Budesonide/Formoterol 160/4.5 6 GM 60 PUFF INH IH ×2 (08:39→20:15)
[2023-03-06 08:44] VITALS: O2SAT 95
[2023-03-06] MEDS: DULoxetine 30 MG CAP PO (08:50)
[2023-03-06] MEDS: Isosorbide Mononitrate 30 MG TABCR PO (08:50)
[2023-03-06] MEDS: buPROPion-XL 150 MG TABCR PO (08:51)
[2023-03-06] MEDS: Gabapentin 300 MG CAP PO ×3 (08:51→20:02)
[2023-03-06] MEDS: Lidocaine 5% Patch 2 PATCH TP (08:51)
[2023-03-06] MEDS: Polyethylene Glycol 3350 17 GM PACKET PO (08:51)
[2023-03-06] MEDS: Pantoprazole 40 MG TABCR PO (08:52)
[2023-03-06] MEDS: Docusate Sodium 100 MG CAP PO (08:52)
[2023-03-06] MEDS: Acetaminophen 500 MG TAB 1000 MG PO ×2 (10:51→17:21)
--- NOTE | 2023-03-06 10:56 | PGE_ITS ---
Date of Service Date of service: 03/06/23 Time of Service: 10:57 Assessment and Plan Assessment and plan (1) Colonic mass: Status: Acute Assessment and plan: Awake and alert, Denies pain, she is drinking protein drinks and fluids. will defer further management to outpatient team (2) Protein-calorie malnutrition, moderate: Status: Acute Assessment and plan: Secondary to cancer and compression of duodenum by colon mass. Full liquid diet. Son has brought in Premier protein drinks. Nutrition following (3) Multiple fractures of ribs of both sides: Status: Acute Assessment and plan: Multiple falls with acute and subacute fxs. Pain managment as needed. Pain is controlled IS Acapella (4) Atherosclerotic heart disease [place] coronary artery w/angina pectoris: Status: Acute Assessment and plan: No c/o CP. No h/o [place]. On isosorbide. (5) Stage 3a chronic kidney disease (CKD): Status: Acute Assessment and plan: Avoid nephrotoxic agents. Creatinine of 1.7 on admission. Creatinine now 1.0 - baseline Monitor as needed. (6) COPD (chronic obstructive pulmonary disease): Status: Chronic Assessment and plan: 2 ppd smoker No acute exacerbation. PRN albuterol, Duonebs. 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 (8) Discharge planning issues: Status: Acute Assessment and plan: Unsafe for d/c to home; lives alone and has had multiple falls. PT working with pt. Auth pending at [facility] - accepted w avail bed - patient in agreement was denied but appeal pending. will remain here until we hear. Discussed with Dr Gan Subjective Subjective Interval history since last seen: Patient experienced a mechanical fall this morning losing her balance striking her head on the wall sliding down the wall complaining of pain in her head right upper back and right side of her abdomen. Exam Const General: no acute distress, frail appearing and ill appearing chronically Nutritional Appearance: average body habitus Orientation: alert, awake and oriented x3 HENMT Head: normal to inspection, normocephalic and atraumatic Mouth: oral mucosae normal Chest Chest: normal inspection of the chest Resp Effort & Inspection: normal respiratory effort Auscultation: diminished lung sounds Cardio Rate: regular rate Rhythm: regular rhythm GI Inspection: normal to inspection Palpation: soft Neuro General: patient alert, patient awake, patient oriented x3 and no focal motor deficits Extrem General: normal to inspection, full ROM and no pedal edema Objective Last Vital Signs Temp 37.5 C 03/06/23 07:06 Pulse 118 H 03/06/23 07:06 Resp 18 03/06/23 07:06 BP 95/52 L 03/06/23 07:06 Pulse Ox 95 03/06/23 08:44 Time Spent with Patient Time Spent with Patient: 25-34 minutes Time was spent: preparing to see the patient(eg.review tests), ordering medications,tests, procedures and counseling the patient
--- NOTE | 2023-03-06 11:30 | DI.CT_ITS ---
Exam(s) CT HEAD CERVICAL SPINE WO EXAM: CT HEAD CERVICAL SPINE WO CLINICAL HISTORY: fall with head injury. TECHNIQUE: Imaging Protocol: Axial computed tomography images with coronal and sagittal reformatted images were created and reviewed COMPARISON: CT CT HEAD WO from 04/02/[address] HEAD CERVICAL SPINE WO from 02/18/2023 FINDINGS: CT Head: Ventricles and Extra axial spaces: Normal in size and morphology for the patient's age. Hemorrhage: None. Cerebral parenchyma: There are areas of decreased attenuation in the white matter consistent with sma ll vessel ischemic disease. This includes a prominent area of decreased attenuation adjacent to the frontal horn of the right lateral ventricle. No evidence of an acute territorial infarct. Midline shift: None. Brainstem/Cerebellum: Normal. Calvarium: Normal. Visualized Paranasal sinuses/Mastoids: No fluid levels are seen. The mastoid air cells are clear. Soft Tissues: Unremarkable. CT Cervical Spine: Bones: No acute fracture or subluxation. There are degenerative changes seen in the cervical spine. There is straightening of the normal cervical lordosis. This may be due to muscle spasm or patient p ositioning. 2-3 mm anterolisthesis of C3 on C4 is present which is likely degenerative. The bones a re osteopenic. Soft Tissues: Unremarkable. Lung Apices: There are no new findings in the lung apices. Pleural parenchymal scarring is present. Emphysematous changes are seen in the lung apices. IMPRESSION: 1. No acute intracranial process. 2. No acute fracture or subluxation in the cervical spine. 3. No acute changes or new changes are seen compared to the prior examination from 02/18/2023. RADIATION DOSE DELIVERED: 1,089.36mGy.cm Total DLP DATA REPOSITORY: All CT scans at this facility are submitted to the National Radiology Data Registry (NRDR) Dose Index Registry (DIR) with the [employer] (A[employer]). RADIATION OPTIMIZATION: All CT scans at this facility use at least one of these dose optimization te chniques: automated exposure control; mA and/or kV adjustment per patient size (includes targeted exa ms where dose is matched to clinical indication); or iterative reconstruction.
--- NOTE | 2023-03-06 12:15 | DI.VRAD_ITS ---
PROCEDURE INFORMATION: Exam: CT Head Without Contrast Exam date and time: 03/06/2023 11:38 AM Age: 77 years old Clinical indication: Other: Fall with head injury TECHNIQUE: Imaging protocol: Computed tomography of the head without contrast. Radiation optimization: All CT scans at this facility use at least one of these dose optimization techniques: automated exposure control; mA and/or kV adjustment per patient size (includes targeted exams where dose is matched to clinical indication); or iterative reconstruction. COMPARISON: CT HEAD CERVICAL SPINE WO 02/18/2023 4:30 PM FINDINGS: Brain: Ventricles, sulci are unchanged. No new hemorrhage. No new mass or shift. No new cortical or major vascular territory infarct. There is some nonspecific low attenuation involving the periventricular white matter most prominent in the right frontal lobe also previously noted. There are no new extra-axial collections identified. . Cerebral ventricles: The ventricular prominence may be related to central atrophy. Ventricular size is stable when compared with most recent examination. No progressive hydrocephalus.. Paranasal sinuses: Sinus mucoperiosteal thickening is seen in the sphenoid sinus on the left. No significant sinus opacification or fluid level. Mastoid air cells: No significant mastoid opacification. Middle ears are unremarkable Bones/joints: No acute bony abnormality identified. Soft tissues: No new findings. No large subcutaneous hematoma.. IMPRESSION: No new or acute intracranial findings. No new hemorrhage. Nonspecific low attenuation involving the right frontal periventricular white matter unchanged when compared with recent exam. PROCEDURE INFORMATION: Exam: CT Cervical Spine Without Contrast Exam date and time: 03/06/2023 11:38 AM Age: 77 years old Clinical indication: Other: Fall with head injury TECHNIQUE: Imaging protocol: Computed tomography of the cervical spine without contrast. Radiation optimization: All CT scans at this facility use at least one of these dose optimization techniques: automated exposure control; mA and/or kV adjustment per patient size (includes targeted exams where dose is matched to clinical indication); or iterative reconstruction. COMPARISON: CT HEAD CERVICAL SPINE WO 02/18/2023 4:30 PM FINDINGS: Bones/joints: Alignment is unchanged. The bony structures are osteopenic. There is straightening of the cervical lordosis, mild scoliosis. Findings may be positional or due to spasm. There is mild anterolisthesis of C3 with respect to C4. There is no new or acute fracture. There is no decrease of vertebral body height. There is no new or acute bony abnormality. There is multilevel disc space narrowing in the cervical spine. There are disc osteophyte complexes spondylitic changes of the endplates, uncovertebral and facet arthropathy. Degenerative changes lead to multilevel spinal, foraminal stenosis unchanged when compared with recent exam. Lungs: Emphysematous changes are seen at the lung apices. There is linear opacity at the right lung apex which may be related to pleuroparenchymal scarring, but incompletely visualized. It is however unchanged when compared with recent exam. No new findings identified.. Soft tissues: No new soft tissue abnormality identified in the neck.. IMPRESSION: Cervical spondylosis, degenerative disc disease. No new or acute findings when compared with the patient's prior examination from 02/18/2023. Dictated and Authenticated by: Rubi Bryan MD. Ordering:COLLEEN Lozada MD
--- NOTE | 2023-03-06 14:22 | PT.INTREAT ---
Date of service: 03/06/23 Time of Service: 13:51 PT Notes Visit Reasons: Syncope Inpatient Physical Therapy Treatment Note [facility] Date: 03/06/23 PRECAUTIONS: Fall, standard, activity as tolerated. SUBJECTIVE: Patient reports that she fell this morning. Believes that she was sitting at the edge of the bed, reached for something, fell and hit the back of her head on the wall. States she doesn't remember what she was reaching for or exactly what happened. Indicates that she is very nervous about falling again. Reports that she has been in bed and asleep for about an hour. Asks if lunch has passed. Does not remember eating, but states that she laid down about 1:00. OBJECTIVE: Sidelying in bed, Bed alarm Active, agreeable to therapy. ? PAIN: States left lower ribs, but indicates lower left quadrant of abdomen. VITALS: monitored by nursing staff. Gait Training ([id number]): Direct one-on-one instruction and skilled instruction in: [x] employing an assistive device [x] movement sequencing [x] turning and movement with proper form [x] Provided verbal cues for equipment management and technique [x] Provided instruction in gait pattern [x] Patient education regarding pacing and breathing techniques to maximize activity tolerance? GAIT? Assistive Device: Quad cane ? Weight bearing: full Assist: CGA ? Distance:? 20 feet, seated rest x2 ? Deviation: Feels shaky. Looks shaky / unstable. Step-to gait pattern. Prefers cane in right hand today, vs left hand yesterday. This therapist educates patient on changing quad cane to hold in one hand vs the other. Patient struggles with appropriate gait sequence, requires max verbal cues initially, stepping down to min verbal cues by end of session. Lacks carry over from education provided yesterday. Loss of balance noted x3. ? ASSESSMENT:? Patient is unsafe to ambulate independently with quad cane. As patient lives alone, it would be unsafe for her to return home at this time. PLAN: Continue gait training, balance training, safety awareness training per plan of care until patient is able to obtain SNF placement. TREATMENT CODE/TIME: 84338 Gait 12 minutes beginning at 13:51
[2023-03-06 20:02] VITALS: BP 102/66; PULSE 98; RESP 18; TEMP 37; O2SAT 100
[2023-03-06] MEDS: LIDOCAINE Patch Removal 2 EACH TP (22:17)
[2023-03-06] MEDS: Amitriptyline 50 MG TAB PO (22:18)
[2023-03-06] MEDS: Mirabegron 25 MG TABCR PO (22:18)
[2023-03-07] VITALS (7 sets, daily range): BP systolic 90–124; BP diastolic 59–74; PULSE 95–116; RESP 20–24; TEMP 35.4–36.9; O2SAT 95–99
[2023-03-07] MEDS: Acetaminophen 500 MG TAB 1000 MG PO ×3 (01:15→17:16)
--- NOTE | 2023-03-07 05:24 | NUR.NOTE ---
Nursing Note: At 0455, patient rang call farmer to get up to bedside commode. Pt assisted by CURRICULUM AND ASSESSMENT DIRECTOR to stand pivot to commode without incident. Pt stood with CURRICULUM AND ASSESSMENT DIRECTOR assistance for assistance with perineal care, lost balance and fell onto buttocks per CURRICULUM AND ASSESSMENT DIRECTOR. CURRICULUM AND ASSESSMENT DIRECTOR called for assistance, pt assisted by staff x3 from floor to side of bed. Pt denies dizziness or headache, did not hit head. This RN completed full head to toe assessment, vital signs within normal limits, neuro assessment continues to be benign. Sacral area reddened but blanchable, unchanged from previous skin assessment per pressure prevention plan documentation. Sacral mepilex was in place at time of fall. Pt was assisted with skin care/hygiene and assisted back to bed. Bed alarm on, call farmer within reach, no new injuries apparent at this time.
[2023-03-07] MEDS: Levothyroxine 25 MCG TAB PO (06:00)
[2023-03-07] MEDS: Protein Nutritional Supplement 16 GM 1 OUNCE PACKET PO ×3 (07:34→21:21)
[2023-03-07] MEDS: Pantoprazole 40 MG TABCR PO (07:34)
[2023-03-07] MEDS: Lidocaine 5% Patch 2 PATCH TP (07:35)
[2023-03-07] MEDS: DULoxetine 30 MG CAP PO (07:35)
[2023-03-07] MEDS: buPROPion-XL 150 MG TABCR PO (07:35)
[2023-03-07] MEDS: Isosorbide Mononitrate 30 MG TABCR PO (07:35)
[2023-03-07] MEDS: Gabapentin 300 MG CAP PO ×3 (07:35→21:20)
[2023-03-07] MEDS: Budesonide/Formoterol 160/4.5 6 GM 60 PUFF INH IH ×2 (07:38→19:40)
[2023-03-07] MEDS: Tiotropium Bromide-Respimat 10 PUFF INH 2 PUFF IH (07:38)
--- NOTE | 2023-03-07 09:35 | PTTR_ITS ---
Date of service: 03/07/23 Time of Service: 09:11 PT Notes Visit Reasons: Syncope Inpatient Physical Therapy Treatment Note [facility] Date: 03/07/23 PRECAUTIONS: Fall, standard, activity as tolerated. SUBJECTIVE: Patient reports being scared to about tomorrow, as she will find out whether her insurance has approved a SNF stay or whether she will have to go home. OBJECTIVE: Sitting up in recliner, agreeable to therapy? PAIN: Yes, indicates right lower abdomen, reports shooting pain into stomach. VITALS: ? Pre-Treatment: receiving 2L/min supplemental O2 via nasal cannula. SaO2 97%, Hr 94 bpm. ? Post-Treatment: Receiveing 2L/min supplemental O2 via nasal cannula. SaO2 94%, Hr 119 bpm. Patient reports feeling like she is going to pass out.? BED MOBILITY/TRANSFERS? Rolling L/R: independent Supine-sit: independent with head of bed raised, bed railings up. Mod assist without bed rails.? Sit-supine: independent with head of bed raised, bed railings up. Mod assist without bed rails.? Sit-stand: Independent with quad cane? Stand-sit: Independent with quad cane ? Bed-Chair: CGA ? Chair-bed: CGA Provided skilled cues and instruction on performance and technique throughout. Gait Training ([id number]): Direct one-on-one instruction and skilled instruction in: [x] employing an assistive device [x] movement sequencing [x] turning and movement with proper form [x] Provided verbal cues for equipment management and technique [x] Provided instruction in gait pattern [x] Patient education regarding pacing and breathing techniques to maximize act ivity tolerance? GAIT? Assistive Device: Quad Cane ? Weight bearing: full Assist: CGA to min assist for balance ? Distance:? 10 feet, seated rest x3 ? Deviation: Patient demonstrates poor carryover from gait training the last few days, requires max verbal cues initially for gait sequence. Demonstrates wide base of support, extremely short stride length, step-to gait pattern, LOB x2 on flat ground. After ambulating 10' patient states that she needs to sit, feels faint. HR is noteably elevated for such a short effort. ? STAIRS: Patient ascends and descends 3 four inch steps and 2 six inch steps, becomes extremely short of breath. SaO2 94%, HR 120 bpm. Loss of balance x3. Gets confused about where to place the quad cane, attempts to place it directly in front of her feet and step down with one foot on either side of the cane. ? ASSESSMENT:? Patient requires a skilled rehab stay. She will not be safe at home. Patient performs better with a FWW, however her home is not accessible to a walker, and any less restrictive device still places her at extreme risk of falling despite several days of consistent gait training with consistent cueing. PLAN: Continue global gait and balance training per plan of care until patient is medically cleared for discharge, and obtains insurance auth for SNF placement. TREATMENT CODE/TIME: 15251 gait 23 minutes beginning at 9:11
--- NOTE | 2023-03-07 15:22 | PGE_ITS ---
Date of Service Date of service: 03/07/23 Time of Service: 15:22 Assessment and Plan Assessment and plan (1) Ambulatory dysfunction: Status: Acute Assessment and plan: Patient continues to work with physical therapy but remains deconditioned and too weak to be safely really ambulated independently. On top of multiple falls at home she has had 2 falls here in the hospital walked believe there has been no serious injury. On the morning of the fall she did experience a head injury with no loss of consciousness head CT and cervical spine CT showed no acute findings. We will continue to remain on fall precautions and work with PT (2) Colonic mass: Status: Acute Assessment and plan: Awake and alert, Denies pain, she is drinking protein drinks and fluids. will defer further management to outpatient team (3) Protein-calorie malnutrition, moderate: Status: Acute Assessment and plan: Secondary to cancer and compression of duodenum by colon mass. Full liquid diet. Son has brought in Premier protein drinks. Nutrition following (4) Multiple fractures of ribs of both sides: Status: Acute Assessment and plan: Multiple falls with acute and subacute fxs. Pain managment as needed. Pain is controlled IS Acapella (5) Atherosclerotic heart disease [place] coronary artery w/angina pectoris: Status: Acute Assessment and plan: No c/o CP. No h/o [place]. On isosorbide. (6) Stage 3a chronic kidney disease (CKD): Status: Acute Assessment and plan: Avoid nephrotoxic agents. Creatinine of 1.7 on admission. Creatinine now 1.0 - baseline Monitor as needed. (7) COPD (chronic obstructive pulmonary disease): Status: Chronic Assessment and plan: 2 ppd smoker No acute exacerbation. PRN albuterol, Duonebs. 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 (9) Discharge planning issues: Start time: 22:23 Status: Acute Assessment and plan: Unsafe for d/c to home with 2 falls over the last 24 hours; lives alone and has had multiple falls at home and now here. PT working with patient and notes that she has had physical decline over the past couple days. Medically she has remained stable with no acute complaints. appeal for authorization for rehabilitation pending, has been accepted at [facility] and bed is available- - patient in agreement will remain here until we have a safe discharge plan. Discussed with Dr Gan Subjective Subjective Patient reports: tolerating liquids well, tolerating a regular diet and afebrile; denies shortness of breath Interval history since last seen: Over the past couple days physical therapy has noted the patient to be declining physically having experienced 2 falls yesterday. She struck her head head CT was negative the second fall there was no injury. She has been eating and drinking she has had no fevers no shortness of breath medically has remained stable but due to her weakness has not been safe for discharge to home. Exam Const General: no acute distress, frail appearing and ill appearing chronically Nutritional Appearance: average body habitus Orientation: alert, awake and oriented x3 HENMT Head: normal to inspection, normocephalic and atraumatic Mouth: oral mucosae normal Chest Chest: normal inspection of the chest Resp Effort & Inspection: normal respiratory effort Auscultation: diminished lung sounds Cardio Rate: regular rate Rhythm: regular rhythm GI Inspection: normal to inspection Palpation: soft Neuro General: patient alert, patient awake, patient oriented x3 and no focal motor deficits Extrem General: normal to inspection, full ROM and no pedal edema Objective Last Vital Signs Temp 36.9 C 03/07/23 15:14 Pulse 96 H 03/07/23 15:14 Resp 20 03/07/23 06:00 BP 122/74 03/07/23 15:14 Pulse Ox 98 03/07/23 15:14 Time Spent with Patient Time Spent with Patient: 25-34 minutes Time was spent: preparing to see the patient(eg.review tests), counseling the patient and care coordination
--- NOTE | 2023-03-07 18:30 | RT.EKG_ITS ---
APPROVED REPORT Exam: Resting ECG Reason for Exam: chest pain Patient Location: I HR:105 bpm ECG Measurements Heart Rate 105 AXIS [place] 169 P -7 QRSd 74 QRS 26 QT 309 T 9 QTc 409 Conclusion Sinus tachycardia...rate> 99 Borderline T abnormalities, inferior leads...T flat/neg, II III aVF
[2023-03-07] MEDS: nitroGLYcerin 0.4 MG TAB SL (18:41)
[2023-03-07] MEDS: Mirabegron 25 MG TABCR PO (21:20)
[2023-03-07] MEDS: Amitriptyline 50 MG TAB PO (21:20)
[2023-03-07] MEDS: oxyCODONE 5 MG TAB PO (21:21)
[2023-03-07] MEDS: LIDOCAINE Patch Removal 2 EACH TP (21:21)
[2023-03-08 03:00] VITALS: BP 116/66; PULSE 109; RESP 18; TEMP 37.1; O2SAT 96
[2023-03-08] MEDS: Levothyroxine 25 MCG TAB PO (06:17)
[2023-03-08 08:05] VITALS: BP 102/62; PULSE 104; RESP 20; TEMP 37.2; O2SAT 93
[2023-03-08] MEDS: Gabapentin 300 MG CAP PO ×3 (09:00→20:27)
[2023-03-08] MEDS: buPROPion-XL 150 MG TABCR PO (09:21)
[2023-03-08] MEDS: Pantoprazole 40 MG TABCR PO (09:21)
[2023-03-08] MEDS: DULoxetine 30 MG CAP PO (09:23)
[2023-03-08] MEDS: Isosorbide Mononitrate 30 MG TABCR PO (09:23)
[2023-03-08] MEDS: Lidocaine 5% Patch 2 PATCH TP (09:27)
[2023-03-08] MEDS: Budesonide/Formoterol 160/4.5 6 GM 60 PUFF INH IH (09:34)
[2023-03-08] MEDS: Tiotropium Bromide-Respimat 10 PUFF INH 2 PUFF IH (09:34)
[2023-03-08 09:37] VITALS: O2SAT 90
--- NOTE | 2023-03-08 09:56 | PT.INTREAT ---
Date of service: 03/08/23 Time of Service: 09:56 PT Notes Visit Reasons: Syncope Date: 03/08/23 ?PRECAUTIONS: Fall, standard, activity as tolerated. ?SUBJECTIVE: Pt in bed when approached for therapy this morning. pt agreed to participating with session, requested to use the toilet prior to gait training. ?OBJECTIVE: ?PAIN: Yes, Right lower quadrant of stomach, did not provide pain grade ?VITALS: ? Pre-Treatment: receiving 1L/min supplemental O2 via nasal cannula. SaO2 98%, Hr 90 bpm. ? Post-Treatment: Receiveing 1L/min supplemental O2 via nasal cannula. SaO2 96%, Hr 99 bpm. ?BED MOBILITY/TRANSFERS?Rolling L/R: independent ?Supine-sit: independent with head of bed raised, bed railings up. ?Sit-supine: independent with head of bed raised, bed railings up. Upward movement in bed: independent?Sit-stand: Independent with FWW?Stand-sit: Independent with FWW ?Bed- bed side commode: SBA?bed side commode-bed: SBA Provided skilled?cues and instruction on performance and technique throughout. Gait Training ([id number]): Direct one-on-one instruction and skilled instruction in: [x] employing an assistive device [x] movement sequencing [x] turning and movement with proper form [x] Provided verbal cues for equipment management and technique [x] Provided instruction in gait pattern [x] Patient education regarding pacing and breathing techniques to maximize activity tolerance? GAIT?Assistive Device: FWW ?Weight bearing: full ?Assist: SBA/CGA for balance ?Distance:?350 feet?Deviation: wide step width, short step length, slow ashia?STAIRS: Patient ascends and descends 3 four inch steps and 2 six inch steps, becomes extremely short of breath. SaO2 94%, HR 120 bpm. Loss of balance x3. Gets confused about where to place the quad cane, attempts to place it directly in front of her feet and step down with one foot on either side of the cane.? ASSESSMENT:? Pt tolerated activity with less O2 support, vitals stayed WNL, pt expressed anxiety about going home alone due to tendency to fall the past few days. ?PLAN: Continue global gait and balance training per plan of care until patient is medically cleared for discharge, and obtains insurance auth for SNF placement. ?TREATMENT CODE/TIME: 62928 gait 24 minutes 9:56-10:20am
--- NOTE | 2023-03-08 09:58 | PDOC.CMPRO ---
Date of service: 03/08/23 Time of Service: 09:58 Care Management Progress Note Progress Note Text Progress Note Text: S/O:? CM has not received a determination regarding the insurance appeal for Debra. Additional clinical information was faxed today describing the falls over the weekend and her weakened condition. [facility] still has a bed[facility] her and are working with CM to try to facilitate a transfer. A:Debra is a 77 year old woman admitted on 02/18/23 with a UTI and fractured ribs. P:Debra had been accepted at [facility], pending insurance [place]. Another appeal was filed with the insurance company today but it may take up to 3 days to receive a determination. Debra will remain at [facility] until at least Wednesday as [facility]. When she is discharged, home health nursing, PT, OT and PULLEY MAINTAINER will be ordered. her 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 Debra will follow up with her PCP and discharge plan of care. CM will continue to support Debra and assess for ongoing discharge concerns. ?
[2023-03-08] MEDS: Acetaminophen 500 MG TAB 1000 MG PO (13:37)
--- NOTE | 2023-03-08 14:26 | PGE_ITS ---
Date of Service Date of service: 03/08/23 Time of Service: 14:26 Assessment and Plan Assessment and plan (1) Ambulatory dysfunction: Status: Acute Assessment and plan: no new falls overnight. Patient continues to work with physical therapy but remains deconditioned and too weak to be safely really ambulated independently. On top of multiple falls at home she has had 2 falls here in the hospital walked believe there has been no serious injury. On the morning of the fall she did experience a head injury with no loss of consciousness head CT and cervical spine CT showed no acute findings. We will continue to remain on fall precautions and work with PT (2) Colonic mass: Status: Acute Assessment and plan: Awake and alert, Denies pain, she is drinking protein drinks and fluids. will defer further management to outpatient team (3) Protein-calorie malnutrition, moderate: Status: Acute Assessment and plan: Secondary to cancer and compression of duodenum by colon mass. Full liquid diet. Son has brought in Premier protein drinks. Nutrition following (4) Multiple fractures of ribs of both sides: Status: Acute Assessment and plan: Multiple falls with acute and subacute fxs. Pain managment as needed. Pain is controlled IS Acapella (5) Atherosclerotic heart disease [place] coronary artery w/angina pectoris: Status: Acute Assessment and plan: No c/o CP. No h/o [place]. On isosorbide. (6) Stage 3a chronic kidney disease (CKD): Status: Acute Assessment and plan: Avoid nephrotoxic agents. Creatinine of 1.7 on admission. Creatinine now 1.0 - baseline Monitor as needed. (7) COPD (chronic obstructive pulmonary disease): Status: Chronic Assessment and plan: 2 ppd smoker No acute exacerbation. PRN albuterol, Duonebs. 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 (9) Discharge planning issues: Status: Acute Assessment and plan: Unsafe for d/c to home with 2 falls over the last 24 hours; lives alone and has had multiple falls at home and now here. PT working with patient and notes that she has had physical decline over the past few days. Medically she has remained stable with no acute complaints. appeal for authorization for rehabilitation pending, has been accepted at [facility] and bed is available- - patient in agreement will remain here until we have a safe discharge plan. Discussed with Dr Gan Subjective Subjective Patient reports: no new complaints, tolerating liquids well, tolerating a regular diet, voiding w/o difficulty and afebrile Exam Const General: no acute distress, frail appearing and ill appearing chronically Nutritional Appearance: average body habitus Orientation: alert, awake and oriented x3 HENMT Head: normal to inspection, normocephalic and atraumatic Mouth: oral mucosae normal Chest Chest: normal inspection of the chest Resp Effort & Inspection: normal respiratory effort Auscultation: diminished lung sounds Cardio Rate: regular rate Rhythm: regular rhythm GI Inspection: normal to inspection Palpation: soft Neuro General: patient alert, patient awake, patient oriented x3 and no focal motor deficits Extrem General: normal to inspection, full ROM and no pedal edema Objective Last Vital Signs Temp 37.2 C 03/08/23 08:05 Pulse 104 H 03/08/23 08:05 Resp 20 03/08/23 08:05 BP 102/62 03/08/23 08:05 Pulse Ox 90 L 03/08/23 09:37 Time Spent with Patient Time Spent with Patient: <25 minutes Time was spent: preparing to see the patient(eg.review tests), referring, communicating with other health healthcare consultant, counseling the patient and care coordination
[2023-03-08 15:04] VITALS: BP 109/58; PULSE 117; TEMP 36.7; O2SAT 93
--- NOTE | 2023-03-08 15:41 | PTTR_ITS ---
Date of service: 03/08/23 Time of Service: 14:33 PT Notes Visit Reasons: Syncope Inpatient Physical Therapy Treatment Note [facility] Date: 03/08/23 PRECAUTIONS: Fall, standard, activity as tolerated. SUBJECTIVE: Patient reports terrible tongue, throat pain. Reports mouth feels dry but drinking water elise. OBJECTIVE: Patient supine in bed, agreeable to therapy. ? PAIN: Yes, indicated right abdomen as well as throat and tongue. Nursing notified. VITALS: monitored by nursing. ? BED MOBILITY/TRANSFERS? Rolling L/R: independent Supine-sit: min assist ? Sit-supine: min assist ? Sit-stand: CGA ? Stand-sit: CGA ? Bed-Chair: CGA with verbal cues ? Chair-bed: CGA with verbal cues ? Therapeutic Exercises (21111g6): Direct one-on-one instruction in therapeutic exercises to develop strength, endurance, range of motion and flexibility. ?Ambulation ? Assistive Device: FWW ? Weight bearing: full Assist: CGA with verbal cues for safety ? Distance:? 5 feet, 5 feet, 8 feet, 12 feet ? Deviation: Patient appears significantly weak, becoming very short of breath after extremely short distances. Lungs sound audibly wheezy without stethoscope. Verbal cues for slow deep breaths. ? Provided skilled instruction in proper exercise performance Provided skilled manual cues to facilitate proper muscle recruitment and/or form. Neuromuscular Re-education (98979r1): Activities that facilitate re-education of movement balance, posture, coordination, and proprioception or kinesthetic sen se, requiring skilled tactile and verbal cues ? Exercises/techniques: Static and dynamic standing balance challenges. Pursed lip breathing instruction. Incentive inspirometer, tactile cues for posture and breathing techniques. ASSESSMENT:? Patient is resting comfortably in the recline at the end of treatment, with MARYLOU alarm active and call farmer in easy reach. PLAN: Continue global strengthening within patient tolerance per plan of care. TREATMENT CODE/TIME: 52 minutes beginning at 14:33
[2023-03-08] MEDS: fentaNYL 12 MCG PATCH TD (18:12)
[2023-03-08] MEDS: Mirabegron 25 MG TABCR PO (20:26)
[2023-03-08] MEDS: Amitriptyline 50 MG TAB PO (20:28)
[2023-03-08] MEDS: LIDOCAINE Patch Removal 2 EACH TP (20:29)
[2023-03-08] MEDS: oxyCODONE 5 MG TAB PO (20:29)
[2023-03-08] MEDS: Protein Nutritional Supplement 16 GM 1 OUNCE PACKET PO (20:32)
[2023-03-08] MEDS: Famotidine 20 MG TAB PO (22:17)
[2023-03-08 23:43] VITALS: BP 123/75; PULSE 93; RESP 16; TEMP 37.3; O2SAT 94
[2023-03-09] MEDS: Levothyroxine 25 MCG TAB PO (05:28)
[2023-03-09 07:22] VITALS: BP 90/57; PULSE 105; RESP 16; TEMP 36.5; O2SAT 94
[2023-03-09] MEDS: Polyethylene Glycol 3350 17 GM PACKET PO (07:54)
[2023-03-09] MEDS: Protein Nutritional Supplement 16 GM 1 OUNCE PACKET PO ×3 (07:54→20:42)
[2023-03-09] MEDS: Pantoprazole 40 MG TABCR PO (07:55)
[2023-03-09] MEDS: Docusate Sodium 100 MG CAP PO (07:55)
[2023-03-09] MEDS: Gabapentin 300 MG CAP PO ×3 (07:55→20:40)
[2023-03-09] MEDS: buPROPion-XL 150 MG TABCR PO (07:55)
[2023-03-09] MEDS: DULoxetine 30 MG CAP PO (07:55)
[2023-03-09] MEDS: Isosorbide Mononitrate 30 MG TABCR PO (07:55)
[2023-03-09] MEDS: Lidocaine 5% Patch 2 PATCH TP (07:56)
[2023-03-09] MEDS: Budesonide/Formoterol 160/4.5 6 GM 60 PUFF INH IH (08:23)
[2023-03-09] MEDS: Tiotropium Bromide-Respimat 10 PUFF INH 2 PUFF IH (08:24)
[2023-03-09] MEDS: Acetaminophen 500 MG TAB 1000 MG PO ×2 (10:16→18:00)
--- NOTE | 2023-03-09 11:45 | PTTR_ITS ---
Date of service: 03/09/23 Time of Service: 11:42 PT Notes Visit Reasons: Syncope Inpatient Physical Therapy Treatment Note [facility] Date: 03/09/23 PRECAUTIONS: Fall, standard, activity as tolerated SUBJECTIVE: Patient reports mouth hurts less today OBJECTIVE: supine in bed, agreeable to therapy. Bed alarm active. ? PAIN: Yes, 12/19, right abdomen VITALS: monitored by nursing? BED MOBILITY/TRANSFERS? Rolling L/R: independent Supine-sit: independent ? Sit-supine: independent ? Sit-stand: SBA ? Stand-sit: SBA ? Bed-Chair: CGA ? Chair-bed: CGA ? Therapeutic Exercises (71969p1): Direct one-on-one instruction in therapeutic exercises to develop strength, endurance, range of motion and flexibility. ?Ambulation ? Assistive Device: FWW ? Weight bearing: Full Assist: CGA ? Distance:? 20 feet x2 ? Deviation: Patient demonstrates LOB x2, becomes extremely short of breath, reports significant fatigue. Slumps into chair with hair over face, head in hands. ? Provided skilled instruction in proper exercise performance Provided skilled manual cues to facilitate proper muscle recruitment and/or form : Tactile balance cues during ambulation. ASSESSMENT:? Patient appears to be declining. Losing strength, worsening balance. PLAN: Continue global strengthening per plan of care as patient is able to tolerate, until patient obtains placement in a SNF. TREATMENT CODE/TIME: 19 minutes beginning at 11:42
--- NOTE | 2023-03-09 12:30 | PGE_ITS ---
Date of Service Date of service: 03/09/23 Time of Service: 12:30 Assessment and Plan Assessment and plan (1) Ambulatory dysfunction: Status: Acute Assessment and plan: no new falls overnight. Patient continues to work with physical therapy but remains deconditioned and too weak to be safely really ambulated independently. On top of multiple falls at home she has had 2 falls here in the hospital walked believe there has been no serious injury. On the morning of the fall she did experience a head injury with no loss of consciousness head CT and cervical spine CT showed no acute findings. We will continue to remain on fall precautions and work with PT (2) Colonic mass: Status: Acute Assessment and plan: Awake and alert, Denies pain, she is drinking protein drinks and fluids. will defer further management to outpatient team (3) Protein-calorie malnutrition, moderate: Status: Acute Assessment and plan: Secondary to cancer and compression of duodenum by colon mass. Full liquid diet. Son has brought in Premier protein drinks. Nutrition following (4) Multiple fractures of ribs of both sides: Status: Acute Assessment and plan: Multiple falls with acute and subacute fxs. Pain managment as needed. Pain is controlled IS Acapella (5) Atherosclerotic heart disease [place] coronary artery w/angina pectoris: Status: Acute Assessment and plan: No c/o CP. No h/o PA. On isosorbide. (6) Stage 3a chronic kidney disease (CKD): Status: Acute Assessment and plan: Avoid nephrotoxic agents. Creatinine of 1.7 on admission. Creatinine now 1.0 - baseline Monitor as needed. (7) COPD (chronic obstructive pulmonary disease): Status: Chronic Assessment and plan: 2 ppd smoker No acute exacerbation. PRN albuterol, Duonebs. 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 (9) Discharge planning issues: Status: Acute Assessment and plan: Unsafe for d/c to home with 2 falls over the last 24 hours; lives alone and has had multiple falls at home and now here. PT working with patient and notes that she has had physical decline over the past few days. Medically she has remained stable with no acute complaints. appeal for authorization for rehabilitation pending, has been accepted at [facility] and bed is available- - patient in agreement will remain here until we have a safe discharge plan. Discussed with Dr Gan Subjective Subjective Patient reports: no new complaints, feels better, tolerating liquids well, voiding w/o difficulty, no bowel movement and afebrile Interval history since last seen: reporting some mild constipation Exam Const General: no acute distress, frail appearing and ill appearing chronically Nutritional Appearance: average body habitus Orientation: alert, awake and oriented x3 HENMT Head: normal to inspection, normocephalic and atraumatic Mouth: oral mucosae normal Chest Chest: normal inspection of the chest Resp Effort & Inspection: normal respiratory effort Auscultation: diminished lung sounds Cardio Rate: regular rate Rhythm: regular rhythm GI Inspection: normal to inspection Palpation: soft Neuro General: patient alert, patient awake, patient oriented x3 and no focal motor deficits Extrem General: normal to inspection, full ROM and no pedal edema Objective Last Vital Signs Temp 36.5 C 03/09/23 07:22 Pulse 105 H 03/09/23 07:22 Resp 16 03/09/23 07:22 BP 90/57 L 03/09/23 07:22 Pulse Ox 94 03/09/23 07:22 Time Spent with Patient Time Spent with Patient: 25-34 minutes Time was spent: preparing to see the patient(eg.review tests), ordering medications,tests, procedures, indepentently interpreting results and counseling the patient
[2023-03-09 13:13] VITALS: BP 112/70; PULSE 109; TEMP 36.9; O2SAT 92
[2023-03-09 14:43] VITALS: BP 89/56; BP 99/65; PULSE 97; PULSE 98
--- NOTE | 2023-03-09 15:01 | CMPROGNOTE_ITS ---
Date of service: 03/09/23 Time of Service: 15:01 Care Management Progress Note Progress Note Text Progress Note Text: S/O:? Debra is weak and unable to safely return home. She has been accepted to [facility] pending Auth approval from insurance, which was denied and now being appealed. Insurance appeal was sent on Wednesday. Additional clinical information was faxed Wednesday; supporting her need for SNF for due to her weakened condition. [facility] still has a bed for her and advises that appeal determination may take up to 72 hours. CM will follow. A:Debra is a 77 year old woman admitted on 02/18/23 with a UTI and fractured ribs. P:Debra had been accepted at [facility], pending insurance PA. Another appeal was filed with the insurance company today but it may take up to 3 days to receive a determination. Debra will remain at [facility] until at least Wednesday as [facility] does not accept weekend admissions. When she is discharged, home health nursing, PT, OT and LOCKET MAKER will be ordered. her [facility] nurse will also increse visits and a request will be made to increase her Meals on Wheels deliveries. Debra will follow up with her PCP and discharge plan of care. CM will continue to support Debra and assess for ongoing discharge concerns.
--- NOTE | 2023-03-09 16:25 | NT_ITS ---
Date of service: 03/09/23 PT Notes Visit Reasons: Syncope Patient refused therapy with LOUVER MORTISER OPERATOR Sue and myself this afternoon, stating she is too tired.
--- NOTE | 2023-03-09 16:25 | PT.INNT ---
Date of service: 03/09/23 PT Notes Visit Reasons: Syncope Patient refused therapy with GIS PROGRAMMER Sue and myself this afternoon, stating she is too tired.
[2023-03-09] MEDS: oxyCODONE 5 MG TAB PO (20:40)
[2023-03-09] MEDS: Mirabegron 25 MG TABCR PO (20:40)
[2023-03-09] MEDS: Amitriptyline 50 MG TAB PO (20:40)
[2023-03-09] MEDS: Famotidine 20 MG TAB PO (20:41)
[2023-03-09] MEDS: LIDOCAINE Patch Removal 2 EACH TP (20:41)
[2023-03-09 23:02] VITALS: BP 113/59; PULSE 109; RESP 16; TEMP 37.3; O2SAT 93
[2023-03-10 05:54] VITALS: BP 114/62; PULSE 112; RESP 20; TEMP 36.6; O2SAT 95
[2023-03-10] MEDS: Levothyroxine 25 MCG TAB PO (06:30)
[2023-03-10] MEDS: Tiotropium Bromide-Respimat 10 PUFF INH 2 PUFF IH (08:28)
[2023-03-10] MEDS: Budesonide/Formoterol 160/4.5 6 GM 60 PUFF INH IH ×2 (08:28→19:17)
[2023-03-10 08:29] VITALS: O2SAT 95
[2023-03-10] MEDS: Protein Nutritional Supplement 16 GM 1 OUNCE PACKET PO ×3 (08:34→19:40)
[2023-03-10] MEDS: DULoxetine 30 MG CAP PO (08:34)
[2023-03-10] MEDS: Pantoprazole 40 MG TABCR PO (08:34)
[2023-03-10] MEDS: buPROPion-XL 150 MG TABCR PO (08:34)
[2023-03-10] MEDS: Lidocaine 5% Patch 2 PATCH TP (08:34)
[2023-03-10] MEDS: Gabapentin 300 MG CAP PO ×3 (08:34→19:40)
[2023-03-10] MEDS: Isosorbide Mononitrate 30 MG TABCR PO (08:34)
--- NOTE | 2023-03-10 08:46 | PDOC.CMPRO ---
Date of service: 03/10/23 Time of Service: 08:46 Care Management Progress Note Progress Note Text Progress Note Text: S/O:? Debra was sitting up in bed when CM met with her. Debra had indicated that she regretted changing from traditional Medicare to a Medicare Replacement plan and wanted to change back. SELENE met with Bairon Pelayo from [facility], their in-house Medicare expert,who was able to explain to Debra how she could accomplish this. SELENE spoke to her son Ervin in [place], who was in total agreement, and the necessary information was faxed to Bairon to initiate the process. If it is done tomorrow, Debra should be able to begin coverage with traditional Medicare on Wednesday, March 12.. A:Debra is a 77 year old woman admitted on 02/18/23 with a UTI and fractured ribs. P:Debra had been accepted at [facility], pending insurance PA. Another appeal was filed with the insurance company today but it may take up to 3 days to receive a determination. Debra will remain at [facility] until at least Wednesday as [facility] does not accept weekend admissions. When she is discharged, home health nursing, PT, OT and WAREHOUSE PRODUCTION WORKER will be ordered. her [facility] nurse will also increse visits and a request will be made to increase her Meals on Wheels deliveries. Debra will follow up with her PCP and discharge plan of care. CM will continue to support Debra and assess for ongoing discharge concerns. ?
--- NOTE | 2023-03-10 11:39 | PGE_ITS ---
Date of Service Date of service: 03/10/23 Time of Service: 12:00 Assessment and Plan Assessment and plan (1) Ambulatory dysfunction: Status: Acute Assessment and plan: Fall precautions Continue working with PT (2) Colonic mass: Status: Acute Assessment and plan: Awake and alert, Denies pain, she is drinking protein drinks and fluids. will defer further management to outpatient team Dietary would like to adv diet for nutrition, discussed with surgery, we will call back tomorrow, but keep on full fluids tonight. (3) Protein-calorie malnutrition, moderate: Status: Acute Assessment and plan: Secondary to cancer and compression of duodenum by colon mass. Full liquid diet. Son has brought in Premier protein drinks. Nutrition following and req adv diet - discussion with surgeon planned for 03/11 (4) Multiple fractures of ribs of both sides: Status: Acute Assessment and plan: Multiple falls with acute and subacute fxs. Pain managment as needed. Pain is controlled IS Acapella (5) Atherosclerotic heart disease [place] coronary artery w/angina pectoris: Status: Acute Assessment and plan: No c/o CP. No h/o [place]. On isosorbide. (6) Stage 3a chronic kidney disease (CKD): Status: Resolved Assessment and plan: Avoid nephrotoxic agents. Monitor as needed. (7) COPD (chronic obstructive pulmonary disease): Status: Chronic Assessment and plan: 2 ppd smoker No acute exacerbation. PRN albuterol, Duonebs. 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 (9) Discharge planning issues: Status: Acute Assessment and plan: Unsafe for d/c to home PT working with patient appeal for authorization for rehabilitation pending, has been accepted at [facility] and bed is available- - patient in agreement will remain here until we have a safe discharge plan. Discussed with Dr Franco Subjective Subjective Patient reports: no new complaints, tolerating liquids well, voiding w/o difficulty, bowel movement and afebrile; denies nausea or vomiting Interval history since last seen: Anxious to get results of liver bx, drinking plenty of fluids, Exam Const General: no acute distress, frail appearing and ill appearing chronically Nutritional Appearance: average body habitus Orientation: alert, awake and oriented x3 HENMT Head: normal to inspection, normocephalic and atraumatic Mouth: oral mucosae normal Chest Chest: normal inspection of the chest Resp Effort & Inspection: normal respiratory effort Auscultation: diminished lung sounds Cardio Rate: regular rate Rhythm: regular rhythm GI Inspection: normal to inspection Palpation: soft Neuro General: patient alert, patient awake, patient oriented x3 and no focal motor deficits Extrem General: normal to inspection, full ROM and no pedal edema Objective Last Vital Signs Temp 37.1 C 03/10/23 19:02 Pulse 100 H 03/10/23 19:02 Resp 16 03/10/23 19:02 BP 98/55 L 03/10/23 19:02 Pulse Ox 92 03/10/23 19:02 Time Spent with Patient Time Spent with Patient: 25-34 minutes Time was spent: preparing to see the patient(eg.review tests), ordering medications,tests, procedures, referring, communicating with other health residential care facility manager, indepentently interpreting results, counseling the patient and care coordination
--- NOTE | 2023-03-10 17:08 | PT.INTREAT ---
PT Notes Visit Reasons: Syncope Date: 03/10/23 ?PRECAUTIONS: Fall, standard, activity as tolerated. ?SUBJECTIVE: Pt in bed when approached for therapy, pt agreed to participating with session after she goes to her bedside commode. ?OBJECTIVE:?PAIN: Yes, chest area today ?VITALS: Closely monitored by nursing?? ? BED MOBILITY/TRANSFERS?Rolling L/R: independent ?Supine-sit: independent with head of bed raised, bed railings up.?Sit-supine: independent with head of bed raised, bed railings up. Upward movement in bed: independent?Sit-stand: Independent with FWW?Stand-sit: Independent with FWW ?Bed- bed side commode: CGA?bed side commode-bed: SBA Provided skilled?cues and instruction on performance and technique throughout. Gait Training ([id number]): Direct one-on-one instruction and skilled instruction in: [x] employing an assistive device [x] movement sequencing [x] turning and movement with proper form [x] Provided verbal cues for equipment management and technique [x] Provided instruction in gait pattern [x] Patient education regarding pacing and breathing techniques to maximize activity tolerance? GAIT?Assistive Device: FWW ?Weight bearing: full ?Assist: SBA/CGA for balance ?Distance:?40', 40', 80' feet? ? seated rest break in between distances?Deviation: wide step width, short step length, slow ashia? ASSESSMENT:? Pt tolerated activity with less O2 support, vitals stayed WNL, pt expressed anxiety about going home alone due to tendency to fall the past few days. ?PLAN: Continue global gait and balance training per plan of care until patient is medically cleared for discharge, and obtains insurance auth for SNF placement. ?TREATMENT CODE/TIME: [id number] gait 25 mins, 3:06-3:31pm
[2023-03-10] MEDS: Acetaminophen 500 MG TAB 1000 MG PO (17:43)
[2023-03-10 19:02] VITALS: BP 98/55; PULSE 100; RESP 16; TEMP 37.1; O2SAT 92
[2023-03-10] MEDS: Famotidine 20 MG TAB PO (19:40)
[2023-03-10] MEDS: Docusate Sodium 100 MG CAP PO (19:40)
[2023-03-10] MEDS: oxyCODONE 5 MG TAB PO (19:40)
[2023-03-10] MEDS: Amitriptyline 50 MG TAB PO (19:40)
[2023-03-10] MEDS: Polyethylene Glycol 3350 17 GM PACKET PO (19:40)
[2023-03-10] MEDS: LIDOCAINE Patch Removal 2 EACH TP (21:03)
[2023-03-10] MEDS: Mirabegron 25 MG TABCR PO (21:04)
[2023-03-11] MEDS: Levothyroxine 25 MCG TAB PO (05:08)
[2023-03-11] MEDS: oxyCODONE 5 MG TAB PO ×2 (06:44→20:24)
[2023-03-11 07:18] LABS: Abs Immature Grans 0.23 10^3/uL (0.0-0.06); Absolute Basophil Count 0.05 10^3/uL (0.0-0.2); Absolute Eosinophil Count 0.05 10^3/uL (0.0-0.7); Absolute Lymphocyte Count 1.22 10^3/uL (1.2-3.4); Absolute Monocyte Count 0.87 10^3/uL (0.1-0.8); Absolute Neutrophil Count 9.82 10^3/uL (1.2-6.7); Basophils % 0.4; Eosinophils % 0.4; HCT 30.2 % (36.0-46.0); HGB 9.2 g/dL (11.2-15.7); Immature Grans % 1.9; MCH 27.2 pg (27.0-33.0); MCHC 30.5 % (32.0-36.0); MCV 89 fL (80-95); MPV 8.8 fL (8.0-11.0); Monocytes % 7.1; Neutrophils % 80.2; Platelet Count 310 10^3/uL (130-400); RBC 3.38 10^6/uL (3.93-5.22); RDW 14.4 % (11.7-14.6); RDW-SD 46.9 fL; WBC 12.24 10^3/uL (4.4-10.8)
[2023-03-11 07:36] LABS: Anion Gap 6.4 mmol/L (3-11); BUN 28 mg/dL (7-18); CO2 32.6 mmol/L (21.0-32.0); CREATININE 1.2 mg/dL (0.55-1.02); Calcium 9.4 mg/dL (8.5-10.1); Chloride 98 mmol/L (98-107); Estimated GFR 46.33 (mL/min/1.73m2); Glucose 98 mg/dL (74-106); Potassium 4.3 mmol/L (3.5-5.1); Sodium 137 mmol/L (136-145)
[2023-03-11] MEDS: Budesonide/Formoterol 160/4.5 6 GM 60 PUFF INH IH ×2 (07:43→19:21)
[2023-03-11 07:45] VITALS: O2SAT 93
[2023-03-11 08:10] VITALS: BP 118/76; PULSE 103; RESP 17; TEMP 37.3; O2SAT 91
[2023-03-11] MEDS: Pantoprazole 40 MG TABCR PO (08:32)
[2023-03-11] MEDS: Docusate Sodium 100 MG CAP PO (08:32)
[2023-03-11] MEDS: buPROPion-XL 150 MG TABCR PO (08:32)
[2023-03-11] MEDS: Isosorbide Mononitrate 30 MG TABCR PO (08:32)
[2023-03-11] MEDS: Gabapentin 300 MG CAP PO ×3 (08:33→20:24)
[2023-03-11] MEDS: Lidocaine 5% Patch 2 PATCH TP (08:33)
[2023-03-11] MEDS: DULoxetine 30 MG CAP PO (08:33)
[2023-03-11] MEDS: Polyethylene Glycol 3350 17 GM PACKET PO (08:33)
[2023-03-11] MEDS: Protein Nutritional Supplement 16 GM 1 OUNCE PACKET PO ×3 (08:33→20:24)
--- NOTE | 2023-03-11 09:40 | PDOC.CMPRO ---
Date of service: 03/11/23 Time of Service: 09:41 Care Management Progress Note Progress Note Text Progress Note Text: S/O:? Debra was sitting up in bed when CM met with her. She was smiling and engaged readily with CM. Debra has successfully changed her insurance back to traditional Medicare with a Part D drug plan through [employer]. This will likely enable her to transfer to [facility] without prior authorization. Debra was pleased with the change and is hopeful that she may soon be able to transfer to a SNF. She talked a bit about her likely cancer diagnosis and the need for further evaluation. Without biopsy results and consultation with Oncology, she cannot know what her options are. Her son Kamaljit also has cancer and his cortes has given her encouragement to seek as much information as possible before deciding on a course of action. A:Debra is a 77 year old woman admitted on 02/18/23 with a UTI and fractured ribs. P:Debra had been accepted at [facility], pending insurance PA. After meeting with Bairon Pelayo from the [facility], Debra decided to switch her insurance back to standard Medicare with a [employer] drug plan. This will enable her to transfer to a SNF without the need for prior authorization. CM has communicated the change to &R and hopefully she will be able to go soon, as her Medicare goes into effect tomorrow. Debra will follow up with the facility providers and plan of care. CM will continue to support Debra and assess for ongoing discharge concerns. ?
[2023-03-11] MEDS: Tiotropium Bromide-Respimat 10 PUFF INH 2 PUFF IH (09:48)
[2023-03-11 09:56] VITALS: RESP 16; O2SAT 91
[2023-03-11] MEDS: Acetaminophen 500 MG TAB 1000 MG PO ×2 (09:59→17:55)
[2023-03-11 14:25] VITALS: O2SAT 92
--- NOTE | 2023-03-11 14:39 | INPN_ITS ---
PT Notes Visit Reasons: Syncope Inpatient Physical Therapy Progress Note Date: 03/11/23 Dates of Service: 03/02/2023 - 03/11/23 Referring Doctor: Funmilayo Erickson MD PT Orders: PT CONSULT: eval and treat for weakness, fall risk. H/o multiple falls Precautions: Fall. Standard. Activity as tolerated. On full liquid diet. Patient Profile/Admitting Diagnosis:?? Patient admitted 02/18/23 after fall at home resulting in multiple rib fractures. 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 (Acute) Unexplained weight loss (Acute) Protein-calorie malnutrition, moderate (Acute) Metastasis to liver (Acute) Mass of hepatic flexure of colon (Acute) Microcytic anemia (Acute) Multiple fractures of ribs of both sides (Acute) Acute UTI (urinary tract infection) (Acute) Fall as cause of accidental injury at home as place of occurrence (Acute) Osteoporosis (Chronic) Chronic low back pain (Chronic) Atherosclerotic heart disease [place] coronary artery w/angina pectoris (Acute) Restless legs syndrome (RLS) (Acute) Urge incontinence (Acute) Stage 3a chronic kidney disease (CKD) (Acute) Chronic insomnia (Acute) Temporal arteritis (Acute) Mass of stomach (Acute) Liver mass (Acute) Syncope (Chronic) Anemia (Chronic) Closed rib fracture (Acute) COPD (chronic obstructive pulmonary disease) (Chronic) Medical History? Anxiety Depression Diabetes DJD (degenerative joint disease), lumbar GERD (gastroesophageal reflux disease) Hyperparathyroidism Hypothyroidism Surgical History? History of appendectomy History of back surgery History of knee surgery Status post hip replacement Social History/Home Situation: Lives alone in single level home. Typically ambulates without device, although admits to frequent falls. She states that she's had multiple falls at home resulting in several hours on the floor. Equipment Owned/DME: [employer], which she owns, but does not use at baseline Subjective:? Debra expresses that she does not feel safe at home with her repeated falls. She states that she feels dizzy when she stands too long, and remains fearful of falling. Objective:? General Observation: Resting in bed, supplemental O2 via nasal cannula. Mental Status: A&Ox3. Pleasant and cooperative. Pain: As above ROM: Right Upper Extremity: Shoulder flexion 135*. Elbow, wrist and hand motion WFL. Left Upper Extremity: Shoulder flexion 120*. Elbow, wrist and hand motion WFL. Right Lower Extremity: WFL Left Lower Extremity: WFL Strength: Right Upper Extremity: Grossly 3-/5. Formal strength testing not performed due to rib fxs. Left Upper Extremity: Grossly 3-/5. Formal strength testing not performed due to rib fxs. Right Lower Extremity: Hip flexion 4/5. Quads 4/5. Ankle DF 5/5 Left Lower Extremity:? Hip flexion 4/5. Quads 4/5. Ankle DF 5/5 Bed Mobility and Transfers: supine-sit: supervision, with increased time to perform and HOB at 30* sit-supine: supervision, with increased time to perform sit-stand: supervision stand-sit: supervision bed to commode: FWW, CGA scooting in bed: max cues, min A Gait:? Able to tolerate up to 200 feet per VOIP ENGINEER notes but requires seated rests due to easy fatiguability requiring contact guard assist to stand by assist using front-wheeled walker. Step length and height asymmetric. Cues provided for posture, pacing, and overall safety. Today, ambulates 10' with FWW and poor safety awareness. During initiation of ambulation, patient reports need to use commode; she abandons FWW and quickly walks to commode with CUSTOMER TRAINING SPECIALIST, with poorly controlled descent to sitting. Balance:? Static Sitting: Normal Dynamic Sitting: Normal Static Standing: fair Dynamic Standing: Fair 4-Position Balance Test: 07/15 Small ANABEL: 10 seconds Partial Tandem:unable without UE support Full Tandem: 0 seconds Single Leg Stance: 0 seconds Treatment: Therapeutic Exercises (00624h3): sit-stand, without UE support, 5x max cues partial tandem stance, 20 seconds, CGA supine bridge, partial only, 3x, max cues SLR 10x each, rest periods between repetition heel slide 10x each , intermittent tactile cues ASSESSMENT:? Patient continues to demonstrate decreased activity tolerance, weakness, decreased safety awareness, and balance impairment which increase her risk for falls and decreases ability to thrive alone at home. She will require SNF placement for continued rehabilitation to address remaining functional deficits. Goals: Goals X1 week 1. Supine-Sit : supervision MET, 2. Sit-Supine? : supervision MET, ALTHOUGH WITH INCREASED TIME TO PERFORM; CONTINUE AT SNF once placed 3. Sit-Stand? : supervision MET ALTHOUGH WITH DECREASED SAFETY AWARENESS, CONTINUE AT SNF once placed 4. Stand-Sit? : supervision NOT MET, CONTINUE AT SNF once placed 5. Bed-Chair? : supervision with FWW NOT MET, CONTINUE AT SNF once placed 6. Chair-Bed? : supervision with FWW NOT MET, CONTINUE AT SNF once placed 7. Gait? : supervision with FWW x 50' NOT MET, CONTINUE AT SNF once placed 9. Independent with home exercise program NOT MET, CONTINUE AT SNF once placed Plan of Care/Treatment Plan: 1x/day, 7 days/week x 1 week. Plan of care has been reviewed with the VOIP ENGINEER providing the service under Physical Therapy direction. Initiate Physical Therapy intervention for strengthening, bed mobility, transfers, gait, stairs, balance training, use of assistive device. DISCHARGE RECOMMENDATIONS: SNF for continued rehabilitation TREATMENT CODE/TIME: [id number] ([id number]) Thank you for the opportunity to participate in the care of this patient. Priscilla Gold PT, DPT [facility] [place], [place]
[2023-03-11 16:19] VITALS: BP 100/61; PULSE 90; RESP 17; TEMP 36.4; O2SAT 95
[2023-03-11] MEDS: fentaNYL 12 MCG PATCH TD (17:42)
[2023-03-11] MEDS: Famotidine 20 MG TAB PO (20:24)
[2023-03-11] MEDS: Amitriptyline 50 MG TAB PO (20:24)
[2023-03-11] MEDS: Mirabegron 25 MG TABCR PO (20:24)
[2023-03-11] MEDS: LIDOCAINE Patch Removal 2 EACH TP (20:26)
[2023-03-11 20:29] VITALS: BP 117/69; PULSE 99; RESP 16; TEMP 35.6; O2SAT 94
[2023-03-11] MEDS: Ondansetron O.D.T. 4 MG TABEF PO (22:30)
[2023-03-12] MEDS: Acetaminophen 500 MG TAB 1000 MG PO ×2 (05:41→09:41)
[2023-03-12] MEDS: Levothyroxine 25 MCG TAB PO (06:05)
[2023-03-12] MEDS: DULoxetine 30 MG CAP PO (07:55)
[2023-03-12] MEDS: buPROPion-XL 150 MG TABCR PO (07:55)
[2023-03-12] MEDS: Isosorbide Mononitrate 30 MG TABCR PO (07:55)
[2023-03-12] MEDS: Protein Nutritional Supplement 16 GM 1 OUNCE PACKET PO ×2 (07:55→13:43)
[2023-03-12] MEDS: Gabapentin 300 MG CAP PO ×2 (07:55→13:43)
[2023-03-12] MEDS: Pantoprazole 40 MG TABCR PO (07:55)
[2023-03-12] MEDS: Lidocaine 5% Patch 2 PATCH TP (07:57)
[2023-03-12] MEDS: Budesonide/Formoterol 160/4.5 6 GM 60 PUFF INH IH (08:12)
[2023-03-12] MEDS: Tiotropium Bromide-Respimat 10 PUFF INH 2 PUFF IH (08:12)
[2023-03-12 09:01] VITALS: BP 101/64; PULSE 101; RESP 18; TEMP 36.4; O2SAT 89
--- NOTE | 2023-03-12 10:14 | PT.INTREAT ---
Date of service: 03/12/23 Time of Service: 09:41 PT Notes Visit Reasons: Syncope Inpatient Physical Therapy Treatment Note [facility] Date: 03/12/23 PRECAUTIONS: Fall, standard, activity as tolerated SUBJECTIVE: Patient reports feeling ok, but then reports that she has been seeing a young boy playing in her room, most recently messing with her purse in the chair by the window. This therapist places the purse in the middle drawer of the end table at the patient's request. KATIE Heck notified. OBJECTIVE: patient is supine in bed, agreeable to therapy. ? PAIN: reports that right side grabs as she moves to sit EOB, but it resolves quickly. VITALS: monitored by nursing staff. ? Therapeutic Exercises ([id number]): Direct one-on-one instruction in therapeutic exercises to develop strength, endurance, range of motion and flexibility. ?Ambulation ? Assistive Device: FWW? Weight bearing: full Assist: CGA, wheelchair follow? Distance:? 50 feet, seated rest x4 ? Deviation: Patient becomes noticeably short of breath after very short bouts of ambulation, needs to stop and rest for 2-3 minutes to recover. LOB noted x2. Short, shuffling gait pattern, forward stooped posture. ? Provided skilled instruction in proper exercise performance Provided education and cues regarding nasal breathing, as patient is on supplemental O2 1L/min. ASSESSMENT:? Patient fatigues quickly, conversation stops making sense. Patient resting comfortably supine in bed at end of treatment, call farmer in easy reach. PLAN: Continue global strengthening per plan of care until patient obtains SNF placement. TREATMENT CODE/TIME: 32 minutes beginning at 9:41
[2023-03-12 10:37] VITALS: O2SAT 91
--- NOTE | 2023-03-12 15:34 | W.PM.DS.N ---
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 (2) Near syncope: Status: Acute (3) UTI (urinary tract infection): Status: Inactive (4) Anemia: Status: Chronic (5) Chronic respiratory failure with hypoxia, on home O2 therapy: Status: Acute (6) Ambulatory dysfunction: Status: Acute (7) Protein-calorie malnutrition, moderate: Status: Acute (8) Multiple fractures of ribs of both sides: Status: Acute (9) Atherosclerotic heart disease [place] coronary artery w/angina pectoris: Status: Acute (10) Stage 3a chronic kidney disease (CKD): Status: Resolved (11) COPD (chronic obstructive pulmonary disease): Status: Chronic (12) 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: Status: Acute (13) Fall: Status: Acute Discharge Plan Disposition Patient Disposition: Long-Term Facility(SNF) Condition: Stable Discharge Details Reason For Visit: Syncope Admit Date/Time: 02/18/23 17:21 Admit Provider: Luis Gan Attending Provider: Luis Gan Primary Care Provider: Maria Guadalupe Price Hospital Course Hospital Course: Ms Guthrie is a 77 year old female with PMHx of CAD, severe COPD on 4L of O2 by [place], chronic respiratory failure with hypoxia, CKD III, admitted to [facility] surgical service on 02/19/23 after presenting to ED after a fall vs near-syncope after getting up, being found to have acute and subacute rib fractures as well as a large bowel mass invading into the liver on CT and undergoing an EGD, biopsies from which later came back inconclusive. Of note, as an outpatient, there was already some concern about the patient getting weaker, her poor appetite and weight loss. Her care was then transferred to the hospitalist service after the EGD. The near-syncope appears to have been orthostatic/vaso-vagal and there was a similar episode at home a few weeks prior. Her hemoglobin on admission was 8.4, down from her usual 10-12, and, given near-syncope, a unit of blood was transfused with improvement in hemoglobin as expected. There was no evidence of acute bleeding. She also did have evidence of a UTI, treated with ceftriaxone. Because the UA was contaminated, urine C&S was not done. Prior c&s did grow leung-sensitive E. Coli and the patient responded clinically to ceftriaxone. The patient completed a 3 day antibiotic course. The patient was evaluated by palliative care and expressed that she was interested in pursuing aggressive treatment or at least finding out what her options are. When the EGD pathology came back showing fragments of markedly inflamed gastric mucosa with granulation tissue, consistent with a hyperplastic inflammatory polyps, but negative for malignancy and H. Pylori, a decision was made to pursue a colonoscopy, which she underwent on 02/26/23. It was felt that the mass was most likely derived from the colon, but the appearance of colon on the colonoscoy was normal. A CT-guided liver biopsy by IR at [facility] was then pursued. This happened on 03/02/23. We did hold the plavix in anticipation of further procedures. Results of that biopsy have just come back and are showing sarcomatoid carcinoma of unclear origin. The patient is notified of that diagnosis. She is being referred to [facility] oncology. We worked on pain control for her rib fractures and started her on fentanyl patches. She remained a patient on our in-patient service while awaiting insurance for SNF placement which was indicated based on her deconditioning/ambulatory dysfunction and performance with PT. She did have two falls here in the hospital, but with fall precautions these have not recurred. The fall on 03/06 resulted in the patient striking her head. CT head was negative. She was accepted at [facility]. A referral to [facility] oncology had been sent. She is medically stable for discharge to [facility] today. Plavix is being resumed on discharge. Care for patient as well as completion of her discharge summary on the day of discharge took 60 minutes. Home Meds and New Rx's Prescriptions: New gabapentin 300 mg Capsule 300 mg PO TID Qty: 0 0RF acetaminophen 500 mg Tablet 1,000 mg PO Q8H Qty: 30 0RF docusate sodium [Colace] 100 mg Capsule 100 mg PO BID Qty: 0 0RF famotidine 20 mg Tablet 20 mg PO HS Qty: 0 0RF fentanyl 12 mcg/hr Patch 72 Hour 12 mcg transdermal Q72H Qty: 2 0RF lidocaine 5 % Adhesive Patch,Medicated 2 patch topical DAILY Qty: 0 0RF ondansetron 4 mg Tablet,Disintegrating 4 mg PO Q8H PRN PRNQty: 0 0RF oxycodone 5 mg Tablet 5 mg PO Q4H PRN PRNQty: 30 0RF polyethylene glycol 3350 17 gram Powder In Packet 17 g PO BID Qty: 0 0RF Phlexy-Vits 15 mg- 700 mcg Powder In Packet 1 oz PO TID Qty: 0 0RF Continued ipratropium-albuterol 3 ML solution for nebulization 3 ml Inhalation Q6H PRN PRN albuterol sulfate 3 ML solution for nebulization 3 ml Inhalation Q4H PRN PRN albuterol sulfate 8.5 GM HFA aerosol inhaler 2 puff Inhalation Q4H PRN PRN budesonide-formoterol [Symbicort] 60 PUFF HFA aerosol inhaler 2 puff Inhalation BID mirabegron 25 mg Tablet Extended Release 24 Hr 25 mg PO QHS atorvastatin 40 mg Tablet 40 mg PO DAILY clopidogrel 75 mg Tablet 75 mg PO DAILY amitriptyline 50 mg Tablet 50 mg PO QHS levothyroxine 25 mcg Tablet 25 mcg PO DAILY pantoprazole 20 mg Tablet,Delayed Release (Dr/Ec) 40 mg PO DAILY nitroglycerin 0.4 mg Tablet, Sublingual 0.4 mg SUBLINGUAL Q5M PRN cholecalciferol (vitamin D3) 1,000 unit Tablet,Chewable 5,000 unit PO DAILY Spiriva Respimat 2.5 mcg/actuation Mist 2 puff INHALATION DAILY (DME) Oxygen-Air Delivery Systems 4 ondansetron 4 mg tablet,disintegrating 4 mg PO TID PRN (Reason: nausea and vomiting) Qty: 6 0RF isosorbide mononitrate 30 mg tablet extended release 24 hr 30 mg PO DAILY duloxetine 30 mg capsule,delayed release(DR/EC) 30 mg PO DAILY Patient Comments: TAKE 1 CAPSULE BY MOUTH ONCE DAILY bupropion HCl 150 mg Tablet Extended Release 24 Hr 150 mg PO QAM Discontinued gabapentin 800 MG tablet 800 mg PO TID Patient Comments: 04/02/19 taking 800mg--800mg--400mg metoprolol succinate 50 mg Tablet Extended Release 24 Hr 50 mg PO DAILY acetaminophen [Acetaminophen Extra Strength] 500 mg Tablet 1,000 mg PO Q8H PRN naproxen sodium 220 mg Capsule 220 mg PO BID Patient Comments: not taking per med list 02/18/23 metoprolol succinate 25 mg tablet extended release 24 hr 25 tab PO DAILY Patient Comments: TAKE 1 TABLET BY MOUTH DAILY WITH 50 MG TO EQUAL 75 MG Rx Instructions: total 75mg Discharge Instructions Instructions: Liver Cancer (DC), Urinary Tract Infection in Women (DC), Near Syncope (DC), Anemia (DC), Rib Fracture (DC) Stand Alone Forms: Nursing Discharge Form Referrals: HEMATOLOGY/ONC,[facility] [OTHER] - Activity:: Activity as Tolerated Equipment/Supplies:: No Equipment Needed Diet:: As Tolerated Discharge Orders Discharge Orders: Discharge Order (Routine); Ordered 03/12/23 Ordered By: Kerry Franco Discharge Data Discharge Date/Time-TO BE ENTERED AT DEPARTURE: 03/12/23 16:02 DS: Summary Time Spent with Patient providing and/or coordinating discharge services: Greater than 30 minutes Status at Discharge Functional status at discharge: uses cane/walker Overall status at discharge: patient is progressing back to baseline Mental Status: mental status grossly normal Speech and Movement: speech and movement normal Mood: congruent mood Affect: normal affect Exam Narrative Exam Narrative: General: Pleasant frail elderly female who is A&Ox3, NAD HEENT: EOMI, MMM Heart: RRR, no m/r/g Lungs: CTAB Abdomen: soft, tender in RUQ and R flank, nondistended Extremities: no edema, clubbing, cyanosis of BLEs Psych Mental Status: mental status grossly normal Speech and Movement: speech and movement normal Mood: congruent mood Affect: normal affect DS: Data Vitals/I&O Vitals and I&O: Vital Signs Temperature 36.4 C L 03/12/23 09:01 Temperature Source Tympanic 03/12/23 09:01 Pulse 101 H 03/12/23 09:01 Pulse Rhythm Irregular 03/12/23 10:06 Pulse 72 02/18/23 18:20 Respiratory Rate 18 03/12/23 09:01 Respiratory Effort Normal 03/12/23 10:06 Respiratory Depth Normal 03/12/23 10:06 Respiratory Pattern Normal 03/12/23 10:06 Blood Pressure 101/64 03/12/23 09:01 Blood Pressure Mean 69 02/18/23 18:15 Blood Pressure Position Supine 02/18/23 15:20 Pulse Oximetry 91 L 03/12/23 10:37 Respiratory End-tidal CO2 19 02/26/23 14:35 Oxygen Delivery Method Nasal Cannula 03/12/23 10:50 Oxygen Flow Rate 2 03/12/23 10:50 Pain Level 5 03/12/23 10:50 Comment bp called over radio 03/03/23 15:16 Intake & Output 03/11/23 03/12/23 03/12/23 23:59 11:59 23:59 Intake Total 10 / 130 120 / 130 Output Total 400 / 700 750 / 1050 300 / 1050 Balance -390 / -680 -740 / -920 -180 / -920 Intake: IV 10 Oral 120 / 120 Output: Urine 400 / 700 750 / 1050 300 / 1050 Other: Urine Color Yellow Yellow Yellow Urine Appearance Cloudy Clear Stool Size Moderate Moderate Stool Characteristics Liquid Soft Voiding Methods Bedside Commode Bedside Commode Bedside Commode Data Completed and Pending Completed studies during hospitalization [Text1]: CT chest w/ contrast 02/18/23: Large stomach mass with extension into the liver where there is an 8.9 x 8.3 centimeter mass. Subacute appearing fracture of the anterior right 2nd rib. Acute appearing fracture of the right lateral 6th rib. No pneumothorax. No pulmonary contusion. CT head/c-spine 02/18/23: Head CT: No acute abnormality. C-spine CT: Degenerative changes, no acute abnormality. CT chest/abdomen/pelvis 02/18/23: Chest: Severe emphysematous changes and areas of scarring.? No evidence of metastatic disease. Abdomen pelvis: Large mass of the gastric antrum with involvement of the gallbladder as well as a large adjacent mass in the liver.? Question of involvement of the hepatic flexure of the colon. CT head/c-spine 03/06/23: 1. No acute intracranial process.? 2. No acute fracture or subluxation in the cervical spine. 3. No acute changes or new changes are seen compared to the prior examination from 02/18/2023. Labs on day of discharge: Labs from last 24 hours 03/12/23 11:41 Urine Color Pending Urine Clarity Pending Urine pH Pending Ur Specific [place] Pending Urine Protein Pending Urine Ketones Pending Urine Blood Pending Urine Nitrite Pending Urine Bilirubin Pending Urine Urobilinogen Pending Ur Leukocyte Esterase Pending Urine Glucose Pending PFSH All Active Problems (Updated 03/12/23 @ 16:27 by Kerry Franco MD) 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 (Acute) Unexplained weight loss (Acute) Protein-calorie malnutrition, moderate (Acute) Metastasis to liver (Acute) Mass of hepatic flexure of colon (Acute) Microcytic anemia (Acute) Multiple fractures of ribs of both sides (Acute) Fall as cause of accidental injury at home as place of occurrence (Acute) Osteoporosis (Chronic) Chronic low back pain (Chronic) Atherosclerotic heart disease [place] coronary artery w/angina pectoris (Acute) Restless legs syndrome (RLS) (Acute) Urge incontinence (Acute) Chronic insomnia (Acute) Temporal arteritis (Acute) Mass of stomach (Acute) Liver mass (Acute) Syncope (Chronic) Anemia (Chronic) Closed rib fracture (Acute) COPD (chronic obstructive pulmonary disease) (Chronic) Medical History Anxiety Depression Diabetes DJD (degenerative joint disease), lumbar GERD (gastroesophageal reflux disease) Hyperparathyroidism Hypothyroidism Surgical History History of appendectomy History of back surgery History of knee surgery Status post hip replacement Social History Smoking/Tobacco Use Status: Former Tobacco Use Smoking risk assessment performed?: Yes Alcohol Intake: current Alcohol Intake frequency: holidays/special occasions only Alcohol type: wine Drug use: Never Substance use type: does not use Housing: house Do you feel safe at home: Yes Do you feel safe in your relationship?: Yes Time Spent with Patient Time Spent with Patient: 45-69 minutes Time was spent: preparing to see the patient(eg.review tests), obtaining and/or reviewing separately otained hiistory, ordering medications,tests, procedures, referring, communicating with other health before and after school daycare worker, indepentently interpreting results, counseling the patient and care coordination
--- NOTE | 2023-03-12 17:47 | PDOC.CMDIS ---
Date of service: 03/12/23 Time of Service: 17:47 LACE Index Scoring Tool Questions: Length of Stay (in days): 14 or more Was the patient admitted via the E.D.?: Yes Comorbidities: Diabetes w/o Complication, Chronic Pulmonary Disease, Liver or Renal Disease and Metastatic Solid Tumor E.D. Visits: 1 Answers: Total Score: 16 Risk of Readmission: High Risk Care Management Discharge Plan Reason for Hospitalization: UTI, fractured ribs Discharge Plan: Debra will be transferred to [facility] this afternoon via w/c van. She will follow up with [facility] and the facility plan of care. Debra now has traditional Medicare as well as Medicaid. Her LTM application has been filed and she is clinically approved. CM assisted with obtaining consents from Debra to facilitate the review and approval process. The financial review should happen next week. Patient/Family Education Needs: Review of discharge instructions, limitations, activity, follow up plan, discuss Ask Me Three' Services Needed at Discharge: [facility] Facility
== END 2023-03-12 16:02 | disposition skilled nursing facility (03) | DRG 543 ==
LOC: ER 18:00 → MS 18:42
PROVIDERS: Internal Medicine; Nurse Practitioner Family; Surgery; Admitting Provider Family Medicine; Emergency Provider Student in an Organized Health Care Education/Training Program; PCP Internal Medicine Adolescent Medicine; Visit Provider Family Medicine
PROC: 0DJ68ZZ Inspection of Stomach, Via Natural or Artificial Opening Endoscopic (ICD-10-PCS; CPT 43235; principal; 2023-02-19 10:45)
PROC: 0DJD8ZZ Inspection of Lower Intestinal Tract, Via Natural or Artificial Opening Endoscopic (ICD-10-PCS; CPT 45378; principal; 2023-02-26 12:15)
DX: C49.9 Malignant neoplasm of connective and soft tissue, unspecified (principal); E44.0 Moderate protein-calorie malnutrition; K31.5 Obstruction of duodenum; S22.43XA Multiple fractures of ribs, bilateral, initial encounter for closed fracture; N39.0 Urinary tract infection, site not specified; J96.11 Chronic respiratory failure with hypoxia; F41.9 Anxiety disorder, unspecified; F32.A Depression, unspecified; K21.9 Gastro-esophageal reflux disease without esophagitis; E03.9 Hypothyroidism, unspecified; J44.9 Chronic obstructive pulmonary disease, unspecified; Z99.81 Dependence on supplemental oxygen; E21.3 Hyperparathyroidism, unspecified; R42 Dizziness and giddiness; W18.39XA Other fall on same level, initial encounter; Z79.02 Long term (current) use of antithrombotics/antiplatelets; K31.7 Polyp of stomach and duodenum; D50.9 Iron deficiency anemia, unspecified; M81.0 Age-related osteoporosis without current pathological fracture; G89.29 Other chronic pain; M54.50 Low back pain, unspecified; I25.119 Atherosclerotic heart disease of native coronary artery with unspecified angina pectoris; G25.81 Restless legs syndrome; N18.31 Chronic kidney disease, stage 3a; E11.22 Type 2 diabetes mellitus with diabetic chronic kidney disease; N39.41 Urge incontinence; F51.04 Psychophysiologic insomnia; M31.6 Other giant cell arteritis; Z68.25 Body mass index [BMI] 25.0-25.9, adult; I25.84 Coronary atherosclerosis due to calcified coronary lesion; I70.0 Atherosclerosis of aorta; M47.816 Spondylosis without myelopathy or radiculopathy, lumbar region; R90.82 White matter disease, unspecified; B96.20 Unspecified Escherichia coli [E. coli] as the cause of diseases classified elsewhere; R29.6 Repeated falls; F17.210 Nicotine dependence, cigarettes, uncomplicated; Z66 Do not resuscitate; R26.89 Other abnormalities of gait and mobility; Z91.81 History of falling; Y93.01 Activity, walking, marching and hiking; Y92.232 Corridor of hospital as the place of occurrence of the external cause; S09.90XA Unspecified injury of head, initial encounter
CPT/HCPCS: 43239; 45378; 36415; 71250; 80048; 80053; 82550; 84145; 86850; 86900; 86901; 86920; 88305; 90471; 93005; 94640; 96361; 96365; 97110; 97112; 97116; 97162; 97530; 99222; 99231; 99232; 99285; 70450; 71260; 72125; 74176; 81003; 81015; 82105; 82378; 82607; 82728; 82746; 83735; 84484; 85025; 85610; 86140; 88361; 93010; 94664; 94668; 94760; 99223; 99233; 99239; A0425; A0428; J0696; J1650; J2270; J2405; J3475; J3490; J7042; P9016

== ENCOUNTER 2023-03-27 16:36 | Emergency (ER) | payer MEDICARE, MEDICAID, SELFPAY ==
[2023-03-27] VITALS (72 sets, daily range): BP systolic 82–103; BP diastolic 29–63; PULSE 68–82; RESP 13–21; TEMP 36.3; O2SAT 94–100
--- NOTE | 2023-03-27 16:45 | DI.CT_ITS ---
Exam(s) CT ABDOMEN PELVIS W EXAM: CT ABDOMEN PELVIS W CLINICAL HISTORY: liver mass, increased ruq and rlq abdomen pain. TECHNIQUE: Imaging Protocol: Axial computed tomography images with coronal and sagittal reformatted images were created and reviewed CONTRAST MATERIAL: Intravenous: Omnipaque 350 Contrast volume:80 ml Oral: yes / no COMPARISON: CT CT CHEST/ABD/PEL WO from 02/18/2023 FINDINGS: ABDOMEN: Lung Bases: Emphysematous changes and lower lobe scarring visible. Some bronchiectasis noted right l ower lobe. Right lower lobe atelectasis. Liver: Marked increase in size previously noted liver mass. This is contiguous to the antrum of the stomach. There is now a large amount of air seen within the mass. There is also now severe intrahep atic biliary dilatation which was not present previously. Gallbladder appears to be engulfed by the mass. Pancreas: Normal density, no abnormal calcifications or inflammatory process. Spleen: Normal. Kidneys: Right kidney mildly inferiorly displaced by liver enlargement. No evidence of renal invasio n.. No radiodense stones or obstructive uropathy. No suspicious masses seen. Adrenal glands: No masses seen. Vasculature: Abdominal aorta non-dilated. Atherosclerotic changes. Soft tissues: Unremarkable. PELVIS: Bladder: No gross wall thickening. No calculi.No focal mass. Bowel: No obstruction. No bowel wall thickening. Moderate to increased stool. Peritoneal cavity: No ascites, collection or mesenteric inflammatory response. Bones: Hardware right proximal femur. Degenerative changes in the spine and hips. Reproductive organs: Status post hysterectomy. Lymph nodes: Unremarkable. IMPRESSION:: Interval increase in size of large liver mass now measuring 12 cm now containing air. This appears acute communicate with the gastric mass. Abscess not excluded. New marked biliary dilat ation. RADIATION DOSE DELIVERED: 746.99mGy.cm Total DLP DATA REPOSITORY: All CT scans at this facility are submitted to the National Radiology Data Registry (NRDR) Dose Index Registry (DIR) with the [employer] ([employer]). RADIATION OPTIMIZATION: All CT scans at this facility use at least one of these dose optimization te chniques: automated exposure control; mA and/or kV adjustment per patient size (includes targeted exa ms where dose is matched to clinical indication); or iterative reconstruction.
--- NOTE | 2023-03-27 16:51 | ED.GENADUL_ITS ---
Discharge Plan Discharge Details Chief Complaint: Abd Prob Clinical Impression: Liver mass, Abdominal pain, Biliary obstruction, Hyperbilirubinemia Primary Care Provider: Maria Guadalupe Price ED Provider: Abril Gore Home Meds and New Rx's Prescriptions: No Action gabapentin 800 mg tablet 800 mg PO TID Qty: 1 0RF metoprolol succinate 25 mg tablet extended release 24 hr 25 mg PO DAILY Qty: 1 0RF metoprolol succinate 50 mg tablet extended release 24 hr 50 mg PO DAILY Qty: 1 0RF naproxen sodium [Flanax (naproxen)] 220 mg tablet 220 mg PO BID Qty: 1 0RF fentanyl 12 mcg/hr patch 72 hour 1 patch transdermal Q72H MDD 1 Qty: 1 0RF ipratropium-albuterol 3 ML solution for nebulization 3 ml Inhalation Q6H PRN PRN albuterol sulfate 3 ML solution for nebulization 3 ml Inhalation Q4H PRN PRN albuterol sulfate 8.5 GM HFA aerosol inhaler 2 puff Inhalation Q4H PRN PRN budesonide-formoterol [Symbicort] 60 PUFF HFA aerosol inhaler 2 puff Inhalation BID mirabegron 25 mg Tablet Extended Release 24 Hr 25 mg PO QHS atorvastatin 40 mg Tablet 40 mg PO DAILY clopidogrel 75 mg Tablet 75 mg PO DAILY amitriptyline 50 mg Tablet 50 mg PO QHS levothyroxine 25 mcg Tablet 25 mcg PO DAILY pantoprazole 20 mg Tablet,Delayed Release (Dr/Ec) 20 mg PO BID nitroglycerin 0.4 mg Tablet, Sublingual 0.4 mg SUBLINGUAL Q5M PRN cholecalciferol (vitamin D3) 1,000 unit Tablet,Chewable 5,000 unit PO DAILY Spiriva Respimat 2.5 mcg/actuation Mist 2 puff INHALATION DAILY (DME) Oxygen-Air Delivery Systems 4 ondansetron 4 mg tablet,disintegrating 4 mg PO TID PRN (Reason: nausea and vomiting) Qty: 6 0RF Patient Comments: duplicate 03/27/23 CT isosorbide mononitrate 30 mg tablet extended release 24 hr 30 mg PO DAILY duloxetine 30 mg capsule,delayed release(DR/EC) 30 mg PO DAILY Patient Comments: TAKE 1 CAPSULE BY MOUTH ONCE DAILY bupropion HCl 150 mg Tablet Extended Release 24 Hr 150 mg PO QAM acetaminophen 500 mg Tablet 1,000 mg PO Q8H Qty: 30 0RF docusate sodium [Colace] 100 mg Capsule 100 mg PO BID Qty: 0 0RF famotidine 20 mg Tablet 20 mg PO HS Qty: 0 0RF Patient Comments: Not on med list from [place] 03/27/23 CT lidocaine 5 % Adhesive Patch,Medicated 2 patch topical DAILY Qty: 0 0RF Patient Comments: Not on med list from [place] 03/27/23 CT ondansetron 4 mg Tablet,Disintegrating 4 mg PO Q8H PRN PRNQty: 0 0RF polyethylene glycol 3350 17 gram Powder In Packet 17 g PO BID Qty: 0 0RF Phlexy-Vits 15 mg- 700 mcg Powder In Packet 1 oz PO TID Qty: 0 0RF Patient Comments: Not on med list from [place] 03/27/23 CT melatonin 3 mg Tablet 3 mg PO HS PRN Medical Decision Making 77 yo female with hx of recent diagnosis of liver sarcoma, copd, who comes in with ems for abdominal pain for 3 days and also has noticed increased jaundice at the rehab facility. She denies chest pain, dyspnea, vomiting, fevers. She is jaundiced on arrival, inital bp low. She has a soft abdomen, tender in the right upper and right lower abdomen, clear lung sounds. Given the increased jaundice and pain will proceed with cbc, cmp, bilirbuin and obtain ct abd/pelvis to evaluate for biliary obstruction and less likely appendicitis labs show bilirubin of 10 with conjungated bilirubin 9, wbc 27, hemoglobin 8 and ranges from 8-10. CT shows increased right hepatic lobe mass increased in size with extension into gastric antrum and air within it possibly indicating communicating with the gastric lumen, and has intrahepatic biliary ductal dilation. I suspect cholangitis. Zosyn ordered, [place] [facility] [place] on reassessment she feels better, bp is 88/44, will order a second bolus. pt signed out to oncoming provider pending callback from [facility] [place], will likely need admission vs transfer. Differential Diagnosis Differential Diagnosis: liver cancer, appendicitis, biliary obstruction Imaging Data Radiologic Study: Attestation: I personally reviewed and interpreted this imaging study as follows: Imaging: X-Ray Radiologist's impression: PROCEDURE INFORMATION: Exam: XR Chest Exam date and time: 03/27/2023 6:25 PM Age: 77 years old Clinical indication: Other: ? Pneumonia TECHNIQUE: Imaging protocol: Radiologic exam of the chest. Views: 2 views. COMPARISON: CT CHEST/ABD/PEL WO 02/18/2023 5:41 PM FINDINGS: Lungs: No consolidation. No Mass Pleural spaces: No pleural effusion. No pneumothorax. Heart/Mediastinum: Unremarkable Bones/joints: Degenerative changes in the thoracic spine. IMPRESSION: No acute cardiopulmonary disease Radiologic Study #2: Attestation: I personally reviewed and interpreted this imaging study as follows: Imaging: CT Scan Radiologist's impression: PROCEDURE INFORMATION: Exam: XR Chest Exam date and time: 03/27/2023 6:25 PM Age: 77 years old Clinical indication: Other: ? Pneumonia TECHNIQUE: Imaging protocol: Radiologic exam of the chest. Views: 2 views. COMPARISON: CT CHEST/ABD/PEL WO 02/18/2023 5:41 PM FINDINGS: Lungs: No consolidation. No Mass Pleural spaces: No pleural effusion. No pneumothorax. Heart/Mediastinum: Unremarkable Bones/joints: Degenerative changes in the thoracic spine. IMP RESSION: No acute cardiopulmonary disease Lab Data Lab results reviewed: Yes I reviewed the patient's lab results. HPI General Mode of arrival: ambulatory . Date/Time Provider Initiated Documentation: 03/27/23 16:37 . Limitations to Documentation: no limitations . Information obtained by: patient . History of Present Illness 77 year old F presents to the emergency department with the chief complaint of right sided abominal pain , described as moderate, Quality is described as aching, and is localized to the abdomen. Patient reports no radiation. Patient started experiencing this day(s) (3) and it has been constant. No relieving factors improve symptom(s), No exacerbating factors reported . Patient did receive the following treatments prior to arrival, none Related Data Home Medications Medication Instructions Recorded Confirmed albuterol sulfate 2.5 mg/3 mL 3 ml inhalation Q4H PRN PRN 02/25/15 03/27/23 (0.083 %) solution for nebulization albuterol sulfate 90 mcg/actuation 2 puff inhalation Q4H PRN PRN 02/25/15 03/27/23 aerosol inhaler budesonide-formoterol HFA 160 2 puff inhalation BID 02/25/15 03/27/23 mcg-4.5 mcg/actuation aerosol inhaler (Symbicort) ipratropium 0.5 mg-albuterol 3 mg 3 ml inhalation Q6H PRN PRN 02/25/15 03/27/23 (2.5 mg base)/3 mL nebulization soln Oxygen-Air Delivery Systems 04/02/19 03/27/23 amitriptyline 50 mg tablet 50 mg PO QHS 04/02/19 03/27/23 atorvastatin 40 mg tablet 40 mg PO DAILY 04/02/19 03/27/23 cholecalciferol (vitamin D3) 25 5,000 unit PO DAILY 04/02/19 03/27/23 mcg (1,000 unit) chewable tablet clopidogrel 75 mg tablet 75 mg PO DAILY 04/02/19 03/27/23 levothyroxine 25 mcg tablet 25 mcg PO DAILY 04/02/19 03/27/23 nitroglycerin 0.4 mg sublingual 0.4 mg sublingual Q5M PRN 04/02/19 03/27/23 tablet pantoprazole 20 mg tablet,delayed 20 mg PO BID 04/02/19 03/27/23 release tiotropium bromide 2.5 2 puff inhalation DAILY 04/02/19 03/27/23 mcg/actuation mist for inhalation (Spiriva Respimat) mirabegron 25 mg tablet,extended 25 mg PO QHS 05/26/21 03/27/23 release 24 hr ondansetron 4 mg disintegrating 4 mg PO TID PRN nausea and 07/07/21 03/24/23 tablet vomiting #6 tabs isosorbide mononitrate 30 mg 30 mg PO DAILY 01/06/22 03/27/23 tablet,extended release 24 hr duloxetine 30 mg capsule,delayed 30 mg PO DAILY 02/18/23 03/27/23 release bupropion HCl 150 mg 24 hr tablet, 150 mg PO QAM 02/19/23 03/27/23 extended release acetaminophen 500 mg tablet 1,000 mg PO Q8H #30 tabs 03/12/23 03/27/23 docusate sodium 100 mg capsule 100 mg PO BID #0 caps 03/12/23 03/27/23 (Colace) famotidine 20 mg tablet 20 mg PO HS #0 tabs 03/12/23 03/24/23 lidocaine 5 % topical patch 2 patch topical DAILY #0 ea 03/12/23 03/24/23 multivit with mins-ferrous sulf 15 1 oz PO TID #0 ea 03/12/23 03/24/23 mg-folic 700 mcg oral powder packet (Phlexy-Vits) ondansetron 4 mg disintegrating 4 mg PO Q8H PRN PRN #0 tabs 03/12/23 03/27/23 tablet polyethylene glycol 3350 17 gram 17 g PO BID #0 ea 03/12/23 03/27/23 oral powder packet fentanyl 12 mcg/hr transdermal 1 patch transdermal Q72H #1 ea 03/24/23 03/27/23 patch gabapentin 800 mg tablet 800 mg PO TID #1 tab 03/24/23 03/27/23 metoprolol succinate 25 mg 25 mg PO DAILY #1 tab 03/24/23 03/27/23 tablet,extended release 24 hr metoprolol succinate 50 mg 50 mg PO DAILY #1 tab 03/24/23 03/27/23 tablet,extended release 24 hr naproxen sodium 220 mg tablet 220 mg PO BID #1 tab 03/24/23 03/27/23 (Flanax (naproxen)) melatonin 3 mg tablet 3 mg PO HS PRN 03/27/23 03/27/23 Previous Rx's Medication Instructions Recorded ondansetron 4 mg disintegrating 4 mg PO TID PRN nausea and 07/07/21 tablet vomiting #6 tabs acetaminophen 500 mg tablet 1,000 mg PO Q8H #30 tabs 03/12/23 docusate sodium 100 mg capsule 100 mg PO BID #0 caps 03/12/23 (Colace) famotidine 20 mg tablet 20 mg PO HS #0 tabs 03/12/23 lidocaine 5 % topical patch 2 patch topical DAILY #0 ea 03/12/23 multivit with mins-ferrous sulf 15 1 oz PO TID #0 ea 03/12/23 mg-folic 700 mcg oral powder packet (Phlexy-Vits) ondansetron 4 mg disintegrating 4 mg PO Q8H PRN PRN #0 tabs 03/12/23 tablet polyethylene glycol 3350 17 gram 17 g PO BID #0 ea 03/12/23 oral powder packet fentanyl 12 mcg/hr transdermal 1 patch transdermal Q72H #1 ea 03/24/23 patch gabapentin 800 mg tablet 800 mg PO TID #1 tab 03/24/23 metoprolol succinate 25 mg 25 mg PO DAILY #1 tab 03/24/23 tablet,extended release 24 hr metoprolol succinate 50 mg 50 mg PO DAILY #1 tab 03/24/23 tablet,extended release 24 hr naproxen sodium 220 mg tablet 220 mg PO BID #1 tab 03/24/23 (Flanax (naproxen)) Allergies Allergy/AdvReac Type Severity Reaction Status Date / Time aspirin AdvReac Intermediate makes her Unverified 03/27/23 16:39 loopy General Stated Complaint: Abd Prob GINAA: 3 Review of Systems All systems reviewed & are unremarkable except as noted in HPI and below Constitutional Constitutional: Denies chills, Denies fever(s) and Denies weakness Cardiovascular Cardiovascular: Denies chest pain and Denies dyspnea Respiratory Respiratory: Denies cough and Denies dyspnea Gastrointestinal Gastrointestinal: Reports abdominal pain and Denies vomiting Musculoskeletal Musculoskeletal: Denies joint swelling Neurologic Neurologic: Denies weakness PFSH All Active Problems (Updated 03/27/23 @ 19:39 by Brady Damico MD) Abdominal pain (Acute) Biliary obstruction (Acute) Hyperbilirubinemia (Acute) Frequent falls (Acute) Poor balance (Acute) Sarcomatoid renal cell carcinoma (Acute) Unclear what source of tumor is, it is adjacent to liver. No other renal or lung mass was seen. No choices for sarcomatoid carcinoma unless linked to kidney or lung. 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 (Acute) Unexplained weight loss (Acute) Protein-calorie malnutrition, moderate (Acute) Metastasis to liver (Acute) Mass of hepatic flexure of colon (Acute) Microcytic anemia (Acute) Multiple fractures of ribs of both sides (Acute) Fall as cause of accidental injury at home as place of occurrence (Acute) Osteoporosis (Chronic) Chronic low back pain (Chronic) Atherosclerotic heart disease [place] coronary artery w/angina pectoris (Acute) Restless legs syndrome (RLS) (Acute) Urge incontinence (Acute) Chronic insomnia (Acute) Temporal arteritis (Acute) Mass of stomach (Acute) Liver mass (Acute) Syncope (Chronic) Anemia (Chronic) Closed rib fracture (Acute) COPD (chronic obstructive pulmonary disease) (Chronic) Medical History Anxiety Depression Diabetes DJD (degenerative joint disease), lumbar GERD (gastroesophageal reflux disease) Hyperparathyroidism Hypothyroidism Surgical History History of appendectomy History of back surgery History of knee surgery Status post hip replacement Social History Smoking/Tobacco Use Status: Former Tobacco Use Smoking risk assessment performed?: Yes Alcohol Intake: former Drug use: Never Substance use type: does not use Housing: retirement Do you feel safe at home: Yes Do you feel safe in your relationship?: Yes Exam Const General: no acute distress Orientation: alert HENMT Head: normal to inspection Ears: external ears normal General nose exam: external nose normal Mouth: moist mucous membranes Neck Neck: normal visual inspection Resp Effort & Inspection: normal respiratory effort and able to speak in complete sentences Cardio Rate: regular rate GI Palpation: soft and tender Skin General skin exam: jaundice Neuro General: patient alert and patient oriented x3 Extrem General: normal to inspection Psych Mental Status: mental status grossly normal Course Vital Signs Vital signs: Vital Signs Temperature 36.3 C L 03/27/23 16:39 Pulse 74 03/27/23 16:39 Respiratory Rate 20 03/27/23 16:39 Blood Pressure 88/63 L 03/27/23 16:39 Pulse Oximetry 94 03/27/23 16:39 Temperature 36.3 C L 03/27/23 16:39 Temperature Source Temporal Artery Scan 03/27/23 16:39 Pulse 74 03/27/23 16:39 Respiratory Rate 20 03/27/23 16:39 Blood Pressure 88/63 L 03/27/23 16:39 Blood Pressure Position Supine 03/27/23 16:39 Pulse Oximetry 94 03/27/23 16:39 Oxygen Delivery Method Nasal Cannula 03/27/23 16:39 Oxygen Flow Rate 2 03/27/23 16:39 Pain Level 4 09/16/23 16:39 Sign Out Sign Out Data: Sign Out Comment: Recent admission for liver mass, had biopsies done at [facility] [place] and waiting for oncology referral. Increased abdominal pain for several days and jaudiced now, bilirubin up to 10, conjugated of 9, wbc 27. Given zosyn, CT showing mildly enlarged mass now with air within it and biliary obstruction. Pending consult with [place] [facility] [place]. Pt is DNR/DNI but is pursuing treatment for the cancer. Last updated by Brady Damico MD at 03/27/23 19:43
[2023-03-27 17:16] LABS: Abs Immature Grans 1.05 10^3/uL (0.0-0.06); HCT 27.2 % (36.0-46.0); MCH 26.5 pg (27.0-33.0); MCHC 29.4 % (32.0-36.0); MCV 90 fL (80-95); MPV 9.5 fL (8.0-11.0); Platelet Count 191 10^3/uL (130-400); RBC 3.02 10^6/uL (3.93-5.22); RDW 18.2 % (11.7-14.6); RDW-SD 57.7 fL
[2023-03-27 17:17] LABS: Absolute Neutrophil Count 21.86 10^3/uL (1.2-6.7)
[2023-03-27 17:18] LABS: WBC 27.67 10^3/uL (4.4-10.8)
[2023-03-27 17:29] LABS: INR 1.2 (0.9-1.1); PTT Activated 28.7 sec (21.5-31.9)
[2023-03-27] MEDS: Normal Saline 1,000 ML 1000 ML IV ×2 (17:29→19:56)
[2023-03-27 17:38] LABS: ALT 63 U/L (14-59); AST 104 U/L (15-37); Albumin 1.8 g/dL (3.4-5.0); Alkaline Phosphatase 982 U/L (46-116); Anion Gap 7.1 mmol/L (3-11); BUN 19 mg/dL (7-18); CO2 27.9 mmol/L (21.0-32.0); CREATININE 1.3 mg/dL (0.55-1.02); Calcium 10.1 mg/dL (8.5-10.1); Chloride 100 mmol/L (98-107); Estimated GFR 42.09 (mL/min/1.73m2); Glucose 130 mg/dL (74-106); Magnesium 1.6 mg/dL (1.8-2.4); Potassium 3.8 mmol/L (3.5-5.1); Sodium 135 mmol/L (136-145); Total Protein 6.5 g/dL (6.4-8.2)
[2023-03-27 17:54] LABS: Bilirubin, Direct 9.1 mg/dL (0.0-0.2)
[2023-03-27 17:56] LABS: Procalcitonin 0.7 ng/mL
[2023-03-27] MEDS: Omnipaque 350 MG/ML 100 ML BTL IJ (17:58)
[2023-03-27] MEDS: Normal Saline - Diluent 50 ML VIAL IJ (17:58)
[2023-03-27] MEDS: Normal Saline Flush 10 ML SYR IVP (18:05)
[2023-03-27 18:07] LABS: Absolute Monocyte Count 1.94 10^3/uL (0.1-0.8); Diff Comment Manual Differential; Metamyelocytes % 1
[2023-03-27 18:08] LABS: Polychromasia Present
--- NOTE | 2023-03-27 18:34 | DI.RAD_ITS ---
Exam(s) XR CHEST 2V PA LATERAL EXAM: XR CHEST 2V PA LATERAL CLINICAL HISTORY: ?pneumonia TECHNIQUE: 2D digital imaging was performed. COMPARISON: CT CT CHEST/ABD/PEL WO from 02/18/[address] ABDOMEN PELVIS W from 03/27/2023 FINDINGS: HEART: Normal size. Aorta: Not dilated. PULMONARY VASCULATURE: Normal. LUNGS: Right upper lobe scarring. Mildly increased interstitial changes, chronic. PLEURAL SPACE: No pleural effusion or pneumothorax. BONE:Degenerative changes in the spine and shoulders. IMPRESSION: No acute abnormality. DATA REPOSITORY: RADIATION DOSE DELIVERED:
[2023-03-27] MEDS: MAGNESIUM SULFATE 2 GM/50 ML BAG IVPB (18:40)
--- NOTE | 2023-03-27 18:45 | DI.VRAD_ITS ---
PROCEDURE INFORMATION: Exam: CT Abdomen And Pelvis With Contrast Exam date and time: 03/27/2023 6:11 PM Age: 77 years old Clinical indication: Other: Liver mass, increased ruq and rlq abdomen pain; Prior surgery; Surgery date: 6+ months; Surgery type: Appendectomy TECHNIQUE: Imaging protocol: Computed tomography of the abdomen and pelvis with contrast. Contrast material: OMNIPAQUE 350; Contrast volume: 80 ml; Contrast route: INTRAVENOUS (IV); COMPARISON: CT CHEST/ABD/PEL WO 02/18/2023 5:41 PM FINDINGS: Lungs: The visualized lung bases are clear Liver: 12.1 x 12.4 cm hypodense mass in the right hepatic lobe is larger from the previous study. This extends into the region of the gastric antrum and the previous mass of the gastric antrum is now more hypodense. There is air within this mass. The stomach is not significantly dilated. There is new intrahepatic biliary ductal dilatation. There is new mild fat stranding adjacent to the inferior tip of the liver. Gallbladder and bile ducts: The gallbladder is not visualized. Pancreas: Normal. No ductal dilation. Spleen: Normal. No splenomegaly. Adrenal glands: Normal. No mass. Kidneys and ureters: Normal. No hydronephrosis. Stomach and bowel: The small and large bowel are normal in caliber. No wall thickening. Appendix: No evidence of appendicitis. Intraperitoneal space: No free fluid or free air within the abdomen and pelvis. Vasculature: Scattered atherosclerotic calcifications. No aneurysmal dilatation of the abdominal aorta. Lymph nodes: Unremarkable. No enlarged lymph nodes. Urinary bladder: Unremarkable as visualized. Reproductive: Unremarkable as visualized. Bones/joints: Dynamic compression screw and intramedullary yaneli within the right proximal femur. Degenerative changes of the lumbar spine. No suspicious lytic blastic bone lesions. Soft tissues: Unremarkable. IMPRESSION: 1. Large right hepatic lobe mass has increased in size from prior study. This is extending into the gastric antrum and the air within it indicates this is now communicating with the gastric lumen. 2. New intrahepatic biliary ductal dilatation is likely due to obstruction from the large right hepatic lobe mass. THIS REPORT CONTAINS FINDINGS THAT MAY BE CRITICAL TO PATIENT CARE. The findings were verbally communicated via telephone conference with Dr. Brady Damico at 6:44 PM EDT on 03/27/2023. The findings were acknowledged and understood. Dictated and Authenticated by: Cecilio Kenney MD. Ordering:LORRI Abreu MD
--- NOTE | 2023-03-27 18:46 | DI.VRAD_ITS ---
PROCEDURE INFORMATION: Exam: XR Chest Exam date and time: 03/27/2023 6:25 PM Age: 77 years old Clinical indication: Other: ? Pneumonia TECHNIQUE: Imaging protocol: Radiologic exam of the chest. Views: 2 views. COMPARISON: CT CHEST/ABD/PEL WO 02/18/2023 5:41 PM FINDINGS: Lungs: No consolidation. No Mass Pleural spaces: No pleural effusion. No pneumothorax. Heart/Mediastinum: Unremarkable Bones/joints: Degenerative changes in the thoracic spine. IMPRESSION: No acute cardiopulmonary disease Dictated and Authenticated by: Cecilio Kenney MD. Ordering:LORRI Abrue MD
[2023-03-27] MEDS: PIPERACILLIN/TAZO 4.5 GM in Normal Saline 100 ML IVPB (19:05)
--- NOTE | 2023-03-27 20:38 | W.EDPROG ---
Date of service: 03/27/23 Time of Service: 20:00 Medical Decision Making This patient was signed out to me. Please see previous notes for H&P and initial eval. In brief, this is a 77yo F with recently diagnosed liver mass, biopsied at [facility]. DNR/DNI. Re-presents today with abdominal pain and jaundice. Bilirubin of 10, WBC 17. CT showed mass increasing in size and likely invading gastric antrum with resultant air in mass. Given zosyn. Signed out pending GI consult from [facility]. BP borderline on visit review; albumin low with new onset liver failure. Given IV albumin followed by mIVF with improvement in pressure, MAP persistently >65 (some automatic BP charted lower i.e. 5:10 BP of 95/34; manual recheck at that time showed BP of 110/55). Spoke with GI consulting manager at [facility] and discussed case; felt to need multiple services including GI, oncology, and surgery. Plan for transfer to [facility]; no beds available overnight but anticipated early in the am. Consider transfer elsewhere; patient would significantly benefit from establishing with [facility] oncology/GI/surgery rather than further away as she will likely need consistent outpatient followup at some point, she is at this time stable to remain in the ED overnight and we have ED capacity at this time . Placed on standing zosyn and appropriate home meds ordered. Sign out to oncoming physician at 0800, plan to transfer when bed available at [facility]. Should this be delayed beyond this morning will need to consider medicine service in the interim vs transfer elsewhere. Sign Out Sign Out Data: Sign Out Comment: Recent admission for liver mass, had biopsies done at [facility] and waiting for oncology referral. Increased abdominal pain for several days and jaudiced now, bilirubin up to 10, conjugated of 9, wbc 27. Given zosyn, CT showing mildly enlarged mass now with air within it and biliary obstruction. Pending consult with GI at [facility] [place]. Pt is DNR/DNI but is pursuing treatment for the cancer. Last updated by Brady Damico MD at 03/27/23 19:43 Sign Out Comment: Discussed with [facility] GI, accepted but no beds available overnight (anticipate early this am). Held in ED overnight pending am transfer as would benefit from establishing with GI/surg/oncology at [facility] rather than transfer further. DNR/DNI Last updated by Abril Gore MD at 03/28/23 05:32 Discharge Plan Discharge Details Chief Complaint: Abd Prob Clinical Impression: Liver mass, Abdominal pain, Biliary obstruction, Hyperbilirubinemia Primary Care Provider: Maria Guadalupe Price ED Provider: Abril Gore Home Meds and New Rx's Prescriptions: No Action gabapentin 800 mg tablet 800 mg PO TID Qty: 1 0RF metoprolol succinate 25 mg tablet extended release 24 hr 25 mg PO DAILY Qty: 1 0RF metoprolol succinate 50 mg tablet extended release 24 hr 50 mg PO DAILY Qty: 1 0RF naproxen sodium [Flanax (naproxen)] 220 mg tablet 220 mg PO BID Qty: 1 0RF fentanyl 12 mcg/hr patch 72 hour 1 patch transdermal Q72H MDD 1 Qty: 1 0RF ipratropium-albuterol 3 ML solution for nebulization 3 ml Inhalation Q6H PRN PRN albuterol sulfate 3 ML solution for nebulization 3 ml Inhalation Q4H PRN PRN albuterol sulfate 8.5 GM HFA aerosol inhaler 2 puff Inhalation Q4H PRN PRN budesonide-formoterol [Symbicort] 60 PUFF HFA aerosol inhaler 2 puff Inhalation BID mirabegron 25 mg Tablet Extended Release 24 Hr 25 mg PO QHS atorvastatin 40 mg Tablet 40 mg PO DAILY clopidogrel 75 mg Tablet 75 mg PO DAILY amitriptyline 50 mg Tablet 50 mg PO QHS levothyroxine 25 mcg Tablet 25 mcg PO DAILY pantoprazole 20 mg Tablet,Delayed Release (Dr/Ec) 20 mg PO BID nitroglycerin 0.4 mg Tablet, Sublingual 0.4 mg SUBLINGUAL Q5M PRN cholecalciferol (vitamin D3) 1,000 unit Tablet,Chewable 5,000 unit PO DAILY Spiriva Respimat 2.5 mcg/actuation Mist 2 puff INHALATION DAILY (DME) Oxygen-Air Delivery Systems 4 ondansetron 4 mg tablet,disintegrating 4 mg PO TID PRN (Reason: nausea and vomiting) Qty: 6 0RF Patient Comments: duplicate 03/27/23 CT isosorbide mononitrate 30 mg tablet extended release 24 hr 30 mg PO DAILY duloxetine 30 mg capsule,delayed release(DR/EC) 30 mg PO DAILY Patient Comments: TAKE 1 CAPSULE BY MOUTH ONCE DAILY bupropion HCl 150 mg Tablet Extended Release 24 Hr 150 mg PO QAM acetaminophen 500 mg Tablet 1,000 mg PO Q8H Qty: 30 0RF docusate sodium [Colace] 100 mg Capsule 100 mg PO BID Qty: 0 0RF famotidine 20 mg Tablet 20 mg PO HS Qty: 0 0RF Patient Comments: Not on med list from [place] 03/27/23 CT lidocaine 5 % Adhesive Patch,Medicated 2 patch topical DAILY Qty: 0 0RF Patient Comments: Not on med list from [place] 03/27/23 CT ondansetron 4 mg Tablet,Disintegrating 4 mg PO Q8H PRN PRNQty: 0 0RF polyethylene glycol 3350 17 gram Powder In Packet 17 g PO BID Qty: 0 0RF Phlexy-Vits 15 mg- 700 mcg Powder In Packet 1 oz PO TID Qty: 0 0RF Patient Comments: Not on med list from [place] 03/27/23 CT melatonin 3 mg Tablet 3 mg PO HS PRN
[2023-03-27] MEDS: ALBUMIN HUMAN 25 GM/100 ML BTL IVPB (21:45)
[2023-03-27 22:53] LABS: Bilirubin Large (Negative); Blood Negative (Negative); Clarity Clear (Clear); Glucose Negative (Negative); Ketones Negative (Negative); Leukocyte Esterase Negative (Negative); Nitrite Negative (Negative); Specific Gravity 1.015 (1.005-1.025); Urobilinogen 0.2 mg/dL (Up to 0.2); pH 5.5 (5-8)
[2023-03-27 22:56] LABS: Bacteria Rare HPF (Negative); Crystals Negative HPF (Negative); Epithelial Cells Few HPF (Negative); Mucus Negative (Negative); RBC Negative HPF (0-2); WBC 0-2 HPF (0-5)
[2023-03-27 22:57] LABS: C & S Indicated? No; Casts Negative LPF (Negative)
[2023-03-28] VITALS (170 sets, daily range): BP systolic 81–154; BP diastolic 28–121; PULSE 74–94; RESP 14–28; O2SAT 89–100
[2023-03-28] MEDS: PIPERACILLIN/TAZO 3.375 GM in Normal Saline 50 ML IVPB ×2 (02:40→10:28)
[2023-03-28] MEDS: Normal Saline 1,000 ML 150 ML IV ×2 (05:21→11:56)
[2023-03-28] MEDS: Atorvastatin 40 MG TAB PO (08:23)
[2023-03-28] MEDS: Levothyroxine 25 MCG TAB PO (08:23)
[2023-03-28] MEDS: buPROPion-XL 150 MG TABCR PO (08:23)
[2023-03-28] MEDS: Gabapentin 800 MG TAB PO (08:23)
[2023-03-28] MEDS: DULoxetine 30 MG CAP PO (08:24)
[2023-03-28] MEDS: Clopidogrel 75 MG TAB PO (08:24)
[2023-03-28] MEDS: fentaNYL 100 MCG/2 ML VIAL 50 MCG IVP (11:01)
--- NOTE | 2023-03-28 16:18 | ED.PROG_ITS ---
Date of service: 03/28/23 Time of Service: 16:18 Medical Decision Making pt observed throughout the day, had an episode of abdominal pain that responded well to fentanyl, [facility] bed now available and will be transported down for further speciality care. Sign Out Sign Out Data: Sign Out Comment: Recent admission for liver mass, had biopsies done at [facility] and waiting for oncology referral. Increased abdominal pain for several days and jaudiced now, bilirubin up to 10, conjugated of 9, wbc 27. Given zosyn, CT showing mildly enlarged mass now with air within it and biliary obstruction. Pending consult with GI at [facility] [place]. Pt is DNR/DNI but is pursuing treatment for the cancer. Last updated by Brady Damico MD at 03/27/23 19:43 Sign Out Comment: Discussed with [facility] GI, accepted but no beds available overnight (anticipate early this am). Held in ED overnight pending am transfer as would benefit from establishing with GI/surg/oncology at [facility] rather than transfer further. DNR/DNI Last updated by Abril Gore MD at 03/28/23 05:32 Discharge Plan Disposition Specific Acute Inpt Facility: [facility] Condition: Serious Discharge Details Chief Complaint: Abd Prob Clinical Impression: Liver mass, Abdominal pain, Biliary obstruction, Hyperbilirubinemia Primary Care Provider: Maria Guadalupe Price ED Provider: Brady Damico Home Meds and New Rx's Prescriptions: No Action gabapentin 800 mg tablet 800 mg PO TID Qty: 1 0RF metoprolol succinate 25 mg tablet extended release 24 hr 25 mg PO DAILY Qty: 1 0RF metoprolol succinate 50 mg tablet extended release 24 hr 50 mg PO DAILY Qty: 1 0RF naproxen sodium [Flanax (naproxen)] 220 mg tablet 220 mg PO BID Qty: 1 0RF fentanyl 12 mcg/hr patch 72 hour 1 patch transdermal Q72H MDD 1 Qty: 1 0RF ipratropium-albuterol 3 ML solution for nebulization 3 ml Inhalation Q6H PRN PRN albuterol sulfate 3 ML solution for nebulization 3 ml Inhalation Q4H PRN PRN albuterol sulfate 8.5 GM HFA aerosol inhaler 2 puff Inhalation Q4H PRN PRN budesonide-formoterol [Symbicort] 60 PUFF HFA aerosol inhaler 2 puff Inhalation BID mirabegron 25 mg Tablet Extended Release 24 Hr 25 mg PO QHS atorvastatin 40 mg Tablet 40 mg PO DAILY clopidogrel 75 mg Tablet 75 mg PO DAILY amitriptyline 50 mg Tablet 50 mg PO QHS levothyroxine 25 mcg Tablet 25 mcg PO DAILY pantoprazole 20 mg Tablet,Delayed Release (Dr/Ec) 20 mg PO BID nitroglycerin 0.4 mg Tablet, Sublingual 0.4 mg SUBLINGUAL Q5M PRN cholecalciferol (vitamin D3) 1,000 unit Tablet,Chewable 5,000 unit PO DAILY Spiriva Respimat 2.5 mcg/actuation Mist 2 puff INHALATION DAILY (DME) Oxygen-Air Delivery Systems 4 ondansetron 4 mg tablet,disintegrating 4 mg PO TID PRN (Reason: nausea and vomiting) Qty: 6 0RF Patient Comments: duplicate 03/27/23 CT isosorbide mononitrate 30 mg tablet extended release 24 hr 30 mg PO DAILY duloxetine 30 mg capsule,delayed release(DR/EC) 30 mg PO DAILY Patient Comments: TAKE 1 CAPSULE BY MOUTH ONCE DAILY bupropion HCl 150 mg Tablet Extended Release 24 Hr 150 mg PO QAM acetaminophen 500 mg Tablet 1,000 mg PO Q8H Qty: 30 0RF docusate sodium [Colace] 100 mg Capsule 100 mg PO BID Qty: 0 0RF famotidine 20 mg Tablet 20 mg PO HS Qty: 0 0RF Patient Comments: Not on med list from [place] 03/27/23 CT lidocaine 5 % Adhesive Patch,Medicated 2 patch topical DAILY Qty: 0 0RF Patient Comments: Not on med list from [place] 03/27/23 CT ondansetron 4 mg Tablet,Disintegrating 4 mg PO Q8H PRN PRNQty: 0 0RF polyethylene glycol 3350 17 gram Powder In Packet 17 g PO BID Qty: 0 0RF Phlexy-Vits 15 mg- 700 mcg Powder In Packet 1 oz PO TID Qty: 0 0RF Patient Comments: Not on med list from [place] 03/27/23 CT melatonin 3 mg Tablet 3 mg PO HS PRN
== END 2023-03-28 17:01 | disposition short-term general hospital (02) ==
PROVIDERS: Emergency Provider Emergency Medicine; PCP Internal Medicine Adolescent Medicine
DX: R10.31 Right lower quadrant pain (principal); R17 Unspecified jaundice; K83.1 Obstruction of bile duct; C22.4 Other sarcomas of liver; E11.9 Type 2 diabetes mellitus without complications; I10 Essential (primary) hypertension; E21.0 Primary hyperparathyroidism; Z87.891 Personal history of nicotine dependence
CPT/HCPCS: 80053; 84145; 87040; 96361; 96365; 96366; 96367; 96368; 96375; 99285; 71046; 74177; 81003; 81015; 82248; 83735; 85025; 85610; 85730; 99284; J2543; J3010; J3490